=== PATIENT | male | born 1970 | race Caucasian/White ===

== ENCOUNTER → 2017-09-01 17:02 | Outpatient (CLI) | payer OTHER | END | disposition home or self-care (01) | LOC: D.LABREF 17:02 | DX: N39.0 Urinary tract infection, site not specified (principal) ==

== ENCOUNTER 2019-05-15 15:04 | Inpatient (IN) | payer MEDICAID ==
[~2019-05-15] VITALS: Ht 177.8 cm; Wt 72.6 kg
--- NOTE | ~2019-05-15 | HEMODYNAMI ---
PATIENT:NAYELI BLAS MEDICAL RECORD: [id number] : [birth year] LOCATION:D.MS [id number] ADMISSION DATE: 05/15/19 Generatedon:06/26/201916:16 Patient name: NAYELI BLAS Patient #: [id number] SS N: : 1970 Date of study: 06/26/2019 Page: Of Hemodynamic Procedure Report Patient Data Patient Demographics Procedure consent was obtained First Name: NAYELI Gender: Male Last Name: WAN : 1970 Patient #: [id number] Age: 49 year(s) Race: Unknown Additional ID: [id number] Contact details Address: [address] [place] [address] State: [place] City: [facility] Zip code: [address] Past Medical History Allergies Allergen Reaction Date Comments Reported Other allergy 06/26/2019 sulfa Admission Admission Data Admission Date: 05/15/2019 Admission Time: 17:32 Room #: D.2216 Procedure Procedure Types Cath Procedure Peripheral Cath Diagnostic Procedure PICC Procedure Description Procedure Date Procedure Date: 06/26/2019 Procedure Start Time: 16:03 Procedure End Time: 16:16 Procedure Staff Name Function Quincy Duff MD Performing Physician Briseida Landeros RT Monitor [place] RT Scrub Edelmira Awad RN Nurse Procedure Data Cath Procedure Fluoroscopy Diagnostic fluoroscopy Total fluoroscopy Time: 0.5 time: 0.5 min min Diagnostic fluoroscopy Total fluoroscopy dose: 9 dose: 9 mGy mGy Contrast Material Contrast Material Type Amount (ml) Isovue 300 0 Hemodynamics Rest Pre Cath Intra NCS Post Cath Procedure Log Time Note 15:27:00 Edelmira Awad RN sent for patient. Start room use. 15:27:05 Time tracking: Regular hours (M-F 7:00 - 5:00) 15:27:28 Plan of Care:Hemodynamics will remain stable., Cardiac rhythm will remain stable., Comfort level will be maintained., Respiratory function will remain adequate., Patient/ family verbilizes understanding of procedure., Procedure tolerated without complication., Recovers from procedure without complications.. 15:49:34 Patient received from Med/Surg to IR Alert and oriented. Tansferred to table in Supine position. 15:49:47 Signed procedure consent form obtained from patient. 15:49:52 Warm blankets applied for patient comfort. 15:50:23 Correct patient and procedure confirmed by team. 15:50:27 Full Disclosure recording started 15:52:53 - 15:52:56 Pre-procedure instructions explained to patient. 15:53:00 Pre-op teaching completed and patient verbalized understanding. 15:54:35 Family in patients room. 15:55:00 Patient allergic to Other allergysulfa 15:55:38 Right Arm was prepped with chlora-prep and draped in sterile fashion. 15:55:40 Alarms reviewed. 15:55:42 Sharps counted by scrub and verified. 15:56:40 Use device set IR Diagnostic 15:56:46 Bag Decanter (2002S) opened to sterile field. 15:56:48 Sterile Angiographic Pack opened to sterile field. 15:59:53 PowerPICC 5Fr double lumen catheter opened to sterile field. 16:00:03 Physician arrived 16:00:04 --------ALL STOP TIME OUT------ 16:00:06 Final Timeout: patient, procedure, and site verified with staff and physician. All members of the team are in agreement. 16:00:12 Right Arm site verified by team. 16:01:35 Sedation plan: None Medication:Lidocaine 16:01:48 Procedure started. 16:03:42 Local anesthetic to right arm/brachial vein / with Lidocaine 1% by Quincy Duff MD.INITIAL ACCESS ONLY 16:05:37 the wire from power picc line kit is inserted into the existing catheter, the old catheter removed. 16:08:10 PICC line was trimmed to 45cmcm and advanced to the superior vena cava.Position verified under fluoroscopy. 16:08:39 Procedure ended.(Physican Out) 16:09:57 Fluoroscopy time 00.50 minutes. 16:10:03 Flurop Dose total: 9 16:10:03 Fluoroscopy dose: 9 mGy 16:10:30 Dose Area Product 3406 mGy/cm. 16:10:41 Contrast amount:Isovue 300 0ml. 16:10:50 Sharps counted by scrub and verified by R.N. 16:11:43 Post-op/insertion site Right Brachial vein dressed using a SorbaView Sheild. 16:12:25 Post right arm:stable 16:12:56 Post procedure instruction explained to patient.Patient verbalizes understanding. 16:12:57 Patient needs reinforcement of post procedure teaching. 16:13:03 Procedure and supply charges have been captured, reviewed, submitted an d are correct. 16:15:50 See physician's report for complete and final results. 16:15:57 Report given to Med/Surg. 16:16:05 Patient transfered to Med/Surg with Bed. 16:16:13 Procedure ended. 16:16:13 Full Disclosure recording stopped Device Usage Item Name Manufacture Quantity Catalog Hospital Part Current Minimal Lot# / Number Charge Number Stock Stock Serial# Code Bag Decanter Microtek 1 [id number] () Medical Inc. Sterile Cardinal 1 [id number] 5 Angiographic Health Pack [facility] 1 [id number] 5 5Fr double lumen catheter Signature Audit Forest Stage Time Signature Unsigned Intra-Procedure 06/26/2019 Briseida 4:16:46 PM Leti BURROUGHS(Dm) (CV) Signatures Monitor : Briseida Signature : Leti BURROUGHS Date : Time : [facility] [address] [place] [id number]
[2019-05-15] MEDS ORDERED: IMODIUM2 MG PO (15:32)
[2019-05-15] MEDS ORDERED: KLONOPIN0.5 MG PO (15:33)
[2019-05-15] MEDS ORDERED: ATROVENT HFA12.9 GM INH (15:33)
[2019-05-15] MEDS ORDERED: MELATONIN 3 MG1 TAB PO (15:34)
[2019-05-15] MEDS ORDERED: LIPITOR20 MG PO (15:34)
[2019-05-15] MEDS ORDERED: LANTUS INSULIN10 ML SC (15:34)
[2019-05-15] MEDS ORDERED: NEXIUM40 MG PO (15:35)
[2019-05-15] MEDS ORDERED: NORVASC10 MG PO (15:35)
[2019-05-15] MEDS ORDERED: NEURONTIN 300300 MG PO (15:35)
[2019-05-15] MEDS ORDERED: HYDROCODON-ACE1 EA10 PO (15:35)
[2019-05-15] MEDS ORDERED: ZOFRAN4 MG PO (15:36)
[2019-05-15] MEDS ORDERED: ALBUTEROL SULF8.5 GM INH (15:37)
[2019-05-15] MEDS ORDERED: REMERON15 MG PO (15:37)
[2019-05-15] MEDS ORDERED: ULTRAM50 MG PO (15:38)
[2019-05-15] MEDS ORDERED: TRAZODONE HCL150 MG PO (15:38)
[2019-05-15] MEDS ORDERED: ZOVIRAX400 MG PO (15:38)
[2019-05-15 16:21] LABS: MCH 34.1 pg (26.0-34.0); MCV 94.8 fL (80.0-100.0); MEAN PLATELET VOLUME 11.4 fL (7.4-10.4); PLATELET COUNT 82 10x3/uL (130-400); RBC 2.11 10x6/uL (4.20-6.10); RDW 16.2 % (11.5-14.5); WBC 19.3 10x3/uL (4.8-10.8)
[2019-05-15 16:27] LABS: HEMOGLOBIN 7.2 g/dL (13.5-17.5)
[2019-05-15 16:45] LABS: ALBUMIN 3.6 g/dL (3.4-5.0); ALKALINE PHOSPHATASE 151 U/L (46-116); ALT (SGPT) 55 U/L (10-68); BILIRUBIN - TOTAL 0.23 mg/dL (0.2-1.3); CALC OSMOLALITY 279 mosm/kg (275-300); CARBON DIOXIDE 28.1 mmol/L (21.0-32.0); CHLORIDE - SERUM 99 mmol/L (98-107); CREATININE - SERUM 0.8 mg/dL (0.6-1.3); GLUCOSE 211 mg/dL (74-106); POTASSIUM - SERUM 4.1 mmol/L (3.5-5.1); PROTEIN - SERUM 7.2 g/dL (6.4-8.2); SODIUM 136 mmol/L (136-145); UREA NITROGEN 19 mg/dL (7-18); eGFR NON AFRICAN AMERICAN > 90 mL/min (90-120)
[2019-05-15 17:09] LABS: LYMPHOCYTES 79 % (15-50); MONOCYTES 13 % (2-11); NEUTROPHILS 4 % (40-80); PLATELET ESTIMATE DECREASED; ROULEAUX 4+
[2019-05-15 17:10] LABS: HYPOCHROMASIA 3+
--- NOTE | 2019-05-15 18:42 | NUR ---
RECEIVED PT FROM ER VIA STRETCHER ACCOMPANIED BY ER STAFF. PT ALERT AND ORIENTED. NO C/O PAIN. NO S/S OF ACUTE DISTRESS NOTED. WILL CONTINUE TO MONITOR.
--- NOTE | 2019-05-15 19:32 | MORECARE ---
CASE MANAGEMENT DISCHARGE SUMMARY PATIENT: NAYELI BLAS UNIT: [id number] ADM DATE: 05/15/19 AGE: 49 : [birth year] SEX: M ROOM/BED: D.2216 AUTHOR: SAVANAH LIVINGSTON PHYSICIAN: REFERRING PHYSICIAN: KALEIGH CARRANZA MD DATE OF SERVICE: 05/15/19 Discharge Plan Patient Name: NAYELI BLAS Facility: [facility]:[place] : 1970 Planned Disposition: Half-Way Facility Anticipated Discharge Date: 05/17/19 Discharge Date: Expected LOS: 2 Initial Reviewer: [email or web address] Initial Review Date: 05/15/2019 Generated: 05/15/19 8:32 pm DCPIA - Discharge Planning Initial Assessment Updated by [email or web address]: Mar Silva on 05/15/19 7:30 pm * Is the patient Alert and Oriented? Yes * How many steps to enter\exit or inside your home? * PCP Dr. Carranza * [facility] * Preadmission Environment Half-Way Facility * [facility] * ADLs Partial Dependent * Partial ADLs (Assistance needed) Ambulation Bathing Dressing Medication Management Transfers * Other Equipment No equipment at home. Uses from [facility]. * List name and contact numbers for known caregivers / representatives who currently or will assist patient after discharge: Anika Blas - - [phone] or [phone] * Verbal permission to speak to the caregivers and representatives has been obtained from the patient. Yes * Community resources currently utilized None * Additional services required to return to the preadmission environment? No * Can the patient safely return to the preadmission environment? Yes * Has this patient been hospitalized within the prior 30 days at any hospital? No Patient Name: NAYELI BLAS Page 11846 at 1932 All edits/amendments must be made on the electronic document DICTATION DATE: 05/15/191930 CERTIFIED OPHTHALMIC SURGICAL ASSISTANT: ARACELI 05/15/191930 RPT#: [id number] DC DATE: STATUS: ADM IN [facility] [address] [place] [address] END OF REPORT
--- NOTE | 2019-05-15 19:38 | MORECARE ---
CASE MANAGEMENT DISCHARGE SUMMARY PATIENT: NAYELI BLAS UNIT: [id number] ADM DATE: 05/15/19 AGE: 49 : 68 SEX: M ROOM/BED: D.2216 AUTHOR: SAVANAH LIVINGSTON PHYSICIAN: REFERRING PHYSICIAN: KALEIGH CARRANZA MD DATE OF SERVICE: 05/15/19 Discharge Plan Patient Name: NAYELI BLAS Facility: [facility]:[place] : 1970 Planned Disposition: Snf Facility Anticipated Discharge Date: 05/17/19 Discharge Date: Expected LOS: 2 Initial Reviewer: [email or web address] Initial Review Date: 05/15/2019 Generated: 05/15/19 8:38 pm DCP- Discharge Planning Updated by [email or web address]: aMr Silva on 05/15/19 6:[address] Patient Name: NAYELI BLAS Admission Status: ER Accout number: [id number] Admission Date: 05-15-2019 : 1970 Admission Diagnosis: Attending: AKLEIGH CARRANZA Current LOS: 1 Anticipated DC Date: 05-17-2019 Planned Disposition: Snf Facility Primary Insurance: MEDICAID [place] Discharge Planning Comments: CM met with patient's , Anika to complete initial dc planning assessment. CM educated Anika on the CM role and verbal consent given by Anika to complete assessment. Patient is currently in rehab @ [facility]. At discharge patient plans to return to [facility] and Anika feels this is a safe discharge. CIERRA form signed by Anika for the patine to return to [facility] at [place]. Signed form placed in chart and signed form given to Anika. She denied further known discharge needs at this time. CM will continue to follow and will assist as needed with dc plans/needs. Truck Driver Instructor: Mar Silva RN, [facility] DCPIA - Discharge Planning Initial Assessment Updated by [email or web address]: Mar Silva on 05/15/19 7:30 pm * Is the patient Alert and Oriented? Yes * How many steps to enter\exit or inside your home? * PCP Dr. Carranza * [facility] * Preadmission Environment Snf Facility * Facility Name [facility] * ADLs Partial Dependent * Partial ADLs (Assistance needed) Ambulation Bathing Dressing Medication Management Transfers * Other Equipment No equipment at home. Uses from [facility]. * List name and contact numbers for known caregivers / representatives who currently or will assist patient after discharge: Anika Blas - - [phone] or [phone] * Verbal permission to speak to the caregivers and representatives has been obtained from the patient. Yes * Community resources currently utilized None * Additional services required to return to the preadmission environment? No * Can the patient safely return to the preadmission environment? Yes * Has this patient been hospitalized within the prior 30 days at any hospital? No Last DP export: 05/15/19 6:32 p Patient Name: NAYELI BLAS Page 09617 at 1938 All edits/amendments must be made on the electronic document DICTATION DATE: 05/15/191937 WEB SITE ADMINISTRATOR: ARACELI 05/15/191937 RPT#: [id number] DC DATE: STATUS: ADM IN [facility] [address] [place] [address] END OF REPORT
--- NOTE | 2019-05-15 20:00 | NUR ---
ASSESSMENT PER ADMIT PACKET. IV PATENT LEFT UPPER ARM PICC LINE SALINE LOCKED. PT HAS RT BKA WITH BILATERAL WEAKNESS. G-TUBE IN PLACE AND CLAMPED. ALLERGY=SULFA.
[2019-05-15 20:50] VITALS: BP 108/67
--- NOTE | 2019-05-15 20:50 | NUR ---
FIRST UNIT OF PRBC'S HUNG PER HOSPITAL PROTOCAN PERMIT SIGNED AND ON THE CHART. WILL MONITOR VS DURING TRANSFUSION.
[2019-05-15 21:05] VITALS: BP 96/45
[2019-05-15 21:30] VITALS: BP 111/64
[2019-05-15 21:57] VITALS: BP 109/62
[2019-05-15 22:00] VITALS: BP 111/63
--- NOTE | 2019-05-15 23:00 | NUR ---
FIRST UNIT OF BLOOD COMPLETED WITHOUT REACTION. NS AT KVO GOING.
[2019-05-16] VITALS (14 sets, daily range): BP systolic 95–130; BP diastolic 51–76; BMI 23.0; BMI 22.9
--- NOTE | 2019-05-16 00:15 | NUR ---
SECOND UNIT BLOOD STARTED PER HOSPITAL PROTOCAL. WILL CONTINUE TO MONITOR VITAL SIGNS DURING BLOOD TRANSFUSION.
--- NOTE | 2019-05-16 01:15 | NUR ---
BLOOD CONTINUES TO INFUSE WITHOUT REACTION.
--- NOTE | 2019-05-16 02:45 | NUR ---
SECOND UNIT BLOOD COMPLETED WITH OUT REACTION. NS AT [facility] RUNNING
--- NOTE | 2019-05-16 05:03 | NUR ---
LAB DRAWN FROM PICC LINE.
--- NOTE | 2019-05-16 05:28 | NUR ---
CLIFF. URINE COMPLETE BED BATH WITH LINENS CHANGED LAB DRAWN FROM PICC LINE AND FLUSHED WITH NS. IV SALINE LOCKED.
[2019-05-16 06:20] LABS: MCH 31.5 pg (26.0-34.0); MCHC 35.8 g/dL (31.0-37.0); MEAN PLATELET VOLUME 11.7 fL (7.4-10.4); RDW 19.3 % (11.5-14.5); WBC 14.5 10x3/uL (4.8-10.8)
[2019-05-16 06:21] LABS: ALBUMIN 3.3 g/dL (3.4-5.0); ALKALINE PHOSPHATASE 127 U/L (46-116); ALT (SGPT) 46 U/L (10-68); BILIRUBIN - TOTAL 0.39 mg/dL (0.2-1.3); CARBON DIOXIDE 28.1 mmol/L (21.0-32.0); CHLORIDE - SERUM 102 mmol/L (98-107); CREATININE - SERUM 0.6 mg/dL (0.6-1.3); PROTEIN - SERUM 6.5 g/dL (6.4-8.2); SODIUM 139 mmol/L (136-145); UREA NITROGEN 15 mg/dL (7-18); eGFR NON AFRICAN AMERICAN > 90 mL/min (90-120)
[2019-05-16 06:24] LABS: CALC OSMOLALITY 280 mosm/kg (275-300); GLUCOSE 143 mg/dL (74-106); POTASSIUM - SERUM 3.4 mmol/L (3.5-5.1)
[2019-05-16 06:28] LABS: HEMATOCRIT 27.4 % (42.0-54.0); HEMOGLOBIN 9.8 g/dL (13.5-17.5); MCV 88.1 fL (80.0-100.0); RBC 3.11 10x6/uL (4.20-6.10)
[2019-05-16 06:29] LABS: PLATELET COUNT 46 10x3/uL (130-400)
[2019-05-16 10:22] LABS: EOSINOPHILS 1 % (0-7); LYMPHOCYTES 54 % (15-50); MONOCYTES 29 % (2-11); NEUTROPHILS 6 % (40-80)
[2019-05-16 10:23] LABS: ANISOCYTOSIS OCC; PLATELET ESTIMATE DECREASED; ROULEAUX OCC; SMUDGE CELLS 1+
[2019-05-16 10:37] LABS: PATH REVIEW PERIPHERAL SMEAR REVIEWED
--- NOTE | 2019-05-16 18:05 | NUR ---
I have reviewed this patient and I concur with the Shift Assessment completed by the Licensed Practical Nurse today this shift.
--- NOTE | 2019-05-16 20:00 | NUR ---
ASSESSMENT PER FLOWSHEET. NO IV AT THIS TIME PICC LINE HAS BEEN REMOVED. ASSISTED TO STANDING POSITION VOIDED IN URINAL. ASSISTED BACK TO BED. PT HAS A RT BKA. THEN PT DECIDED HE NEEDS TO HAVE A BM. ASSISTED TO BSC. LARGE MODERATE FORM BROWN STOOL NOTED. CLEANED AND LINENS CHANGED. TOTAL ASSIST BACK TO BED REPOSITIONED FOR COMFORT.
--- NOTE | 2019-05-16 21:15 | NUR ---
MEDS GIVEN PER MAR. SUJM=850. REGULAR INSULIN OF 2 UNITS GIVEN SUBC PER S/S TO LEFT UPPER ABD.
--- NOTE | 2019-05-17 | NUR ---
EYES CLOSED RESPIRATIONS WITH EASE AND UNLABORED.
[2019-05-17 01:32] VITALS: BP 124/60
--- NOTE | 2019-05-17 02:30 | NUR ---
EYES CLOSED RESPIRATIONS WITH EASE AND UNLABORED.
[2019-05-17 05:23] VITALS: BP 119/67
[2019-05-17 06:06] LABS: CALC OSMOLALITY 282 mosm/kg (275-300); CALCIUM 8.7 mg/dL (8.5-10.1); CARBON DIOXIDE 26.9 mmol/L (21.0-32.0); CHLORIDE - SERUM 104 mmol/L (98-107); CREATININE - SERUM 0.6 mg/dL (0.6-1.3); GLUCOSE 132 mg/dL (74-106); SODIUM 141 mmol/L (136-145); UREA NITROGEN 13 mg/dL (7-18); eGFR NON AFRICAN AMERICAN > 90 mL/min (90-120)
[2019-05-17 06:42] LABS: POTASSIUM - SERUM 2.8 mmol/L (3.5-5.1)
[2019-05-17 06:44] LABS: HEMATOCRIT 28.8 % (42.0-54.0); HEMOGLOBIN 10.3 g/dL (13.5-17.5); MCH 31.9 pg (26.0-34.0); MCHC 35.8 g/dL (31.0-37.0); MCV 89.2 fL (80.0-100.0); RBC 3.23 10x6/uL (4.20-6.10); WBC 21.3 10x3/uL (4.8-10.8)
[2019-05-17 06:45] LABS: MEAN PLATELET VOLUME 11.1 fL (7.4-10.4); PLATELET COUNT 40 10x3/uL (130-400)
--- NOTE | 2019-05-17 07:54 | NUR ---
PT RESTING IN BED. AROUSED BY VERBAL STIMULI. DENIES PAIN. NO S/S OF ACUTE DISTRESS. CL IN PLACE.
[2019-05-17 08:00] LABS: APPEARANCE CLEAR (CLEAR); BACTERIA FEW /hpf (NONE SEEN); BILIRUBIN NEGATIVE (NEGATIVE); COLOR YELLOW (YELLOW); EPITHELIAL CELLS OCC /hpf (0-5); GLUCOSE NEGATIVE (NEGATIVE); KETONE NEGATIVE (NEGATIVE); MUCUS <1+ /lpf (NONE SEEN); NITRITE NEGATIVE (NEGATIVE); PROTEIN NEGATIVE (NEGATIVE); SPECIFIC GRAVITY 1.005 (1.005-1.020); UROBILINOGEN NORMAL (NORMAL); WHITE CELLS - URINE OCC /hpf (0-5)
[2019-05-17 08:57] LABS: ANISOCYTOSIS OCC; LYMPHOCYTES 37 % (15-50); MONOCYTES 55 % (2-11); PLATELET ESTIMATE DECREASED; POLYCHROMASIA OCC; SMUDGE CELLS 1+
[2019-05-17 09:05] VITALS: BP 124/71
[2019-05-17 12:57] VITALS: BP 122/72
[2019-05-17 19:21] VITALS: BP 119/68
--- NOTE | 2019-05-17 19:39 | NUR ---
PT RESTING IN BED. IV SITED TO R FA 22 GAUGE AT 1200. NS 20MEQ K INFUSING. NO S/S OF ACUTE DISTRESS. CL IN PLACE. AT BEDSIDE.
--- NOTE | 2019-05-17 19:40 | NUR ---
ASSESSMENT PER FLOWSHEET. IV PATENT RT ARM OF NS W/20MEQ KCL INFUSING AT 75CC'S/HR SITE CLEAR. REQUESTING PAIN MED FOR PAIN IN HIS BACK. NORCO 10 TAB ONE PO GIVEN FOR PAIN CONTROL.
--- NOTE | 2019-05-17 21:00 | NUR ---
MEDS GIVEN PER DEC. ZQRD=461. REGULAR INSULIN 2 UNITS GIVEN SUBC PER S/S TO RT ARM. C/O BEING HOT PLACED A FAN IN HIS ROOM FOR CONFORT.
[2019-05-17 21:25] VITALS: BP 107/47
--- NOTE | 2019-05-18 | NUR ---
INC URINE COMPLETE LINENS CHANGED.
--- NOTE | 2019-05-18 01:51 | NUR ---
REQUESTING PAIN MED. FOR BACK PAIN. NORCO TAB ONE PO GIVEN FOR PAIN CONTROL.
[2019-05-18 02:22] VITALS: BP 150/67
--- NOTE | 2019-05-18 03:57 | NUR ---
RESTING QUIETLY AT THIS TIME.
[2019-05-18 05:55] VITALS: BP 132/68
[2019-05-18 06:36] LABS: HEMATOCRIT 29.4 % (42.0-54.0); HEMOGLOBIN 10.4 g/dL (13.5-17.5); MCH 31.7 pg (26.0-34.0); MCHC 35.4 g/dL (31.0-37.0); MCV 89.6 fL (80.0-100.0); RBC 3.28 10x6/uL (4.20-6.10); RDW 18.1 % (11.5-14.5); WBC 27.4 10x3/uL (4.8-10.8)
[2019-05-18 06:37] LABS: MEAN PLATELET VOLUME 10.2 fL (7.4-10.4); PLATELET COUNT 35 10x3/uL (130-400)
[2019-05-18 06:40] LABS: CALC OSMOLALITY 283 mosm/kg (275-300); CALCIUM 8.9 mg/dL (8.5-10.1); CARBON DIOXIDE 25.2 mmol/L (21.0-32.0); CHLORIDE - SERUM 107 mmol/L (98-107); CREATININE - SERUM 0.5 mg/dL (0.6-1.3); GLUCOSE 113 mg/dL (74-106); POTASSIUM - SERUM 3.5 mmol/L (3.5-5.1); SODIUM 143 mmol/L (136-145); UREA NITROGEN 7 mg/dL (7-18); eGFR NON AFRICAN AMERICAN > 90 mL/min (90-120)
--- NOTE | 2019-05-18 08:05 | NUR ---
PT RESTING IN BED WITH LIGHTS OFF. " I AM NOT HAPPY WITH THIS PLACE AND I WILL LEAVE IF I HAVE TO. THAT DUDE IS MAKING ME MAD." REDIRECTED PT WITH SUCCESS. MENTIONED TO JOSH LILLY ABOUT PT BEING WITHDRAWN AND FLAT. CELEXA 20 MG QD. NO S/S OF ACUTE DISTRESS. CL IN PLACE.
--- NOTE | 2019-05-18 08:10 | NUR ---
SPOKE WITH EDGAR MORENO WBOUT CL OF PLATELETS-35. "I WILL ADDRESS."
[2019-05-18 08:50] LABS: ANISOCYTOSIS OCC; LYMPHOCYTES 46 % (15-50); MONOCYTES 34 % (2-11); NEUTROPHILS 4 % (40-80); PLATELET ESTIMATE DECREASED
[2019-05-18 09:41] VITALS: BP 147/79
--- NOTE | 2019-05-18 10:38 | NUR ---
PT CO OF HAVING TO WAIT MORE THAN 4 HOURS TO GET PAIN MEDICATION. EXPLAINED IT WAS AN NEEDED AND HE WOULD NEED TO REQUEST. SPOKE WITH THEODORA MORENO WHO GAVE TO FOR NORCO TO BE SCHEDULED Q4. DC PREVIOUS NORCO ORDER. NO S/S OF ACUTE DISTRESS. CL IN PLACE.
[2019-05-18 13:51] VITALS: BP 130/70
--- NOTE | 2019-05-18 16:01 | NUR ---
Nutrition Follow Up: Chart reviewed Diet: ADA PO Intake: 100% meal avg BM: 05/17/19 Labs reviewed - Glucose elevated Meds noted Rec continue current diet. RD following.
[2019-05-18 17:46] VITALS: BP 141/63
--- NOTE | 2019-05-18 17:58 | NUR ---
EDGAR CALLED. TO FOR BONE BX IN AM. LAB NOTIFIED APOKE WITH KEN.
--- NOTE | 2019-05-18 18:44 | NUR ---
PT RESTING IN BED. MEPLILEX TO COCCYX. NO S/S OF ACUTE DISTRESS. CL IN PLACE.
[2019-05-18 21:13] VITALS: BP 138/71
[2019-05-19] VITALS (11 sets, daily range): BP systolic 101–142; BP diastolic 60–74
--- NOTE | 2019-05-19 05:24 | NUR ---
ASSESSED AT THE BEGINNING OF THE SHIFT. PT IS ALERT AND ORIENTED, ABLE TO VERBALIZE NEEDS. HE BEEN GIVEN PAIN MEDS NEEDED AND SLEPT MOST OF THE NIGHT WITH NO DISTRESS. HE CONTINUES TO HAVE WEAKNESS TO HIS LEFT ARM AND THERE HAVE BEEN NO PROBLEMS WITH HIS POST SURG. BKA SITE. WE HAVE NOT USED THE PEG TUBE AND HE WAS ABLE TO TAKE ALL HIS MEDS ORALLY. WHEN HIS BLOOD SUGAR WAS TAKEN AT IT WAS 173 AND WE COVERED IT WITH HIS SLIDING SCALE AND LANTUS. WE HAVE KEPT HIM NPO SINCE MIDNIGHT BECAUSE PRIOR NURSE STATED HE WAS TO HAVE SURGERY THIS MORNING BUT THERE HAVE BEEN NO ORDERS SO FAR. AT THIS TIME HE IS ASLEEP AND RESTING QUIET.
[2019-05-19 07:16] LABS: HEMATOCRIT 27.6 % (42.0-54.0); HEMOGLOBIN 9.6 g/dL (13.5-17.5); MCH 31.5 pg (26.0-34.0); MCHC 34.8 g/dL (31.0-37.0); MCV 90.5 fL (80.0-100.0); RBC 3.05 10x6/uL (4.20-6.10); RDW 17.9 % (11.5-14.5); WBC 36.6 10x3/uL (4.8-10.8)
[2019-05-19 07:17] LABS: MEAN PLATELET VOLUME 11.9 fL (7.4-10.4); PLATELET COUNT 35 10x3/uL (130-400)
--- NOTE | 2019-05-19 07:22 | NUR ---
RECEIVED CALL FROM LYLE IN LAB IN REGARDS TO PT PLATETLETS BEING 35. PHYSICIAN AWARE OF CRITICAL LAB WILL CONTINUE WITH PLAN OF CARE
[2019-05-19 07:30] LABS: CALC OSMOLALITY 281 mosm/kg (275-300); CALCIUM 8.5 mg/dL (8.5-10.1); CARBON DIOXIDE 25.2 mmol/L (21.0-32.0); CHLORIDE - SERUM 107 mmol/L (98-107); CREATININE - SERUM 0.6 mg/dL (0.6-1.3); GLUCOSE 122 mg/dL (74-106); POTASSIUM - SERUM 3.4 mmol/L (3.5-5.1); SODIUM 142 mmol/L (136-145); UREA NITROGEN 8 mg/dL (7-18); eGFR NON AFRICAN AMERICAN > 90 mL/min (90-120)
[2019-05-19 09:17] LABS: APTT 37.8 SECONDS (22.8-39.4); INR 1.36 (0.85-1.17); PROTIME 16.2 SECONDS (11.6-15.0)
[2019-05-19 09:45] LABS: EOSINOPHILS 1 % (0-7); LYMPHOCYTES 48 % (15-50); MONOCYTES 46 % (2-11); NEUTROPHILS 1 % (40-80); PLATELET ESTIMATE DECREASED
[2019-05-19 09:46] LABS: ANISOCYTOSIS OCC; SMUDGE CELLS 1+
--- NOTE | 2019-05-19 13:44 | NUR ---
I have reviewed this patient and I concur with the Shift Assessment completed by the Licensed Practical Nurse today this shift.
--- NOTE | 2019-05-19 15:24 | NUR ---
ASSISTED RACECAR DRIVER WITH PT CARE, PT STATED PAIN IS AT A 8 IN BACK, ADMINISTERED SCHEDULED PAIN MEDICATION FOR PT, NO OTHER NEEDS VOICED, CONTINUE WITH PLAN OF CARE
[2019-05-20 01:37] VITALS: BP 127/68
--- NOTE | 2019-05-20 02:02 | NUR ---
I have reviewed this patient and I concur with the Shift Assessment completed by the Licensed Practical Nurse today this shift.
--- NOTE | 2019-05-20 03:14 | NUR ---
PT HAD EPISODE OF INCONTINENCE OF BOWEL AND BLADDER. LINENS AND GOWN CHANGED, DIONNE CARE PROVIDED. MEPILEX TO COCCYX CHANGED. DRESSING TO LOWER BACK SATURATED, REMOVED. SITE IS NO LONGER BLEEDING. REDRESSED WITH GAUZE AND TEGADERM. TURNED PT TO LEFT SIDE. PT DENIES FURTHER NEEDS, WILL CONTINUE TO MONITOR.
[2019-05-20 06:25] LABS: CALC OSMOLALITY 278 mosm/kg (275-300); CALCIUM 8.6 mg/dL (8.5-10.1); CARBON DIOXIDE 27.5 mmol/L (21.0-32.0); CHLORIDE - SERUM 104 mmol/L (98-107); CREATININE - SERUM 0.7 mg/dL (0.6-1.3); GLUCOSE 104 mg/dL (74-106); POTASSIUM - SERUM 3.7 mmol/L (3.5-5.1); SODIUM 141 mmol/L (136-145); UREA NITROGEN 8 mg/dL (7-18); eGFR NON AFRICAN AMERICAN > 90 mL/min (90-120)
[2019-05-20 06:47] LABS: HEMATOCRIT 28.5 % (42.0-54.0); HEMOGLOBIN 9.9 g/dL (13.5-17.5); MCH 31.5 pg (26.0-34.0); MCHC 34.7 g/dL (31.0-37.0); MCV 90.8 fL (80.0-100.0); RBC 3.14 10x6/uL (4.20-6.10); RDW 17.8 % (11.5-14.5)
[2019-05-20 06:48] LABS: MEAN PLATELET VOLUME 12.1 fL (7.4-10.4); PLATELET COUNT 24 10x3/uL (130-400)
[2019-05-20 08:26] LABS: ANISOCYTOSIS 3+; BASOPHILS 1 % (0-2); LYMPHOCYTES 95 % (15-50); MONOCYTES 2 % (2-11); NEUTROPHILS 2 % (40-80); PLATELET ESTIMATE DECREASED; PLATELET MORPHOLOGY NORMAL PLT MORPH; ROULEAUX 1+; SMUDGE CELLS 4+
[2019-05-20 08:46] VITALS: BP 140/79
[2019-05-20 11:59] LABS: PATH REVIEW PERIPHERAL SMEAR REVIEWED
[2019-05-20 12:42] VITALS: BP 126/72
--- NOTE | 2019-05-20 14:07 | NUR ---
PT SPOUSE ASKED THAT I LOOK AT KNOT SHE FOUND ON PT NECK ON RT SIDE BELOW EAR, KNOT IS HARD AND MOVES WHEN PUSHED ON ABOUT NATASHA SIZE, CALLED JOSH LILLY AND ADVISED, HE STATED OK AND WILL ASSESS WHEN SEEN. NO OTHER NEEDS VOICED, CONTINUE WITH PLAN OF CARE. PT STATES IT DOES NOT HURT AND HE DID NOT REALIZE IT WAS THERE.
--- NOTE | 2019-05-20 14:18 | NUR ---
I have reviewed this patient and I concur with the Shift Assessment completed by the Licensed Practical Nurse today this shift.
[2019-05-20 18:26] VITALS: BP 133/68
[2019-05-20 20:00] VITALS: BP 114/67
[2019-05-21] VITALS: BP 133/61
--- NOTE | 2019-05-21 02:40 | NUR ---
C/O 05/10 PAIN. REPORTS SCHEDULED NORCO DECREASES PAIN SOME, BUT DOES NOT ADEQUATELY RELIEVE. DENIES NEEDS, WILL CONTINUE TO MONITOR.
--- NOTE | 2019-05-21 05:06 | NUR ---
I have reviewed this patient and I concur with the Shift Assessment completed by the Licensed Practical Nurse today this shift.
[2019-05-21 06:19] LABS: CALC OSMOLALITY 278 mosm/kg (275-300); CALCIUM 8.6 mg/dL (8.5-10.1); CARBON DIOXIDE 27.9 mmol/L (21.0-32.0); CHLORIDE - SERUM 106 mmol/L (98-107); CREATININE - SERUM 0.6 mg/dL (0.6-1.3); GLUCOSE 105 mg/dL (74-106); POTASSIUM - SERUM 3.2 mmol/L (3.5-5.1); SODIUM 141 mmol/L (136-145); UREA NITROGEN 8 mg/dL (7-18); eGFR NON AFRICAN AMERICAN > 90 mL/min (90-120)
[2019-05-21 06:43] LABS: HEMOGLOBIN 9.2 g/dL (13.5-17.5); MCH 30.9 pg (26.0-34.0); MCHC 34.1 g/dL (31.0-37.0); MCV 90.6 fL (80.0-100.0); PLATELET COUNT 19 10x3/uL (130-400); RBC 2.98 10x6/uL (4.20-6.10); RDW 17.9 % (11.5-14.5); WBC 42.7 10x3/uL (4.8-10.8)
--- NOTE | 2019-05-21 08:00 | NUR ---
ASSESSMENT PER FLOW SHEET. PT IS WITHOUT DISTRESS.CALL LIGHT IN REACH.
[2019-05-21 08:59] LABS: BASOPHILS 1 % (0-2); MONOCYTES 1 % (2-11); NEUTROPHILS 2 % (40-80); PLATELET ESTIMATE DECREASED
[2019-05-21 09:00] LABS: HYPOCHROMASIA 2+; SMUDGE CELLS 4+
[2019-05-21 09:50] VITALS: BP 105/55
--- NOTE | 2019-05-21 11:00 | NUR ---
PLATELETS ORDERED.PT IS WITHOUT REACTIONS.
[2019-05-21 12:59] VITALS: BP 113/58
--- NOTE | 2019-05-21 13:09 | NUR ---
NATHEN LYNCH APN BACK ON UNIT. NATHEN INFORMED OF PT AND FAMILY CONCERNS RE.. SMALL HARD AREA ON PT RIGHT NECK.
--- NOTE | 2019-05-21 18:10 | NUR ---
FAMILY TO VISIT.PT IS WITHOUT CHANGE FROM INITIAL SHIFT ASSESSMENT.CONT PLAN OF CARE
[2019-05-21 18:47] VITALS: BP 116/55
[2019-05-21 20:00] VITALS: BP 118/69
--- NOTE | 2019-05-21 20:21 | NUR ---
RCV`D PT. PT RESTING IN BED WITH EYES OPEN, AT THE BEDSIDE. EMPTIED 400 ML OF CLEAR YELLOW URINE OUT OF URINAL. VOICED CONCERNS ABOUT A KNOT ON THE RIGHT SIDE OF HIS NECK, STATED THEY MENTIONED IT TO THE BRICKLAYER HELPER TODAY BUT WERE STILL CONCERNED, IT IS NOT CAUSING PT ANY PAIN AT THIS TIME. PT DENIES ANY NEEDS AT THIS TIME. BED LOW, CALL LIGHT IN REACH, RAILS UP X 2. WILL CONTINUE TO MONITOR.
--- NOTE | 2019-05-21 21:00 | NUR ---
FSBS 191, TREATED WITH 2 UNITS REGULAR INSULIN, 10 UNITS LANTUS.
[2019-05-22] VITALS: BP 106/55
[2019-05-22 04:00] VITALS: BP 110/62
[2019-05-22 06:17] LABS: CALC OSMOLALITY 276 mosm/kg (275-300); CALCIUM 8.6 mg/dL (8.5-10.1); CARBON DIOXIDE 24.9 mmol/L (21.0-32.0); CHLORIDE - SERUM 105 mmol/L (98-107); CREATININE - SERUM 0.6 mg/dL (0.6-1.3); GLUCOSE 111 mg/dL (74-106); POTASSIUM - SERUM 3.6 mmol/L (3.5-5.1); SODIUM 139 mmol/L (136-145); UREA NITROGEN 8 mg/dL (7-18); eGFR NON AFRICAN AMERICAN > 90 mL/min (90-120)
[2019-05-22 06:40] LABS: HEMATOCRIT 24.5 % (42.0-54.0); HEMOGLOBIN 8.5 g/dL (13.5-17.5); MCH 31.3 pg (26.0-34.0); MCHC 34.7 g/dL (31.0-37.0); MCV 90.1 fL (80.0-100.0); MEAN PLATELET VOLUME 10.2 fL (7.4-10.4); RBC 2.72 10x6/uL (4.20-6.10); RDW 17.9 % (11.5-14.5)
[2019-05-22 06:41] LABS: PLATELET COUNT 42 10x3/uL (130-400)
--- NOTE | 2019-05-22 07:15 | NUR ---
REC'D IN BED WITH EYES CLOSED EASILY TO AROUSED WHEN NAME IS CALLED. RESP EVEN AND UNLABORED WITH ON DISTRESS NOTED. CAN EXPRESS NEEDS AND WANTS. NO C/O NOTED OR VOICED AT THIS TIME. C/L IN REACH AT BEDSIDE.
[2019-05-22 08:53] VITALS: BP 119/58
[2019-05-22 09:43] LABS: BASOPHILS 2 % (0-2); LYMPHOCYTES 26 % (15-50); MONOCYTES 38 % (2-11); NEUTROPHILS 4 % (40-80); PLATELET ESTIMATE DECREASED
[2019-05-22 09:44] LABS: ANISOCYTOSIS OCC; ROULEAUX OCC; SMUDGE CELLS OCC
--- NOTE | 2019-05-22 11:06 | NUR ---
WOUND CARE COCCYX PRESSURE ULCER UNSTAGEABLE 2 X 1 X 0.3 100% SLOUGH - - REMOVE AND DISCARD DRESSINGS. - CLEAN AREA WITH SOAP AND WATER AND PAT DRY. - APPLY SANTYL, NICKEL THICK, TO WOUND BASE. - COVER WITH MOISTENED 4X4. - COVER WITH DRY 4X4 AND SECURE WITH TAPE. WOUND CARE TO BE PROVIDED DAILY AND WHEN SOILED.
[2019-05-22 13:56] VITALS: BP 103/65
--- NOTE | 2019-05-22 15:24 | MORECARE ---
CASE MANAGEMENT DISCHARGE SUMMARY PATIENT: NAYELI BLAS UNIT: [id number] ADM DATE: 05/15/19 AGE: 49 : 68 SEX: M ROOM/BED: D.2216 AUTHOR: SAVANAH LIVINGSTON PHYSICIAN: REFERRING PHYSICIAN: KALEIGH CARRANZA MD DATE OF SERVICE: 05/22/19 Discharge Plan Patient Name: NAYELI BLAS Facility: [facility]:[place] : 1970 Planned Disposition: Shelter Facility Anticipated Discharge Date: 05/17/19 Discharge Date: Expected LOS: 2 Initial Reviewer: [email or web address] Initial Review Date: 05/15/2019 Generated: 05/22/19 4:24 pm Comments DCP- Discharge Planning Updated by [email or web address]: Krista Floydleonila on 05/22/19 2:[address] Received a call from Paulie Fraser that he would like the patient transferred to [facility] to his oncologist. I went to patient's room to inquire about his oncologists name and he asks why. I informed him that Paulie had called and would like to have him transferred to [facility] to his oncology team there. He states "the hell you are." His states that no one has talked to him about transfer and it is his decision if he wants to transfer or go home. I told him I agreed, that it is his choice to make and he would not be transferred without his consent. His states she is going home and will be back at 5PM tonight to speak with Paulie. I called Paulie and informed that I did not call transfer team and what the patient said. He will be here tonight at 5 to speak with the patient and . CM will continue to follow and assist with discharge planning/needs. DCP- Discharge Planning Updated by [email or web address]: Mar Silva on 05/15/19 6:[address] Patient Name: NAYELI BLAS Admission Status: ER Accout number: [id number] Admission Date: 05-15-2019 : 1970 Admission Diagnosis: Attending: KALEIGH CARRANZA Current LOS: 1 Anticipated DC Date: 05-17-2019 Planned Disposition: Shelter Facility Primary Insurance: MEDICAID [place] Discharge Planning Comments: CM met with patient's , Anika to complete initial dc planning assessment. CM educated Anika on the CM role and verbal consent given by Anika to complete assessment. Patient is currently in rehab @ [facility]. At discharge patient plans to return to [facility] and Anika feels this is a safe discharge. CIERRA form signed by Anika for the patine to return to [facility] at [place]. Signed form placed in chart and signed form given to Anika. She denied further known discharge needs at this time. CM will continue to follow and will assist as needed with dc plans/needs. Rigging Worker: Mar Silva RN, [facility] DCPIA - Discharge Planning Initial Assessment Updated by [email or web address]: Mar Silva on 05/15/19 7:30 pm * Is the patient Alert and Oriented? Yes * How many steps to enter\\exit or inside your home? * PCP Dr. Carranza * [facility] * Preadmission Environment Shelter Facility * [facility] * ADLs Partial Dependent * Partial ADLs (Assistance needed) Ambulation Bathing Dressing Medication Management Transfers * Other Equipment No equipment at home. Uses from [facility]. * List name and contact numbers for known caregivers / representatives who currently or will assist patient after discharge: Anika Blas - - ([phone] or ([phone] * Verbal permission to speak to the caregivers and representatives has been obtained from the patient. Yes * Community resources currently utilized None * Additional services required to return to the preadmission environment? No * Can the patient safely return to the preadmission environment? Yes * Has this patient been hospitalized within the prior 30 days at any hospital? No Last DP export: 05/15/19 6:38 p Patient Name: NAYELI BLAS Page 23644 at 1524 All edits/amendments must be made on the electronic document DICTATION DATE: 05/22/191523 GLYCERIN SUPERVISOR: ARACELI 05/22/191523 RPT#: [id number] DC DATE: STATUS: ADM IN [facility] [address] [place] [address] END OF REPORT
--- NOTE | 2019-05-22 19:40 | NUR ---
LYING IN BED WITH TELEVISION ON, FAMILY AT BEDSIDE. COMPLAINS OF PAIN, MEDICATION ADMINISTERED PER ORDERS, ABLE TO VOICE ALL NEEDS. WILL NOTE ANY CHANGE.
[2019-05-22 20:00] VITALS: BP 102/63
[2019-05-23] VITALS: BP 119/61
--- NOTE | 2019-05-23 00:30 | NUR ---
temperature of 100.3 reported, nurse encouraged deep breathing exercises and will recheck in one hour.
--- NOTE | 2019-05-23 03:05 | NUR ---
I have reviewed this patient and I concur with the Shift Assessment completed by the Licensed Practical Nurse today this shift.
[2019-05-23 04:00] VITALS: BP 107/656
--- NOTE | 2019-05-23 04:05 | NUR ---
RESTED WELL THIS SHIFT, AROUSED EASILY FOR SCHEDULED MEDICATIONS. ABLE TO VOICE ALL NEEDS, WILL CONTINUE TO OBSERVE.
[2019-05-23 05:04] LABS: HEMATOCRIT 24.7 % (42.0-54.0); HEMOGLOBIN 8.5 g/dL (13.5-17.5); MCH 31.1 pg (26.0-34.0); MCHC 34.4 g/dL (31.0-37.0); MCV 90.5 fL (80.0-100.0); MEAN PLATELET VOLUME 9.6 fL (7.4-10.4); RBC 2.73 10x6/uL (4.20-6.10); RDW 17.9 % (11.5-14.5)
[2019-05-23 05:07] LABS: PLATELET COUNT 34 10x3/uL (130-400); WBC 56.7 10x3/uL (4.8-10.8)
[2019-05-23 05:12] LABS: CALC OSMOLALITY 278 mosm/kg (275-300); CALCIUM 8.8 mg/dL (8.5-10.1); CARBON DIOXIDE 26.7 mmol/L (21.0-32.0); CHLORIDE - SERUM 104 mmol/L (98-107); CREATININE - SERUM 0.7 mg/dL (0.6-1.3); GLUCOSE 112 mg/dL (74-106); POTASSIUM - SERUM 3.6 mmol/L (3.5-5.1); SODIUM 140 mmol/L (136-145); UREA NITROGEN 9 mg/dL (7-18); eGFR NON AFRICAN AMERICAN > 90 mL/min (90-120)
--- NOTE | 2019-05-23 05:26 | NUR ---
LAB CALLED WITH CRITICAL RESULTS ON WBC'S AND PLATELETS, RESULTS ARE TRENDING COMPARABLY TO PAST RESULTS, WILL NOTIFY VIA TELEPHONE.
[2019-05-23 05:48] LABS: LYMPHOCYTES 14 % (15-50); MONOCYTES 2 % (2-11); NEUTROPHILS 3 % (40-80); PLATELET ESTIMATE DECREASED
[2019-05-23 05:49] LABS: ANISOCYTOSIS 1+; POIKILOCYTOSIS 2+; SMUDGE CELLS 3+
--- NOTE | 2019-05-23 06:49 | NUR ---
Ale LYNCH NOTIFIED OF CRITICAL LAB VALUES. NO NEW ORDERS AT THIS TIME.
[2019-05-23 08:46] VITALS: BP 114/58
--- NOTE | 2019-05-23 13:07 | NUR ---
NUTRITION F/U PT TOLERATING DIABETIC DIET WITH 100% INTAKE RECENT MEALS. WILL CONTINUE TO PROVIDE DIET, MONITOR PO INTAKE. RD FOLLOWING
[2019-05-23 13:23] VITALS: BP 118/66
[2019-05-23 16:55] VITALS: BP 112/58
--- NOTE | 2019-05-23 19:41 | NUR ---
LYING IN BED WITH FAMILY AT BEDSIDE, PAIN MEDICATION ADMINISTERED PER ORDERS, ABLE TO VOICE ALL NEEDS. WILL NOTE ANY CHANGE.
[2019-05-23 20:19] VITALS: BP 130/53
--- NOTE | 2019-05-24 00:49 | NUR ---
RESTING COMFORTABLY IN BED AT THIS TIME. RESPIRATIONS EVEN AND UNLABORED. WILL NOTE ANY CHANGE.
[2019-05-24 00:58] VITALS: BP 114/63
--- NOTE | 2019-05-24 04:45 | NUR ---
I have reviewed this patient and I concur with the Shift Assessment completed by the Licensed Practical Nurse today this shift.
[2019-05-24 04:54] VITALS: BP 117/55
[2019-05-24 05:38] LABS: CALC OSMOLALITY 277 mosm/kg (275-300); CALCIUM 8.5 mg/dL (8.5-10.1); CARBON DIOXIDE 26.5 mmol/L (21.0-32.0); CHLORIDE - SERUM 103 mmol/L (98-107); CREATININE - SERUM 0.6 mg/dL (0.6-1.3); GLUCOSE 119 mg/dL (74-106); POTASSIUM - SERUM 3.7 mmol/L (3.5-5.1); SODIUM 139 mmol/L (136-145); UREA NITROGEN 9 mg/dL (7-18); eGFR NON AFRICAN AMERICAN > 90 mL/min (90-120)
[2019-05-24 05:59] LABS: HEMATOCRIT 24.3 % (42.0-54.0); HEMOGLOBIN 8.4 g/dL (13.5-17.5); MCH 31.1 pg (26.0-34.0); MCHC 34.6 g/dL (31.0-37.0)
[2019-05-24 06:00] LABS: MEAN PLATELET VOLUME 9.8 fL (7.4-10.4); PLATELET COUNT 26 10x3/uL (130-400); WBC 64.3 10x3/uL (4.8-10.8)
--- NOTE | 2019-05-24 06:01 | NUR ---
NOTIFIED OF CRITICAL LABS THIS SHIFT, PHYSICIANS AWARE OF TRENDING UP, WILL CONTINUE TO OBSERVE.
[2019-05-24 06:25] LABS: LYMPHOCYTES 12 % (15-50); MONOCYTES 1 % (2-11); NEUTROPHILS 2 % (40-80); PLATELET ESTIMATE DECREASED
[2019-05-24 08:58] VITALS: BP 112/64
--- NOTE | 2019-05-24 11:10 | NUR ---
PEG TUBE DRESSING CHANGED AT THIS TIME. CLEANED WITH SALINE AND NEW DRESSING APPLIED. PATIENT COMPLAINS THAT SITE IS SORE AND HURTS WHEN TOUCHED. PATIENT RECIEVED SCHEDULED PAIN MEDS. IV INTACT. CALL LIGHT WITHIN REACH.
[2019-05-24 12:49] VITALS: BP 123/60
--- NOTE | 2019-05-24 15:30 | NUR ---
DRESSING TO COCCYX CHANGED AT THIS TIME. SANTYL APPLIED ORDERED. CALL LIGHT WITHIN REACH. FAMILY AT BEDSIDE.
[2019-05-24 15:58] VITALS: BP 125/67
--- NOTE | 2019-05-24 20:00 | NUR ---
RESTING QIITELY IN BED, RESP UNLABORED, AROUSED EASILY, STATES I HAVE CANCER ALWAYS HAVE SOMEKIND OF PAIN, PEG TUBE CLAMPED NOT IN USE AT THIS TIME, DENIES NEEDS AT THIS TIME, SEE SHIFT ASSESSMENT, CALL LIGHT IN REACH
[2019-05-24 20:49] VITALS: BP 110/54
[2019-05-25 00:39] VITALS: BP 119/54
[2019-05-25 04:54] VITALS: BP 143/70
[2019-05-25 05:44] LABS: HEMATOCRIT 21.7 % (42.0-54.0); HEMOGLOBIN 7.7 g/dL (13.5-17.5); MCH 31.7 pg (26.0-34.0); MCHC 35.5 g/dL (31.0-37.0); MCV 89.3 fL (80.0-100.0); MEAN PLATELET VOLUME 10.2 fL (7.4-10.4); RBC 2.43 10x6/uL (4.20-6.10)
[2019-05-25 05:45] LABS: PLATELET COUNT 22 10x3/uL (130-400); WBC 66.4 10x3/uL (4.8-10.8)
[2019-05-25 06:02] LABS: CALC OSMOLALITY 277 mosm/kg (275-300); CALCIUM 8.3 mg/dL (8.5-10.1); CARBON DIOXIDE 25.5 mmol/L (21.0-32.0); CHLORIDE - SERUM 104 mmol/L (98-107); CREATININE - SERUM 0.6 mg/dL (0.6-1.3); GLUCOSE 138 mg/dL (74-106); POTASSIUM - SERUM 3.5 mmol/L (3.5-5.1); SODIUM 139 mmol/L (136-145); UREA NITROGEN 8 mg/dL (7-18); eGFR NON AFRICAN AMERICAN > 90 mL/min (90-120)
[2019-05-25 08:22] VITALS: BP 119/64
[2019-05-25 08:26] LABS: ANISOCYTOSIS OCC; LYMPHOCYTES 13 % (15-50); MONOCYTES 35 % (2-11); NEUTROPHILS 2 % (40-80); PLATELET ESTIMATE DECREASED; SMUDGE CELLS 1+
[2019-05-25 13:15] VITALS: BP 137/62
--- NOTE | 2019-05-25 18:20 | NUR ---
PT RESTING IN BED. NO SIGNS OF DISTRESS. IV TO RIGHT FORARM PATENT NO REDNESS OR TENDERNESS. ON TELEMETRY 106 ST. HAS STAGE TWO TO COCCYX. DRESSING INTACT. COMPLAINS OF PAIN. MEDICATION GIVEN. DENIES ANY FUTHER NEED AT THIS TIME. CALL LIGHT IN REACH.
--- NOTE | 2019-05-25 19:30 | NUR ---
PT LYING IN BED RESTING, ALERT AND ORIENTED. STATES PAIN 05/10. GAVE SCHEDULED NORCO. IV RIGHT FA INFUSING NS W/ K+ @ 125. HR 93SR PER TELE. AT BEDSIDE. DENIES OTHER NEEDS AT THIS TIME. CL IN REACH, WILL CTM
[2019-05-25 21:44] VITALS: BP 113/54
[2019-05-26] VITALS: BP 117/58
[2019-05-26 06:15] LABS: HEMATOCRIT 27.5 % (42.0-54.0); HEMOGLOBIN 9.8 g/dL (13.5-17.5); MCH 31.3 pg (26.0-34.0); MCHC 35.6 g/dL (31.0-37.0); MCV 87.9 fL (80.0-100.0); MEAN PLATELET VOLUME 9.2 fL (7.4-10.4); PLATELET COUNT 16 10x3/uL (130-400); RBC 3.13 10x6/uL (4.20-6.10); RDW 17.2 % (11.5-14.5); WBC 87.8 10x3/uL (4.8-10.8)
[2019-05-26 06:23] LABS: CALC OSMOLALITY 279 mosm/kg (275-300); CALCIUM 8.4 mg/dL (8.5-10.1); CARBON DIOXIDE 23.5 mmol/L (21.0-32.0); CHLORIDE - SERUM 104 mmol/L (98-107); CREATININE - SERUM 0.6 mg/dL (0.6-1.3); GLUCOSE 131 mg/dL (74-106); POTASSIUM - SERUM 3.5 mmol/L (3.5-5.1); SODIUM 140 mmol/L (136-145); UREA NITROGEN 9 mg/dL (7-18); eGFR NON AFRICAN AMERICAN > 90 mL/min (90-120)
--- NOTE | 2019-05-26 06:32 | NUR ---
SPOKE WITH SYED MORENO ABOUT CRITICAL PLT AND WBC. ORDERS TO TRANSFUSE 2 UNITS PLATELET APHERESIS. CALLED LAB TO NOTIFY OF NEW ORDER
[2019-05-26 08:48] LABS: LYMPHOCYTES 24 % (15-50); MONOCYTES 34 % (2-11); NEUTROPHILS 1 % (40-80)
[2019-05-26 08:49] LABS: ANISOCYTOSIS OCC; PLATELET ESTIMATE DECREASED
[2019-05-26 11:59] VITALS: BP 131/63
--- NOTE | 2019-05-26 16:11 | NUR ---
PT RESTING IN BED. NO SIGNS OF DISTRESS. IV TO RIGHT FORARM PATENT NO REDNESS OR TENDERNESS. ON TELEMETRY 92 SR. COMPLAINS OF PAIN. MEDICATION GIVEN. NO SIGNS OF DISTRESS. DENIES ANY FUTHER NEED AT THIS TIME. CALL LIGHT IN REACH. BED LOW POSITION. FAMILY AT BEDSIDE.
[2019-05-26 16:32] VITALS: BP 115/55
--- NOTE | 2019-05-26 18:00 | NUR ---
I have reviewed this patient and I concur with the Shift Assessment completed by the Licensed Practical Nurse today this shift.
[2019-05-26 20:00] VITALS: BP 133/65
[2019-05-27] VITALS: BP 118/57
--- NOTE | 2019-05-27 03:29 | NUR ---
PT RESTING IN BED. ALERT AND ORIENTED. NO SIGNS OF DISTRESS. BREATHING EVEN AND UNLABORED. PT STATES NO PROBLEMS AT THIS TIME. IV SITE RT FA DRESSING CLEAN DRY AND INTACT. NO SIGNS OF INFECTION. BOWEL SOUNDS ACTIVE. TELE MONITOR ON 95 SINUS. WILL CONTINUE PLAN OF CARE. CALL LIGHT IN REACH. BED LOWERED AND LOCKED. BED RAILS UP X2. 1ST STEP OVERLAY MATTRESS.
[2019-05-27 04:00] VITALS: BP 122/65
--- NOTE | 2019-05-27 04:38 | NUR ---
I have reviewed this patient and I concur with the Shift Assessment completed by the Licensed Practical Nurse today this shift.
[2019-05-27 07:08] LABS: CALC OSMOLALITY 276 mosm/kg (275-300); CALCIUM 8.5 mg/dL (8.5-10.1); CARBON DIOXIDE 25.9 mmol/L (21.0-32.0); CHLORIDE - SERUM 102 mmol/L (98-107); CREATININE - SERUM 0.7 mg/dL (0.6-1.3); GLUCOSE 134 mg/dL (74-106); POTASSIUM - SERUM 3.1 mmol/L (3.5-5.1); SODIUM 138 mmol/L (136-145); UREA NITROGEN 9 mg/dL (7-18); eGFR NON AFRICAN AMERICAN > 90 mL/min (90-120)
[2019-05-27 07:25] LABS: HEMATOCRIT 27.3 % (42.0-54.0); HEMOGLOBIN 9.5 g/dL (13.5-17.5); MCH 30.8 pg (26.0-34.0); MCHC 34.8 g/dL (31.0-37.0); MCV 88.6 fL (80.0-100.0); MEAN PLATELET VOLUME 9.7 fL (7.4-10.4); RBC 3.08 10x6/uL (4.20-6.10); RDW 17.2 % (11.5-14.5)
[2019-05-27 07:31] LABS: PLATELET COUNT 49 10x3/uL (130-400); WBC 90.4 10x3/uL (4.8-10.8)
[2019-05-27 08:23] LABS: HYPOCHROMASIA 2+; LYMPHOCYTES 4 % (15-50); PLATELET ESTIMATE DECREASED; SMUDGE CELLS 4+
[2019-05-27 08:58] VITALS: BP 117/57
--- NOTE | 2019-05-27 11:00 | NUR ---
PT COMPLAINS OF PAIN, STATED 1 TIME DOSE OF MORPHINE ORDERED DID NOT HELP, TIMOTHY PLACED ORDER FOR VISITOR SERVICES REPRESENTATIVE, PLACED VISITOR SERVICES REPRESENTATIVE ND EDUCATED PT AND HOW TO USE, CAME BACK IN 30MINS LATER AND PT STATED VISITOR SERVICES REPRESENTATIVE IS NOT WORKING, ADVISED PT TO GIVE MEDICINE TIME TO WORK, ALSO GAVE PT SCHEDULED NORCO, CONTINUE WITH PLAN OF CARE
[2019-05-27 12:32] VITALS: BP 110/65
[2019-05-27 17:09] VITALS: BP 99/67
--- NOTE | 2019-05-27 18:45 | NUR ---
I have reviewed this patient and I concur with the Shift Assessment completed by the Licensed Practical Nurse today this shift.
--- NOTE | 2019-05-27 19:35 | NUR ---
PT SITTING UP IN BED RESTING WITH EYES CLOSED. ALERT AND ORIENTED. STATES PAIN 6/10 AND "MUCH BETTER" SINCE BEGINNING SORTER LAUNDRY ARTICLES. IV RIGHT FA INFUSING BICARB @ 100 WITH MORPHINE SORTER LAUNDRY ARTICLES. HR 97 SR PER TELE. REQUESTED AND GIVEN WATER. DENIES OTHER NEEDS. CL IN REACH, WILL CTM
[2019-05-27 20:00] VITALS: BP 128/63
[2019-05-28] VITALS: BP 112/60
[2019-05-28 04:00] VITALS: BP 128/66
[2019-05-28 07:09] LABS: CALC OSMOLALITY 280 mosm/kg (275-300); CALCIUM 8.1 mg/dL (8.5-10.1); CARBON DIOXIDE 23.5 mmol/L (21.0-32.0); CHLORIDE - SERUM 103 mmol/L (98-107); CREATININE - SERUM 0.8 mg/dL (0.6-1.3); GLUCOSE 154 mg/dL (74-106); POTASSIUM - SERUM 3.3 mmol/L (3.5-5.1); SODIUM 139 mmol/L (136-145); UREA NITROGEN 13 mg/dL (7-18); eGFR NON AFRICAN AMERICAN > 90 mL/min (90-120)
[2019-05-28 07:11] LABS: HEMATOCRIT 26.5 % (42.0-54.0); HEMOGLOBIN 9.2 g/dL (13.5-17.5); MCHC 34.7 g/dL (31.0-37.0); MCV 89.2 fL (80.0-100.0); MEAN PLATELET VOLUME 9.4 fL (7.4-10.4); RBC 2.97 10x6/uL (4.20-6.10); RDW 17.2 % (11.5-14.5)
[2019-05-28 07:12] LABS: PLATELET COUNT 33 10x3/uL (130-400); WBC 102.6 10x3/uL (4.8-10.8)
[2019-05-28 07:50] LABS: BASOPHILS 1 % (0-2); HYPOCHROMASIA 3+; MONOCYTES 1 % (2-11); PLATELET ESTIMATE DECREASED; SMUDGE CELLS 4+
[2019-05-28 09:15] VITALS: BP 128/59
--- NOTE | 2019-05-28 10:28 | NUR ---
PT LYING IN BED, CL I S IN REACH PT STATES THAT HIS PAIN IS MORE MANAGEABLE NOW WITH PONY RIDE OPERATOR, NO NEEDS VOICED, BED IN LOW POSITION, CL IN REACH CONTINUE WITH PLAN OF CARE
[2019-05-28 13:10] VITALS: BP 123/63
[2019-05-28 16:22] VITALS: BP 103/46
--- NOTE | 2019-05-28 16:23 | NUR ---
PT LYING IN BED STATES PAIN IS AT A 9 AND WOULD LIKE PAIN MEDICATION ADVISED PT HAS STATISTICS TEACHER AND HE STATED HE PUSHES IT ALL THE TIME AND IS STILL HURTING, PAGED MAXX WITH DR ELLER'S OFFICE
--- NOTE | 2019-05-28 16:55 | NUR ---
PT FREELANCE INTERPRETER/TRANSLATOR IS NOW AT 1MG CONTINUOUS, PT STATED STILL HURTING, CALLED PATTERN CHANGER AND WAS ADVISED TO GIVE BOLUS 5MG PRN CONTINUE WITH PLAN OF CARE
--- NOTE | 2019-05-28 18:00 | NUR ---
I have reviewed this patient and I concur with the Shift Assessment completed by the Licensed Practical Nurse today this shift.
--- NOTE | 2019-05-28 19:15 | NUR ---
PT ALERT AND ORIENTED. SIGNIFICANT OTHER AT BEDSIDE. PATIENT HAS GENERALIZED WEAKNESS AND ABDOMINAL BRUISES. PEG TUBE TO THE UPPER RIGHT QUADRANT THAT IS CLEAN AND DRY AROUND INSERTION SITE. PATIENT COMPLANIS OF CONSTANT PAIN. MORPHINE MIX HOUSE TENDER AT 1 MG. STATES THAT "MEDICINE HELPS BUT THE PAIN IS ALWAYS THERE". RIGHT BKA. AREA CLEAN. DENIES FURTHER ISSUES AT THIS TIME. CPOC.
[2019-05-28 20:00] VITALS: BP 134/62
[2019-05-29] VITALS: BP 127/61
--- NOTE | 2019-05-29 03:52 | NUR ---
I have reviewed this patient and I concur with the Shift Assessment completed by the Licensed Practical Nurse today this shift.
[2019-05-29 04:00] VITALS: BP 128/68
[2019-05-29 06:03] LABS: CALC OSMOLALITY 281 mosm/kg (275-300); CALCIUM 8.2 mg/dL (8.5-10.1); CARBON DIOXIDE 22.8 mmol/L (21.0-32.0); CHLORIDE - SERUM 102 mmol/L (98-107); CREATININE - SERUM 0.6 mg/dL (0.6-1.3); GLUCOSE 130 mg/dL (74-106); SODIUM 141 mmol/L (136-145); UREA NITROGEN 10 mg/dL (7-18); eGFR NON AFRICAN AMERICAN > 90 mL/min (90-120)
[2019-05-29 06:32] LABS: HEMATOCRIT 27.3 % (42.0-54.0); MCH 30.9 pg (26.0-34.0); MCV 93.8 fL (80.0-100.0); MEAN PLATELET VOLUME 8.8 fL (7.4-10.4); PLATELET COUNT 24 10x3/uL (130-400); RBC 2.91 10x6/uL (4.20-6.10); RDW 17.7 % (11.5-14.5); WBC 104.2 10x3/uL (4.8-10.8)
[2019-05-29 06:54] LABS: POTASSIUM - SERUM 2.9 mmol/L (3.5-5.1)
--- NOTE | 2019-05-29 07:25 | NUR ---
PATIENT RESTING IN BED WITH CONTINUED PAIN WITH CONTRACT ADMIN. WILL ADDRESS WITH DIRECTOR OF MUSIC THERAPY TO INCRESE.
[2019-05-29 08:20] LABS: ANISOCYTOSIS OCC; CRENATED CELLS OCC; LYMPHOCYTES 22 % (15-50); MONOCYTES 40 % (2-11); NEUTROPHILS 2 % (40-80); PLATELET ESTIMATE DECREASED; SMUDGE CELLS 1+
[2019-05-29 08:46] VITALS: BP 138/63
[2019-05-29 12:08] VITALS: BP 138/63
--- NOTE | 2019-05-29 15:25 | NUR ---
NUTRITION F/U PT TOLERATING DIABETIC DIET. GOOD INTAKE RECENT MEALS. WILL CONTINUE TO PROVIDE DIET, MONITOR PO INTAKE. RD FOLLOWING
[2019-05-29 16:41] VITALS: BP 135/63
[2019-05-29 20:00] VITALS: BP 129/60
--- NOTE | 2019-05-29 20:00 | NUR ---
ASSESSMENT PER FLOWSHEET. IV PATENT RT FOREARM OF NS W/40MEQ KCL/BICARB INFUSING AT 100CC'S/HR. TURN SUPERVISOR OF MORPHINE IN USE WITH SETTINGS AT 1MG Q15MIN W/NO L/O. RESERVING LEFT ARM. DVT. 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
--- NOTE | 2019-05-29 21:30 | NUR ---
MEDS GIVEN PER MAR. KASP=833.REGULAR INSULIN 6 UNITS GIVEN SUBC PER S/S.
--- NOTE | 2019-05-30 | NUR ---
RESTING QUIETLY VOIDED IN URINAL.
[2019-05-30 04:00] VITALS: BP 110/73
[2019-05-30 06:42] LABS: HEMATOCRIT 24.8 % (42.0-54.0); HEMOGLOBIN 8.5 g/dL (13.5-17.5); MCH 30.8 pg (26.0-34.0); MCHC 34.3 g/dL (31.0-37.0); MCV 89.9 fL (80.0-100.0); PLATELET COUNT 19 10x3/uL (130-400); RBC 2.76 10x6/uL (4.20-6.10); RDW 17.3 % (11.5-14.5); WBC 118.4 10x3/uL (4.8-10.8)
[2019-05-30 06:57] LABS: CALCIUM 8.1 mg/dL (8.5-10.1); CARBON DIOXIDE 26.1 mmol/L (21.0-32.0); CREATININE - SERUM 0.6 mg/dL (0.6-1.3); GLUCOSE 157 mg/dL (74-106); UREA NITROGEN 8 mg/dL (7-18); eGFR NON AFRICAN AMERICAN > 90 mL/min (90-120)
--- NOTE | 2019-05-30 07:10 | NUR ---
AWAKENS INT. PT IS WITHOUT DISTRESS AT PRESENT.CALL LIGHT IN REACH
[2019-05-30 08:06] LABS: CALC OSMOLALITY 281 mosm/kg (275-300); CHLORIDE - SERUM 103 mmol/L (98-107); SODIUM 141 mmol/L (136-145)
[2019-05-30 08:08] LABS: POTASSIUM - SERUM 2.9 mmol/L (3.5-5.1)
[2019-05-30 08:30] LABS: BASOPHILS 2 % (0-2); LYMPHOCYTES 11 % (15-50); MONOCYTES 44 % (2-11); NEUTROPHILS 4 % (40-80); PLATELET ESTIMATE DECREASED
[2019-05-30 08:31] LABS: ANISOCYTOSIS OCC; ROULEAUX OCC; SMUDGE CELLS 1+
[2019-05-30 08:36] VITALS: BP 127/61
--- NOTE | 2019-05-30 09:00 | NUR ---
ASSESSMENT PER FLOW SHEET. PT IS WITHOUT DISTRESS.CALL LIGHT IN REACH
--- NOTE | 2019-05-30 10:26 | NUR ---
INTENSIVE CARE NURSE SETTINGS CHANGED ORDERED.PT WANTS PAIN MEDS TO INFUSE BEFORE PLATELETS STARTED
--- NOTE | 2019-05-30 16:06 | NUR ---
DRESSING CHNAGE TO BUTTOCKS ORDERED PER MAR
--- NOTE | 2019-05-30 17:22 | NUR ---
PT REMAINS WITHOUT NEEDS. CALL LIGHT IN REACH
[2019-05-30 17:36] VITALS: BP 124/65
--- NOTE | 2019-05-30 20:00 | NUR ---
AQSSESSMENT PER FLOWSHEET. FAMILY IN ROOM. IV PATENT RT ARM OF NS 40MEQ KCL AND 50MEQ BICARB INFUSING AT 100CC'S/HR. SITE CLEAR. PT ON FIRST STEP AIR BED. SR UP X2 CALL LIGHT WITHIN REACH. URGENT CARE PHYSICIAN OF MORPHINE IN USE WITH SETTINGS AT 2MG /HR CONTINUOUS. RT SILVIA (OLD) GTUBE PATENT AND CLAMPED TO LEFT UPPER ABDOMEN.
--- NOTE | 2019-05-30 21:15 | NUR ---
MEDS GIVEN PER MAR. RJFV=[id number] REGULAR INSULIN 2 UNITS GIVEN SUBC PER S/S.
--- NOTE | 2019-05-31 | NUR ---
EYES CLOSED RESPIRATIONS WITH EASE AND UNLABORED.
[2019-05-31 04:00] VITALS: BP 125/62
--- NOTE | 2019-05-31 08:15 | NUR ---
PATIENT IN BED WITH IV INTACT. NO COMPLAINTS OR SIGNS OF DISTRESS. CALL LIGHT WITHIN REACH.
[2019-05-31 08:21] LABS: CALC OSMOLALITY 280 mosm/kg (275-300); CALCIUM 8.1 mg/dL (8.5-10.1); CARBON DIOXIDE 26.4 mmol/L (21.0-32.0); CHLORIDE - SERUM 103 mmol/L (98-107); CREATININE - SERUM 0.7 mg/dL (0.6-1.3); GLUCOSE 155 mg/dL (74-106); POTASSIUM - SERUM 3.9 mmol/L (3.5-5.1); SODIUM 140 mmol/L (136-145); UREA NITROGEN 9 mg/dL (7-18); eGFR NON AFRICAN AMERICAN > 90 mL/min (90-120)
[2019-05-31 08:28] LABS: HEMATOCRIT 24.4 % (42.0-54.0); HEMOGLOBIN 8.3 g/dL (13.5-17.5); MCH 30.6 pg (26.0-34.0); RBC 2.71 10x6/uL (4.20-6.10); RDW 17.3 % (11.5-14.5); WBC 141.2 10x3/uL (4.8-10.8)
[2019-05-31 08:29] LABS: MEAN PLATELET VOLUME 11.3 fL (7.4-10.4); PLATELET COUNT 47 10x3/uL (130-400)
--- NOTE | 2019-05-31 08:30 | NUR ---
PATIENT RECIEVED 5 MG OF MORPHINE IV THROUGH INTERVENTIONAL PAIN PHYSICIAN PER MAXX OPERATIONS INTELLIGENCE. NO COMPLAINTS OR SIGNS OF DISTRESS. CALL LIGHT WITHIN REACH.
[2019-05-31 08:55] VITALS: BP 137/64
[2019-05-31 11:12] LABS: BASOPHILS 1 % (0-2); LYMPHOCYTES 10 % (15-50); MONOCYTES 6 % (2-11); NEUTROPHILS 2 % (40-80); PLATELET ESTIMATE DECREASED
[2019-05-31 11:13] LABS: HYPOCHROMASIA OCC
[2019-05-31 13:57] VITALS: BP 126/62
[2019-05-31 16:24] VITALS: BP 106/55
--- NOTE | 2019-05-31 18:27 | NUR ---
PATIENT STATED STILL A LITTLE NAUSEATED. DOES NOT WANT TO EAT YET. IV INTACT. ENVIRONMENTAL SCIENCE PROGRAM DIRECTOR INTACT. FAMILY AT BEDSIDE. CALL LIGHT WITHIN REACH.
--- NOTE | 2019-05-31 20:00 | NUR ---
ASSESSMENT PER FLOWSHEET. IV PATENT RT FOREARM OF NS W/40MEQ KCL AND 50MEQ BICARB INFUSING AT 100CC'S/HR. SITE CLEAR. RESEARCH HYDROLOGIST OF MORPHINE IN USE WITH 2MG /HR CONTINUOUS.
[2019-05-31 21:15] VITALS: BP 133/61
--- NOTE | 2019-05-31 21:45 | NUR ---
MEDS GIVEN PER DEC YSUO=051 REGULAR INSULIN 2 UNITS GIVEN SUBC RT UPPER AQBDOMEN. CHEMO MED GIVEN SUBC TO LEFT UPPER ABDOMEN ORDERED.
--- NOTE | 2019-06-01 00:28 | NUR ---
EYES CLOSED RESPIRATIONS WITH EASE AND UNLABORED.
[2019-06-01 05:11] VITALS: BP 106/42
--- NOTE | 2019-06-01 08:00 | NUR ---
PATIENT IN BED WITH IV INTACT. NO COMPLAINTS AT THIS TIME. CALL LIGHT WITHIN REACH.
[2019-06-01 08:30] VITALS: BP 118/58
[2019-06-01 09:18] LABS: CALC OSMOLALITY 281 mosm/kg (275-300); CALCIUM 7.7 mg/dL (8.5-10.1); CARBON DIOXIDE 24.7 mmol/L (21.0-32.0); CHLORIDE - SERUM 103 mmol/L (98-107); CREATININE - SERUM 0.7 mg/dL (0.6-1.3); GLUCOSE 153 mg/dL (74-106); POTASSIUM - SERUM 3.5 mmol/L (3.5-5.1); SODIUM 140 mmol/L (136-145); eGFR NON AFRICAN AMERICAN > 90 mL/min (90-120)
[2019-06-01 09:19] LABS: UREA NITROGEN 13 mg/dL (7-18)
[2019-06-01 09:46] LABS: HEMATOCRIT 22.6 % (42.0-54.0); HEMOGLOBIN 7.7 g/dL (13.5-17.5); MCH 30.8 pg (26.0-34.0); MCHC 34.1 g/dL (31.0-37.0); MCV 90.4 fL (80.0-100.0); PLATELET COUNT 20 10x3/uL (130-400); RDW 17.4 % (11.5-14.5); WBC 115.5 10x3/uL (4.8-10.8)
[2019-06-01 11:02] LABS: ACANTHOCYTES OCC; ANISOCYTOSIS OCC; HYPOCHROMASIA OCC; LYMPHOCYTES 38 % (15-50); MONOCYTES 11 % (2-11); NEUTROPHILS 2 % (40-80); PLATELET ESTIMATE DECREASED; SMUDGE CELLS OCC
[2019-06-01 13:34] VITALS: BP 119/54
--- NOTE | 2019-06-01 15:50 | NUR ---
PATIENT 1ST UNIT OF PRBCS STARTED. IV INTACT. VS STABLE. RECIEVED TYLENOL BEFORE PLATELETS FOR 100.2 TEMP. NO COMPLAINTS OR SIGNS OF DISTRESS. CALL LIGHT WITHIN REACH.
--- NOTE | 2019-06-01 18:45 | NUR ---
PATIENT IN BED WITH IV INTACT. NO COMPLAINTS OR SIGNS OF DISTRESS. BLOOD INFUSING. VS STABLE. FAMILY AT BEDSIDE. CALL LIGHT WITHIN REACH.
--- NOTE | 2019-06-01 19:10 | NUR ---
SECOND UNIT OF BLOOD STARTED AT THS TIME. IV INTACT. VS STABLE. NO COMPLAINTS OR SIGNS OF DISTRESS. FAMILY AT BEDSIDE. CALL LIGHT WITHIN REACH.
[2019-06-01 20:25] VITALS: BP 108/47
--- NOTE | 2019-06-01 21:39 | NUR ---
LAST UNIT PRBC'S INFUSION COMPLETE. VITAL SIGNS STABLE. CYTARABINE GIVEN SC. CHEMO PRECAUTIONS OBSERVED. FSBS 203 - INSULIN GIVEN PER SS. NO OTHER NEEDS. WILL CONTINUE TO MONITOR.
[2019-06-01 21:50] VITALS: BP 106/50
[2019-06-02 06:35] VITALS: BP 135/56
[2019-06-02 06:51] LABS: CALC OSMOLALITY 288 mosm/kg (275-300); CALCIUM 7.5 mg/dL (8.5-10.1); CARBON DIOXIDE 25.1 mmol/L (21.0-32.0); CHLORIDE - SERUM 104 mmol/L (98-107); CREATININE - SERUM 0.7 mg/dL (0.6-1.3); GLUCOSE 187 mg/dL (74-106); POTASSIUM - SERUM 3.3 mmol/L (3.5-5.1); SODIUM 141 mmol/L (136-145); eGFR NON AFRICAN AMERICAN > 90 mL/min (90-120)
[2019-06-02 06:54] LABS: UREA NITROGEN 20 mg/dL (7-18)
--- NOTE | 2019-06-02 07:25 | NUR ---
PT AWKENS INT. HE DENIES NEEDS AT PRESENT. MONITOR FOR NEEDS.
[2019-06-02 07:48] LABS: HEMATOCRIT 27.3 % (42.0-54.0); HEMOGLOBIN 9.2 g/dL (13.5-17.5); MCH 29.5 pg (26.0-34.0); MCHC 33.7 g/dL (31.0-37.0); MCV 87.5 fL (80.0-100.0); PLATELET COUNT 27 10x3/uL (130-400); RBC 3.12 10x6/uL (4.20-6.10); RDW 19.4 % (11.5-14.5)
[2019-06-02 08:34] VITALS: BP 120/55
--- NOTE | 2019-06-02 09:00 | NUR ---
PT PLACED ON NEUTROPENIC ISOLATION ORDERED
--- NOTE | 2019-06-02 10:00 | NUR ---
ASSESSMENT PER FLOW SHEET. PT IS WITHOUT DISTRESS. MONITOR FOR NEEDS
[2019-06-02 11:05] LABS: ANISOCYTOSIS OCC; LYMPHOCYTES 3 % (15-50); MONOCYTES 40 % (2-11); PLATELET ESTIMATE DECREASED; SMUDGE CELLS 2+
--- NOTE | 2019-06-02 11:32 | NUR ---
WAITING ON INSULIN FROM PHARMACY,SPOKE WITH DALJIT.
[2019-06-02 12:54] VITALS: BP 124/51
--- NOTE | 2019-06-02 14:04 | NUR ---
AT BEDSIDE. PT IS WITHOUT NEEDS
--- NOTE | 2019-06-02 15:47 | NUR ---
REMAINS WITHOUT DISTRESS.CUP OF WATER SPILLED ON BED THIS EVENING. GOWN AND TOP SHEET CHANGED. PT REFUSED TO LET ME CHANGE PAD, SMALL WET AREA NOTED. ALSO REFUSES TO TURN FOR DRESSING CHANGE AT THIS TIME.
--- NOTE | 2019-06-02 18:26 | NUR ---
REMAINS WITHOUT CHANGE.CONT PLAN OF CARE
[2019-06-02 20:00] VITALS: BP 118/56
[2019-06-03] VITALS: BP 102/60
[2019-06-03 04:00] VITALS: BP 131/65
--- NOTE | 2019-06-03 05:45 | NUR ---
GAVE BOLUS 0.4 MG DILAUDID THROUGH CARDIOLOGY PHYSICIAN PRIOR TO DATA ADMINISTRATOR GIVING BED BATH AND LINEN CHANGE. APPLIED SANTYL TO WOUND BED ON COCCYX AND APPLIED NEW DRESSING. NO OTHER NEEDS. WILL REASSESS AND CONTINUE TO MONITOR.
[2019-06-03 08:35] LABS: HEMATOCRIT 24.6 % (42.0-54.0); HEMOGLOBIN 8.2 g/dL (13.5-17.5); MCH 29.6 pg (26.0-34.0); MCHC 33.3 g/dL (31.0-37.0); MCV 88.8 fL (80.0-100.0); RBC 2.77 10x6/uL (4.20-6.10); RDW 19.2 % (11.5-14.5); WBC 29.8 10x3/uL (4.8-10.8)
[2019-06-03 08:36] LABS: PLATELET COUNT 9 10x3/uL (130-400)
--- NOTE | 2019-06-03 08:38 | NUR ---
JUAN, WITH LAB, CALLED CRITICAL LABS. PLATELETS 9, WBC 29. RESULTS GIVEN TO HIS NURSE, ADAM.
[2019-06-03 08:39] LABS: CALC OSMOLALITY 285 mosm/kg (275-300); CALCIUM 7.7 mg/dL (8.5-10.1); CARBON DIOXIDE 25.2 mmol/L (21.0-32.0); CHLORIDE - SERUM 104 mmol/L (98-107); CREATININE - SERUM 0.6 mg/dL (0.6-1.3); GLUCOSE 180 mg/dL (74-106); POTASSIUM - SERUM 3.9 mmol/L (3.5-5.1); SODIUM 139 mmol/L (136-145); UREA NITROGEN 20 mg/dL (7-18); eGFR NON AFRICAN AMERICAN > 90 mL/min (90-120)
[2019-06-03 08:45] VITALS: BP 127/56
--- NOTE | 2019-06-03 08:58 | NUR ---
PGE TO NATHEN LYNCH APN RE.. CRITICAL LABS
[2019-06-03 09:11] LABS: LYMPHOCYTES 14 % (15-50); MONOCYTES 2 % (2-11); NEUTROPHILS 3 % (40-80); PLATELET ESTIMATE DECREASED
[2019-06-03 20:00] VITALS: BP 117/52
--- NOTE | 2019-06-03 21:14 | NUR ---
PT C/O PAIN 07/11. GAVE BOLUS DILAUDID 0.4 MG THROUGH STORE ADMINISTRATOR. FSBS 203 - GAVE INSULIN PER SS AND SCHEDULED MEDS. VITAS SIGNS STABLE. ADMINISTERED CYTARABINE SC TO LLQ. CHEMO HANDLING PRECAUTIONS AND NEUTRAPENIC PRECAUTIONS OBSERVED. ASSESSMENT COMPLETE PER FLOW-SHEET. NO OTHER NEEDS. WILL REASSESS AND CONTINUE TO MONITOR.
[2019-06-04] VITALS (8 sets, daily range): BP systolic 102–135; BP diastolic 41–63; Ht 177.8 cm; Wt 72.6 kg
[2019-06-04 05:46] LABS: HEMATOCRIT 22.6 % (42.0-54.0); HEMOGLOBIN 7.6 g/dL (13.5-17.5); MCH 29.7 pg (26.0-34.0); MCHC 33.6 g/dL (31.0-37.0); MCV 88.3 fL (80.0-100.0); MEAN PLATELET VOLUME 9.5 fL (7.4-10.4); RBC 2.56 10x6/uL (4.20-6.10); RDW 18.6 % (11.5-14.5); WBC 12.7 10x3/uL (4.8-10.8)
[2019-06-04 05:47] LABS: PLATELET COUNT 18 10x3/uL (130-400)
[2019-06-04 05:54] LABS: CALC OSMOLALITY 282 mosm/kg (275-300); CALCIUM 7.7 mg/dL (8.5-10.1); CHLORIDE - SERUM 103 mmol/L (98-107); CREATININE - SERUM 0.6 mg/dL (0.6-1.3); GLUCOSE 164 mg/dL (74-106); POTASSIUM - SERUM 3.8 mmol/L (3.5-5.1); SODIUM 138 mmol/L (136-145); UREA NITROGEN 21 mg/dL (7-18); eGFR NON AFRICAN AMERICAN > 90 mL/min (90-120)
--- NOTE | 2019-06-04 06:24 | NUR ---
PT RECEIVED COMPLETE BED BATH AND LINEN CHANGE. DRESSING TO COCCYX SOILED. CLEANED AREA, APPLIED SANTYL AND NEW DRESSING. GAVE PT DILAUDID 0.4 BOLUS THROUGH GED PREPARATION TEACHER FOR PAIN 8/10 BEFORE BATH STARTED.
[2019-06-04 08:50] LABS: LYMPHOCYTES 15 % (15-50); MONOCYTES 28 % (2-11); NEUTROPHILS 14 % (40-80)
[2019-06-04 08:51] LABS: ACANTHOCYTES OCC; ANISOCYTOSIS OCC; CRENATED CELLS 1+; PLATELET ESTIMATE DECREASED; POIKILOCYTOSIS OCC; SMUDGE CELLS 2+; SPHEROCYTES OCC; TOXIC GRANULATION OCC
--- NOTE | 2019-06-04 09:30 | NUR ---
IV PULLED OUT WITH CATH TIP INTACT
--- NOTE | 2019-06-04 11:16 | NUR ---
KORTNEY MEDS. IV ATTEMPTED WITHOUT OBTAINING ONE. CALL TO NATHEN LYNCH APN
--- NOTE | 2019-06-04 15:29 | NUR ---
DR BELLE AT BEDSIDE SET UP FOR CVL PLACEMENT. PATIENT DECLINED CVL PLACEMENT. SAYS DOES NOT WANT CVL.
--- NOTE | 2019-06-04 17:15 | NUR ---
WANTS ANOTHER ATTEMPT AT IV.
--- NOTE | 2019-06-04 20:38 | NUR ---
CHEST X-RAY RESULTS - OK TO USE RIGHT IJ CENTRAL LINE. RESUMED IV FLUIDS AND CORK INSULATION INSTALLER. GAVE BOLUS DILAUDID 0.4 MG THROUGH CORK INSULATION INSTALLER. ORAL TEMP 101.4 - REPORTED UPDATE TO NATHEN. WILL TREAT WITH TYLENOL AND WAIT FOR TEMP TO COME DOWN THEN INFUSE PLATELETS AND PRBC'S ORDERED.
--- NOTE | 2019-06-04 23:05 | NUR ---
TEMP DOWN TO 98.0 - INFUSED 2 UNITS PLATELETS. VITALS SIGNS REMAIN STABLE. RESUMED IV FLUIDS AND COLLEGE RECRUITER GIVING PT A BREAK BEFORE INFUSING BLOOD.
[2019-06-05] VITALS (12 sets, daily range): BP systolic 90–140; BP diastolic 44–67
--- NOTE | 2019-06-05 01:10 | NUR ---
VITALS SIGNS STABLE. 1ST UNIT PRBC'S INFUSING NOW. NEUTRAPENIC PRECAUTIONS OBSERVED. WILL CONTINUE TO MONITOR.
--- NOTE | 2019-06-05 03:10 | NUR ---
1ST UNIT PRBC'S INFUSION COMPLETE. PT CONFUSED TO TIME, PLACE AND SITUATION. REORIENTED. VITALS SIGNS STABLE. RESUMING IV FLUIDS AND DRILL SETUP OPERATOR UNTIL 2ND UNIT BEGINS.
--- NOTE | 2019-06-05 04:20 | NUR ---
TEMP 100.1 - GAVE TYLENOL AND STARTED 2ND UNIT PRBC'S INFUSING. WILL CONTINUE TO MONITOR CLOSELY.
[2019-06-05 06:57] LABS: CALC OSMOLALITY 281 mosm/kg (275-300); CALCIUM 7.8 mg/dL (8.5-10.1); CARBON DIOXIDE 26.7 mmol/L (21.0-32.0); CHLORIDE - SERUM 104 mmol/L (98-107); CREATININE - SERUM 0.6 mg/dL (0.6-1.3); GLUCOSE 176 mg/dL (74-106); SODIUM 138 mmol/L (136-145); UREA NITROGEN 17 mg/dL (7-18); eGFR NON AFRICAN AMERICAN > 90 mL/min (90-120)
[2019-06-05 06:59] LABS: POTASSIUM - SERUM 3.2 mmol/L (3.5-5.1)
[2019-06-05 07:05] LABS: HEMATOCRIT 25.9 % (42.0-54.0); HEMOGLOBIN 8.9 g/dL (13.5-17.5); MCH 29.8 pg (26.0-34.0); MCHC 34.4 g/dL (31.0-37.0); MCV 86.6 fL (80.0-100.0); MEAN PLATELET VOLUME 9.4 fL (7.4-10.4); RBC 2.99 10x6/uL (4.20-6.10); RDW 17.4 % (11.5-14.5)
[2019-06-05 07:17] LABS: WBC 5.2 10x3/uL (4.8-10.8)
[2019-06-05 07:20] LABS: PLATELET COUNT 27 10x3/uL (130-400)
[2019-06-05 12:39] LABS: BASOPHILS 1 % (0-2); LYMPHOCYTES 36 % (15-50); MONOCYTES 36 % (2-11); NEUTROPHILS 11 % (40-80); PLATELET ESTIMATE DECREASED; ROULEAUX OCC; SMUDGE CELLS 1+
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
--- NOTE | 2019-06-05 18:00 | NUR ---
PATIENT CHANGED AND DRESSING ON COCCYX REPLACED. CLEANED WOUND AND PLACED SANTYL ON IT ORDERED. IV INTACT. CALL LIGHT WITHIN REACH.
--- NOTE | 2019-06-05 20:00 | NUR ---
ASSESSSMENT SPER FLOWSHEET. IV PATENT RT IJ OF NS W/BICARB/40 MEQ KCL INFUSING AT 100CC'S/HR. SITE CLEAR. OUTPATIENT SERVICES DIRECTOR OF DILAUDID IN USE WITH SETTINGS AT 0.5 Q10MIN W/6MG Q4H L/O. RESERVING LEFT ARM. SIGN ON WALL. EDEMA TO PENIS. DRSG TO BUTTOCK C/D/I. G-TUBE IN PLACE LEFT UPPER ABDOMEN AND CLAMPED.
--- NOTE | 2019-06-05 22:16 | NUR ---
MEDS GIVEN PER DEC. CHEMO MED OF CYTARABINE 38 MG SUBC GIVEN TO LEFT LOWER ABDOMEN. UNCV=869 4 UNITS REGULAR INSULIN GIVEN SUBC PER S/S.
--- NOTE | 2019-06-06 00:20 | NUR ---
EYES CLOSED RESPIRATIONS WITH EASE AND UNLABORED.
--- NOTE | 2019-06-06 01:15 | NUR ---
MEDS GIVEN PER DEC. PT REFUSED UPDRAFT TX.
[2019-06-06 04:00] VITALS: BP 129/63
[2019-06-06 06:01] LABS: SODIUM 140 mmol/L (136-145)
[2019-06-06 06:02] LABS: CALC OSMOLALITY 284 mosm/kg (275-300); CALCIUM 7.4 mg/dL (8.5-10.1); CARBON DIOXIDE 24.1 mmol/L (21.0-32.0); CHLORIDE - SERUM 106 mmol/L (98-107); CREATININE - SERUM 0.6 mg/dL (0.6-1.3); GLUCOSE 145 mg/dL (74-106); UREA NITROGEN 20 mg/dL (7-18); eGFR NON AFRICAN AMERICAN > 90 mL/min (90-120)
[2019-06-06 06:05] LABS: POTASSIUM - SERUM 3.9 mmol/L (3.5-5.1)
[2019-06-06 07:11] LABS: HEMATOCRIT 26.3 % (42.0-54.0); HEMOGLOBIN 8.8 g/dL (13.5-17.5); MCH 29.1 pg (26.0-34.0); MCHC 33.5 g/dL (31.0-37.0); MCV 87.1 fL (80.0-100.0); MEAN PLATELET VOLUME 10.6 fL (7.4-10.4); RBC 3.02 10x6/uL (4.20-6.10); RDW 17.7 % (11.5-14.5)
[2019-06-06 07:15] LABS: PLATELET COUNT 17 10x3/uL (130-400); WBC 3.8 10x3/uL (4.8-10.8)
[2019-06-06 08:43] VITALS: BP 124/79
[2019-06-06 09:51] LABS: EOSINOPHILS 1 % (0-7); LYMPHOCYTES 43 % (15-50); MONOCYTES 36 % (2-11); NEUTROPHILS 6 % (40-80)
[2019-06-06 09:53] LABS: PLATELET ESTIMATE DECREASED
[2019-06-06 09:54] LABS: SMUDGE CELLS OCC
[2019-06-06 12:04] VITALS: BP 126/65
--- NOTE | 2019-06-06 18:44 | NUR ---
PATIENT IN BED WITH IV INTACT. NO COMPLAINTS OR SIGNS OF DISTRESS. PATIENT RECIEVED 2 UNITS OF PLATELETS ORDERED EARLIER WITH NO PROBLEMS. VS REMAINED STABLE WHILE INFUSING. ALSO DRESSING TO COCCYX CHANGED. PATIENT CLEANED UP AT THAT TIME BY RN AND BULK MAIL CLERK. POPULATION HEALTH MANAGER WORKING FOR PAIN. DOES NOT WANT TO EAT DINNER AT THIS TIME. STATED HE WOULD SAVE HIS TRAY. CALL LIGHT WITHIN REACH.
[2019-06-06 20:00] VITALS: BP 115/58
--- NOTE | 2019-06-06 20:00 | NUR ---
ASSESSSMENT PER FLOWSHEET. IV PATENT RT IJ OF NS W/BICARB/40 MEQ KCL INFUSING AT 100CC'S/HR BI REPORT DEVELOPER OF DILAUDID IN USE W/SETTINGS AT 0.5MG Q10MIN W/6MG Q4HR L/O. PT ON FIRST STEP AIR BED. PRESSURE SORE TO COCCYX NOTED WITH PRANEETH C/D/I.
--- NOTE | 2019-06-06 21:45 | NUR ---
MEDS GIVEN PER MAR. HKKD=983=5 UNITS REGULAR INSULIN GIVEN SUBC PER S/S CHEMO MEDS GIVEN SUBC TO LEFT UPPER ABD. DANA.WELL. VOIDS IN URINAL. PT IN REVERSE ISOLATION. TELM. SHOWS SR W/HR 76. RT BKA NOTED.
--- NOTE | 2019-06-07 | NUR ---
VOIDS IN URINAL MEDS PER DEC.
--- NOTE | 2019-06-07 03:00 | NUR ---
MEDS GIVEN PER MAR. VOIDS IN URINAL DENIES NEEDS.
[2019-06-07 04:00] VITALS: BP 125/59
--- NOTE | 2019-06-07 06:34 | NUR ---
MEDS GIVEN PER MAR. FSBS=95 NO COVERAGE.
[2019-06-07 06:57] LABS: CALC OSMOLALITY 274 mosm/kg (275-300); CALCIUM 7.9 mg/dL (8.5-10.1); CARBON DIOXIDE 26.2 mmol/L (21.0-32.0); CHLORIDE - SERUM 104 mmol/L (98-107); CREATININE - SERUM 0.5 mg/dL (0.6-1.3); POTASSIUM - SERUM 3.4 mmol/L (3.5-5.1); SODIUM 137 mmol/L (136-145); UREA NITROGEN 15 mg/dL (7-18); eGFR NON AFRICAN AMERICAN > 90 mL/min (90-120)
[2019-06-07 06:59] LABS: GLUCOSE 91 mg/dL (74-106)
[2019-06-07 07:41] LABS: HEMOGLOBIN 7.6 g/dL (13.5-17.5); MCH 28.8 pg (26.0-34.0); MCV 87.1 fL (80.0-100.0); MEAN PLATELET VOLUME 9.3 fL (7.4-10.4); RBC 2.64 10x6/uL (4.20-6.10); RDW 17.2 % (11.5-14.5); WBC 3.2 10x3/uL (4.8-10.8)
[2019-06-07 08:21] LABS: PLATELET COUNT 23 10x3/uL (130-400)
[2019-06-07 08:48] VITALS: BP 128/57
[2019-06-07 10:47] LABS: BASOPHILS 1 % (0-2); EOSINOPHILS 1 % (0-7); LYMPHOCYTES 27 % (15-50); MONOCYTES 22 % (2-11); NEUTROPHILS 19 % (40-80); PLATELET ESTIMATE DECREASED
[2019-06-07 10:48] LABS: ANISOCYTOSIS OCC; CRENATED CELLS OCC; ROULEAUX OCC; SMUDGE CELLS OCC; TOXIC GRANULATION OCC
--- NOTE | 2019-06-07 13:10 | NUR ---
NUTRITION F/U CHART REVIEWED, PT VISIT. FAMILY AT BEDSIDE. REMAINS IN NEUTROPENIC ISOLATION. TOLERATING DIABETIC DIET WITH 100% INTAKE LUNCH TODAY. NO NEEDS VOICED. RD FOLLOWING
[2019-06-07 18:46] VITALS: BP 100/48
[2019-06-07 22:41] VITALS: BP 110/76
[2019-06-08 05:04] VITALS: BP 110/80
[2019-06-08 06:58] LABS: HEMATOCRIT 25.4 % (42.0-54.0); HEMOGLOBIN 8.7 g/dL (13.5-17.5); MCH 29.4 pg (26.0-34.0); MCHC 34.3 g/dL (31.0-37.0); MCV 85.8 fL (80.0-100.0); RBC 2.96 10x6/uL (4.20-6.10); RDW 16.3 % (11.5-14.5)
[2019-06-08 07:10] LABS: PLATELET COUNT 13 10x3/uL (130-400)
[2019-06-08 07:14] LABS: CALC OSMOLALITY 279 mosm/kg (275-300); CALCIUM 7.7 mg/dL (8.5-10.1); CARBON DIOXIDE 27.2 mmol/L (21.0-32.0); CHLORIDE - SERUM 104 mmol/L (98-107); CREATININE - SERUM 0.6 mg/dL (0.6-1.3); GLUCOSE 91 mg/dL (74-106); POTASSIUM - SERUM 3.1 mmol/L (3.5-5.1); SODIUM 140 mmol/L (136-145); UREA NITROGEN 15 mg/dL (7-18); eGFR NON AFRICAN AMERICAN > 90 mL/min (90-120)
--- NOTE | 2019-06-08 08:00 | NUR ---
ASSESSMENT PER FLOW SHEET. PT IS WITHOUT DISTRESS.MONITOR FOR NEEDS.CALL LIGHT IN REACH
[2019-06-08 09:37] VITALS: BP 116/62
[2019-06-08 10:00] LABS: HYPOCHROMASIA OCC; LYMPHOCYTES 18 % (15-50); MONOCYTES 27 % (2-11); NEUTROPHILS 31 % (40-80); PLATELET ESTIMATE DECREASED
[2019-06-08 10:01] LABS: ANISOCYTOSIS OCC; SMUDGE CELLS OCC
[2019-06-08 13:07] VITALS: BP 133/76
[2019-06-08 18:14] VITALS: BP 123/62
--- NOTE | 2019-06-08 18:41 | NUR ---
REMAINS WITHOUT CHANGE. AT BEDSIDE.CONT PLAN OF CARE
[2019-06-08 21:09] VITALS: BP 127/62
[2019-06-09 01:30] VITALS: BP 131/67
[2019-06-09 05:19] LABS: HEMOGLOBIN 8.7 g/dL (13.5-17.5); MCH 28.9 pg (26.0-34.0); MCHC 33.5 g/dL (31.0-37.0); MCV 86.4 fL (80.0-100.0); MEAN PLATELET VOLUME 9.7 fL (7.4-10.4); RBC 3.01 10x6/uL (4.20-6.10); RDW 16.5 % (11.5-14.5); WBC 2.9 10x3/uL (4.8-10.8)
[2019-06-09 05:20] LABS: PLATELET COUNT 31 10x3/uL (130-400)
[2019-06-09 05:36] LABS: CALC OSMOLALITY 281 mosm/kg (275-300); CARBON DIOXIDE 27.7 mmol/L (21.0-32.0); CHLORIDE - SERUM 105 mmol/L (98-107); CREATININE - SERUM 0.5 mg/dL (0.6-1.3); GLUCOSE 108 mg/dL (74-106); POTASSIUM - SERUM 3.6 mmol/L (3.5-5.1); SODIUM 140 mmol/L (136-145); UREA NITROGEN 17 mg/dL (7-18); eGFR NON AFRICAN AMERICAN > 90 mL/min (90-120)
[2019-06-09 05:44] LABS: EOSINOPHILS 2 % (0-7); LYMPHOCYTES 42 % (15-50); MONOCYTES 32 % (2-11); NEUTROPHILS 6 % (40-80); PLATELET ESTIMATE DECREASED; SMUDGE CELLS OCC
[2019-06-09 06:00] VITALS: BP 143/68
--- NOTE | 2019-06-09 07:00 | NUR ---
PT RESTING IN BED. NO S/S OF ACUTE DISTRESS. CL IN PLACE
[2019-06-09 08:24] VITALS: BP 119/61
--- NOTE | 2019-06-09 13:37 | NUR ---
CHANGED IJ DRESSING PER MD ORDERS WITH STERILE TECHNIQUE.STUMP ELEVATED. NO S/S OF ACUTE DISTRESS. CL IN PLACE.
[2019-06-09 13:40] VITALS: BP 124/59
[2019-06-09 16:45] VITALS: BP 130/56
--- NOTE | 2019-06-09 17:22 | NUR ---
PT RESTING IN BED. NO S/S OF ACUTE DISTRESS. CL IN PLACE.
[2019-06-09 20:07] VITALS: BP 126/65
[2019-06-10 06:52] LABS: CALC OSMOLALITY 274 mosm/kg (275-300); CALCIUM 8.3 mg/dL (8.5-10.1); CARBON DIOXIDE 27.3 mmol/L (21.0-32.0); CHLORIDE - SERUM 102 mmol/L (98-107); CREATININE - SERUM 0.5 mg/dL (0.6-1.3); GLUCOSE 128 mg/dL (74-106); POTASSIUM - SERUM 3.9 mmol/L (3.5-5.1); SODIUM 137 mmol/L (136-145); eGFR NON AFRICAN AMERICAN > 90 mL/min (90-120)
[2019-06-10 06:53] LABS: UREA NITROGEN 11 mg/dL (7-18)
[2019-06-10 07:09] LABS: HEMATOCRIT 24.8 % (42.0-54.0); HEMOGLOBIN 8.4 g/dL (13.5-17.5); MCH 29.3 pg (26.0-34.0); MCHC 33.9 g/dL (31.0-37.0); MCV 86.4 fL (80.0-100.0); MEAN PLATELET VOLUME 10.1 fL (7.4-10.4); RBC 2.87 10x6/uL (4.20-6.10); WBC 2.7 10x3/uL (4.8-10.8)
[2019-06-10 07:11] LABS: PLATELET COUNT 21 10x3/uL (130-400)
[2019-06-10 09:15] LABS: ANISOCYTOSIS 1+; LYMPHOCYTES 19 % (15-50); MONOCYTES 8 % (2-11); NEUTROPHILS 72 % (40-80); PLATELET ESTIMATE DECREASED
[2019-06-10 10:25] VITALS: BP 116/60
[2019-06-10 13:14] VITALS: BP 114/55
[2019-06-10 17:32] VITALS: BP 121/57
--- NOTE | 2019-06-10 20:20 | NUR ---
LYING IN BED TALKING TO . ALERT AND ORIENTED X4. APPEARS ILL AND WEAK. SKIN IS PALE. RESP SHALLOW, NONLABORED. TELEMETRY SHOWS SR WITH RATE OF 78. RATES PAIN IN LEGS AND BACK 7. DILAUDID AIR EXPORT LOGISTICS MANAGER IN USE WITH NS WITH 40 KCL AND BICARB INFUSING @ 100 ML/HR TO RT IJ. SCD NOTED TO LLE. 1ST STEP OVERLAY MATTRESS IN USE. DRSG NOTED TO COCCYX. DRSG NOTED TO RT BKA. 2+ EDEMA NOTED TO LLE WITH MOTTLING BUT IS WARM TO TOUCH. LT HAND CONTRACTURED. AT BEDSIDE. SR ELEVATED X2. CL IN REACH. BLE ELEVATED ON PILLOWS.
[2019-06-10 20:55] VITALS: BP 119/56
--- NOTE | 2019-06-10 21:44 | NUR ---
ADMINISTERED CYTARABINE SC TO LLQ. CHEMO SAFETY PRECAUTIONS OBSERVED. SYRINGE DISPOSED OF IN YELLOW HAZMAT CONTAINER.
[2019-06-11] VITALS (10 sets, daily range): BP systolic 111–140; BP diastolic 58–86
--- NOTE | 2019-06-11 03:32 | NUR ---
LYING IN BED WITH EYES CLOSED. RESP SHALLOW, NONLABORED. NO DISTRESS. CL IN REACH. EASILY AWAKENS.
--- NOTE | 2019-06-11 05:29 | NUR ---
ADMINISTERED CYTARABINE SC TO RUQ. CHEMO SAFETY PRECAUTIONS. SYRINGE DISPOSED OF IN YELLOW HAZMAT CONTAINER.
[2019-06-11 07:27] LABS: CALCIUM 8.4 mg/dL (8.5-10.1); CARBON DIOXIDE 28.1 mmol/L (21.0-32.0); CHLORIDE - SERUM 101 mmol/L (98-107); GLUCOSE 128 mg/dL (74-106); POTASSIUM - SERUM 3.9 mmol/L (3.5-5.1); SODIUM 137 mmol/L (136-145)
[2019-06-11 07:29] LABS: CALC OSMOLALITY 277 mosm/kg (275-300); CREATININE - SERUM 0.7 mg/dL (0.6-1.3); UREA NITROGEN 19 mg/dL (7-18); eGFR NON AFRICAN AMERICAN > 90 mL/min (90-120)
[2019-06-11 07:33] LABS: BASOPHILS 0 % (0-2); EOSINOPHILS 0 % (0-7); HEMATOCRIT 25.2 % (42.0-54.0); HEMOGLOBIN 8.3 g/dL (13.5-17.5); LYMPHOCYTES 92.1 % (15-50); MCH 28.4 pg (26.0-34.0); MCHC 32.9 g/dL (31.0-37.0); MCV 86.3 fL (80.0-100.0); MEAN PLATELET VOLUME 9.1 fL (7.4-10.4); MONOCYTES 5.3 % (2-11); NEUTROPHILS 2.6 % (40-80); RBC 2.92 10x6/uL (4.20-6.10); RDW 15.7 % (11.5-14.5)
[2019-06-11 07:34] LABS: PLATELET COUNT 10 10x3/uL (130-400); WBC 1.9 10x3/uL (4.8-10.8)
--- NOTE | 2019-06-11 11:15 | NUR ---
KEN FROM LAB CALLED AND SAID THAT THERE WAS ANOTHER PATIENT IN ICU THAT HAD A CRITICAL OF 8 PLATELETS WELL. HAD TO RESERVE 1 BAG PLATELETS FOR EMERGENCY. THAT THERE WOULD BE MORE ON ROUTE AT 1500 THIS AFTERNOON.
--- NOTE | 2019-06-11 20:00 | NUR ---
LYING IN BED. HOB ELEVATED. DROWSY, BUT EASILY AWAKENS. GEN WEAKNESS NOTED. ORIENTED X4. SKIN IS PALE. DRSG NOTED TO COCCYX AND RT BKA. WHITE PATCHES NOTED IN MOUTH. REVERSE ISO IN USE. EDEMA NOTED TO LLE WITH MOTTLING BUT STILL WARM TO TOUCH. TELEMETRY SHOWS SR WITH RATE OF 70. NS WITH KCL AND BICARB INFUSING IN RT IJ @ 100 ML/HR WITH POT WASHER DILAUDID IN USE. RATES GEN PAIN 8. CONTRACTURES NOTED TO LT HAND. SR ELEVATED X2. CL IN REACH.
--- NOTE | 2019-06-11 21:54 | NUR ---
NEUTRAPENIC ISOLATION AND CHEMO PRECAUTIONS OBSERVED. ADMINISTERED CYTARABINE SC TO LLQ. DISPOSED OF SYRINGE IN YELLOW HAZMAT CONTAINER.
[2019-06-12] VITALS: BP 134/68
--- NOTE | 2019-06-12 02:49 | NUR ---
HAS RESTED WELL SO FAR THIS SHIFT. RESP SHALLOW NONLABORED. HOB ELEVATED. IV INFUSING WITHOUT DIFF. SR ELEVATED X2. CL IN REACH.
[2019-06-12 04:00] VITALS: BP 132/69
[2019-06-12 06:26] LABS: CALC OSMOLALITY 274 mosm/kg (275-300); CALCIUM 8.9 mg/dL (8.5-10.1); CARBON DIOXIDE 29.6 mmol/L (21.0-32.0); CHLORIDE - SERUM 99 mmol/L (98-107); CREATININE - SERUM 0.6 mg/dL (0.6-1.3); GLUCOSE 154 mg/dL (74-106); POTASSIUM - SERUM 3.7 mmol/L (3.5-5.1); SODIUM 135 mmol/L (136-145); UREA NITROGEN 18 mg/dL (7-18); eGFR NON AFRICAN AMERICAN > 90 mL/min (90-120)
[2019-06-12 06:35] LABS: HEMATOCRIT 25.6 % (42.0-54.0); HEMOGLOBIN 8.6 g/dL (13.5-17.5); MCH 28.9 pg (26.0-34.0); MCHC 33.6 g/dL (31.0-37.0); MCV 85.9 fL (80.0-100.0); MEAN PLATELET VOLUME 9.7 fL (7.4-10.4); RBC 2.98 10x6/uL (4.20-6.10); RDW 15.3 % (11.5-14.5)
[2019-06-12 06:37] LABS: PLATELET COUNT 37 10x3/uL (130-400); WBC 1.6 10x3/uL (4.8-10.8)
[2019-06-12 08:19] LABS: BASOPHILS 1 % (0-2); HYPOCHROMASIA 1+; LYMPHOCYTES 26 % (15-50); MONOCYTES 5 % (2-11); NEUTROPHILS 66 % (40-80); PLATELET ESTIMATE DECREASED
[2019-06-12 08:20] VITALS: BP 127/66
[2019-06-12 12:39] VITALS: BP 139/66
--- NOTE | 2019-06-12 14:16 | NUR ---
Coccyx wound continues to be unstageable as it is completely covered with slough. Measurements are 2cm x 2cm. Recommend continuing with Santyl. Right BKA : The distal area from healed suture line and around is discolored dark purple. It is very tender to the touch. Recommended keeping elevated and open to air at this time.
--- NOTE | 2019-06-12 15:18 | MORECARE ---
CASE MANAGEMENT DISCHARGE SUMMARY PATIENT: NAYELI BLAS UNIT: [id number] ADM DATE: 05/15/19 AGE: 49 : 68 SEX: M ROOM/BED: [id number] AUTHOR: SAVANAH LIVINGSTON PHYSICIAN: REFERRING PHYSICIAN: KALEIGH CARRANZA MD DATE OF SERVICE: 06/12/19 Discharge Plan Patient Name: NAYELI BLAS Facility: [facility]:[place] : 1970 Planned Disposition: [facility] Anticipated Discharge Date: 05/17/19 Discharge Date: Expected LOS: 2 Initial Reviewer: [email or web address] Initial Review Date: 05/15/2019 Generated: 06/12/19 4:17 pm Comments DCP- Discharge Planning Updated by [email or web address]: Adraina Hendricks on 06/12/19 2:[address] Spoke with patient to about his discharge plan, he was unsure if he would go back to [facility]. He stated that his home is not set up for a wheelchair and he is not ambulatory. He asked if I would come back to [place] and speak with him. CM to follow and assist with dc planning DCP- Discharge Planning Updated by [id number]: Krista Yordy on 05/22/19 2:[address] Received a call from Paulie Fraser that he would like the patient transferred to [facility] to his oncologist. I went to patient's room to inquire about his oncologists name and he asks why. I informed him that Paulie had called and would like to have him transferred to [facility] to his oncology team there. He states "the hell you are." His states that no one has talked to him about transfer and it is his decision if he wants to transfer or go home. I told him I agreed, that it is his choice to make and he would not be transferred without his consent. His states she is going home and will be back at 5PM tonight to speak with Paulie. I called Paulie and informed that I did not call transfer team and what the patient said. He will be here tonight at 5 to speak with the patient and . CM will continue to follow and assist with discharge planning/needs. DCP- Discharge Planning Updated by [id number]: Mar Silva on 05/15/19 6:[address] Patient Name: NAYELI BLAS Admission Status: ER Accout number: [id number] Admission Date: 05-15-2019 : 1970 Admission Diagnosis: Attending: KALEIGH CARRANZA Current LOS: 1 Anticipated DC Date: 05-17-2019 Planned Disposition: [facility] Facility Primary Insurance: MEDICAID [place] Discharge Planning Comments: CM met with patient's , Anika to complete initial dc planning assessment. CM educated Anika on the CM role and verbal consent given by Anika to complete assessment. Patient is currently in rehab @ [facility]. At discharge patient plans to return to [facility] and Anika feels this is a safe discharge. CIERRA form signed by Anika for the patine to return to [facility] at vt. Signed form placed in chart and signed form given to Anika. She denied further known discharge needs at this time. CM will continue to follow and will assist as needed with dc plans/needs. Taker Off: Mar Silva RN, [facility] DCPIA - Discharge Planning Initial Assessment Updated by [email or web address]: Mar Silva on 05/15/19 7:30 pm * Is the patient Alert and Oriented? Yes * How many steps to enter\\exit or inside your home? * PCP Dr. Carranza * [facility] * Preadmission Environment [facility] * [facility] * ADLs Partial Dependent * Partial ADLs (Assistance needed) Ambulation Bathing Dressing Medication Management Transfers * Other Equipment No equipment at home. Uses from [facility]. * List name and contact numbers for known caregivers / representatives who currently or will assist patient after discharge: Anika Blas - - [phone] or [phone] * Verbal permission to speak to the caregivers and representatives has been obtained from the patient. Yes * Community resources currently utilized None * Additional services required to return to the preadmission environment? No * Can the patient safely return to the preadmission environment? Yes * Has this patient been hospitalized within the prior 30 days at any hospital? No Last DP export: 05/22/19 2:24 p Patient Name: NAYELI BLAS Page [id number] at 1518 All edits/amendments must be made on the electronic document DICTATION DATE: 06/12/191516 GEOSPATIAL EXTRACTOR ANALYSIS: ARACELI 06/12/191516 RPT#: [id number] DC DATE: STATUS: ADM IN [facility] [address] [place] [address] END OF REPORT
[2019-06-12 17:15] VITALS: BP 111/48
--- NOTE | 2019-06-12 17:47 | NUR ---
OT NOTE: PT COMPLETED BED MOB WITH SBA FOR ROLLING. PT COMPLETED FACE WASH WITH SET UP. PT COMPLETED UE AROM. PT IS WEAK. THANK YOU, ARIS GARBER
[2019-06-12 20:00] VITALS: BP 128/71
--- NOTE | 2019-06-12 20:00 | NUR ---
ASSESSMENT PER FLOW SHEET. PT IS WITHOUT DISTRESS.ISOLATION MAINTAINED.MONITOR FOR NEEDS
[2019-06-13] VITALS: BP 129/68
--- NOTE | 2019-06-13 01:50 | NUR ---
RESTING,WITHOUT SIGNS OF DISTRESS DURING NIGHT. MONITOR FOR CHANGE.
[2019-06-13 04:00] VITALS: BP 143/66
--- NOTE | 2019-06-13 06:28 | NUR ---
REMAINS WITHOUT NEEDS.ISOLATION MAINTAINED.CONT PLAN OF CARE
[2019-06-13 07:54] LABS: CALC OSMOLALITY 284 mosm/kg (275-300); CALCIUM 9.2 mg/dL (8.5-10.1); CARBON DIOXIDE 28.3 mmol/L (21.0-32.0); CHLORIDE - SERUM 104 mmol/L (98-107); CREATININE - SERUM 0.6 mg/dL (0.6-1.3); GLUCOSE 121 mg/dL (74-106); POTASSIUM - SERUM 4.1 mmol/L (3.5-5.1); SODIUM 141 mmol/L (136-145); UREA NITROGEN 21 mg/dL (7-18); eGFR NON AFRICAN AMERICAN > 90 mL/min (90-120)
[2019-06-13 08:39] LABS: HEMATOCRIT 23.9 % (42.0-54.0); HEMOGLOBIN 7.9 g/dL (13.5-17.5); MCH 28.7 pg (26.0-34.0); MCHC 33.1 g/dL (31.0-37.0); MCV 86.9 fL (80.0-100.0); MEAN PLATELET VOLUME 9.4 fL (7.4-10.4); RBC 2.75 10x6/uL (4.20-6.10); RDW 15.3 % (11.5-14.5)
[2019-06-13 08:40] LABS: PLATELET COUNT 24 10x3/uL (130-400)
[2019-06-13 08:41] LABS: WBC 1.5 10x3/uL (4.8-10.8)
[2019-06-13 09:33] VITALS: BP 131/68
[2019-06-13 09:55] LABS: ANISOCYTOSIS OCC; LYMPHOCYTES 14 % (15-50); MONOCYTES 22 % (2-11); NEUTROPHILS 40 % (40-80); PLATELET ESTIMATE DECREASED; SMUDGE CELLS OCC; TOXIC GRANULATION OCC
[2019-06-13 11:29] VITALS: BP 123/56
--- NOTE | 2019-06-13 14:40 | NUR ---
FIELD EDUCATION DIRECTOR SETTINGS INCORRECT. CORRECT SETTING ENTERED.
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
--- NOTE | 2019-06-13 19:00 | NUR ---
ASSESSMENT PER FLOW SHEET. PT IS WITHOUT DISTRESS.BLOOD STILL IFUSING FROM DAY SHIFT. PT STATES WHEN COMPLETE HE WANTS BREAK FOR POUCH MAKER USE BEFORE SECOND UNIT IS STARTED. AT BEDSIDE.MONITOR
[2019-06-13 22:24] VITALS: BP 126/60
[2019-06-14 03:48] VITALS: BP 127/59
--- NOTE | 2019-06-14 06:06 | NUR ---
HAS BEEN WITHOUT NEEDS THROUGHOUT NIGHT. REMAINS WITHOUT CHANGE FROM INITIAL SHIFT ASSESSMENT.CONT PLAN OF CARE
[2019-06-14 06:49] VITALS: BP 117/59
--- NOTE | 2019-06-14 07:32 | NUR ---
PT RESTING IN BED. NEUTROPENIC ISOLATION. NO S/S OF ACUTE DISTRESS. CL IN PLACE.
[2019-06-14 07:41] LABS: BASOPHILS 0 % (0-2); EOSINOPHILS 0 % (0-7); IMMATURE GRANULOCYTES 2.7 % (0-5); LYMPHOCYTES 89.3 % (15-50); MCH 28.7 pg (26.0-34.0); MCHC 33.7 g/dL (31.0-37.0); MCV 85.3 fL (80.0-100.0); MEAN PLATELET VOLUME 10.6 fL (7.4-10.4); MONOCYTES 5.4 % (2-11); NEUTROPHILS 2.6 % (40-80); RDW 15.8 % (11.5-14.5)
[2019-06-14 07:51] LABS: HEMATOCRIT 29.1 % (42.0-54.0); HEMOGLOBIN 9.8 g/dL (13.5-17.5); PLATELET COUNT 15 10x3/uL (130-400); RBC 3.41 10x6/uL (4.20-6.10); WBC 1.1 10x3/uL (4.8-10.8)
[2019-06-14 08:21] LABS: CALC OSMOLALITY 287 mosm/kg (275-300); CARBON DIOXIDE 27.7 mmol/L (21.0-32.0); CHLORIDE - SERUM 103 mmol/L (98-107); CREATININE - SERUM 0.6 mg/dL (0.6-1.3); GLUCOSE 167 mg/dL (74-106); POTASSIUM - SERUM 4.2 mmol/L (3.5-5.1); SODIUM 141 mmol/L (136-145); UREA NITROGEN 21 mg/dL (7-18); eGFR NON AFRICAN AMERICAN > 90 mL/min (90-120)
[2019-06-14 10:17] VITALS: BP 125/67
[2019-06-14 13:11] VITALS: BP 124/68
--- NOTE | 2019-06-14 14:50 | NUR ---
OT NOTE: PT COMPLETED BED MOB WITH MIN A. PT COMPLETED EOB SITTING WITH SBA. PT COMPLETED HYGIENE TASKS WITH MOD A. PT WEAK. THANK YOU, ARIS GARBER
--- NOTE | 2019-06-14 15:05 | NUR ---
NUTRITION F/U CHART REVIEWED. PT REMAINS IN NEUTROPENIC ISOLATION. PER RECORDS PT WITH 75 TO 100% INTAKE RECENT MEALS. DIABETIC DIET. WILL CONTINUE TO MONITOR PO INTAKE, PT PROGRESS. RD FOLLOWING
[2019-06-14 16:24] VITALS: BP 121/61
--- NOTE | 2019-06-14 18:51 | NUR ---
PT RESTING IN BED. NO S/S OF ACUTE DISTRESS. AT BEDSIDE. CL IN PLACE.
--- NOTE | 2019-06-14 20:00 | NUR ---
ASSESSMENT PER FLOW SHEET. PT IS WITHOUT DISTRESS.ISOLATION MAINTAINED.CALL LIGHT IN REACH. PACKAGE WORKER USE INSTRUCTED
[2019-06-14 21:49] VITALS: BP 140/64
--- NOTE | 2019-06-15 00:53 | NUR ---
RESTING,WITHOUT DISTRESS.MONITOR FOR NEEDS
--- NOTE | 2019-06-15 02:47 | NUR ---
RESTING WITHOUT DISTRESS.AWAKENS INT.
[2019-06-15 02:49] VITALS: BP 131/67
[2019-06-15 06:29] VITALS: BP 119/53
--- NOTE | 2019-06-15 06:33 | NUR ---
REMAINS WITHOUT CHANGE FROM INITIAL SHIFT ASSESSMENT.CONT PLAN OF CARE
[2019-06-15 06:52] LABS: HEMATOCRIT 27.6 % (42.0-54.0); HEMOGLOBIN 9.3 g/dL (13.5-17.5); MCH 28.6 pg (26.0-34.0); MCHC 33.7 g/dL (31.0-37.0); MCV 84.9 fL (80.0-100.0); MEAN PLATELET VOLUME 9.6 fL (7.4-10.4); RBC 3.25 10x6/uL (4.20-6.10); RDW 15.3 % (11.5-14.5)
[2019-06-15 06:53] LABS: PLATELET COUNT 31 10x3/uL (130-400)
[2019-06-15 07:04] LABS: CALC OSMOLALITY 281 mosm/kg (275-300); CALCIUM 9.2 mg/dL (8.5-10.1); CHLORIDE - SERUM 101 mmol/L (98-107); CREATININE - SERUM 0.7 mg/dL (0.6-1.3); GLUCOSE 141 mg/dL (74-106); POTASSIUM - SERUM 4.2 mmol/L (3.5-5.1); SODIUM 138 mmol/L (136-145); UREA NITROGEN 23 mg/dL (7-18); eGFR NON AFRICAN AMERICAN > 90 mL/min (90-120)
--- NOTE | 2019-06-15 07:54 | NUR ---
PT RESTING IN BED. NO S/S OF ACUTE DISTRESS. CL IN PLACE.
[2019-06-15 08:13] LABS: INR 1.11 (0.85-1.17); PROTIME 13.8 SECONDS (11.6-15.0)
[2019-06-15 08:14] LABS: APTT 41.6 SECONDS (22.8-39.4)
[2019-06-15 10:26] VITALS: BP 117/77
[2019-06-15 11:28] LABS: ANISOCYTOSIS OCC; LYMPHOCYTES 66 % (15-50); MONOCYTES 6 % (2-11); NEUTROPHILS 26 % (40-80); PLATELET ESTIMATE DECREASED
--- NOTE | 2019-06-15 15:31 | NUR ---
SPOKE WITH Ale LYNCH ABOUT PT INSULIN DC. OK TO RESTART PER Ale LYCNH. CALLED PHARMACY, SPOKE WITH JUAN, WHO STATED "THEY WOULD FALL OFF AFTER 30 DAYS." REQUESTED TO RESTART ALL MEDICINES. JUAN "WILL DO SO". NO S/S OF ACUTE DISTRESS. CL IN PLACE.
--- NOTE | 2019-06-15 18:36 | NUR ---
PT RESTING IN BED. REFUSED INSULIN. FSBS-190.NO S/S OF ACUTE DISTRESS. AT BEDSIDE. CL IN PLACE.
--- NOTE | 2019-06-15 19:36 | NUR ---
PT RESTING IN BED. NO S/S OF ACUTE DISTRESS. CL IN PLACE. AT BEDSIDE.
[2019-06-15 20:39] VITALS: BP 125/70
--- NOTE | 2019-06-16 00:15 | NUR ---
ASSESSED AT THE BEGINNING OF THE SHIFT. PT IS ALERT AND ORIENTED, ABLE TO VERBLAIZE NEEDS. HIS WAS WITH HIM AT SHIFT CHANGE BUT LEFT JUST AFTER THAT. HE IS ON AN AIR MATTRESS AND IS ABLE TO MOVE WITH ASSIST. HE HAS LEFT SIDE WEAKNESS AND NEEDS ASSIST. HIS BLOOD SUGAR WAS 153 AND ALL INSULIN MEDS WERE GIVEN ORDERED.
[2019-06-16 00:45] VITALS: BP 123/65
[2019-06-16 04:40] VITALS: BP 125/66
[2019-06-16 07:13] LABS: CALC OSMOLALITY 285 mosm/kg (275-300); CALCIUM 9.2 mg/dL (8.5-10.1); CARBON DIOXIDE 31.3 mmol/L (21.0-32.0); CHLORIDE - SERUM 103 mmol/L (98-107); CREATININE - SERUM 0.6 mg/dL (0.6-1.3); GLUCOSE 132 mg/dL (74-106); POTASSIUM - SERUM 3.8 mmol/L (3.5-5.1); SODIUM 141 mmol/L (136-145); UREA NITROGEN 21 mg/dL (7-18); eGFR NON AFRICAN AMERICAN > 90 mL/min (90-120)
[2019-06-16 07:18] LABS: BASOPHILS 0 % (0-2); EOSINOPHILS 0 % (0-7); HEMATOCRIT 26.8 % (42.0-54.0); HEMOGLOBIN 8.9 g/dL (13.5-17.5); LYMPHOCYTES 88.6 % (15-50); MCH 28.4 pg (26.0-34.0); MCHC 33.2 g/dL (31.0-37.0); MCV 85.6 fL (80.0-100.0); MEAN PLATELET VOLUME 10.3 fL (7.4-10.4); MONOCYTES 8.6 % (2-11); NEUTROPHILS 2.8 % (40-80); RBC 3.13 10x6/uL (4.20-6.10); RDW 15.1 % (11.5-14.5)
[2019-06-16 07:39] LABS: PLATELET COUNT 21 10x3/uL (130-400); WBC 0.7 10x3/uL (4.8-10.8)
[2019-06-16 08:14] VITALS: BP 130/74
--- NOTE | 2019-06-16 12:59 | NUR ---
NUTRITION F/U CHART REVIEWED, PT VISIT. TOLERATING DIABETIC DIET GOOD INTAKE BREAKFAST AND LUNCH TODAY. REMAINS IN NEUTROPENIC ISOLATION. WILL CONTINUE TO MONITOR PT PROGRESS, PO INTAKE. RD FOLLOWING
[2019-06-16 13:37] VITALS: BP 115/63
--- NOTE | 2019-06-16 14:26 | NUR ---
OT NOTE: PT COMPLETED RUE AROM AXS WHILE SUPINE IN BED. PT STATED HE IS IN A LOT OF PAIN. HURST NOTIFIED NURSING. THANK YOU, ARIS GARBER
[2019-06-16 16:41] VITALS: BP 132/56
[2019-06-16 21:25] VITALS: BP 132/72
[2019-06-17 01:24] VITALS: BP 130/66
[2019-06-17 05:44] VITALS: BP 126/68
[2019-06-17 07:04] LABS: CALC OSMOLALITY 277 mosm/kg (275-300); CALCIUM 8.9 mg/dL (8.5-10.1); CARBON DIOXIDE 29.5 mmol/L (21.0-32.0); CHLORIDE - SERUM 100 mmol/L (98-107); CREATININE - SERUM 0.7 mg/dL (0.6-1.3); GLUCOSE 98 mg/dL (74-106); POTASSIUM - SERUM 3.9 mmol/L (3.5-5.1); SODIUM 138 mmol/L (136-145); UREA NITROGEN 19 mg/dL (7-18); eGFR NON AFRICAN AMERICAN > 90 mL/min (90-120)
[2019-06-17 07:09] LABS: HEMATOCRIT 25.4 % (42.0-54.0); HEMOGLOBIN 8.6 g/dL (13.5-17.5); MCH 29.1 pg (26.0-34.0); MCHC 33.9 g/dL (31.0-37.0); MCV 85.8 fL (80.0-100.0); MEAN PLATELET VOLUME 11.1 fL (7.4-10.4); RBC 2.96 10x6/uL (4.20-6.10); RDW 14.9 % (11.5-14.5)
[2019-06-17 07:16] LABS: PLATELET COUNT 19 10x3/uL (130-400); WBC 0.6 10x3/uL (4.8-10.8)
[2019-06-17 08:00] LABS: LYMPHOCYTES 64 % (15-50); NEUTROPHILS 34 % (40-80); PLATELET ESTIMATE DECREASED
[2019-06-17 09:04] VITALS: BP 114/61
[2019-06-17 16:22] VITALS: BP 120/64
--- NOTE | 2019-06-17 18:45 | NUR ---
PATIENT IN BED WITH EYES CLOSED RESTING QUIETLY. NO COMPLAINTS OR SIGNS OF DISTRESS. RECIEVED TWO UNITS OF PLATELETS EARLIER WITH NO PROBLEMS. VITAL SIGNS REMAINED STABLE DURING INFUSIONS. PATIENT DRESSINGS CHANGED AT 1630 ON STUMP AND ON COCCYX. PATIENT TOLERATED WITH SMALL AMOUNT OF PAIN. WOUND ON COCCYX SANTYL PLACED ON ORDERED. IV INTACT. CALL LIGHT WITHIN REACH.
[2019-06-17 19:26] VITALS: BP 110/60
[2019-06-18 00:18] VITALS: BP 112/55
[2019-06-18 05:01] VITALS: BP 125/68
[2019-06-18 06:46] LABS: BASOPHILS 0 % (0-2); EOSINOPHILS 0 % (0-7); HEMATOCRIT 23.9 % (42.0-54.0); HEMOGLOBIN 8.1 g/dL (13.5-17.5); IMMATURE GRANULOCYTES 2.6 % (0-5); LYMPHOCYTES 84.6 % (15-50); MCHC 33.9 g/dL (31.0-37.0); MCV 85.7 fL (80.0-100.0); MEAN PLATELET VOLUME 9.7 fL (7.4-10.4); MONOCYTES 2.6 % (2-11); NEUTROPHILS 10.2 % (40-80); RBC 2.79 10x6/uL (4.20-6.10); RDW 14.7 % (11.5-14.5)
[2019-06-18 06:51] LABS: CALC OSMOLALITY 278 mosm/kg (275-300); CARBON DIOXIDE 30.5 mmol/L (21.0-32.0); CHLORIDE - SERUM 98 mmol/L (98-107); CREATININE - SERUM 0.7 mg/dL (0.6-1.3); GLUCOSE 100 mg/dL (74-106); POTASSIUM - SERUM 3.8 mmol/L (3.5-5.1); SODIUM 138 mmol/L (136-145); UREA NITROGEN 20 mg/dL (7-18); eGFR NON AFRICAN AMERICAN > 90 mL/min (90-120)
[2019-06-18 06:55] LABS: PLATELET COUNT 51 10x3/uL (130-400)
[2019-06-18 06:57] LABS: WBC 0.4 10x3/uL (4.8-10.8)
[2019-06-18 08:20] VITALS: BP 110/65
[2019-06-18 13:25] VITALS: BP 115/61
[2019-06-18 20:00] VITALS: BP 113/58
[2019-06-19 04:00] VITALS: BP 122/64
[2019-06-19 06:40] LABS: HEMATOCRIT 24.1 % (42.0-54.0); HEMOGLOBIN 8.1 g/dL (13.5-17.5); MCH 28.8 pg (26.0-34.0); MCHC 33.6 g/dL (31.0-37.0); MCV 85.8 fL (80.0-100.0); MEAN PLATELET VOLUME 10.5 fL (7.4-10.4); RBC 2.81 10x6/uL (4.20-6.10); RDW 14.8 % (11.5-14.5)
[2019-06-19 06:42] LABS: PLATELET COUNT 35 10x3/uL (130-400); WBC 0.4 10x3/uL (4.8-10.8)
[2019-06-19 07:00] LABS: CALC OSMOLALITY 280 mosm/kg (275-300); CALCIUM 9.2 mg/dL (8.5-10.1); CARBON DIOXIDE 30.4 mmol/L (21.0-32.0); CHLORIDE - SERUM 100 mmol/L (98-107); CREATININE - SERUM 0.8 mg/dL (0.6-1.3); GLUCOSE 115 mg/dL (74-106); POTASSIUM - SERUM 3.5 mmol/L (3.5-5.1); SODIUM 139 mmol/L (136-145); UREA NITROGEN 19 mg/dL (7-18); eGFR NON AFRICAN AMERICAN > 90 mL/min (90-120)
[2019-06-19 08:49] VITALS: BP 118/63
[2019-06-19 10:18] LABS: LYMPHOCYTES 74 % (15-50); MONOCYTES 12 % (2-11); NEUTROPHILS 6 % (40-80); ROULEAUX OCC
[2019-06-19 10:19] LABS: ANISOCYTOSIS OCC; HYPOCHROMASIA OCC
[2019-06-19 10:39] LABS: PLATELET ESTIMATE DECREASED
[2019-06-19 12:44] VITALS: BP 115/61
[2019-06-19 17:55] VITALS: BP 131/68
[2019-06-19 20:00] VITALS: BP 172/64
--- NOTE | 2019-06-19 20:00 | NUR ---
ASSESSMENT PER FLOWSHEET. SLEEPING AROUSES TO VERBAL STIMULI. SR UP X2 CALL LIGHT WITHIN REACH SCD TO LEFT LEG. RT STUMP WITH DRSG C/D/I. COCCYX DRSG C/D/I. IV PATENT RT IJ OF NS/BICARB/KCL 40 MEQ INFUSING AT 100CC'S/HR. OIL DISTRIBUTOR OF DILAUDID IN USE WITH SETTINGS AT 0.5MG Q10MIN W/6MG Q4H L/O. TELM. SR WITH HR 83.
--- NOTE | 2019-06-19 22:00 | NUR ---
MEDS GIVEN PER MAR. [id number]. TX PER S/S SEE MAR.
--- NOTE | 2019-06-20 | NUR ---
VOIDS WELL IN URINAL
--- NOTE | 2019-06-20 02:00 | NUR ---
EYES CLOSED RESPIRATIONS WITH EASE AND UNLABORED.
[2019-06-20 04:00] VITALS: BP 108/67
--- NOTE | 2019-06-20 04:43 | NUR ---
RESTING QUIETLT DENIES NEEDS.
[2019-06-20 06:33] LABS: CALC OSMOLALITY 281 mosm/kg (275-300); CALCIUM 8.9 mg/dL (8.5-10.1); CARBON DIOXIDE 29.1 mmol/L (21.0-32.0); CHLORIDE - SERUM 101 mmol/L (98-107); CREATININE - SERUM 0.7 mg/dL (0.6-1.3); GLUCOSE 108 mg/dL (74-106); POTASSIUM - SERUM 3.9 mmol/L (3.5-5.1); SODIUM 140 mmol/L (136-145); UREA NITROGEN 18 mg/dL (7-18); eGFR NON AFRICAN AMERICAN > 90 mL/min (90-120)
[2019-06-20 07:22] LABS: BASOPHILS 0 % (0-2); EOSINOPHILS 0 % (0-7); HEMATOCRIT 24.3 % (42.0-54.0); LYMPHOCYTES 77.4 % (15-50); MCH 28.2 pg (26.0-34.0); MCHC 32.9 g/dL (31.0-37.0); MCV 85.6 fL (80.0-100.0); MEAN PLATELET VOLUME 11.7 fL (7.4-10.4); MONOCYTES 0 % (2-11); NEUTROPHILS 22.6 % (40-80); RBC 2.84 10x6/uL (4.20-6.10); RDW 14.6 % (11.5-14.5)
[2019-06-20 07:28] LABS: PLATELET COUNT 31 10x3/uL (130-400); WBC 0.3 10x3/uL (4.8-10.8)
--- NOTE | 2019-06-20 09:00 | NUR ---
PT IS ANGRY BECAUSE HE WILL BE GETTING BLOOD TODAY. HE SAYS HE WANTS TO USE HIS PAIN PUMP FOR AWHILE BEFOR BLOOD IS STARTED. AT BESIDE
[2019-06-20 09:38] VITALS: BP 110/67
--- NOTE | 2019-06-20 20:00 | NUR ---
ASSESSMENT PER FLOWSHEET. AT BEDSIDE. PT IN NEUTROPENIC ISOLATION.IV PATENT RT TLIJ WITH BLOOD TRANSFUSION INFUSING. MONITORING VS DURING TRANSFUSION. VOIDS IN URINAL.G-TUBE PATENT AND CLAMPED. DRSG TO R STUMP AND COCCYX IS C/D/I. PT ON FIRST STEP AIR BED. SR UP X2 CALL LIGHT WITHIN REACH MELANY MAT TO BED.
--- NOTE | 2019-06-20 22:00 | NUR ---
MEDS GIVEN PERMAR. BLOOD COMPLETED NO REACTION NOTED. RESUMED REGULAR IV FLUIDS AND DIRECTOR GIFT. MRZE=[id number] 4 UNITS REGULAR INSULIN GIVEN SUBC PER S/S. PT VOIDS IN URINAL. HAS GONE HOME FOR THE NIGHT.
[2019-06-21] VITALS: BP 138/64
--- NOTE | 2019-06-21 | NUR ---
EYES CLOSED RESPIRATIONS WITH EASE AND UNLABORED.
--- NOTE | 2019-06-21 02:03 | NUR ---
RESTING QUIETLY DENIES NEEDS.
[2019-06-21 04:00] VITALS: BP 142/75
[2019-06-21 07:11] LABS: MCHC 34.3 g/dL (31.0-37.0); MCV 84.4 fL (80.0-100.0); RDW 14.2 % (11.5-14.5)
[2019-06-21 07:20] LABS: CALC OSMOLALITY 277 mosm/kg (275-300); CARBON DIOXIDE 29.6 mmol/L (21.0-32.0); CHLORIDE - SERUM 100 mmol/L (98-107); CREATININE - SERUM 0.7 mg/dL (0.6-1.3); GLUCOSE 123 mg/dL (74-106); POTASSIUM - SERUM 3.9 mmol/L (3.5-5.1); SODIUM 138 mmol/L (136-145); UREA NITROGEN 16 mg/dL (7-18); eGFR NON AFRICAN AMERICAN > 90 mL/min (90-120)
[2019-06-21 07:48] LABS: HEMATOCRIT 29.7 % (42.0-54.0); HEMOGLOBIN 10.2 g/dL (13.5-17.5); RBC 3.52 10x6/uL (4.20-6.10); WBC 0.2 10x3/uL (4.8-10.8)
[2019-06-21 07:49] LABS: PLATELET COUNT 20 10x3/uL (130-400)
[2019-06-21 08:30] VITALS: BP 115/71
--- NOTE | 2019-06-21 09:19 | MORECARE ---
CASE MANAGEMENT DISCHARGE SUMMARY PATIENT: NAYELI BLAS UNIT: [id number] ADM DATE: 05/15/19 AGE: 49 : [birth year] SEX: M ROOM/BED: D.2216 AUTHOR: SAVANAH LIVINGSTON PHYSICIAN: REFERRING PHYSICIAN: KALEIGH CARRANZA MD DATE OF SERVICE: 06/21/19 Discharge Plan Patient Name: NAYELI BLAS Facility: [facility]:[place] : 1970 Planned Disposition: Senior Living Facility Anticipated Discharge Date: 05/17/19 Discharge Date: Expected LOS: 2 Initial Reviewer: [email or web address] Initial Review Date: 05/15/2019 Generated: 06/21/19 10:18 am Comments DCP- Discharge Planning Updated by [email or web address]: Adriana Hendricks on 06/21/19 8:[address] CALLED AND SPOKE WITH AND SHE IS UNSURE OF HIS PLAN, SHE STATED THAT HE DID NOT FINISH HIS REHAB OR HAS GOTTEN HIS PROSTHETIC. I AM UNSURE IN HIS CONDITION IF HE WILL NE ABLE TO PARTICIPATE IN REHAB AT THIS POINT. I WILL VISIT WITH HER WHEN SHE ARRIVES TO THE HOSPITAL DCP- Discharge Planning Updated by [email or web address]: Adriana Lopezken on 06/12/19 2:[address] Spoke with patient to about his discharge plan, he was unsure if he would go back to [facility]. He stated that his home is not set up for a wheelchair and he is not ambulatory. He asked if I would come back to [place] and speak with him. CM to follow and assist with dc planning DCP- Discharge Planning Updated by [email or web address]: Krista Scales on 05/22/19 2:[address] Received a call from Paulie Fraser that he would like the patient transferred to [facility] to his oncologist. I went to patient's room to inquire about his oncologists name and he asks why. I informed him that Paulie had called and would like to have him transferred to [facility] to his oncology team there. He states "the hell you are." His states that no one has talked to him about transfer and it is his decision if he wants to transfer or go home. I told him I agreed, that it is his choice to make and he would not be transferred without his consent. His states she is going home and will be back at 5PM tonight to speak with Paulie. I called Paulie and informed that I did not call transfer team and what the patient said. He will be here tonight at 5 to speak with the patient and . CM will continue to follow and assist with discharge planning/needs. DCP- Discharge Planning Updated by [id number]: Mar Silva on 05/15/19 6:[address] Patient Name: NAYELI BLAS Admission Status: ER Accout number: [id number] Admission Date: 05-15-2019 : 1970 Admission Diagnosis: Attending: KALEIGH CARRANZA Current LOS: 1 Anticipated DC Date: 05-17-2019 Planned Disposition: Senior Living Facility Primary Insurance: MEDICAID [place] Discharge Planning Comments: CM met with patient's , Anika to complete initial dc planning assessment. CM educated Anika on the CM role and verbal consent given by Anika to complete assessment. Patient is currently in rehab @ [facility]. At discharge patient plans to return to [facility] and Anika feels this is a safe discharge. CIERRA form signed by Anika for the patine to return to [facility] at wa. Signed form placed in chart and signed form given to Anika. She denied further known discharge needs at this time. CM will continue to follow and will assist as needed with dc plans/needs. Avionics System Engineer: Mar Silva RN, [facility] DCPIA - Discharge Planning Initial Assessment Updated by [id number]: Mar Silva on 05/15/19 7:30 pm * Is the patient Alert and Oriented? Yes * How many steps to enter\\exit or inside your home? * PCP Dr. Carranza * [facility] * Preadmission Environment Senior Living Facility * Facility Name [facility] * ADLs Partial Dependent * Partial ADLs (Assistance needed) Ambulation Bathing Dressing Medication Management Transfers * Other Equipment No equipment at home. Uses from [facility]. * List name and contact numbers for known caregivers / representatives who currently or will assist patient after discharge: Anika Blas - - [phone] or [phone] * Verbal permission to speak to the caregivers and representatives has been obtained from the patient. Yes * Community resources currently utilized None * Additional services required to return to the preadmission environment? No * Can the patient safely return to the preadmission environment? Yes * Has this patient been hospitalized within the prior 30 days at any hospital? No Last DP export: 06/12/19 2:18 p Patient Name: NAYELI BLAS Page [id number] at 0919 All edits/amendments must be made on the electronic document DICTATION DATE: 06/21/19917 SIGN PAINTER: ARACELI 06/21/19917 RPT#: [id number] DC DATE: STATUS: ADM IN [facility] [address] [place] [address] END OF REPORT
[2019-06-21 10:12] LABS: LYMPHOCYTES 76 % (15-50); MONOCYTES 8 % (2-11); NEUTROPHILS 12 % (40-80); PLATELET ESTIMATE DECREASED
[2019-06-21 10:18] LABS: HYPOCHROMASIA OCC; ROULEAUX OCC
[2019-06-21 12:45] VITALS: BP 134/54
--- NOTE | 2019-06-21 14:56 | NUR ---
NUTRITION F/U PT REMAINS IN NEUTROPENIC ISOLATION. DECREASED PO INTAKE TODAY. ~25% OF RECENT MEALS. WILL CONTINUE TO PROVIDE DIABETIC DIET, MONITOR PO INTAKE. RD FOLLOWING
[2019-06-21 16:00] VITALS: BP 128/50
--- NOTE | 2019-06-21 17:41 | NUR ---
PATIENT RECIEVED BOTH UNITS OF PLATELETS AND CVL DRESSING CHANGED AT THIS TIME PER PROTOCAL. NO COMPLAINTS OR DISTRESS. IV INTACT. CALL LIGHT WITHIN REACH.
[2019-06-21 20:00] VITALS: BP 127/69
--- NOTE | 2019-06-21 20:00 | NUR ---
ASSESSMENT PER FLOWSHEET. AWAKE ALERT AT BEDSIDE. IV PATENT RT TLIJ OF NS/BICARB/KCL 40MEQ AT 100CC'S/HR. SITE CLEAR. EAP CONSULTANT OF DILAUDID IN USE WITH SETTINGS AT 0.5MG Q10MIN W/6MG Q4H L/O. DRSG TO RT STUMP C/D/I. DRSG TO COCCYX C/D/I.SCAB TO PENIS. PT ON FIRST STEP BED IN USE.UNABLE TO PLACE MELANY MAT TO BED WILL NOT WORK ON AIR BED. BED ALARM BED NOT WORKING ASSISTANT MECHANIC AWARE. VOIDS IN URINAL PATIENT ON NEUTROPENIC ISOLATION. NO SCD'S ON PT HAS DVT IN LEFT LEG AND LEFT ARM IS RESERVED.
--- NOTE | 2019-06-21 22:14 | NUR ---
MEDS GIVEN PER DEC. FIZB=[id number]. REGULAR INSULIN 4 UNITS GIVEN SUBC LEFT ABDOMEN PER S/S.
--- NOTE | 2019-06-22 00:17 | NUR ---
EYES CLOSED RESPIRATIONS WITH EASE AND UNLABORED.
[2019-06-22 04:00] VITALS: BP 137/76
[2019-06-22 06:02] LABS: CALC OSMOLALITY 279 mosm/kg (275-300); CALCIUM 8.7 mg/dL (8.5-10.1); CARBON DIOXIDE 28.8 mmol/L (21.0-32.0); CHLORIDE - SERUM 101 mmol/L (98-107); CREATININE - SERUM 0.7 mg/dL (0.6-1.3); GLUCOSE 117 mg/dL (74-106); POTASSIUM - SERUM 3.4 mmol/L (3.5-5.1); SODIUM 139 mmol/L (136-145); UREA NITROGEN 14 mg/dL (7-18); eGFR NON AFRICAN AMERICAN > 90 mL/min (90-120)
[2019-06-22 06:35] LABS: HEMATOCRIT 28.7 % (42.0-54.0); HEMOGLOBIN 9.9 g/dL (13.5-17.5); MCH 28.8 pg (26.0-34.0); MCHC 34.5 g/dL (31.0-37.0); MCV 83.4 fL (80.0-100.0); MEAN PLATELET VOLUME 10.1 fL (7.4-10.4); RBC 3.44 10x6/uL (4.20-6.10); RDW 14.1 % (11.5-14.5)
[2019-06-22 07:11] LABS: PLATELET COUNT 39 10x3/uL (130-400); WBC 0.1 10x3/uL (4.8-10.8)
--- NOTE | 2019-06-22 07:30 | NUR ---
ALERT AND ORIENTED, RESTING IN BED. NO C/O PAIN, DILAUDID GAS METER INSTALLER MANAGING PAIN AT THIS TIME. NO S/S OF ACUTE DISTRESS NOTED. PT DENIES ANY NEEDS. CALL LIGHT IN REACH. WILL CONTINUE TO MONITOR.
[2019-06-22 08:38] VITALS: BP 126/65
[2019-06-22 08:52] LABS: LYMPHOCYTES 85 % (15-50); MONOCYTES 8 % (2-11); NEUTROPHILS 8 % (40-80); PLATELET ESTIMATE DECREASED
[2019-06-22 11:58] VITALS: BP 122/66
[2019-06-22 16:34] VITALS: BP 122/84
--- NOTE | 2019-06-22 18:30 | NUR ---
PT C/O SEVERE PAIN TO BACK OF LEFT SHOULDER. VITALS STABLE, EXCEPT HR 129. CALLED PHYSICIAN FOR ORDERS. GAVE IMG BOLUS OF DILAUDID. ORDERED CARDIAC ENZYMES AND EKG PER NATHEN CABRALES.
--- NOTE | 2019-06-22 19:00 | NUR ---
BEDSIDE REPORT RECEIVED AND CARE OF PT ASSUMED. PT LYING IN SUPINE POSITOIN ON 1ST STEP AIR MATTRESS OVERLAY. RIGHT TL CENTRAL LINE PATENT WITH SODIUM BICARB W/ 40 KCL INFUSING AT 100 ML/HR. TELEMETRY IN PLACE AND READING 97 SR AT THIS ASSESSMENT. WINDOW SASH INSTALLER W/ DILAUDID IN USE FOR PAIN CONTROL. WILL MONITOR FOR NEEDS.
[2019-06-22 19:12] LABS: CKMB 0.2 U/L (0.0-3.6); CREATINE KINASE 30 UL (21-232)
[2019-06-22 19:16] LABS: TROPONIN-I < 0.017 ng/mL (0.000-0.060)
[2019-06-22 20:00] VITALS: BP 106/53
--- NOTE | 2019-06-22 22:02 | NUR ---
HS MEDICATIONS GIVEN. FSBS 201 THIS CHECK REQUIRING COVERAGE WITH 4 UNITS OF REG INSULIN. WILL CONTINUE TO MONITOR FOR NEEDS.
--- NOTE | 2019-06-22 22:20 | NUR ---
CHANGED DRESSINGS ON DECUBITIS ULCER ON BUTTOCKS AND RIGHT STUMP.
[2019-06-23] VITALS: BP 102/47
--- NOTE | 2019-06-23 03:42 | NUR ---
NEW VIAL OF DILAUDID PLACED IN SUPERVISOR SAWING AND ASSEMBLY. ALL IV AND SUPERVISOR SAWING AND ASSEMBLY TUBING CHANGED PER CHANGE SCHEDULE.
[2019-06-23 04:00] VITALS: BP 113/59
--- NOTE | 2019-06-23 06:00 | NUR ---
PT BATHED AND ALL LINENS AND GOWN CHANGED. CHANGED DRESSING ON DECUBITIS ULCER ON BUTTOCK AFTER CLENSING WITH WOUND TANK SETTER. CHANGED DRESSING SURROUNDING PEG TUBE. ALL TELEMETRY CONTACTS CHANGED. POSITIONED FOR COMFORT.
[2019-06-23 06:52] LABS: CALC OSMOLALITY 280 mosm/kg (275-300); CALCIUM 8.8 mg/dL (8.5-10.1); CARBON DIOXIDE 29.2 mmol/L (21.0-32.0); CHLORIDE - SERUM 102 mmol/L (98-107); CREATININE - SERUM 0.8 mg/dL (0.6-1.3); GLUCOSE 103 mg/dL (74-106); POTASSIUM - SERUM 3.4 mmol/L (3.5-5.1); SODIUM 140 mmol/L (136-145); UREA NITROGEN 17 mg/dL (7-18); eGFR NON AFRICAN AMERICAN > 90 mL/min (90-120)
[2019-06-23 07:29] LABS: BASOPHILS 0 % (0-2); EOSINOPHILS 0 % (0-7); HEMATOCRIT 25.1 % (42.0-54.0); HEMOGLOBIN 8.4 g/dL (13.5-17.5); LYMPHOCYTES 81.8 % (15-50); MCH 28.7 pg (26.0-34.0); MCHC 33.5 g/dL (31.0-37.0); MEAN PLATELET VOLUME 10.1 fL (7.4-10.4); MONOCYTES 9.1 % (2-11); NEUTROPHILS 9.1 % (40-80); RBC 2.93 10x6/uL (4.20-6.10); RDW 14.3 % (11.5-14.5)
[2019-06-23 07:37] LABS: MCV 85.7 fL (80.0-100.0); PLATELET COUNT 17 10x3/uL (130-400); WBC 0.1 10x3/uL (4.8-10.8)
--- NOTE | 2019-06-23 08:29 | NUR ---
TEMP 101.8,SPOKE WITH NATHEN LYNCH APN. ORDERS RECIEVED AND INITIATED
[2019-06-23 08:44] VITALS: BP 124/69
--- NOTE | 2019-06-23 09:00 | NUR ---
ASSESSMENT PER FLOW SHEET. PT IS WITHOUT DISTRESS.COMPLAINS OF ALL OVER PAIN 7/10.CLOTH FEEDER USE INSTRUCTED.
[2019-06-23 13:32] VITALS: BP 118/67
--- NOTE | 2019-06-23 14:50 | NUR ---
FEVER DOWN TO 98.8 PLTS ORDERED.
--- NOTE | 2019-06-23 19:00 | NUR ---
BEDSIDE REPORT RECEIVED AND CARE OF PT ASSUMED. PT LYING IN SUPINE POSITION ON 1ST STEP AIR MATTRESS OVERLAY. RIGHT IJ PATENT WITH SOD BICARB W/ 40 K INFUSING AT 100 ML/HR. TELEMETRY IN PLACE. DRESSINGS ON BUTTOCKS AND RIGHT STUMP CLEAN AND DRY. WILL MONITOR FOR NEEDS. IS AT BEDSIDE.
--- NOTE | 2019-06-23 19:45 | NUR ---
PLACED NEW VIAL OF DILAUDID IN CHIEF ARSON DIVISION. WILL CONTINUE TO MONITOR FOR NEEDS.
[2019-06-23 20:00] VITALS: BP 129/66
--- NOTE | 2019-06-23 20:43 | NUR ---
HS MEDICATIONS GIVEN TO INCLUDE 40 MEQ K-DUR PER THE ELECTOLYTE PROTOCOL FOR AM LAB OF 3.4 . FSBS 223 THIS CHECK WHICH REQUIRED 4 UNITS OF REGULAR INSULIN PER SLIDING SCALE. WILL CONTINUE TO MONITOR FOR NEEDS.
[2019-06-24] VITALS: BP 104/59
[2019-06-24 04:29] LABS: HEMATOCRIT 23.2 % (42.0-54.0); HEMOGLOBIN 7.8 g/dL (13.5-17.5); MCH 28.8 pg (26.0-34.0); MCHC 33.6 g/dL (31.0-37.0); MCV 85.6 fL (80.0-100.0); MEAN PLATELET VOLUME 8.9 fL (7.4-10.4); RBC 2.71 10x6/uL (4.20-6.10); RDW 14.5 % (11.5-14.5)
[2019-06-24 04:30] LABS: PLATELET COUNT 36 10x3/uL (130-400); WBC 0.1 10x3/uL (4.8-10.8)
[2019-06-24 04:43] LABS: CALC OSMOLALITY 285 mosm/kg (275-300); CALCIUM 8.4 mg/dL (8.5-10.1); CARBON DIOXIDE 30.7 mmol/L (21.0-32.0); CHLORIDE - SERUM 103 mmol/L (98-107); CREATININE - SERUM 0.9 mg/dL (0.6-1.3); GLUCOSE 146 mg/dL (74-106); POTASSIUM - SERUM 3.6 mmol/L (3.5-5.1); SODIUM 141 mmol/L (136-145); UREA NITROGEN 19 mg/dL (7-18); eGFR NON AFRICAN AMERICAN > 90 mL/min (90-120)
[2019-06-24 04:50] VITALS: BP 118/72
[2019-06-24 04:55] LABS: LYMPHOCYTES 94 % (15-50); MONOCYTES 2 % (2-11); NEUTROPHILS 4 % (40-80); PLATELET ESTIMATE DECREASED
--- NOTE | 2019-06-24 06:37 | NUR ---
LINEN AND GOWN CHANGED DUE TO INCONTINENCE OF BOWEL AND BLADDER. CHANGED DRESSING ON DECUBITIS ON COCCYX. POSITIONED FOR COMFORT.
--- NOTE | 2019-06-24 08:00 | NUR ---
ASSESSMENT PER FLOW SHEET. PT IS WITHOUT DISTRESS.CALL LIGHT IN REACH.ISOLAION MAINTAINED.
--- NOTE | 2019-06-24 08:00 | NUR ---
ASSESSMENT PER FLOW SHEET. PT IS WITHOUT DISTRESS,BUT COMPLAINS OF PAIN THAT IS RARELY BELOW 7/10. HE STATES IT IS ALL OVER.MOITOR FOR NEEDS.MEDICAL LAB SCIENTIST USE INSTRUCTED.
[2019-06-24 08:59] VITALS: BP 137/46
--- NOTE | 2019-06-24 12:00 | NUR ---
SLEEPING ON AND OFF THROUGH DAY. HE YELLS IN PAIN WHEN ATTEMPTING TO MOVE.
[2019-06-24 14:37] VITALS: BP 134/78
--- NOTE | 2019-06-24 16:00 | NUR ---
INCREASED PAIN THROUGHOUT DAY. VERY LITTLE SLEEP THIS AFTERNOON. AT BEDSIDE TALKING TO PT.
--- NOTE | 2019-06-24 18:33 | NUR ---
CONFUSED THIS AFTERNOON. STILL YELLS OUT IN PAIN WHEN TOUCHED. PT NOT EATING TODAY.CONT PLAN OF CARE. REMAINS AT BEDSIDE
--- NOTE | 2019-06-24 19:00 | NUR ---
REPORT RECEIVED AND CARE OF PT ASSUMED. PT LYING IN SUPINE POSITION ON 1ST STEP AIR MATTRESS OVERLAY. RIGHT TL/IJ CENTRAL LINE PATENT WITH NS W/ 40 KCL INFUSING AT 100 ML/HR. LEGAL SUPPORT SPECIALIST W/ DILAUDID IN USE FOR PAIN CONTROL. WILL MONITOR FOR NEEDS.
[2019-06-24 19:50] VITALS: BP 120/70
--- NOTE | 2019-06-24 20:20 | NUR ---
HS MEDICATIONS GIVEN. FSBS 224 THIS CHECK. GAVE SCHEDULED LANTUS BUT HELD SLIDING SCALE REGULAR INSULIN PT WITH DECREASED ORAL INTAKE. WILL MONITOR FOR NEEDS.
[2019-06-25] VITALS (10 sets, daily range): BP systolic 106–150; BP diastolic 50–83
--- NOTE | 2019-06-25 05:13 | NUR ---
PT HAVING HALLUCINATIONS THIS SHIFT...SEEING ANIMALS AND ASKING FOR GUNS.
[2019-06-25 05:52] LABS: CALC OSMOLALITY 291 mosm/kg (275-300); CALCIUM 8.5 mg/dL (8.5-10.1); CARBON DIOXIDE 31.2 mmol/L (21.0-32.0); CHLORIDE - SERUM 107 mmol/L (98-107); GLUCOSE 110 mg/dL (74-106); SODIUM 145 mmol/L (136-145); UREA NITROGEN 18 mg/dL (7-18); eGFR NON AFRICAN AMERICAN 84 mL/min (90-120)
[2019-06-25 05:55] LABS: BASOPHILS 0 % (0-2); EOSINOPHILS 0 % (0-7); HEMATOCRIT 23.7 % (42.0-54.0); HEMOGLOBIN 7.8 g/dL (13.5-17.5); LYMPHOCYTES 56.3 % (15-50); MCH 28.3 pg (26.0-34.0); MCHC 32.9 g/dL (31.0-37.0); MCV 85.9 fL (80.0-100.0); MEAN PLATELET VOLUME 10.4 fL (7.4-10.4); MONOCYTES 6.3 % (2-11); NEUTROPHILS 37.4 % (40-80); RBC 2.76 10x6/uL (4.20-6.10); RDW 14.3 % (11.5-14.5)
[2019-06-25 06:02] LABS: WBC 0.2 10x3/uL (4.8-10.8)
[2019-06-25 06:03] LABS: PLATELET COUNT 24 10x3/uL (130-400)
[2019-06-25 06:28] LABS: POTASSIUM - SERUM 2.6 mmol/L (3.5-5.1)
--- NOTE | 2019-06-25 06:41 | NUR ---
POTASSIUM LEVEL 2.6 WITH AM LABS. STARTED 1 OF 2 20 MEQ RIDERS PER THE ELECTROLYTE PROTOCOL. WILL RE-CHECK 4 HOURS AFTER INFUSION.
--- NOTE | 2019-06-25 08:00 | NUR ---
ASSESSMENT PER FLOW SHEET. PT IS WITHOUT DISTRESS.CONFUSED THIA AM. MONITOR FOR NEEDS
--- NOTE | 2019-06-25 12:36 | NUR ---
AWAKENS EASILY. PT IS CONFUSED MORE THIS AFTERNOON. FAMILY AT BEDSIDE.
--- NOTE | 2019-06-25 19:00 | NUR ---
BEDSIDE REPORT RECEIVED AND CARE OF PT ASSUMED. PT CORNELIO IN SUPINE POSITION ON 1ST STEP AIR MATTRESS OVERLAY. RIGH IJ CENTRAL LINE PATENT WITH PRBC'S INFUSING AT THIS TIME. TELEMETRY IN PLACE AND READIGN ST AT THIS ASSESSMENT. REVERSE ISOLATION IN PLACE. WILL MONITOR FOR NEEDS.
--- NOTE | 2019-06-25 20:00 | NUR ---
HS MEDICATIONS GIVEN. STARTED AN ADDITIONAL LINE WITH NS AT O TO RUN ABX FROM SO THAT PT WILL GET MAINTENANCE FLUIDS CONTINUOUSLY. FSBS 230 THIS CHECK...HELD SLIDING SCALE PT WITH LIMITED ORAL INTAKE AT THIS TIME. WILL MONITOR CLOSELY FOR NEEDS.
--- NOTE | 2019-06-25 20:40 | NUR ---
PRBC'S COMPLETE. RE-STARTED IV FLUIDS AND STARTED ABX.
[2019-06-26] VITALS: BP 130/74
--- NOTE | 2019-06-26 02:08 | NUR ---
DRESSING CAME OF OF RIGHT STUMP. REPLACED WITH ADAPTIC, COVERED WITH 4X4'S, WRAPPED WITH KERLEX, AND WRAPPED WITH RIC WRAP.
[2019-06-26 04:00] VITALS: BP 124/66
[2019-06-26 05:54] LABS: CALC OSMOLALITY 294 mosm/kg (275-300); CALCIUM 8.4 mg/dL (8.5-10.1); CARBON DIOXIDE 33.1 mmol/L (21.0-32.0); CHLORIDE - SERUM 108 mmol/L (98-107); CREATININE - SERUM 0.9 mg/dL (0.6-1.3); GLUCOSE 108 mg/dL (74-106); HEMATOCRIT 24.2 % (42.0-54.0); HEMOGLOBIN 8.2 g/dL (13.5-17.5); MCH 28.5 pg (26.0-34.0); MCHC 33.9 g/dL (31.0-37.0); MEAN PLATELET VOLUME 9.2 fL (7.4-10.4); RBC 2.88 10x6/uL (4.20-6.10); RDW 14.5 % (11.5-14.5); SODIUM 147 mmol/L (136-145); UREA NITROGEN 19 mg/dL (7-18); eGFR NON AFRICAN AMERICAN > 90 mL/min (90-120)
[2019-06-26 05:55] LABS: POTASSIUM - SERUM 2.2 mmol/L (3.5-5.1)
[2019-06-26 05:58] LABS: PLATELET COUNT 11 10x3/uL (130-400); WBC 0.3 10x3/uL (4.8-10.8)
[2019-06-26 08:46] VITALS: BP 129/73
[2019-06-26 08:55] LABS: LYMPHOCYTES 59 % (15-50); MONOCYTES 3 % (2-11); NEUTROPHILS 38 % (40-80); PLATELET ESTIMATE DECREASED
--- NOTE | 2019-06-26 10:25 | NUR ---
SPOKE WITH TIMOTHY MORENO ABOUT PATIENT HAVING VRE IN BLOOD. STATED TO SPEAK TO BREVING ABOUT REMOVING CVL AND STARTING A NEW LINE. VERBALIZED UNDERSTANDING.
--- NOTE | 2019-06-26 10:30 | NUR ---
SPOKE WITH DR. BELLE ABOUT PATIENTS CVL. STATED TO GET VASCULAR ACCESS NURSE TO PLACE A PICC. ORDER RECIEVED AND CARRIED OUT. PATIENT IN BED WITH NO PROBLEMS AT THIS TIME. CALL LIGHT WITHIN REACH.
--- NOTE | 2019-06-26 11:40 | NUR ---
SPOKE WITH PATIENTS ABOUT PICC LINE AND CVL. PATIENT NOT COMPLETELY UNDERSTANDING AT THIS TIME. STATED SHE WOULD SPEAK WITH ANABELLE ABOUT LINE.
--- NOTE | 2019-06-26 12:30 | NUR ---
PICC LINE PLACED PER ANABELLE.
--- NOTE | 2019-06-26 13:43 | NUR ---
Nutrition follow-up: Chart reviewed Pt currently in isolation for neutapenic precautions due to low WBC Diet: ADA consistent CHO PO intake 25-50% of meals Nursing reports pt with confusion and hallucinations New PICC line placed today Labs reviewed No new wt since May Pt is now assessed with severe malnutrition of chronic illness R/T AML AEB: 1. < 75% intake of estimated energy needs for > 1 month 2. Noted loss sof subcutaneous fat, muscle loss to extremeties (pt with BKA) 3. noted measurably reduced patient access registrar hand strength Pt also with weight loss; however, pt has no new wt to assess since May. Please get current weight RDN following.
--- NOTE | 2019-06-26 14:25 | NUR ---
Coccyx wound is still unstageable, but it is noted that the necrotic slough is beginning to loosen from the wound bed. Wound measures 2cm x 2cm. Santyl ointment continues to be in use. There is no odor or purulent drainage noted. Right bka site continues to be tender. He is keeping it elevated on pillows and wrapped for protection. Wound care continues to monitor.
--- NOTE | 2019-06-26 15:30 | NUR ---
PATIENT TO RADIOLOGY TO GET PICC LINE UNKINKED.
--- NOTE | 2019-06-26 16:00 | NUR ---
PATIENT BACK TO ROOM AT THIS TIME. PICC LINE ABLE TO USE. PATIENT STILL ON ANTIBIOTC AND NEEDING PLATLETS. CALL LIGHT WITHIN REACH.
--- NOTE | 2019-06-26 17:05 | NUR ---
FIRST UNIT OF PLATELETS STARTED. PATIENT VS STABLE. NO COMPLAINTS OR PROBLEMS.
--- NOTE | 2019-06-26 17:25 | NUR ---
PATIENT SECOND UNIT OF PLATELETS INFUSING. PATIENT HAS NO PROBLEMS. VS STABLE. CALL LIGHT WITHIN REACH.
--- NOTE | 2019-06-26 17:40 | NUR ---
PATIENT PLATLETS COMPLETE. VS STABLE. CVL REMOVED WITH CATH TIP INTACT. CATH TIP SENT TO LAB FOR CULTURE. PRESSURE HELD TO PATIENT RIGHT JUGLAR FOR 8 MINUTES. PRESSURE DRESSING APPLIED. PATIENT HAS NO COMPLAINTS AT THIS TIME. CALL LIGHT WITHN REACH.
[2019-06-26 17:41] VITALS: BP 143/69
--- NOTE | 2019-06-26 18:15 | NUR ---
PATIENT IN BED WITH NO COMPLAINTS. PICC INTACT. FAMILY AT BEDSIDE. CALL LIGHT WITHIN REACH.
[2019-06-26 21:17] VITALS: BP 154/74
[2019-06-27 00:17] VITALS: BP 149/67
--- NOTE | 2019-06-27 02:00 | NUR ---
PT RESTING IN BED. EYES CLOSED. NO SIGNS OF DISTRESS. BREATHING EVEN AND UNLABORED. IV SITE RT UPPER ARM PICC. DRESSING CLEAN DRY AND INTACT. NO SIGNS OF INFECTION. DRESSING RT NECK CLEAN DRY AND INTACT. LT ARM WEAKNESS. TELE MONITOR ON 94 SINUS. BOWEL SOUNDS ACTIVE. RT LEG BKA DRESSING CLEAN DRY AND INTACT. LT LEG SWELLIING PRESENT. 1ST STEP OVERLAY MATTRESS. FAMILY AT BEDSIDE. WILL CONTINUE PLAN OF CARE. CALL LIGHT IN REACH. BED LOWERED AND LOCKED.
--- NOTE | 2019-06-27 02:50 | NUR ---
I have reviewed this patient and I concur with the Shift Assessment completed by the Licensed Practical Nurse today this shift.
[2019-06-27 04:42] VITALS: BP 121/52
[2019-06-27 05:40] LABS: BASOPHILS 0 % (0-2); EOSINOPHILS 0 % (0-7); HEMATOCRIT 23.8 % (42.0-54.0); LYMPHOCYTES 44.7 % (15-50); MCH 28.5 pg (26.0-34.0); MCHC 33.6 g/dL (31.0-37.0); MCV 84.7 fL (80.0-100.0); MEAN PLATELET VOLUME 9.7 fL (7.4-10.4); MONOCYTES 18.4 % (2-11); NEUTROPHILS 36.9 % (40-80); RBC 2.81 10x6/uL (4.20-6.10); RDW 14.4 % (11.5-14.5)
[2019-06-27 05:57] LABS: CALC OSMOLALITY 292 mosm/kg (275-300); CALCIUM 8.5 mg/dL (8.5-10.1); CHLORIDE - SERUM 107 mmol/L (98-107); CREATININE - SERUM 0.9 mg/dL (0.6-1.3); GLUCOSE 87 mg/dL (74-106); SODIUM 147 mmol/L (136-145); UREA NITROGEN 19 mg/dL (7-18); eGFR NON AFRICAN AMERICAN > 90 mL/min (90-120)
[2019-06-27 06:14] LABS: POTASSIUM - SERUM 2.2 mmol/L (3.5-5.1)
[2019-06-27 06:28] LABS: PLATELET COUNT 33 10x3/uL (130-400); WBC 0.4 10x3/uL (4.8-10.8)
[2019-06-27 08:06] VITALS: BP 143/75
--- NOTE | 2019-06-27 08:15 | NUR ---
PATIENT IN BED WITH NO COMPLAINTS OR SIGNS OF DISTRESS. PICC INTACT. CALL LIGHT WITHIN REACH.
--- NOTE | 2019-06-27 14:03 | NUR ---
OT NOTE: PT ALERT SITTING UP IN BED. ATTEMPTED TO RANGE L HAND BUT PT REPORTED INCREASED PAIN WITH FINGER EXT. APPLIED ROLLED WASH CLOTH TO HAND AND PT REPORTED THAT HE COULD TOLERATED THAT. ATTEMPTED TO PLACE THUMB IN FLEXION AROUND WASH CLOTH BUT PT REPORTED TOO MUCH PAIN WITH THIS. WILL CONT TO ATTEMPT ROM AND INCREASE SIZE OF HAND ROLL TOLERATED. JAROD SMITH, OTR/L
[2019-06-27 14:15] VITALS: BP 150/76
[2019-06-27 15:47] VITALS: BP 176/84
--- NOTE | 2019-06-27 16:07 | NUR ---
PATIENT IN BED WITH EYES CLOSED RESTING AT THIS TIME. PICC LINE INTACT. FAMILY AT BEDSIDE. CALL IGHT WITHIN REACH.
[2019-06-27 21:37] VITALS: BP 147/79
[2019-06-28 00:49] VITALS: BP 135/72
--- NOTE | 2019-06-28 02:03 | NUR ---
PT RESTING IN BED. EYES CLOSED. NO SIGNS OF DISTRESS. BREATHING EVEN AND UNLABORED. IV SITE RT UPPER ARM PICC DRESSING CLEAN DRY AND INTACT. NO SIGNS OF INFECTION. TELE MONITOR ON 96 SINUS. OLD RT BKA. LT LEG SWELLING. 1ST STEP OVERLAY MATTRESS ON. WILL CONTINUE PLAN OF CARE. CALL LIGHT IN REACH. BED LOWERED AND LOCKED. BED RAILS UP X2.
[2019-06-28 05:16] VITALS: BP 139/66
[2019-06-28 06:44] LABS: HEMATOCRIT 21.3 % (42.0-54.0); MCH 28.7 pg (26.0-34.0); MCHC 33.8 g/dL (31.0-37.0); MCV 84.9 fL (80.0-100.0); MEAN PLATELET VOLUME 10.9 fL (7.4-10.4); RBC 2.51 10x6/uL (4.20-6.10); RDW 14.5 % (11.5-14.5)
[2019-06-28 07:19] LABS: HEMOGLOBIN 7.2 g/dL (13.5-17.5); PLATELET COUNT 17 10x3/uL (130-400); WBC 0.4 10x3/uL (4.8-10.8)
[2019-06-28 07:53] LABS: CALCIUM 7.9 mg/dL (8.5-10.1); CARBON DIOXIDE 33.4 mmol/L (21.0-32.0); CHLORIDE - SERUM 103 mmol/L (98-107); CREATININE - SERUM 1.1 mg/dL (0.6-1.3); SODIUM 144 mmol/L (136-145); UREA NITROGEN 20 mg/dL (7-18); eGFR NON AFRICAN AMERICAN 75 mL/min (90-120)
[2019-06-28 07:59] LABS: CALC OSMOLALITY 291 mosm/kg (275-300); GLUCOSE 135 mg/dL (74-106)
[2019-06-28 08:00] LABS: POTASSIUM - SERUM 2.4 mmol/L (3.5-5.1)
[2019-06-28 08:28] VITALS: BP 135/67
--- NOTE | 2019-06-28 10:00 | NUR ---
ASSESSMENT PER FLOW SHEET. PT IS WITHOUT DISTRESS.AWAKENS INT,HE IS VERY DROWSY.MONITOR FOR NEEDS
[2019-06-28 10:08] LABS: LYMPHOCYTES 44 % (15-50); MONOCYTES 8 % (2-11); NEUTROPHILS 40 % (40-80); PLATELET ESTIMATE DECREASED; SMUDGE CELLS OCC
[2019-06-28 12:02] VITALS: BP 143/70
[2019-06-28 16:24] VITALS: BP 146/71
--- NOTE | 2019-06-28 18:59 | NUR ---
2 UNITS OF PLATELETS AND 1 UNIT OF BLOOD COMPLETE. PT IS WITHOUT RECTIONS.1 UNIT OF PRBC'S TO FINISH ORDER.PT IS WITHOUT CHANGE.CONT PLAN OF CARE
--- NOTE | 2019-06-28 19:45 | NUR ---
2ND UNIT PRBC STARTED TO CIELO PICC LINE WITH NO S/S REACTIONS NOTED. PATTERN DEVELOPER DILAUDID IN USE FOR PAIN CONTROL. CL IN REACH. AT BEDSIDE.
[2019-06-28 22:07] VITALS: BP 163/68
[2019-06-29 01:27] VITALS: BP 181/65
[2019-06-29 05:45] VITALS: BP 180/67
[2019-06-29 06:34] LABS: BASOPHILS 0 % (0-2); EOSINOPHILS 0 % (0-7); LYMPHOCYTES 39.4 % (15-50); MCH 28.8 pg (26.0-34.0); MCHC 34.2 g/dL (31.0-37.0); MCV 84.1 fL (80.0-100.0); MEAN PLATELET VOLUME 10.3 fL (7.4-10.4); MONOCYTES 1.5 % (2-11); NEUTROPHILS 56.1 % (40-80)
[2019-06-29 06:35] LABS: HEMATOCRIT 30.1 % (42.0-54.0); HEMOGLOBIN 10.3 g/dL (13.5-17.5); PLATELET COUNT 36 10x3/uL (130-400); RBC 3.58 10x6/uL (4.20-6.10); WBC 0.7 10x3/uL (4.8-10.8)
[2019-06-29 06:53] LABS: CALC OSMOLALITY 293 mosm/kg (275-300); CALCIUM 8.7 mg/dL (8.5-10.1); CARBON DIOXIDE 32.1 mmol/L (21.0-32.0); CHLORIDE - SERUM 106 mmol/L (98-107); GLUCOSE 103 mg/dL (74-106); SODIUM 146 mmol/L (136-145); UREA NITROGEN 21 mg/dL (7-18); eGFR NON AFRICAN AMERICAN 84 mL/min (90-120)
[2019-06-29 07:16] LABS: POTASSIUM - SERUM 2.4 mmol/L (3.5-5.1)
[2019-06-29 09:39] VITALS: BP 163/97
[2019-06-29 12:56] VITALS: BP 178/86
--- NOTE | 2019-06-29 13:52 | NUR ---
Nutrition follow-up: Diet: Consistent CHO PO intake continues to be ~50% of meals Labs reviewed No new wt to assess +BM Receiving blood at this time. RDN following.
--- NOTE | 2019-06-29 16:53 | NUR ---
ASSESSMENT PER FLOW SHEET. PT IS WITHOUT DISTRESS.VERY SLEEPY TODAY. HE IS WITHOUT SIGNS OF PAIN,BUT WHEN WOKE UP HE STATES HIS PAIN IS 7/10 ALL OVER.
[2019-06-29 17:23] VITALS: BP 169/81
--- NOTE | 2019-06-29 18:52 | NUR ---
ATE VERY LITTLE TODAY. HAS SLEPT ALOT. REMAINS WITHOUT DISTRESS.CONT PLAN OF CARE
--- NOTE | 2019-06-29 20:30 | NUR ---
LYING QUIELTY WITH NO COMPLAITNS. RESP EVEN AND UNALBORED.NO DISTRESS NOTED. PICC LINE INTACT TO CIELO WITH NO REDNESS OR EDEMA NOTED. RBKA WITH DRESSING C/D/I. POSITIONED FOR COMFORT. CL IN REACH
[2019-06-29 21:10] VITALS: BP 163/69
[2019-06-30 01:14] VITALS: BP 174/84
--- NOTE | 2019-06-30 05:00 | NUR ---
I have reviewed this patient and I concur with the Shift Assessment completed by the Licensed Practical Nurse today this shift.
[2019-06-30 05:38] VITALS: BP 187/61
[2019-06-30 07:11] LABS: CALCIUM 8.7 mg/dL (8.5-10.1); CARBON DIOXIDE 33.5 mmol/L (21.0-32.0); CHLORIDE - SERUM 105 mmol/L (98-107); SODIUM 147 mmol/L (136-145); UREA NITROGEN 23 mg/dL (7-18); eGFR NON AFRICAN AMERICAN 84 mL/min (90-120)
[2019-06-30 07:12] LABS: CALC OSMOLALITY 298 mosm/kg (275-300); GLUCOSE 152 mg/dL (74-106); HEMATOCRIT 29.5 % (42.0-54.0); MCH 28.7 pg (26.0-34.0); MCHC 33.9 g/dL (31.0-37.0); MCV 84.5 fL (80.0-100.0); MEAN PLATELET VOLUME 10.4 fL (7.4-10.4); POTASSIUM - SERUM 3.3 mmol/L (3.5-5.1); RBC 3.49 10x6/uL (4.20-6.10)
[2019-06-30 07:25] LABS: PLATELET COUNT 23 10x3/uL (130-400); WBC 0.7 10x3/uL (4.8-10.8)
[2019-06-30 09:40] VITALS: BP 169/84
[2019-06-30 10:56] LABS: CRENATED CELLS OCC; EOSINOPHILS 4 % (0-7); LYMPHOCYTES 20 % (15-50); MONOCYTES 4 % (2-11); NEUTROPHILS 56 % (40-80); PLATELET ESTIMATE DECREASED; ROULEAUX OCC
--- NOTE | 2019-06-30 12:31 | MORECARE ---
CASE MANAGEMENT DISCHARGE SUMMARY PATIENT: NAYELI BLAS UNIT: [id number] ADM DATE: 05/15/19 AGE: 49 : [birth year] SEX: M ROOM/BED: D.2216 AUTHOR: SAVANAH LIVINGSTON PHYSICIAN: REFERRING PHYSICIAN: KALEIGH CARRANZA MD DATE OF SERVICE: 06/30/19 Discharge Plan Patient Name: NAYELI BLAS Facility: [facility]:[place] : 1970 Planned Disposition: Correction Facility Anticipated Discharge Date: 05/17/19 Discharge Date: Expected LOS: 2 Initial Reviewer: [email or web address] Initial Review Date: 05/15/2019 Generated: 06/30/19 1:31 pm Comments DCP- Discharge Planning Updated by [email or web address]: Adriana Hendricks on 06/30/19 11:[address] Carranza today about dc plan and to let him know that the patient does not have Ltach benefits. He stated that his WBC needs to be 1.5 to 2 before he would dc him. CM will continue to follow DCP- Discharge Planning Updated by [email or web address]: Adriana Hendricks on 06/21/19 8:[address] CALLED AND SPOKE WITH AND SHE IS UNSURE OF HIS PLAN, SHE STATED THAT HE DID NOT FINISH HIS REHAB OR HAS GOTTEN HIS PROSTHETIC. I AM UNSURE IN HIS CONDITION IF HE WILL NE ABLE TO PARTICIPATE IN REHAB AT THIS POINT. I WILL VISIT WITH HER WHEN SHE ARRIVES TO THE HOSPITAL DCP- Discharge Planning Updated by [id number]: Adriana Hendricks on 06/12/19 2:[address] Spoke with patient to about his discharge plan, he was unsure if he would go back to [facility]. He stated that his home is not set up for a wheelchair and he is not ambulatory. He asked if I would come back to [place] and speak with him. CM to follow and assist with dc planning DCP- Discharge Planning Updated by [email or web address]: Krista Scales on 05/22/19 2:[address] Received a call from Paulie Fraser that he would like the patient transferred to [facility] to his oncologist. I went to patient's room to inquire about his oncologists name and he asks why. I informed him that Paulie had called and would like to have him transferred to [facility] to his oncology team there. He states "the hell you are." His states that no one has talked to him about transfer and it is his decision if he wants to transfer or go home. I told him I agreed, that it is his choice to make and he would not be transferred without his consent. His states she is going home and will be back at 5PM tonight to speak with Paulie. I called Paulie and informed that I did not call transfer team and what the patient said. He will be here tonight at 5 to speak with the patient and . CM will continue to follow and assist with discharge planning/needs. DCP- Discharge Planning Updated by [email or web address]: Mar Silva on 05/15/19 6:[address] Patient Name: NAYELI BLAS Admission Status: ER Accout number: [id number] Admission Date: 05-15-2019 : 1970 Admission Diagnosis: Attending: KALEIGH CARRANZA Current LOS: 1 Anticipated DC Date: 05-17-2019 Planned Disposition: Correction Facility Primary Insurance: MEDICAID [place] Discharge Planning Comments: CM met with patient's , Anika to complete initial dc planning assessment. CM educated Anika on the CM role and verbal consent given by Anika to complete assessment. Patient is currently in rehab @ [facility]. At discharge patient plans to return to [facility] and Anika feels this is a safe discharge. CIERRA form signed by Anika for the patine to return to [facility] [place]. Signed form placed in chart and signed form given to Anika. She denied further known discharge needs at this time. CM will continue to follow and will assist as needed with dc plans/needs. Drive Man: Mar Silva RN, [facility] DCPIA - Discharge Planning Initial Assessment Updated by [id number]: Mar Silva on 05/15/19 7:30 pm * Is the patient Alert and Oriented? Yes * How many steps to enter\\exit or inside your home? * PCP Dr. Carranza * [facility] * Preadmission Environment Correction Facility * Facility Name [facility] * ADLs Partial Dependent * Partial ADLs (Assistance needed) Ambulation Bathing Dressing Medication Management Transfers * Other Equipment No equipment at home. Uses WC from [facility]. * List name and contact numbers for known caregivers / representatives who currently or will assist patient after discharge: Anika Blas - - [phone] or (H)[phone] * Verbal permission to speak to the caregivers and representatives has been obtained from the patient. Yes * Community resources currently utilized None * Additional services required to return to the preadmission environment? No * Can the patient safely return to the preadmission environment? Yes * Has this patient been hospitalized within the prior 30 days at any hospital? No Last DP export: 06/21/19 8:19 a Patient Name: NAYELI BLAS Page [id number] at 1231 All edits/amendments must be made on the electronic document DICTATION DATE: 06/30/19 1231 IS CONSULTANT: ARACELI 06/30/19 1231 RPT#: [id number] DC DATE: STATUS: ADM IN [facility] [address] [place] [address] END OF REPORT
[2019-06-30 13:03] VITALS: BP 167/78
--- NOTE | 2019-06-30 13:20 | NUR ---
PATIENT DRESSING ON COCCYX CHANGED AT THIS TIME. SANTYL PLACED ON WOUND AND NEW DRESSING APPLIED. DRESSING TO STUMP CLEAN AND DRY AT THIS TIME. FAMILY AT BEDSIDE. CALL LIGHT WITHIN REACH.
[2019-06-30 16:26] VITALS: BP 163/81
[2019-06-30 17:08] LABS: AEROBE ID Final report (())
[2019-06-30 20:26] VITALS: BP 164/80
[2019-07-01 00:48] VITALS: BP 173/85
[2019-07-01 05:17] VITALS: BP 156/88
[2019-07-01 06:54] LABS: BASOPHILS 0 % (0-2); EOSINOPHILS 0 % (0-7); HEMATOCRIT 30.5 % (42.0-54.0); HEMOGLOBIN 10.3 g/dL (13.5-17.5); LYMPHOCYTES 37.8 % (15-50); MCH 28.7 pg (26.0-34.0); MCHC 33.8 g/dL (31.0-37.0); MEAN PLATELET VOLUME 11.1 fL (7.4-10.4); MONOCYTES 2.4 % (2-11); NEUTROPHILS 59.8 % (40-80); RBC 3.59 10x6/uL (4.20-6.10); RDW 13.8 % (11.5-14.5)
[2019-07-01 07:10] LABS: CALC OSMOLALITY 291 mosm/kg (275-300); CALCIUM 8.7 mg/dL (8.5-10.1); CARBON DIOXIDE 33.4 mmol/L (21.0-32.0); CHLORIDE - SERUM 104 mmol/L (98-107); CREATININE - SERUM 0.9 mg/dL (0.6-1.3); GLUCOSE 111 mg/dL (74-106); SODIUM 144 mmol/L (136-145); UREA NITROGEN 25 mg/dL (7-18); eGFR NON AFRICAN AMERICAN > 90 mL/min (90-120)
[2019-07-01 07:12] LABS: POTASSIUM - SERUM 2.9 mmol/L (3.5-5.1)
[2019-07-01 08:01] LABS: WBC 0.8 10x3/uL (4.8-10.8)
[2019-07-01 08:02] LABS: PLATELET COUNT 18 10x3/uL (130-400)
[2019-07-01 08:08] VITALS: BP 131/72
--- NOTE | 2019-07-01 11:26 | NUR ---
PT ALERT X 4. BREATH SOUNDS CLEAR BILAT. TELEMETRY IN PLACE. PICC LINE TO RIGHT UPPER ARM, PATENT, DRESSING CDI. PT REPORTING PAIN OF 8/10, DAIRY FARMWORKER REFILLED, BOLUS GIVEN PER ORDERS, WILL MONITOR. DRESSING TO RIGHT STUMP CDI. STAGE 2 ON COCCYX, DRESSING CDI. FAMILY AT BEDSIDE. BED LOW, CALL LIGHT IN REACH. NO OTHER NEEDS AT THIS TIME.
[2019-07-01 12:24] VITALS: BP 155/84
[2019-07-01 17:24] VITALS: BP 159/89
[2019-07-01 20:58] VITALS: BP 161/76
[2019-07-02 00:48] VITALS: BP 126/80; BP 159/61
--- NOTE | 2019-07-02 01:51 | NUR ---
PT THRASHING AND YELLING OUT IN PAIN. RATES PAIN 10/10. GAVE DILAUDID 0.6 MG BOLUS THROUGH SIGHTSEEING GUIDE. REPOSITIONED AND PULLED PT UP IN BED. PT STARTING TO CALM DOWN. NO OTHER NEEDS. WILL CONTINUE TO MONITOR.
--- NOTE | 2019-07-02 04:00 | NUR ---
PT INCONTINENT OF URINE. BED BATH AND LINEN CHANGE BY NOREEN CHRISTIE. PT TURNED. SECTIONAL BELT MOLD ASSEMBLER SYRINGE REFILLED. BLOOD DRAWN FROM PICC LINE FOR LABS. NO OTHER NEEDS. WILL CONTINUE TO MONITOR.
[2019-07-02 04:45] LABS: HEMATOCRIT 28.3 % (42.0-54.0); HEMOGLOBIN 9.6 g/dL (13.5-17.5); MCH 28.8 pg (26.0-34.0); MCHC 33.9 g/dL (31.0-37.0); MEAN PLATELET VOLUME 9.1 fL (7.4-10.4); RBC 3.33 10x6/uL (4.20-6.10); RDW 13.8 % (11.5-14.5)
[2019-07-02 04:49] LABS: PLATELET COUNT 47 10x3/uL (130-400); WBC 0.8 10x3/uL (4.8-10.8)
[2019-07-02 04:53] LABS: CALC OSMOLALITY 293 mosm/kg (275-300); CARBON DIOXIDE 29.7 mmol/L (21.0-32.0); CHLORIDE - SERUM 104 mmol/L (98-107); CREATININE - SERUM 0.9 mg/dL (0.6-1.3); GLUCOSE 133 mg/dL (74-106); SODIUM 144 mmol/L (136-145); UREA NITROGEN 26 mg/dL (7-18); eGFR NON AFRICAN AMERICAN > 90 mL/min (90-120)
[2019-07-02 05:01] LABS: POTASSIUM - SERUM 3.6 mmol/L (3.5-5.1)
[2019-07-02 05:04] LABS: LYMPHOCYTES 21 % (15-50); MONOCYTES 5 % (2-11); NEUTROPHILS 74 % (40-80); PLATELET ESTIMATE DECREASED
[2019-07-02 05:24] VITALS: BP 162/68
--- NOTE | 2019-07-02 05:30 | NUR ---
PT WOKE UP CRYING OUT. C/O RIGHT HIP PAIN 08/10. GAVE 0.6 MG DILAUDID BOLUS THROUGH DIRECTOR OF DATABASE MARKETING. WILL REASSESS AND CONTINUE TO MONITOR.
[2019-07-02 08:34] VITALS: BP 180/62
--- NOTE | 2019-07-02 09:34 | NUR ---
PT ALERT X 4. BREATH SOUNDS CLEAR BILAT. PICC LINE TO RIGHT UPPER ARM, PATENT, DRESSING CDI. TELEMETRY IN PLACE. PEG TUBE IN PLACE, CLAMPED. PT INCONTINENT, LINENS CHANGED. RIGHT BKA, DRESSING CDI. +4 EDEMA TO LEFT LOWER LEG, SKIN WARM TO TOUCH. PT REPORTING PAIN IS "BAD" THIS MORNING, MICROFILMER SETTINGS INCREASED PER ORDERS, WILL MONITOR. FENTANYL PATCH IN PLACE ON RIGHT SHOULDER. 1ST STEP OVERLAY IN USE. BED LOW, CALL LIGHT IN REACH. NO OTHER NEEDS AT THIS TIME.
[2019-07-02 12:14] VITALS: BP 178/79
[2019-07-02 17:04] VITALS: BP 166/70
[2019-07-02 20:00] VITALS: BP 159/78
--- NOTE | 2019-07-02 20:00 | NUR ---
A/O WITH NO SIGNS OF ACTUE DISTRESS NOTED. PICC LINE TO THE RT UPPER EXT, CDI. CLAMPPED PEG TUBE NOTED TO THE LUQ. RT BKA AND SWOLLEN LT FOOT. DRESSING TO THE COCCYX, CDI. LT ARM RESERVED WITH LIMITED ROM. DENIES NEEDS AT THIS TIME. WILL CONTIUE TO MONITOR.
[2019-07-03] VITALS: BP 116/57
--- NOTE | 2019-07-03 03:23 | NUR ---
RECIEVED CALL FROM TELEMETRY THAT PT WAS RUNNING V-TACH. WENT INTO ROOM AND PT WAS RESTING COMFORTABLY. VS- TEMP-97.7, O2 VIA ROOM AIR-97%, HR-76, BP-167/43. NO OTHER SYMPOTMS NOTED. WILL MONITOR CLOSELY.
[2019-07-03 04:00] VITALS: BP 134/74
[2019-07-03 06:16] LABS: BASOPHILS 0 % (0-2); EOSINOPHILS 0 % (0-7); HEMATOCRIT 26.8 % (42.0-54.0); HEMOGLOBIN 8.9 g/dL (13.5-17.5); LYMPHOCYTES 38.3 % (15-50); MCH 28.4 pg (26.0-34.0); MCHC 33.2 g/dL (31.0-37.0); MCV 85.6 fL (80.0-100.0); MEAN PLATELET VOLUME 9.6 fL (7.4-10.4); MONOCYTES 2.1 % (2-11); NEUTROPHILS 59.6 % (40-80); RBC 3.13 10x6/uL (4.20-6.10); RDW 13.9 % (11.5-14.5)
[2019-07-03 06:27] LABS: CALC OSMOLALITY 286 mosm/kg (275-300); CALCIUM 8.7 mg/dL (8.5-10.1); CARBON DIOXIDE 30.3 mmol/L (21.0-32.0); CHLORIDE - SERUM 103 mmol/L (98-107); GLUCOSE 102 mg/dL (74-106); POTASSIUM - SERUM 3.6 mmol/L (3.5-5.1); SODIUM 141 mmol/L (136-145); UREA NITROGEN 29 mg/dL (7-18); eGFR NON AFRICAN AMERICAN 84 mL/min (90-120)
[2019-07-03 06:40] LABS: PLATELET COUNT 36 10x3/uL (130-400); WBC 0.9 10x3/uL (4.8-10.8)
--- NOTE | 2019-07-03 07:31 | NUR ---
RECEIVED CRITICAL LAB CALL ABOUT WBC AND PLT. WILL PASS ON IN REPORT ABOUT VALUES. CONTINUE PLAN OF CARE.
[2019-07-03 08:55] VITALS: BP 179/54
--- NOTE | 2019-07-03 09:32 | NUR ---
Nutrition follow-up: Pt with increased pain, increased pain medication PO intake of consistent CHO diet very poor at this time labs reviewed Wt: 160# Due to pt with malnutrition 2/2 poor po intake, may consider starting nutrition support. PEG tube placement vs NGT placement and TF started to supplement po intake. RDN following.
--- NOTE | 2019-07-03 12:15 | NUR ---
Nutrition consult: Talked with nurse, Gena BAILEY re: nutrition consult. Pt with PEG tube and family requests TF start. RDN will order osmolite 1.0 tobias to start @ 25 ml/hr x 24 hours to make sure pt will tolerate. Will increase after 24 hours 10 ml Q 6 hours to goal rate of 75 ml/hr. Thank you for the consult. RDN following.
[2019-07-03 12:27] VITALS: BP 169/49
--- NOTE | 2019-07-03 14:56 | NUR ---
OT NOTE: HURST APPLIED HAND ROLL TO LUE TO DECREASE SKIN BREAKDOWN. FAMILY AT PT BEDSIDE. THANK YOU, ARIS GARBER
[2019-07-03 16:25] VITALS: BP 157/66
[2019-07-03 20:00] VITALS: BP 182/77
[2019-07-04 00:59] VITALS: BP 149/90
--- NOTE | 2019-07-04 02:08 | NUR ---
PT RESTING IN BED. EYES CLOSED. NO SIGNS OF DISTRESS. BREATHING EVEN AND UNLABORED. IVS ITE RT UPPER ARM PICC. DRESSING CLEAN DRY AND INTACT. NO SIGNS OF INFECTION. TELE MONITOR ON 107 NORMAL SINUS. FEDDING TUBE LT LOWER ABD OSMOLITE 1.[address] IN PL[address]. RT BKA PRESENT DRESSING CLEAN DRY AND INTACT. LT LEG SWELLING PRESENT. 1ST STEP OVERLAY MATTRESS. WILL CONTINUE PLAN OF CARE. CALL LIGHT IN REACH. BED LOWERED AND LOCKED. BED RAILS UPX2.
--- NOTE | 2019-07-04 04:24 | NUR ---
I have reviewed this patient and I concur with the Shift Assessment completed by the Licensed Practical Nurse today this shift.
[2019-07-04 05:08] VITALS: BP 165/82
[2019-07-04 06:03] LABS: HEMATOCRIT 26.6 % (42.0-54.0); MCH 28.8 pg (26.0-34.0); MCHC 33.8 g/dL (31.0-37.0); MEAN PLATELET VOLUME 9.5 fL (7.4-10.4); RBC 3.13 10x6/uL (4.20-6.10); RDW 13.9 % (11.5-14.5)
[2019-07-04 06:21] LABS: CALC OSMOLALITY 294 mosm/kg (275-300); CALCIUM 8.8 mg/dL (8.5-10.1); CARBON DIOXIDE 31.5 mmol/L (21.0-32.0); CHLORIDE - SERUM 105 mmol/L (98-107); GLUCOSE 125 mg/dL (74-106); POTASSIUM - SERUM 3.4 mmol/L (3.5-5.1); SODIUM 144 mmol/L (136-145); UREA NITROGEN 32 mg/dL (7-18); eGFR NON AFRICAN AMERICAN 84 mL/min (90-120)
[2019-07-04 07:07] LABS: WBC 1.2 10x3/uL (4.8-10.8)
[2019-07-04 07:08] LABS: PLATELET COUNT 30 10x3/uL (130-400)
--- NOTE | 2019-07-04 07:39 | NUR ---
ALERT AND ORIENTED. LUNGS CLEAR BILATERALLY IN ALL ROBBINS. HEART SOUNDS S1 AND S2 HEARD IN ALL ROBBINS. BOWEL SOUNDS SLUGGISH X 4. DRSG IN PLACE TO COCCYX TO BE CHANGED TODAY. DRSG IN PLACE TO RIGHT STUMP. CIELO PICC PATENT WITHOUT REDNESS. DENIES NEEDS. BED LOW. CALL BECKWITH AND PERSONAL ITEMS IN REACH. WILL CONTINUE TO MONITOR.
--- NOTE | 2019-07-04 08:40 | NUR ---
DRSG CHANGED TO COCCYX PER ORDER. PROCAL DISCONTINUED PER ORDER.
[2019-07-04 08:56] VITALS: BP 189/82
[2019-07-04 08:56] LABS: LYMPHOCYTES 10 % (15-50); MONOCYTES 12 % (2-11); NEUTROPHILS 78 % (40-80)
[2019-07-04 08:57] LABS: PLATELET ESTIMATE DECREASED
--- NOTE | 2019-07-04 09:48 | NUR ---
Nutrition follow-up: Tube feeding infusing via PEG tube @ 25 ml/hr; pt is currently tolerating per ESME Crabtree. Labs reviewed Will slowly increase TF to goal rate of 75 ml/hr ProcalAmine PPN discontinued today. RDN following.
--- NOTE | 2019-07-04 10:27 | NUR ---
RESIDUAL CHECKED. 10 ML NOTED. FEED INCREASED TO 35ML/HR.
--- NOTE | 2019-07-04 11:01 | NUR ---
SPOKE WITH JOSH SENA ABOUT POTASSIUM 3.3 AFTER BEING TREATED THIS AM. STATES TO DRAW MAGNESIUM. WILL PLACE ORDER.
[2019-07-04 12:55] VITALS: BP 163/57
--- NOTE | 2019-07-04 12:55 | NUR ---
RESTING IN BED. AT BEDSIDE. DENIES NEEDS. WILL CONTINUE TO MONITOR.
--- NOTE | 2019-07-04 13:08 | MORECARE ---
CASE MANAGEMENT DISCHARGE SUMMARY PATIENT: NAYELI BLAS UNIT: [id number] ADM DATE: 05/15/19 AGE: 49 : [birth year] SEX: M ROOM/BED: D.2216 AUTHOR: YARADOC PHYSICIAN: REFERRING PHYSICIAN: KALEIGH CARRANZA MD DATE OF SERVICE: 07/04/19 Discharge Plan Patient Name: NAYELI BLAS Facility: [facility]:[place] : 1970 Planned Disposition: Long-Term Facility Anticipated Discharge Date: 05/17/19 Discharge Date: Expected LOS: 2 Initial Reviewer: [email or web address] Initial Review Date: 05/15/2019 Generated: 07/04/19 2:08 pm Comments DCP- Discharge Planning Updated by [email or web address]: Adriana Hendricks on 07/04/19 12:[address] called spoke with Baron at [facility] to let her know that patient may be discharged back to her tomorrow. Updated clinical sent DCP- Discharge Planning Updated by [email or web address]: Adriana Hendricks on 06/30/19 11:[address] Carranza today about dc plan and to let him know that the patient does not have Ltach benefits. He stated that his WBC needs to be 1.5 to 2 before he would dc him. CM will continue to follow DCP- Discharge Planning Updated by [id number]: Adriana Hendricks on 06/21/19 8:[address] CALLED AND SPOKE WITH AND SHE IS UNSURE OF HIS PLAN, SHE STATED THAT HE DID NOT FINISH HIS REHAB OR HAS GOTTEN HIS PROSTHETIC. I AM UNSURE IN HIS CONDITION IF HE WILL NE ABLE TO PARTICIPATE IN REHAB AT THIS POINT. I WILL VISIT WITH HER WHEN SHE ARRIVES TO THE HOSPITAL DCP- Discharge Planning Updated by [id number]: Adriana Hendricks on 06/12/19 2:[address] Spoke with patient to about his discharge plan, he was unsure if he would go back to [facility]. He stated that his home is not set up for a wheelchair and he is not ambulatory. He asked if I would come back to [place] and speak with him. CM to follow and assist with dc planning DCP- Discharge Planning Updated by [email or web address]: Krista Scales on 05/22/19 2:[address] Received a call from Paulie Fraser that he would like the patient transferred to [facility] to his oncologist. I went to patient's room to inquire about his oncologists name and he asks why. I informed him that Paulie had called and would like to have him transferred to [facility] to his oncology team there. He states "the hell you are." His states that no one has talked to him about transfer and it is his decision if he wants to transfer or go home. I told him I agreed, that it is his choice to make and he would not be transferred without his consent. His states she is going home and will be back at 5PM tonight to speak with Paulie. I called Paulie and informed that I did not call transfer team and what the patient said. He will be here tonight at 5 to speak with the patient and . CM will continue to follow and assist with discharge planning/needs. DCP- Discharge Planning Updated by [email or web address]: Mar Silva on 05/15/19 6:[address] Patient Name: NAYELI BLAS Admission Status: ER Accout number: [id number] Admission Date: 05-15-2019 : 1970 Admission Diagnosis: Attending: KALEIGH CARRANZA Current LOS: 1 Anticipated DC Date: 05-17-2019 Planned Disposition: Long-Term Facility Primary Insurance: MEDICAID [place] Discharge Planning Comments: CM met with patient's , Anika to complete initial dc planning assessment. CM educated Anika on the CM role and verbal consent given by Anika to complete assessment. Patient is currently in rehab @ [facility]. At discharge patient plans to return to [facility] and Anika feels this is a safe discharge. CIERRA form signed by Anika for the patine to return to [facility] at [place]. Signed form placed in chart and signed form given to Anika. She denied further known discharge needs at this time. CM will continue to follow and will assist as needed with dc plans/needs. End Finder Twisting Department: Mar Silva RN, [facility] DCPIA - Discharge Planning Initial Assessment Updated by [email or web address]: Mar Silva on 05/15/19 7:30 pm * Is the patient Alert and Oriented? Yes * How many steps to enter\\exit or inside your home? * PCP Dr. Carranza * [facility] [address] * Preadmission Environment Long-Term Facility * [facility] * ADLs Partial Dependent * Partial ADLs (Assistance needed) Ambulation Bathing Dressing Medication Management Transfers * Other Equipment No equipment at home. Uses WC from [facility]. * List name and contact numbers for known caregivers / representatives who currently or will assist patient after discharge: Anika Blas - - (C)[phone] or (H)[phone] * Verbal permission to speak to the caregivers and representatives has been obtained from the patient. Yes * Community resources currently utilized None * Additional services required to return to the preadmission environment? No * Can the patient safely return to the preadmission environment? Yes * Has this patient been hospitalized within the prior 30 days at any hospital? No Last DP export: 06/30/19 11:31 a Patient Name: NAYELI BLAS Page 11531 at 1308 All edits/amendments must be made on the electronic document DICTATION DATE: 07/04/19 1308 BUS MATRON: ARACELI 07/04/19 1308 RPT#: [id number] DC DATE: STATUS: ADM IN [facility] [address] [place] [address] END OF REPORT
--- NOTE | 2019-07-04 13:18 | MORECARE ---
CASE MANAGEMENT DISCHARGE SUMMARY PATIENT: NAYELI BLAS UNIT: [id number] ADM DATE: 05/15/19 AGE: 49 : 68 SEX: M ROOM/BED: D.2216 AUTHOR: YARADOC PHYSICIAN: REFERRING PHYSICIAN: KALEIGH CARRANZA MD DATE OF SERVICE: 07/04/19 Discharge Plan Patient Name: NAYELI BLAS Facility: [facility]:[place] : 1970 Planned Disposition: Intermediate Facility Anticipated Discharge Date: 05/17/19 Discharge Date: Expected LOS: 2 Initial Reviewer: [email or web address] Initial Review Date: 05/15/2019 Generated: 07/04/19 2:17 pm Comments DCP- Discharge Planning Updated by [id number]: Adriana Hendricks on 07/04/19 12:[address] called spoke with Baron at [facility] to let her know that patient may be discharged back to her tomorrow. Updated clinical sent DCP- Discharge Planning Updated by [email or web address]: Adriana Hendricks on 06/30/19 11:[address] Carranza today about dc plan and to let him know that the patient does not have Ltach benefits. He stated that his WBC needs to be 1.5 to 2 before he would dc him. CM will continue to follow DCP- Discharge Planning Updated by [id number]: Adriana Hendricks on 06/21/19 8:[address] CALLED AND SPOKE WITH AND SHE IS UNSURE OF HIS PLAN, SHE STATED THAT HE DID NOT FINISH HIS REHAB OR HAS GOTTEN HIS PROSTHETIC. I AM UNSURE IN HIS CONDITION IF HE WILL NE ABLE TO PARTICIPATE IN REHAB AT THIS POINT. I WILL VISIT WITH HER WHEN SHE ARRIVES TO THE HOSPITAL DCP- Discharge Planning Updated by [email or web address]: Adriana Hendricks on 06/12/19 2:[address] Spoke with patient to about his discharge plan, he was unsure if he would go back to [facility]. He stated that his home is not set up for a wheelchair and he is not ambulatory. He asked if I would come back to [place] and speak with him. CM to follow and assist with dc planning DCP- Discharge Planning Updated by [email or web address]: Krista Scales on 05/22/19 2:[address] Received a call from Paulie Fraser that he would like the patient transferred to [facility] to his oncologist. I went to patient's room to inquire about his oncologists name and he asks why. I informed him that Paulie had called and would like to have him transferred to [facility] to his oncology team there. He states "the hell you are." His states that no one has talked to him about transfer and it is his decision if he wants to transfer or go home. I told him I agreed, that it is his choice to make and he would not be transferred without his consent. His states she is going home and will be back at 5PM tonight to speak with Paulie. I called Paulie and informed that I did not call transfer team and what the patient said. He will be here tonight at 5 to speak with the patient and . CM will continue to follow and assist with discharge planning/needs. DCP- Discharge Planning Updated by [email or web address]: Mar Silva on 05/15/19 6:[address] Patient Name: NAYELI BLAS Admission Status: ER Accout number: [id number] Admission Date: 05-15-2019 : 1970 Admission Diagnosis: Attending: KALEIGH CARRANZA Current LOS: 1 Anticipated DC Date: 05-17-2019 Planned Disposition: Intermediate Facility Primary Insurance: MEDICAID [place] Discharge Planning Comments: CM met with patient's , Anika to complete initial dc planning assessment. CM educated Anika on the CM role and verbal consent given by Anika to complete assessment. Patient is currently in rehab @ [facility]. At discharge patient plans to return to [facility] and Anika feels this is a safe discharge. CIERRA form signed by Anika for the patine to return to [facility] [place]. Signed form placed in chart and signed form given to Anika. She denied further known discharge needs at this time. CM will continue to follow and will assist as needed with dc plans/needs. Coating And Baking Operator: Mar Silva RN, [facility] DCPIA - Discharge Planning Initial Assessment Updated by [email or web address]: Mar Silva on 05/15/19 7:30 pm * Is the patient Alert and Oriented? Yes * How many steps to enter\\exit or inside your home? * PCP Dr. Carranza * [facility] [address] * Preadmission Environment Intermediate Facility * [facility] * ADLs Partial Dependent * Partial ADLs (Assistance needed) Ambulation Bathing Dressing Medication Management Transfers * Other Equipment No equipment at home. Uses from [facility]. * List name and contact numbers for known caregivers / representatives who currently or will assist patient after discharge: Anika Blas - - [phone] or (H)[phone] * Verbal permission to speak to the caregivers and representatives has been obtained from the patient. Yes * Community resources currently utilized None * Additional services required to return to the preadmission environment? No * Can the patient safely return to the preadmission environment? Yes * Has this patient been hospitalized within the prior 30 days at any hospital? No External Providers External Provider: [facility] Next Contact Date: Service Request Date: Service Type: Resolution: Reviewer: Comments: Last DP export: 07/04/19 12:08 pm Patient Name: NAYELI BLAS Page [id number] at 1318 All edits/amendments must be made on the electronic document DICTATION DATE: 07/04/197 FIRMWARE TEST ENGINEER: ARACELI 07/04/191316 RPT#: [id number] DC DATE: STATUS: ADM IN [facility] [address] [place] [address] END OF REPORT
--- NOTE | 2019-07-04 14:04 | NUR ---
BOLUS DOSE GIVEN FROM NIGHT SHIFT MANAGER PER REQUEST.
--- NOTE | 2019-07-04 15:46 | NUR ---
PATIENT SLEEPING. WILL CONTINUE TO MONITOR.
--- NOTE | 2019-07-04 16:03 | NUR ---
CHECKED RESIDUAL. 10ML NOTED. TUBE FEED RATE INCREASED TO 45/HR.
[2019-07-04 17:11] VITALS: BP 170/80
[2019-07-04 20:00] VITALS: BP 171/78
--- NOTE | 2019-07-04 23:30 | NUR ---
CHECKED RESIDUAL 5ML. WENT UP TO 55ML/HR. WILL FALLOW UP.
[2019-07-05] VITALS (7 sets, daily range): BP systolic 139–179; BP diastolic 70–89
--- NOTE | 2019-07-05 04:04 | NUR ---
PT RESTING IN BED. EYES CLOSED. NO SIGNS OF DISTRESS. BREATHING EVEN AND UNLABORED. IV SITE RT UPPER ARM PICC. DRESSING CLEAN DRY AND INTACT. NO SIGNS OF INFECTION. BOWEL SOUNDS ACTIVE. TELE MONITOR ON 91 SINUS. FEEDING TUBE IN PLACE CLEAN DRY AND INTACT. NO SIGNS OF INFECTION. RT BKA DRESSING CLEAN DRY AND INTACT. LT LEG SWELLING PRESENT. WILL CONTINUE PLAN OF CARE. CALL LIGHT IN REACH. BED LOWERED AND LOCKED. BED RAILS UP X2.
--- NOTE | 2019-07-05 04:34 | NUR ---
I have reviewed this patient and I concur with the Shift Assessment completed by the Licensed Practical Nurse today this shift.
[2019-07-05 06:36] LABS: BASOPHILS 0 % (0-2); EOSINOPHILS 0 % (0-7); HEMATOCRIT 24.3 % (42.0-54.0); HEMOGLOBIN 8.2 g/dL (13.5-17.5); LYMPHOCYTES 28.7 % (15-50); MCH 28.5 pg (26.0-34.0); MCHC 33.7 g/dL (31.0-37.0); MCV 84.4 fL (80.0-100.0); MEAN PLATELET VOLUME 10.1 fL (7.4-10.4); MONOCYTES 2.1 % (2-11); NEUTROPHILS 69.2 % (40-80); RBC 2.88 10x6/uL (4.20-6.10); RDW 13.9 % (11.5-14.5)
[2019-07-05 06:40] LABS: PLATELET COUNT 21 10x3/uL (130-400); WBC 0.9 10x3/uL (4.8-10.8)
--- NOTE | 2019-07-05 06:42 | NUR ---
RECEIVED CALL FROM LAB WITH CRITICAL PLT 21 AND WBC 0.9. REPORTED TO PRIMARY NURSE Fransico RAMIREZ LPN.
[2019-07-05 07:14] LABS: ANION GAP 11.6 mmol/L (8-16); CREATININE - SERUM 1.2 mg/dL (0.6-1.3); POTASSIUM - SERUM 4.6 mmol/L (3.5-5.1)
--- NOTE | 2019-07-05 11:41 | NUR ---
PT RESTING IN BED NO SIGNS OF DISTRESS. IV TO RIGHT UPPER ARM PATENT NO REDNESS OR TENDERNESS. ON FIRST STEP OVERLAY. ON TELEMETRY 96 SR. HAS RT BKA. HAS SORE TO COCCYX DRESSING INTACT. HAS FEEDING TUBE PATENT. DENIES ANY FURTHER NEED AT THIS TIME. CALL LIGHT IN REACH. BED LOW POSITION. NO FAMILY AT BEDSIDE AT THIS TIME. IN REVERSE ISO.
--- NOTE | 2019-07-05 14:02 | MORECARE ---
CASE MANAGEMENT DISCHARGE SUMMARY PATIENT: NAYELI BLAS UNIT: [id number] ADM DATE: 05/15/19 AGE: 49 : 68 SEX: M ROOM/BED: D.2216 AUTHOR: YARADOC PHYSICIAN: REFERRING PHYSICIAN: KALEIGH CARRANZA MD DATE OF SERVICE: 07/05/19 Discharge Plan Patient Name: NAYELI BLAS Facility: [facility]:[place] : 1970 Planned Disposition: Alf Facility Anticipated Discharge Date: 05/17/19 Discharge Date: Expected LOS: 2 Initial Reviewer: [email or web address] Initial Review Date: 05/15/2019 Generated: 07/05/19 3:01 pm Comments DCP- Discharge Planning Updated by [email or web address]: Adriana Hendricks on 07/04/19 12:[address] called spoke with Baron at [facility] to let her know that patient may be discharged back to her tomorrow. Updated clinical sent DCP- Discharge Planning Updated by [email or web address]: Adriana Hendricks on 06/30/19 11:[address] Carranza today about dc plan and to let him know that the patient does not have Ltach benefits. He stated that his WBC needs to be 1.5 to 2 before he would dc him. CM will continue to follow DCP- Discharge Planning Updated by [id number]: Adriana Hendricks on 06/21/19 8:[address] CALLED AND SPOKE WITH AND SHE IS UNSURE OF HIS PLAN, SHE STATED THAT HE DID NOT FINISH HIS REHAB OR HAS GOTTEN HIS PROSTHETIC. I AM UNSURE IN HIS CONDITION IF HE WILL NE ABLE TO PARTICIPATE IN REHAB AT THIS POINT. I WILL VISIT WITH HER WHEN SHE ARRIVES TO THE HOSPITAL DCP- Discharge Planning Updated by [email or web address]: Ardiana Hendricks on 06/12/19 2:[address] Spoke with patient to about his discharge plan, he was unsure if he would go back to [facility]. He stated that his home is not set up for a wheelchair and he is not ambulatory. He asked if I would come back to [place] and speak with him. CM to follow and assist with dc planning DCP- Discharge Planning Updated by [id number]: Krista Scales on 05/22/19 2:[address] Received a call from Paulie Fraser that he would like the patient transferred to [facility] to his oncologist. I went to patient's room to inquire about his oncologists name and he asks why. I informed him that Paulie had called and would like to have him transferred to [facility] to his oncology team there. He states "the hell you are." His states that no one has talked to him about transfer and it is his decision if he wants to transfer or go home. I told him I agreed, that it is his choice to make and he would not be transferred without his consent. His states she is going home and will be back at 5PM tonight to speak with Paulie. I called Paulie and informed that I did not call transfer team and what the patient said. He will be here tonight at 5 to speak with the patient and . CM will continue to follow and assist with discharge planning/needs. DCP- Discharge Planning Updated by [email or web address]: Mar Silva on 05/15/19 6:[address] Patient Name: NAYELI BLAS Admission Status: ER Accout number: [id number] Admission Date: 05-15-2019 : 1970 Admission Diagnosis: Attending: KALEIGH CARRANZA Current LOS: 1 Anticipated DC Date: 05-17-2019 Planned Disposition: Alf Facility Primary Insurance: MEDICAID [place] Discharge Planning Comments: CM met with patient's , Anika to complete initial dc planning assessment. CM educated Anika on the CM role and verbal consent given by Anika to complete assessment. Patient is currently in rehab @ [facility]. At discharge patient plans to return to [facility] and Anika feels this is a safe discharge. CIERRA form signed by Anika for the patine to return [place] [facility] [place]. Signed form placed in chart and signed form given to Anika. She denied further known discharge needs at this time. CM will continue to follow and will assist as needed with dc plans/needs. Cardiology Nurse Practitioner: Mar Silva RN, [facility] DCPIA - Discharge Planning Initial Assessment Updated by [id number]: Mar Silva on 05/15/19 7:30 pm * Is the patient Alert and Oriented? Yes * How many steps to enter\\exit or inside your home? * PCP Dr. Carranza * [facility] [address] * Preadmission Environment Alf Facility * [facility] * ADLs Partial Dependent * Partial ADLs (Assistance needed) Ambulation Bathing Dressing Medication Management Transfers * Other Equipment No equipment at home. Uses WC from [facility]. * List name and contact numbers for known caregivers / representatives who currently or will assist patient after discharge: Anika Blas - - [phone] or [phone] * Verbal permission to speak to the caregivers and representatives has been obtained from the patient. Yes * Community resources currently utilized None * Additional services required to return to the preadmission environment? No * Can the patient safely return to the preadmission environment? Yes * Has this patient been hospitalized within the prior 30 days at any hospital? No Last DP export: 07/04/19 12:18 pm Patient Name: NAYELI BLAS Page [phone] at 1402 All edits/amendments must be made on the electronic document DICTATION DATE: 07/05/191400 TABLET MACHINE OPERATOR: ARACELI 07/05/191400 RPT#: [id number] DC DATE: STATUS: ADM IN [facility] [address] [place] [address] END OF REPORT
--- NOTE | 2019-07-05 14:09 | MORECARE ---
CASE MANAGEMENT DISCHARGE SUMMARY PATIENT: NAYELI BLAS UNIT: [id number] ADM DATE: 05/15/19 AGE: 49 : 68 SEX: M ROOM/BED: D.2216 AUTHOR: SAVANAH LIVINGSTON PHYSICIAN: REFERRING PHYSICIAN: KALEIGH CARRANZA MD DATE OF SERVICE: 07/05/19 Discharge Plan Patient Name: NAYELI BLAS Facility: [facility]:[place] : 1970 Planned Disposition: Detention Facility Anticipated Discharge Date: 05/17/19 Discharge Date: Expected LOS: 2 Initial Reviewer: [email or web address] Initial Review Date: 05/15/2019 Generated: 07/05/19 3:09 pm Comments DCP- Discharge Planning Updated by [id number]: Adriana Hendricks on 07/05/19 1:[address] Spoke with at length today about dc planning. I explained to her that his insurance with skilled benefits is not longer active and that with [facility]IS he does not have skilled benefits. She stated she was unsure if he would go back there when discharged. She stated that they live by the [facility] and she was not as happy with his care there. He is not strong enough to go home. I told her that I would ask if there is a restorative program that a facility closer would be able to offer. She also stated that her cousin applied for a isamar for help, I encouraged her to look into it and possibly apply if she could. The patient was in ALOT of pain lying there and did not want to discuss ANYTHING at this time. She asked to give her some time to talk to him and she would get back with me. CM will continue to follow and assist with DC planning. I did reach out [facility] to see if therapy would be an option and she stated to send referral and they would take a look at it. DCP- Discharge Planning Updated by [id number]: Adriana Hendricks on 07/04/19 12:[address] called spoke with Baron at [facility] to let her know that patient may be discharged back to her tomorrow. Updated clinical sent DCP- Discharge Planning Updated by [email or web address]: Adriana Hendricks on 06/30/19 11:[address] Carranza today about dc plan and to let him know that the patient does not have Ltach benefits. He stated that his WBC needs to be 1.5 to 2 before he would dc him. CM will continue to follow DCP- Discharge Planning Updated by [id number]: Adriana Hendricks on 06/21/19 8:[address] CALLED AND SPOKE WITH AND SHE IS UNSURE OF HIS PLAN, SHE STATED THAT HE DID NOT FINISH HIS REHAB OR HAS GOTTEN HIS PROSTHETIC. I AM UNSURE IN HIS CONDITION IF HE WILL NE ABLE TO PARTICIPATE IN REHAB AT THIS POINT. I WILL VISIT WITH HER WHEN SHE ARRIVES TO THE HOSPITAL DCP- Discharge Planning Updated by [id number]: Adriana Hendricks on 06/12/19 2:[address] Spoke with patient to about his discharge plan, he was unsure if he would go back to [facility]. He stated that his home is not set up for a wheelchair and he is not ambulatory. He asked if I would come back to [place] and speak with him. CM to follow and assist with dc planning DCP- Discharge Planning Updated by [email or web address]: Krista Scales on 05/22/19 2:[address] Received a call from Paulie Fraser that he would like the patient transferred to [facility] to his oncologist. I went to patient's room to inquire about his oncologists name and he asks why. I informed him that Paulie had called and would like to have him transferred to [facility] to his oncology team there. He states "the hell you are." His states that no one has talked to him about transfer and it is his decision if he wants to transfer or go home. I told him I agreed, that it is his choice to make and he would not be transferred without his consent. His states she is going home and will be back at 5PM tonight to speak with Paulie. I called Paulie and informed that I did not call transfer team and what the patient said. He will be here tonight at 5 to speak with the patient and . CM will continue to follow and assist with discharge planning/needs. DCP- Discharge Planning Updated by [id number]: Mar Silva on 05/15/19 6:[address] Patient Name: NAYELI BLAS Admission Status: ER Accout number: [id number] Admission Date: 05-15-2019 : 1970 Admission Diagnosis: Attending: KALEIGH CARRANZA Current LOS: 1 Anticipated DC Date: 05-17-2019 Planned Disposition: Detention Facility Primary Insurance: MEDICAID [place] Discharge Planning Comments: CM met with patient's , Anika to complete initial dc planning assessment. CM educated Anika on the CM role and verbal consent given by Anika to complete assessment. Patient is currently in rehab @ [facility]. At discharge patient plans to return to [facility] and Anika feels this is a safe discharge. CIERRA form signed by Anika for the patine to return to [facility] [place]. Signed form placed in chart and signed form given to Anika. She denied further known discharge needs at this time. CM will continue to follow and will assist as needed with dc plans/needs. Flight Engineer Instructor: Mar Silva RN, [facility] DCPIA - Discharge Planning Initial Assessment Updated by [id number]: Mar Silva on 05/15/19 7:30 pm * Is the patient Alert and Oriented? Yes * How many steps to enter\\exit or inside your home? * PCP Dr. Carranza * [facility] * Preadmission Environment Detention Facility * [facility] * ADLs Partial Dependent * Partial ADLs (Assistance needed) Ambulation Bathing Dressing Medication Management Transfers * Other Equipment No equipment at home. Uses from [facility]. * List name and contact numbers for known caregivers / representatives who currently or will assist patient after discharge: Anika Blas - - [phone] or [phone] * Verbal permission to speak to the caregivers and representatives has been obtained from the patient. Yes * Community resources currently utilized None * Additional services required to return to the preadmission environment? No * Can the patient safely return to the preadmission environment? Yes * Has this patient been hospitalized within the prior 30 days at any hospital? No External Providers External Provider: [facility] Next Contact Date: Service Request Date: Service Type: Resolution: Reviewer: Comments: Last DP export: 07/05/19 1:02 pm Patient Name: NAYELI BLAS Page [phone] at 1409 All edits/amendments must be made on the electronic document DICTATION DATE: 07/05/191408 CDL INSTRUCTOR: ARACELI 07/05/191408 RPT#: [id number] DC DATE: STATUS: ADM IN [facility] [address] [place] [address] END OF REPORT
--- NOTE | 2019-07-05 19:00 | NUR ---
PT HAS ORDER FOR BLOOD. PUT IN ORDER AT 0830 TODAY. PT BLOOD STILL NOT GIVEN. WAS TOLD [facility] THAT LAB HAS NOT CALLED TO LET HER KNOW IT IS READY. LOOKED IN [facility] IT SAYS ONE UNIT IS READY. WILL TRANSFUSE 1UNIT OF PRBC ISAAC.
--- NOTE | 2019-07-05 19:05 | NUR ---
I have reviewed this patient and I concur with the Shift Assessment completed by the Licensed Practical Nurse today this shift.
--- NOTE | 2019-07-05 20:37 | NUR ---
BLOOD STARTED. PT ALERT AND ORIENTED. NO SIGNS OF DISTRESS. BREATHING EVEN AND UNALBORED. VITAL SIGNS STABLE. WILL FALLOW UP.
[2019-07-06] VITALS (8 sets, daily range): BP systolic 133–180; BP diastolic 64–83
--- NOTE | 2019-07-06 04:12 | NUR ---
I have reviewed this patient and I concur with the Shift Assessment completed by the Licensed Practical Nurse today this shift.
--- NOTE | 2019-07-06 04:49 | NUR ---
PT RESTING IN BED. EYES CLOSED. NO SIGNS OF DISTRESS. BREATHING EVEN AND UNLABORED. IV SITE RT UPPER ARM PICC DRESSING CLEAN DRY AND INTACT NO SIGNS OF INFECTION. TELE MONITOR ON 117 SINUS. BOWEL SOUNDS ACTIVE. PEG TUBE LT LOWER ABD. FEED RUNNING AT 75ML/HR. CONDOM CATH IN PLACE. RT BKA DRESSING CLEAN DRY AND INTACT. LT LOWER LEG SWELLING PRESENT. WILL CONTINUE PLAN OF CARE. CALL LIGHT IN REACH. BED LOWERED AND LOCKED. BED RAILS UPX2.
[2019-07-06 05:32] LABS: HEMATOCRIT 25.8 % (42.0-54.0); HEMOGLOBIN 8.9 g/dL (13.5-17.5); MCH 28.9 pg (26.0-34.0); MCHC 34.5 g/dL (31.0-37.0); MCV 83.8 fL (80.0-100.0); MEAN PLATELET VOLUME 10.5 fL (7.4-10.4); RBC 3.08 10x6/uL (4.20-6.10); RDW 13.7 % (11.5-14.5)
[2019-07-06 05:46] LABS: PLATELET COUNT 17 10x3/uL (130-400); WBC 0.4 10x3/uL (4.8-10.8)
[2019-07-06 06:02] LABS: ANION GAP 13.8 mmol/L (8-16); CALCIUM 7.7 mg/dL (8.5-10.1); CARBON DIOXIDE 25.3 mmol/L (21.0-32.0); CREATININE - SERUM 1.4 mg/dL (0.6-1.3); POTASSIUM - SERUM 5.1 mmol/L (3.5-5.1)
--- NOTE | 2019-07-06 07:56 | NUR ---
FAMILY IN ROOM. CL IN REACH. CO PAIN IN THE GROIN. 7 OUT OF 10 ON PAIN SCALE. NO FURTHER NEEDS AT THIS TIME.
[2019-07-06 09:08] LABS: CRENATED CELLS OCC; LYMPHOCYTES 8 % (15-50); MONOCYTES 4 % (2-11); NEUTROPHILS 76 % (40-80); PLATELET ESTIMATE DECREASED
--- NOTE | 2019-07-06 11:22 | NUR ---
IN ROOM. CL IN REACH. NO FURTHER NEEDS AT THIS TIME. WCTM
--- NOTE | 2019-07-06 14:17 | MORECARE ---
CASE MANAGEMENT DISCHARGE SUMMARY PATIENT: NAYELI BLAS UNIT: [id number] ADM DATE: 05/15/19 AGE: 49 : 68 SEX: M ROOM/BED: D.2216 AUTHOR: SAVANAH LIVINGSTON PHYSICIAN: REFERRING PHYSICIAN: KALEIGH CARRANZA MD DATE OF SERVICE: 07/06/19 Discharge Plan Patient Name: NAYELI BLAS Facility: [facility]:[place] : 1970 Planned Disposition: Long-Term Facility Anticipated Discharge Date: 05/17/19 Discharge Date: Expected LOS: 2 Initial Reviewer: [email or web address] Initial Review Date: 05/15/2019 Generated: 07/06/19 3:17 pm DCP- Discharge Planning Updated by [email or web address]: Adriana Hendricks on 07/06/19 1:[address] [facility] have declined the patient. DCP- Discharge Planning Updated by [email or web address]: Adriana Hendricks on 07/05/19 1:[address] Spoke with at length today about dc planning. I explained to her that his insurance with skilled benefits is not longer active and that with [facility] he does not have skilled benefits. She stated she was unsure if he would go back there when discharged. She stated that they live by the [facility] and she was not as happy with his care there. He is not strong enough to go home. I told her that I would ask if there is a restorative program that a facility closer would be able to offer. She also stated that her cousin applied for a isamar for help, I encouraged her to look into it and possibly apply if she could. The patient was in ALOT of pain lying there and did not want to discuss ANYTHING at this time. She asked to give her some time to talk to him and she would get back with me. CM will continue to follow and assist with DC planning. I did reach out [facility] to see if therapy would be an option and she stated to send referral and they would take a look at it. DCP- Discharge Planning Updated by [id number]: Adriana Hendricks on 07/04/19 12:[address] called spoke with Baron at [facility] to let her know that patient may be discharged back to her tomorrow. Updated clinical sent DCP- Discharge Planning Updated by [id number]: Adriana Hendricks on 06/30/19 11:[address] Carranza today about dc plan and to let him know that the patient does not have Ltach benefits. He stated that his WBC needs to be 1.5 to 2 before he would dc him. CM will continue to follow DCP- Discharge Planning Updated by [id number]: Adriana Hendricks on 06/21/19 8:[address] CALLED AND SPOKE WITH AND SHE IS UNSURE OF HIS PLAN, SHE STATED THAT HE DID NOT FINISH HIS REHAB OR HAS GOTTEN HIS PROSTHETIC. I AM UNSURE IN HIS CONDITION IF HE WILL NE ABLE TO PARTICIPATE IN REHAB AT THIS POINT. I WILL VISIT WITH HER WHEN SHE ARRIVES TO THE HOSPITAL DCP- Discharge Planning Updated by [id number]: Adriana Hendricks on 06/12/19 2:[address] Spoke with patient to about his discharge plan, he was unsure if he would go back to [facility]. He stated that his home is not set up for a wheelchair and he is not ambulatory. He asked if I would come back to [place] and speak with him. CM to follow and assist with dc planning DCP- Discharge Planning Updated by [email or web address]: Krista Scales on 05/22/19 2:[address] Received a call from Paulie Fraser that he would like the patient transferred to [facility] to his oncologist. I went to patient's room to inquire about his oncologists name and he asks why. I informed him that Paulie had called and would like to have him transferred to [facility] to his oncology team there. He states "the hell you are." His states that no one has talked to him about transfer and it is his decision if he wants to transfer or go home. I told him I agreed, that it is his choice to make and he would not be transferred without his consent. His states she is going home and will be back at 5PM tonight to speak with Paulie. I called Paulie and informed that I did not call transfer team and what the patient said. He will be here tonight at 5 to speak with the patient and . CM will continue to follow and assist with discharge planning/needs. DCP- Discharge Planning Updated by [id number]: Mar Silva on 05/15/19 6:[address] Patient Name: NAYELI BLAS Admission Status: ER Accout number: [id number] Admission Date: 05-15-2019 : 1970 Admission Diagnosis: Attending: KALEIGH CARRANZA Current LOS: 1 Anticipated DC Date: 05-17-2019 Planned Disposition: Long-Term Facility Primary Insurance: MEDICAID [place] Discharge Planning Comments: CM met with patient's , Anika to complete initial dc planning assessment. CM educated Anika on the CM role and verbal consent given by Anika to complete assessment. Patient is currently in rehab @ [facility]. At discharge patient plans to return to [facility] and Anika feels this is a safe discharge. CIERRA form signed by Anika for the patine to return to [facility] [place]. Signed form placed in chart and signed form given to Anika. She denied further known discharge needs at this time. CM will continue to follow and will assist as needed with dc plans/needs. Recycling Crew Supervisor: Mar Silva RN, [facility] DCPIA - Discharge Planning Initial Assessment Updated by [id number]: Mar Silva on 05/15/19 7:30 pm * Is the patient Alert and Oriented? Yes * How many steps to enter\\exit or inside your home? * PCP Dr. Carranza * [facility] * Preadmission Environment Long-Term Facility * [facility] * ADLs Partial Dependent * Partial ADLs (Assistance needed) Ambulation Bathing Dressing Medication Management Transfers * Other Equipment No equipment at home. Uses from [facility]. * List name and contact numbers for known caregivers / representatives who currently or will assist patient after discharge: Anika Blas - - [phone] or [phone] * Verbal permission to speak to the caregivers and representatives has been obtained from the patient. Yes * Community resources currently utilized None * Additional services required to return to the preadmission environment? No * Can the patient safely return to the preadmission environment? Yes * Has this patient been hospitalized within the prior 30 days at any hospital? No Last DP export: 07/05/19 1:09 pm Patient Name: NAYELI BLAS Page [phone] at 1417 All edits/amendments must be made on the electronic document DICTATION DATE: 07/06/191416 HAT BLOCKING OPERATOR: ARACELI 07/06/191416 RPT#: [id number] DC DATE: STATUS: ADM IN [facility] [address] [place] [address] END OF REPORT
--- NOTE | 2019-07-06 16:43 | NUR ---
PATIENT REQUESTED AND RECEIVED A GRAPE POPSICLE. FEEDING PUMP REFILLED TO STOP THE BEEPING AND REPRIMED THE PUMP. CL IN REACH WCTM
--- NOTE | 2019-07-06 19:35 | NUR ---
PT SITTING UP IN BED RESTING WITH EYES CLOSED. AT BEDSIDE. STATES PAIN 6/1O GENERALIZED AFTER RECIEVING AIRPLANE COVERER BOLUS. PICC RIGHT UPPER ARM INFUSING NS W/ 40K @ 100 WITH DILAUDID AIRPLANE COVERER. RESERVE LEFT ARM. RIGHT BKA DRESSING CDI. COCCYX DRESSING CDI. DENIES NEEDS AT THIS TIME. CL IN REACH, WILL CTM
[2019-07-07 00:36] VITALS: BP 158/76
[2019-07-07 04:55] VITALS: BP 178/77
[2019-07-07 06:51] LABS: ANION GAP 14.3 mmol/L (8-16); CARBON DIOXIDE 25.5 mmol/L (21.0-32.0); CREATININE - SERUM 1.5 mg/dL (0.6-1.3); POTASSIUM - SERUM 3.8 mmol/L (3.5-5.1)
[2019-07-07 07:31] LABS: MCH 28.7 pg (26.0-34.0); MCHC 34.8 g/dL (31.0-37.0); MCV 82.4 fL (80.0-100.0); MEAN PLATELET VOLUME 9.8 fL (7.4-10.4); RBC 2.79 10x6/uL (4.20-6.10); RDW 13.9 % (11.5-14.5)
[2019-07-07 07:33] LABS: PLATELET COUNT 45 10x3/uL (130-400); WBC 1.5 10x3/uL (4.8-10.8)
--- NOTE | 2019-07-07 07:39 | NUR ---
PT RESTING IN BED. "I NEED SOME ICE WATER." ICE WATER GIVEN. NO S/S OF ACUTE DISTRESS. CL IN PLACE.
--- NOTE | 2019-07-07 07:44 | NUR ---
PER Ale LYNCH VO TO INCREASE FLUIDS TO 125ML/HR.
[2019-07-07 08:04] VITALS: BP 108/56
[2019-07-07 08:25] LABS: LYMPHOCYTES 6 % (15-50); MONOCYTES 5 % (2-11); NEUTROPHILS 80 % (40-80); PLATELET ESTIMATE DECREASED
--- NOTE | 2019-07-07 11:00 | NUR ---
NUTRITION F/U PT REMAINS IN NEUTROPENIC ISOLATION. TOLERATING OSMOLITE 1.0 CASPER TUBE FEEDS AT GOAL RATE 75 CC/HR. RD FOLLOWING
[2019-07-07 12:50] VITALS: BP 129/79
--- NOTE | 2019-07-07 16:24 | NUR ---
OT NOTE: PT COMPLETED SIDE ROLLING WITH GUY HURST PLACE HAND ROLL IN UE. PT EXHIBITED DECREASED ACTIVITY TOLERANCE. PT WAS CONCERNED ABOUT DISCHARGE PLACEMENT. NOTIFIED NURSING. THANK YOU, ARIS GARBER
[2019-07-07 16:42] VITALS: BP 144/89
--- NOTE | 2019-07-07 18:42 | NUR ---
PT RESTING IN BED. BOLUS GIVEN FOR PAIN-08/10. NO S/S OF ACUTE DISTRESS. AT BEDSIDE. CL IN PLACE.
--- NOTE | 2019-07-07 19:15 | NUR ---
RECEIVED CARE FROM DAY NURSE. LYING IN BED WATCHING TV. NO NEEDS VOICED AT THIS TIME. CALL LIGHT AT SIDE. IV INFUSING PER ORDER TO PATENT RIGHT PICC. RIGHT STUMP ELEVATED ON PILLOW. CONDOM CATH IN PLACE. TUBE FEEDINS PER ODER VIA G-TUBE.
[2019-07-07 20:00] VITALS: BP 138/68
[2019-07-08] VITALS: BP 137/77
--- NOTE | 2019-07-08 00:31 | NUR ---
I have reviewed this patient and I concur with the Shift Assessment completed by the Licensed Practical Nurse today this shift.
[2019-07-08 04:00] VITALS: BP 109/79
[2019-07-08 05:29] LABS: BASOPHILS 0 % (0-2); EOSINOPHILS 0.5 % (0-7); HEMATOCRIT 25.4 % (42.0-54.0); HEMOGLOBIN 8.7 g/dL (13.5-17.5); IMMATURE GRANULOCYTES 1.1 % (0-5); MCH 28.6 pg (26.0-34.0); MCHC 34.3 g/dL (31.0-37.0); MCV 83.6 fL (80.0-100.0); MONOCYTES 3.2 % (2-11); NEUTROPHILS 85.2 % (40-80); RBC 3.04 10x6/uL (4.20-6.10); RDW 14.2 % (11.5-14.5)
[2019-07-08 05:34] LABS: PLATELET COUNT 39 10x3/uL (130-400); WBC 1.9 10x3/uL (4.8-10.8)
[2019-07-08 05:45] LABS: ANION GAP 13.1 mmol/L (8-16); CREATININE - SERUM 1.6 mg/dL (0.6-1.3); POTASSIUM - SERUM 4.1 mmol/L (3.5-5.1)
--- NOTE | 2019-07-08 07:30 | NUR ---
PT RESTING IN BED. CHANGED CONDOM CATH. CO OF PAIN. ADMINISTERED 0.4MG BOLUS PER MD ORDER. CHANGED SYRINGE. ICE WATER BROUGHT TO PT. NO S/S OF ACUTE DISTRESS. CL IN PLACE.
[2019-07-08 08:13] VITALS: BP 175/64
[2019-07-08 13:21] VITALS: BP 152/71
[2019-07-08 16:11] VITALS: BP 159/70
--- NOTE | 2019-07-08 17:00 | NUR ---
1330XRAY SHOWS BLADDER DISTENTION. BLADDER SCAN DONE-999 MAX ML SHOWN. CALLED Ahsan LYNCH. TO FOR FC TO BE PLACED. FC PLACED BY STERILE TECHINIQUE. IN 5 MINUTED 1900 OF CLEAR YELLOW URINE NOTED TO BAG BY GRAVITY. CLAMPED TUBE AND LET SLOW DRAIN. 1500 TOTAL OF 4000 ML OF CLEAR YELLOW URINE NOTED. CALLED Ahsan LYNCH. TO STAT BMP. DC PREVIOUS FLUID ORDERS. NS 40K @50ML/HR CONT. NO S/S OF ACUTE DISTRESS. CL IN PLACE.
[2019-07-08 17:01] LABS: ANION GAP 12.9 mmol/L (8-16); CALCIUM 8.1 mg/dL (8.5-10.1); CARBON DIOXIDE 26.2 mmol/L (21.0-32.0); CREATININE - SERUM 1.8 mg/dL (0.6-1.3); POTASSIUM - SERUM 4.1 mmol/L (3.5-5.1)
--- NOTE | 2019-07-08 18:42 | NUR ---
PT RESTING IN BED. ASSITED MINCING MACHINE OPERATOR IN TURNING PT. CHANGED MEPLILEX DRESSING. NO S/S OF ACUTE DISTRESS. AT BEDSIDE. CL IN PLACE.
--- NOTE | 2019-07-08 19:15 | NUR ---
RECEIVED CARE FROM DAY NURSE. LYING IN BED WITH EYES CLOSED. RESP EVEN AND UNLABORED. CALL LIGHT AT SIDE. IV INFUSING PER ORDER TO PATENT RIGHT PICC. MARIN TO GRAVITY. RIGHT LEG STUMP ELEVATED ON PILLOW.
[2019-07-08 19:55] VITALS: BP 121/73
[2019-07-09 00:15] VITALS: BP 108/66
--- NOTE | 2019-07-09 00:19 | NUR ---
I have reviewed this patient and I concur with the Shift Assessment completed by the Licensed Practical Nurse today this shift.
[2019-07-09 04:27] VITALS: BP 103/49; BP 93/70
[2019-07-09 05:10] LABS: BASOPHILS 0 % (0-2); EOSINOPHILS 0.4 % (0-7); HEMATOCRIT 24.7 % (42.0-54.0); HEMOGLOBIN 8.5 g/dL (13.5-17.5); IMMATURE GRANULOCYTES 2.5 % (0-5); LYMPHOCYTES 13.9 % (15-50); MCH 29.1 pg (26.0-34.0); MCHC 34.4 g/dL (31.0-37.0); MCV 84.6 fL (80.0-100.0); MEAN PLATELET VOLUME 9.8 fL (7.4-10.4); MONOCYTES 5.5 % (2-11); NEUTROPHILS 77.7 % (40-80); RBC 2.92 10x6/uL (4.20-6.10); RDW 14.5 % (11.5-14.5)
[2019-07-09 05:13] LABS: WBC 2.4 10x3/uL (4.8-10.8)
[2019-07-09 05:14] LABS: PLATELET COUNT 37 10x3/uL (130-400)
[2019-07-09 05:21] LABS: ANION GAP 13.2 mmol/L (8-16); CALCIUM 7.9 mg/dL (8.5-10.1); CARBON DIOXIDE 27.4 mmol/L (21.0-32.0); CREATININE - SERUM 1.5 mg/dL (0.6-1.3); POTASSIUM - SERUM 3.6 mmol/L (3.5-5.1)
[2019-07-09 05:29] LABS: PLATELET ESTIMATE DECREASED
--- NOTE | 2019-07-09 07:20 | NUR ---
RESTING IN BED, EYES CLOSED. AROUSES TO VOICE. DENIES ANY NEEDS AT THIS TIME. CALL LIGHT IN REACH. WILL CONTINUE TO MONITOR.
[2019-07-09 08:03] VITALS: BP 128/64
[2019-07-09 11:48] VITALS: BP 122/64
--- NOTE | 2019-07-09 18:27 | NUR ---
ALERT AND ORIENTED, RESTING IN BED. DENIES ANY NEEDS AT THIS TIME. CALL LIGHT IN REACH. WILL CONTINUE TO MONITOR.
--- NOTE | 2019-07-09 18:45 | NUR ---
I have reviewed this patient and I concur with the Shift Assessment completed by the Licensed Practical Nurse today this shift.
--- NOTE | 2019-07-09 19:15 | NUR ---
PT ALERT AND SLIGHTLY DROWSY WHEN ENTERING THE ROOM. SIGNIFICANT OTHER AT BEDSIDE. PATIENT STATES PAIN IS 7/10. RECEIVING DILAUDID CONVERTER SKIMMER. PATIENT HAS IGHT LEG AMPUTATION. DRESSING TO THE STUMP IS CLEAN DRY AND INTACT. HAS PEG TUBE THAT IS DRESSED. CLEAN AROUND AREA AT THIS TIME. PATIENT HAS MARIN CATHETER. DRAINING YELLOW URINE AT THIS TIME. RIGHT UPPER ARM PICC LINE IS INFUSIN NS WITH 40 K. DENIES FURTHER NEEDS AT THIS TIME. CALL LIGHT IN REACH. CPOC.
[2019-07-09 20:00] VITALS: BP 123/98
[2019-07-09 23:18] VITALS: BP 89/58
[2019-07-10 04:00] VITALS: BP 93/49
[2019-07-10 04:41] LABS: HEMATOCRIT 24.2 % (42.0-54.0); HEMOGLOBIN 8.3 g/dL (13.5-17.5); MCH 29.2 pg (26.0-34.0); MCHC 34.3 g/dL (31.0-37.0); MCV 85.2 fL (80.0-100.0); MEAN PLATELET VOLUME 11.2 fL (7.4-10.4); RBC 2.84 10x6/uL (4.20-6.10); RDW 14.7 % (11.5-14.5); WBC 2.7 10x3/uL (4.8-10.8)
[2019-07-10 05:04] LABS: PLATELET COUNT 39 10x3/uL (130-400)
[2019-07-10 05:10] LABS: ANION GAP 9.1 mmol/L (8-16); CARBON DIOXIDE 30.5 mmol/L (21.0-32.0); CREATININE - SERUM 1.3 mg/dL (0.6-1.3); POTASSIUM - SERUM 3.6 mmol/L (3.5-5.1)
[2019-07-10 05:38] LABS: ANISOCYTOSIS 1+; LYMPHOCYTES 28 % (15-50); NEUTROPHILS 51 % (40-80); POIKILOCYTOSIS 1+
[2019-07-10 05:45] LABS: PLATELET ESTIMATE DECREASED
[2019-07-10 08:00] VITALS: BP 126/70
--- NOTE | 2019-07-10 09:55 | NUR ---
DURAGESIC PATCH PLACED ON LEFT UPPER ARM. MEDS GIVEN PER EMAR. ASSESSMENT COMPLETED. CL, PAIN CONTROLL BUTTON, AND WATER WITHIN REACH. NO FURTHER NEEDS AT THIS TIME.
[2019-07-10 12:32] VITALS: BP 118/58
--- NOTE | 2019-07-10 16:30 | NUR ---
PATIENT DRESSING CHANGED. SKIN PINK. LIGHT EXUDATE. CL IN REACH. AT BEDSIDE.
[2019-07-10 17:17] VITALS: BP 113/59
--- NOTE | 2019-07-10 19:45 | NUR ---
PT SITTING UP IN BED WITHOUT DISTRESS, AOX4. AT BEDSIDE. IV RIGHT UPPER ARM INFUSING NS W/ 40K @ 50 WITH DILAUDID WELDING MACHINE OPERATOR THERMIT FOR PAIN CONTROL. PT STATES INCREASED FENTANYL PATCH WITH WELDING MACHINE OPERATOR THERMIT IS PROVIDED BETTER PAIN MANAGEMENT. MARIN IN PLACE DRAINING CLEAR YELLOW URINE. LLE EDEMA. HR 92 SR PER TELE. PROVIDED PT WITH ICE WATER. DENIES OTHER NEEDS. DR CARRANZA CAME TO BEDSIDE TO SPEAK WITH PT AND . CL IN REACH, WILL CTM
[2019-07-10 20:28] VITALS: BP 111/53
[2019-07-11 01:17] VITALS: BP 105/55
[2019-07-11 04:59] VITALS: BP 106/58
[2019-07-11 06:42] LABS: BASOPHILS 0.2 % (0-2); CALC OSMOLALITY 289 mosm/kg (275-300); CALCIUM 8.4 mg/dL (8.5-10.1); CARBON DIOXIDE 30.5 mmol/L (21.0-32.0); CHLORIDE - SERUM 104 mmol/L (98-107); CREATININE - SERUM 1.1 mg/dL (0.6-1.3); EOSINOPHILS 0.2 % (0-7); GLUCOSE 148 mg/dL (74-106); HEMATOCRIT 23.5 % (42.0-54.0); HEMOGLOBIN 7.9 g/dL (13.5-17.5); IMMATURE GRANULOCYTES 1.3 % (0-5); LYMPHOCYTES 14.1 % (15-50); MCH 28.8 pg (26.0-34.0); MCHC 33.6 g/dL (31.0-37.0); MCV 85.8 fL (80.0-100.0); MEAN PLATELET VOLUME 10.2 fL (7.4-10.4); MONOCYTES 8.7 % (2-11); NEUTROPHILS 75.5 % (40-80); POTASSIUM - SERUM 3.6 mmol/L (3.5-5.1); RBC 2.74 10x6/uL (4.20-6.10); RDW 14.9 % (11.5-14.5); SODIUM 141 mmol/L (136-145); UREA NITROGEN 30 mg/dL (7-18); eGFR NON AFRICAN AMERICAN 75 mL/min (90-120)
[2019-07-11 06:45] LABS: WBC 4.5 10x3/uL (4.8-10.8)
[2019-07-11 06:46] LABS: PLATELET COUNT 37 10x3/uL (130-400)
[2019-07-11 07:07] LABS: PLATELET ESTIMATE DECREASED
--- NOTE | 2019-07-11 07:28 | NUR ---
ALERT AND ORIENTED. LUNGS CLEAR BILATERALLY IN ALL ROBBINS. HEART SOUNDS S1 AND S2 HEARD IN ALL ROBBINS. BOWEL SOUNDS ACTIVE X 4. STAGE 2 ON COCCYX COVERED WITH MEPILEX. SORE TO END OF RIGHT BKA STUMP OPEN TO AIR. EDEMA TO LLE. DENIES NEEDS AT THIS TIME. BED LOW. CALL BECKWITH AND PERSONAL ITEMS IN REACH. WILL CONTINUE TO MONITOR.
[2019-07-11 08:07] VITALS: BP 100/61
--- NOTE | 2019-07-11 09:05 | NUR ---
GOT IN REPORT THAT CHEMICAL PATHOLOGIST SHOULD BE 0.2-10-6. CHEMICAL PATHOLOGIST ORDER STATES 0.4-10-6. CHEMICAL PATHOLOGIST SET UP PER ORDER AT 0.4-10-6. CO SIGNED WITH NAYAN VICTORIA.
--- NOTE | 2019-07-11 11:53 | NUR ---
ATTEMPTED TO CHANGE DRSG TO COCCYX. PATIENT REFUSED. WILL ATTEMPT LATER TODAY.
[2019-07-11 13:27] VITALS: BP 114/59
--- NOTE | 2019-07-11 14:36 | NUR ---
RESTING IN BED. DENIES NEEDS. WILL CONTINUE TO MONITOR.
--- NOTE | 2019-07-11 15:30 | NUR ---
VITALS STABLE. BLOOD TRANSFUSION UNIT 1 INITIATED. WILL CONTINUE TO MONITOR.
--- NOTE | 2019-07-11 15:45 | NUR ---
BLOOD CONTINUES INFUSING. VITALS REMAIN STABLE.
--- NOTE | 2019-07-11 17:27 | NUR ---
RESTING IN BED. DENIES NEEDS. WILL CONTINUE TO MONITOR.
--- NOTE | 2019-07-11 18:05 | NUR ---
BLOOD TRANSFUSION UNIT 2 INITIATED. VITALS STABLE.
--- NOTE | 2019-07-11 18:20 | NUR ---
BLOOD CONTINUES INFUSING. VITALS REMAIN STABLE.
--- NOTE | 2019-07-11 20:00 | NUR ---
ORDERS FROM SYED MORENO TO FOR CT GUIDED BM BIOPSY UNDER CONSCIOUS SEDATION ON 07/12/19. ORDERS PLACED FOR PROCEDURE AND CONSENTS. CALLED AND SPOKE WITH DALJIT IN IR. CONSENTS TAKEN TO PT ROOM, PT SITTING UP IN BED WITHOUT DISTRESS. AOX4. AT BEDSIDE. PICC RIGHT UPPER ARM INFUSING NS 40K @ 50. FEEDING INFUSING OSMOLITE 1CAL 75ML/HR WITH 150ML FLUSH Q4. PT SIGNED CONSENTS. REMINDED HE WILL BE NPO AFTER MN, VERBALIZED UNDERSTANDING. 2U PRBC COMPLETED. VSS. MARIN IN PLACE DRAINING CLEAR YELLOW URINE. HR 103 PER TELE. DENIES NEEDS AT THIS TIME. CL IN REACH, WILL CTM
[2019-07-11 21:44] VITALS: BP 137/70
[2019-07-12] VITALS (12 sets, daily range): BP systolic 113–154; BP diastolic 57–80
--- NOTE | 2019-07-12 | NUR ---
TUBE FEEDING STOPPED AT THIS TIME. GTUBE FLUSHED WITH 30ML
[2019-07-12 07:08] LABS: BASOPHILS 0.2 % (0-2); EOSINOPHILS 0.5 % (0-7); IMMATURE GRANULOCYTES 1.4 % (0-5); LYMPHOCYTES 9.5 % (15-50); MCH 29.3 pg (26.0-34.0); MCHC 34.2 g/dL (31.0-37.0); MCV 85.8 fL (80.0-100.0); MEAN PLATELET VOLUME 10.1 fL (7.4-10.4); MONOCYTES 5.8 % (2-11); NEUTROPHILS 82.6 % (40-80); RDW 14.8 % (11.5-14.5)
[2019-07-12 07:10] LABS: HEMATOCRIT 31.3 % (42.0-54.0); HEMOGLOBIN 10.7 g/dL (13.5-17.5); RBC 3.65 10x6/uL (4.20-6.10); WBC 6.5 10x3/uL (4.8-10.8)
[2019-07-12 07:11] LABS: PLATELET COUNT 37 10x3/uL (130-400)
[2019-07-12 07:26] LABS: CALC OSMOLALITY 285 mosm/kg (275-300); CALCIUM 8.8 mg/dL (8.5-10.1); CHLORIDE - SERUM 103 mmol/L (98-107); POTASSIUM - SERUM 3.9 mmol/L (3.5-5.1); SODIUM 141 mmol/L (136-145); UREA NITROGEN 26 mg/dL (7-18); eGFR NON AFRICAN AMERICAN 84 mL/min (90-120)
[2019-07-12 07:33] LABS: GLUCOSE 97 mg/dL (74-106)
[2019-07-12 07:47] LABS: APTT 37.1 SECONDS (22.8-39.4); INR 1.02 (0.85-1.17); PROTIME 12.9 SECONDS (11.6-15.0)
--- NOTE | 2019-07-12 07:49 | NUR ---
SPOKE WITH IR ABOUT PT LOVENOX. STATED HOLD LOVENOX TODAY FOR PROCEDURE.
--- NOTE | 2019-07-12 08:06 | NUR ---
ALERT AND ORIENTED. LUNGS CLEAR BILATERALLY IN ALL ROBBINS. HEART SOUNDS S1 AND S2 HEARD IN ALL ROBBINS. BOWEL SOUNDS ACTIVE X 4. MEPILEX IN PLACE TO COCCYX. WILL CHANGE TODAY. 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 CIELO PICC PATENT WITHOUT REDNESS. DENIES NEEDS. BED LOW. CALL BECKWITH AND PERSONAL ITEMS IN REACH. WILL CONTINUE TO MONITOR.
--- NOTE | 2019-07-12 09:20 | NUR ---
PATIENT RETURNED FROM PROCEDURE. VITALS STABLE. TUBE FEED RE INITIATED. WILL CONTINUE TO MONITOR.
--- NOTE | 2019-07-12 13:39 | NUR ---
RESTING IN BED. AT BEDSIDE. VITALS REMAIN STABLE. WILL CONTINUE TO MONITOR.
[2019-07-13 00:25] VITALS: BP 154/80
[2019-07-13 05:16] VITALS: BP 132/70
[2019-07-13 06:54] LABS: CALC OSMOLALITY 281 mosm/kg (275-300); CALCIUM 8.5 mg/dL (8.5-10.1); CARBON DIOXIDE 29.4 mmol/L (21.0-32.0); CHLORIDE - SERUM 99 mmol/L (98-107); CREATININE - SERUM 0.9 mg/dL (0.6-1.3); GLUCOSE 206 mg/dL (74-106); SODIUM 136 mmol/L (136-145); UREA NITROGEN 24 mg/dL (7-18); eGFR NON AFRICAN AMERICAN > 90 mL/min (90-120)
[2019-07-13 06:55] LABS: BASOPHILS 0 % (0-2); EOSINOPHILS 0.9 % (0-7); HEMATOCRIT 36.2 % (42.0-54.0); HEMOGLOBIN 12.7 g/dL (13.5-17.5); IMMATURE GRANULOCYTES 1.9 % (0-5); LYMPHOCYTES 12.5 % (15-50); MCH 29.9 pg (26.0-34.0); MCHC 35.1 g/dL (31.0-37.0); MCV 85.2 fL (80.0-100.0); MEAN PLATELET VOLUME 10.9 fL (7.4-10.4); MONOCYTES 7.2 % (2-11); NEUTROPHILS 77.5 % (40-80); RBC 4.25 10x6/uL (4.20-6.10)
[2019-07-13 07:05] LABS: WBC 3.2 10x3/uL (4.8-10.8)
[2019-07-13 07:07] LABS: PLATELET COUNT 32 10x3/uL (130-400)
[2019-07-13 07:53] VITALS: BP 127/58
--- NOTE | 2019-07-13 08:03 | NUR ---
PT RESTING IN BED WITH EYES CLOSED, EASILY AROUSED TO SPEECH. PICC LINE LOCATED TO RIGHT ARM RUNNING NS WITH 40MEQ AND ALSO DIAUDID BOBBIN COIL WINDER PUMP. PEG TUBE PRESENT RUNNING AT 75ML. DENIES NEEDS AT THIS TIME OTHER THAN A GLASS OF WATER. WILL CONT TO MONITOR.
[2019-07-13 08:45] LABS: PLATELET ESTIMATE DECREASED; PLATELET MORPHOLOGY NORMAL PLT MORPH
[2019-07-13 12:30] VITALS: BP 113/61
--- NOTE | 2019-07-13 12:43 | NUR ---
FSBS 177, TREATED WITH 2 UNITS OF INSULIN.
--- NOTE | 2019-07-13 13:58 | NUR ---
Nutrition follow-up: Pt s/p bone marrow biopsy Osmolite 1.0 tobias restarted @ 75 ml/hr Labs reviewed Wt: 160# Pt tolerating TF at this time RDN following.
--- NOTE | 2019-07-13 15:56 | NUR ---
FSBS 117, NO TREATMENT NEEDED AT THIS TIME.
[2019-07-13 17:49] VITALS: BP 128/90
--- NOTE | 2019-07-13 19:00 | NUR ---
BEDSIDE REPORT RECEIVED AND CARE OF PT ASSUMED. PT LYING IN SUPINE POSITION ON 1ST STEP AIR MATTRESS OVERLAY. RIGHT PICC LINE PATENT WITH NS W/ 30 K INFUSING AT 50 ML/HR. SENIOR GOVERNMENT PROGRAM ANALYST W/ DILAUDID IN USE FOR PAIN CONTROL. WILL MONITOR FOR NEEDS.
--- NOTE | 2019-07-13 20:36 | NUR ---
HS MEDICATIONS GIVEN. FSBS 155 THIS CHECK REQUIRING COVERAGE WITH 2 UNITS OF REGULAR INSULIN PER SLIDING SCALE.
--- NOTE | 2019-07-13 20:45 | NUR ---
GAVE CHOCOLATE PUDDING FOR HS SNACK. IS AT BEDSIDE.
[2019-07-13 21:26] VITALS: BP 122/63
[2019-07-14 00:35] VITALS: BP 120/64
[2019-07-14 05:07] VITALS: BP 124/60
[2019-07-14 07:23] LABS: BASOPHILS 0 % (0-2); EOSINOPHILS 1.1 % (0-7); HEMATOCRIT 32.2 % (42.0-54.0); IMMATURE GRANULOCYTES 3.2 % (0-5); LYMPHOCYTES 14.7 % (15-50); MCH 29.6 pg (26.0-34.0); MCHC 34.2 g/dL (31.0-37.0); MCV 86.8 fL (80.0-100.0); MEAN PLATELET VOLUME 10.7 fL (7.4-10.4); MONOCYTES 6.7 % (2-11); NEUTROPHILS 74.3 % (40-80); RBC 3.71 10x6/uL (4.20-6.10); WBC 3.7 10x3/uL (4.8-10.8)
--- NOTE | 2019-07-14 07:23 | NUR ---
PT RESTING IN BED WITH EYES CLOSED, EASILY AROUSED TO SPEECH. PICC LOCATED TO UPPER RIGHT ARM RUNNING NS W/40MEQ OF K AND A DILAUDID OUTSIDE PLANT ENGINEER PUMP. PEG TUBE PRESENT BUT CURRENTLY NOT RCVING TUBE FEEDS. MARIN PRESENT PUTTING OUT CLEAR YELLOW URINE. DENIES NEEDS AT THIS TIME, BUT WILL CONTINUE TO MONITOR.
[2019-07-14 07:43] LABS: CALC OSMOLALITY 282 mosm/kg (275-300); CALCIUM 9.2 mg/dL (8.5-10.1); CARBON DIOXIDE 30.3 mmol/L (21.0-32.0); CHLORIDE - SERUM 102 mmol/L (98-107); CREATININE - SERUM 0.9 mg/dL (0.6-1.3); POTASSIUM - SERUM 3.8 mmol/L (3.5-5.1); SODIUM 139 mmol/L (136-145); UREA NITROGEN 24 mg/dL (7-18); eGFR NON AFRICAN AMERICAN > 90 mL/min (90-120)
[2019-07-14 07:44] LABS: PLATELET COUNT 47 10x3/uL (130-400)
[2019-07-14 07:47] LABS: GLUCOSE 108 mg/dL (74-106)
--- NOTE | 2019-07-14 07:53 | NUR ---
LAB CALLED WITH A CRITICAL PLATELET COUNT OF 47, NOTIFIED JOSH LILLY.
[2019-07-14 08:09] VITALS: BP 117/81
--- NOTE | 2019-07-14 09:50 | NUR ---
REMOVED OLD FENTANYL PATCH AND REPLACED WITH NEW 75MCG PER DUMPER OPERATOR JAREDS ORDERS.
--- NOTE | 2019-07-14 10:52 | NUR ---
PT HAD LARGE BM, BATHED, AND DRESSING CHANGED TO WOUND ON BOTTOM.
--- NOTE | 2019-07-14 12:22 | NUR ---
NUTRITION F/U CHART REVIEWED. PT TOLERATING DIABETIC DIET. INTAKE VARIES FROM MEAL TO MEAL. REORDERED TUBE FEEDS THEY WERE NOT RESUMED AFTER NPO STATUS. SPOKE WITH PT, FAMILY, NURSING. RD FOLLOWING
--- NOTE | 2019-07-14 12:33 | NUR ---
RESUMED TUBE FEEDS PER BATCH ANALYST VICKI'S ORDER, OSMOLITE 1.0 STARTED AT 40ML/HR TO BE INCREASED THIS EVENING TO 75ML. FLUSH SET TO 150 PER 4HRS.
--- NOTE | 2019-07-14 19:00 | NUR ---
BEDSIDE REPORT RECEVED AND CARE OF PT ASSUMED. PT LYING IN LOW MONROY'S POSITION ON 1ST STEP AIR MATTRESS OVERLAY. RIGHT PICC LINE PATENT WITH NS W/ 40 KCL INFUSING AT 50 ML/HR. MARIN CATHETER DRAINING TO GRAVITY WITH YELLOW URINE IN COLLECTION BAG. WILL MONITOR FOR NEEDS.
[2019-07-14 20:00] VITALS: BP 103/73
--- NOTE | 2019-07-14 20:33 | NUR ---
HS MEDICATIONS GIVEN TO INCLUDE PRN TRAZADONE FOR SLEEP. FSBS 155 THIS CHECK REQUIRING COVERAGE WITH 2 UNITS OF INSULIN PER SLIDING SCALE. WILL CONTINUE TO MONITOR FOR NEEDS.
[2019-07-15] VITALS: BP 119/72
[2019-07-15 04:00] VITALS: BP 104/68
--- NOTE | 2019-07-15 05:58 | NUR ---
PT BATHED AND ALL LINENS AND GOWN CHANGED.
--- NOTE | 2019-07-15 05:58 | NUR ---
CHANGED ALL FEEDING TUBING AND BAGS.
[2019-07-15 06:37] LABS: BASOPHILS 0 % (0-2); EOSINOPHILS 1.1 % (0-7); HEMATOCRIT 29.9 % (42.0-54.0); HEMOGLOBIN 10.4 g/dL (13.5-17.5); IMMATURE GRANULOCYTES 2.4 % (0-5); LYMPHOCYTES 14.1 % (15-50); MCH 30.4 pg (26.0-34.0); MCHC 34.8 g/dL (31.0-37.0); MCV 87.4 fL (80.0-100.0); MEAN PLATELET VOLUME 10.5 fL (7.4-10.4); MONOCYTES 6.7 % (2-11); NEUTROPHILS 75.7 % (40-80); PLATELET COUNT 51 10x3/uL (130-400); RBC 3.42 10x6/uL (4.20-6.10); RDW 15.3 % (11.5-14.5); WBC 3.8 10x3/uL (4.8-10.8)
[2019-07-15 06:47] LABS: CALC OSMOLALITY 277 mosm/kg (275-300); CALCIUM 8.4 mg/dL (8.5-10.1); CARBON DIOXIDE 29.1 mmol/L (21.0-32.0); CHLORIDE - SERUM 102 mmol/L (98-107); CREATININE - SERUM 0.8 mg/dL (0.6-1.3); GLUCOSE 128 mg/dL (74-106); POTASSIUM - SERUM 3.9 mmol/L (3.5-5.1); SODIUM 136 mmol/L (136-145); UREA NITROGEN 23 mg/dL (7-18); eGFR NON AFRICAN AMERICAN > 90 mL/min (90-120)
[2019-07-15 07:32] LABS: PLATELET ESTIMATE DECREASED
[2019-07-15 08:47] VITALS: BP 107/65
--- NOTE | 2019-07-15 11:00 | NUR ---
PT RESTING IN BED. NO SIGNS OF DISTRESS. IV TO RIGHT UPPER ARM PATENT NO REDNESS OR TENDERNESS. WOUND TO COCCYX DRESSING INTACT. HAS PEG TUBE PATENT. ON TELEMETRY 97 SR. WOUND TO RIGHT BKA. OPEN TO AIR. COMPLAINS OF PAIN. MEDICATIONS GIVEN. DENIES ANY FURTHER NEED AT THIS TIME. CALL LIGHT IN REACH. BED LOW POSITION. FAMILY AT BEDSIDE. HAS MARIN PATENT NO KINKS
[2019-07-15 12:45] VITALS: BP 105/68
[2019-07-15 16:38] VITALS: BP 109/62; BP 131/50
--- NOTE | 2019-07-15 19:00 | NUR ---
BEDSIDE REPORT RECEIVED AND CARE OF PT ASSUMED. PT LYING IN LOW MONROY'S POSITION VISITING WITH SPOUSE. RIGHT PICC INE PATENT WITH NS W/ 40 KCL INFUSING AT 50 ML/HR. MARIN CATHETER DRAINING TO GRAVITY WITH YELLOW URINE IN COLLECTION BAG. PEG TUBE PATENT WITH OSMOLITE 1.0 INFUSING VIA FEEDING PUMP AT 75 ML/HR. 1ST STEP AIR MATTRESS OVERLAY IN USE. WILL MONITOR FOR NEEDS.
[2019-07-15 19:39] VITALS: BP 92/66
--- NOTE | 2019-07-15 19:43 | NUR ---
GAVE DILAUDID 2 MG PO PER REQUEST FOR PAIN, PER PRN ORDER.
--- NOTE | 2019-07-15 20:57 | NUR ---
HS MEDICATIONS GIVEN. FSBS 239 THIS CHECK REQUIRING COVERAGE WITH 4 UNITS OF INSULIN PER SLIDING SCALE.
--- NOTE | 2019-07-15 22:11 | NUR ---
GAVE DILAUDID 2 MG PO AND TRAZADONE PO PER REQUEST FOR PAIN AND SLEEP, PER PRN ORDER. WILL CONTINUE TO MONITOR FOR NEEDS.
[2019-07-16] VITALS: BP 112/67
[2019-07-16 04:00] VITALS: BP 116/63
--- NOTE | 2019-07-16 04:15 | NUR ---
CHANGED ALL IV TUBING PER CHANGE SCHEDULE. CHANGED ALL FEEDING TUBING AND BAGS.
[2019-07-16 04:36] LABS: BASOPHILS 0 % (0-2); EOSINOPHILS 1.4 % (0-7); HEMATOCRIT 29.1 % (42.0-54.0); HEMOGLOBIN 9.9 g/dL (13.5-17.5); IMMATURE GRANULOCYTES 1.2 % (0-5); LYMPHOCYTES 14.3 % (15-50); MCH 29.7 pg (26.0-34.0); MCV 87.4 fL (80.0-100.0); MEAN PLATELET VOLUME 10.7 fL (7.4-10.4); MONOCYTES 5.5 % (2-11); NEUTROPHILS 77.6 % (40-80); PLATELET COUNT 56 10x3/uL (130-400); RBC 3.33 10x6/uL (4.20-6.10); RDW 15.1 % (11.5-14.5); WBC 4.2 10x3/uL (4.8-10.8)
[2019-07-16 04:51] LABS: CALC OSMOLALITY 277 mosm/kg (275-300); CALCIUM 8.3 mg/dL (8.5-10.1); CARBON DIOXIDE 29.1 mmol/L (21.0-32.0); CHLORIDE - SERUM 101 mmol/L (98-107); CREATININE - SERUM 0.8 mg/dL (0.6-1.3); POTASSIUM - SERUM 3.9 mmol/L (3.5-5.1); SODIUM 135 mmol/L (136-145); UREA NITROGEN 21 mg/dL (7-18); eGFR NON AFRICAN AMERICAN > 90 mL/min (90-120)
[2019-07-16 05:00] LABS: GLUCOSE 192 mg/dL (74-106)
--- NOTE | 2019-07-16 06:29 | NUR ---
PT RESTED WELL OVERNIGHT, REQUIRING X3 PRN DOSES OF 2 MG DILAUDID PO IN ADDITION TO THE SCHEDULED DOSES.
[2019-07-16 08:15] VITALS: BP 110/60
--- NOTE | 2019-07-16 10:36 | NUR ---
PT RESTING IN BED. NO SIGNS OF DISTRESS. IV TO RIGHT UPPER ARM PATENT NO REDNESS OR TENDERNESS. ON TELEMETRY 91 SR. HAS MARIN NO KINKS PATENT. PEG TUBE PATENT. ON A SPECAILITY BED. COMPLAINS OF PAIN. MEDICATION GIVEN. DENIES ANY FURTHER NEED AT THIS TIME. CALL LIGHT IN REACH. BED LOW POSITION. FAMILY AT BEDSIDE. FALL PRECATIONS IN PLACE. FAMILY AT BEDSIDE.
[2019-07-16 12:18] VITALS: BP 130/68
[2019-07-16 17:05] VITALS: BP 104/59
--- NOTE | 2019-07-16 17:45 | NUR ---
REPORT RECEIVED AND CARE OF PT ASSUMED. PT LYING IN MID MONROY'S POSITION ON 1ST STEP AIR MATTRESS OVERLAY. MARIN CATHETER DRAINING TO GRAVITY WITH YELLOW URINE IN COLLECTION BAG. RIGHT PICC LINE PATENT WITH NS W/ 40 KCL INFUSING AT 50 ML/HR. TELEMETRY IN PLACE PER ORDER. WILL MONITOR FOR NEEDS.
--- NOTE | 2019-07-16 18:36 | NUR ---
I have reviewed this patient and I concur with the Shift Assessment completed by the Licensed Practical Nurse today this shift.
[2019-07-16 20:00] VITALS: BP 112/74
--- NOTE | 2019-07-16 20:14 | NUR ---
HS MEDICATIONS GIVEN TO INCLUDE 2 MG DILAUDID PO PER REQUEST FOR PAIN. FSBS 205 THIS CHECK...PT DECLINED SLIDING SCALE. WILL CONTINUE TO MONITOR FOR NEEDS.
[2019-07-17] VITALS: BP 109/68
[2019-07-17 04:00] VITALS: BP 97/64
--- NOTE | 2019-07-17 04:12 | NUR ---
CHANGED ALL FEEDING TUBING AND BAGS.
--- NOTE | 2019-07-17 05:14 | NUR ---
PT BATHED AND ALL LINENS AND GOWN CHANGED. CLEANSED AROUND PEG TUBE WITH HIBACLENS FOAM AND PLACED NEW SPLIT DRESSING. 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 PT HAD INCONTINENT BM, CAUSING REDNESS AROUND ANUS. APPLIED ISAIAH PASTE TO AREA. APPLIED NYSTATIN POWDER TO DIONNE AND INGUINAL REDNESS. POSITIONED FOR COMFORT.
--- NOTE | 2019-07-17 07:15 | NUR ---
PT RESTING IN BED WITH HOB ELEVATED. OPENS EYES WITH NAME CALLED. PT REPORTS PAIN 6/10 AT THIS TIME. DISCUSSED WITH PT NEXT TIME PAIN MEDS DUE. PICC LINE INTACT TO RIGHT UPPER ARM WITH NS W/ 40KCL @ 50ML/HR INFUSING VIA PUMP. SITE WITHOUT REDNESS OR EDEMA. PEG TUBE INTACT WITH OSMOLITE 1.0 @ 75ML/HR INFUSING VIA PUMP, PT DANA WELL. RIGHT BKA ELEVATED ON PILLOW WITH SCANT AMOUNT OF BLOODY DRAINAGE NOTED. DENIES FUTHER NEEDS AT THIS TIME. CL WITHIN REACH. ENCOURAGED TO CALL WITH NEEDS. CONTINUE POC
[2019-07-17 07:59] VITALS: BP 108/78
[2019-07-17 08:47] LABS: BASOPHILS 0.3 % (0-2); HEMATOCRIT 29.1 % (42.0-54.0); HEMOGLOBIN 9.9 g/dL (13.5-17.5); IMMATURE GRANULOCYTES 0.8 % (0-5); LYMPHOCYTES 13.2 % (15-50); MCH 29.6 pg (26.0-34.0); MCV 87.1 fL (80.0-100.0); MEAN PLATELET VOLUME 9.8 fL (7.4-10.4); MONOCYTES 4.1 % (2-11); NEUTROPHILS 80.6 % (40-80); PLATELET COUNT 56 10x3/uL (130-400); RBC 3.34 10x6/uL (4.20-6.10); RDW 15.3 % (11.5-14.5); WBC 3.9 10x3/uL (4.8-10.8)
[2019-07-17 09:03] LABS: CALC OSMOLALITY 283 mosm/kg (275-300); CALCIUM 8.7 mg/dL (8.5-10.1); CARBON DIOXIDE 29.5 mmol/L (21.0-32.0); CHLORIDE - SERUM 102 mmol/L (98-107); CREATININE - SERUM 0.7 mg/dL (0.6-1.3); GLUCOSE 167 mg/dL (74-106); POTASSIUM - SERUM 3.8 mmol/L (3.5-5.1); SODIUM 139 mmol/L (136-145); UREA NITROGEN 19 mg/dL (7-18); eGFR NON AFRICAN AMERICAN > 90 mL/min (90-120)
[2019-07-17 12:19] LABS: ANISOCYTOSIS OCC; PLATELET ESTIMATE DECREASED; ROULEAUX OCC
[2019-07-17 12:45] VITALS: BP 119/80
[2019-07-17 15:37] VITALS: BP 116/82
--- NOTE | 2019-07-17 15:43 | NUR ---
RIGHT AKA WITH DRY ESCAR 7CM X 7CM ON END. NO ODOR IS NOTED. SMALL AMOUNT OF BLOODY DRAINAGE IS SEEN. AREA IS TENDER TO THE TOUCH. DR. JACKSON HAS BEEN CONSULTED.
[2019-07-17 19:54] VITALS: BP 131/71
--- NOTE | 2019-07-18 00:20 | NUR ---
PT RESTING IN BED. EYES CLOSED. NO SIGNS OF DISTRESS. BREATHING EVEN AND UNLABORED. IV SITE RT UPPER ARM DRESSING CLEAN DRY AND INTACT. NO SINGS OF INFECTION. BOWEL SOUNDS ACTIVE. TELE MONITOR ON [address] CLEAN DRY AND INTACT. RT BKA OPEN TO AIR. BLACK ESCHAR END OF STUMP. LT LEG SWELLING PRESENT. 1ST STEP OVERLAY MATTRESS ON. WILL CONTINUE PLAN OF CARE. CALL LIGHT IN REACH. BED LOWERED AND LOCKED. BED RAILS UP X2.
[2019-07-18 01:12] VITALS: BP 119/69
--- NOTE | 2019-07-18 04:00 | NUR ---
I have reviewed this patient and I concur with the Shift Assessment completed by the Licensed Practical Nurse today this shift.
[2019-07-18 05:01] VITALS: BP 117/78
[2019-07-18 06:38] LABS: HEMATOCRIT 28.4 % (42.0-54.0); HEMOGLOBIN 9.6 g/dL (13.5-17.5); MCH 29.5 pg (26.0-34.0); MCHC 33.8 g/dL (31.0-37.0); MCV 87.4 fL (80.0-100.0); MEAN PLATELET VOLUME 10.5 fL (7.4-10.4); RBC 3.25 10x6/uL (4.20-6.10); RDW 15.5 % (11.5-14.5)
[2019-07-18 06:42] LABS: PLATELET COUNT 70 10x3/uL (130-400); WBC 2.9 10x3/uL (4.8-10.8)
[2019-07-18 06:46] LABS: CALC OSMOLALITY 285 mosm/kg (275-300); CALCIUM 8.5 mg/dL (8.5-10.1); CHLORIDE - SERUM 102 mmol/L (98-107); CREATININE - SERUM 0.7 mg/dL (0.6-1.3); GLUCOSE 190 mg/dL (74-106); SODIUM 139 mmol/L (136-145); UREA NITROGEN 20 mg/dL (7-18); eGFR NON AFRICAN AMERICAN > 90 mL/min (90-120)
--- NOTE | 2019-07-18 08:14 | NUR ---
PT RESTING IN BED WITH EYES CLOSED. OPENS EYES UPON NAME BEING CALLED. RESP EVEN AND UNLABORED. HOB ELEVATED. PICC LINE TO RIGHT UPPER ARM WITH NS W/ 40KCL @ 50 ML/HR INFUSING VIA PUMP. SITE WITHOUT REDNESS OR EDEMA. PEG TUBE INTACT WITH OSMOLITE 1.0 @ 75ML/HR INFUSING VIA PUMP. PT DANA WELL <10ML RESIDUAL. REPORTS PAIN 5/10 AT THIS TIME. PT DENIES FURTHER NEEDS AT THIS TIME. CL WITHIN REACH. ENCOURAGED TO CALL WITH NEEDS. CONTINUE POC
[2019-07-18 08:38] VITALS: BP 115/59
[2019-07-18 09:05] LABS: ANISOCYTOSIS OCC; EOSINOPHILS 1 % (0-7); LYMPHOCYTES 22 % (15-50); MONOCYTES 6 % (2-11); NEUTROPHILS 66 % (40-80); PLATELET ESTIMATE DECREASED
[2019-07-18 12:46] VITALS: BP 116/69
--- NOTE | 2019-07-18 16:07 | MORECARE ---
CASE MANAGEMENT DISCHARGE SUMMARY PATIENT: NAYELI BLAS UNIT: [id number] ADM DATE: 05/15/19 AGE: 49 : [birth year] SEX: M ROOM/BED: D.2216 AUTHOR: SAVANAH LIVINGSTON PHYSICIAN: REFERRING PHYSICIAN: KALEIGH CARRANZA MD DATE OF SERVICE: 07/18/19 Discharge Plan Patient Name: NAYELI BLAS Facility: [facility]:[place] : 1970 Planned Disposition: Long Term Facility Anticipated Discharge Date: 05/17/19 Discharge Date: Expected LOS: 2 Initial Reviewer: [email or web address] Initial Review Date: 05/15/2019 Generated: 07/18/19 5:06 pm Comments DCP- Discharge Planning Updated by [id number]: Adriana Hendricks on 07/18/19 3:[address] Spoke with and patient about what the plan of care that was discussed with me this AM by JOSH Apodaca. The stated that it is not safe for him to go to their current home & they were going to get a trailer from their parents to fix up, but that has not been started. I explained to them in the mean time that he is stable for discharge and both patient and got irate with me. I explained to him that he would need 24/7 care and if her home is unsafe, that he would be discharged back to [facility]. They then started to tell me about his leg and the ortho wanted to do an AKA, but they did not want that to be done. They want to talk to Jae. I spoke with Paulie and he stated that he will have Dr Carranza to make rounds with him in the morning. The patient cussed me and yelled at me. I explained to him that Dr Carranza would be here in the morning as Paulie said. CM will continue to follow and assist with dc planning. DCP- Discharge Planning Updated by [id number]: Adriana Hendricks on 07/06/19 1:[address] [facility] have declined the patient. DCP- Discharge Planning Updated by [email or web address]: Adriana Hendricks on 07/05/19 1:[address] Spoke with at length today about dc planning. I explained to her that his insurance with skilled benefits is not longer active and that with [facility] he does not have skilled benefits. She stated she was unsure if he would go back there when discharged. She stated that they live [facility] and she was not as happy with his care there. He is not strong enough to go home. I told her that I would ask if there is a restorative program that a facility closer would be able to offer. She also stated that her cousin applied for a isamar for help, I encouraged her to look into it and possibly apply if she could. The patient was in ALOT of pain lying there and did not want to discuss ANYTHING at this time. She asked to give her some time to talk to him and she would get back with me. CM will continue to follow and assist with DC planning. I did reach out [facility] to see if therapy would be an option and she stated to send referral and they would take a look at it. DCP- Discharge Planning Updated by [id number]: Adriana Hendricks on 07/04/19 12:[address] called spoke with Baron at [facility] to let her know that patient may be discharged back to her tomorrow. Updated clinical sent DCP- Discharge Planning Updated by [id number]: Adriana Hendricks on 06/30/19 11:[address] Carranza today about dc plan and to let him know that the patient does not have [place] benefits. He stated that his WBC needs to be 1.5 to 2 before he would dc him. CM will continue to follow DCP- Discharge Planning Updated by [id number]: Adriana Hendricks on 06/21/19 8:[address] CALLED AND SPOKE WITH AND SHE IS UNSURE OF HIS PLAN, SHE STATED THAT HE DID NOT FINISH HIS REHAB OR HAS GOTTEN HIS PROSTHETIC. I AM UNSURE IN HIS CONDITION IF HE WILL NE ABLE TO PARTICIPATE IN REHAB AT THIS POINT. I WILL VISIT WITH HER WHEN SHE ARRIVES TO THE HOSPITAL DCP- Discharge Planning Updated by [id number]: Adriana Hendricks on 06/12/19 2:[address] Spoke with patient to about his discharge plan, he was unsure if he would go back to [facility]. He stated that his home is not set up for a wheelchair and he is not ambulatory. He asked if I would come back to [place] and speak with him. CM to follow and assist with dc planning DCP- Discharge Planning Updated by [id number]: Krista Scales on 05/22/19 2:[address] Received a call from Paulie Fraser that he would like the patient transferred to [facility] to his oncologist. I went to patient's room to inquire about his oncologists name and he asks why. I informed him that Paulie had called and would like to have him transferred to [facility] to his oncology team there. He states "the hell you are." His states that no one has talked to him about transfer and it is his decision if he wants to transfer or go home. I told him I agreed, that it is his choice to make and he would not be transferred without his consent. His states she is going home and will be back at 5PM tonight to speak with Paulie. I called Paulie and informed that I did not call transfer team and what the patient said. He will be here tonight at 5 to speak with the patient and . CM will continue to follow and assist with discharge planning/needs. DCP- Discharge Planning Updated by [id number]: Mar Silva on 05/15/19 6:[address] Patient Name: NAYELI BLAS Admission Status: ER Accout number: [id number] Admission Date: 05-15-2019 : 1970 Admission Diagnosis: Attending: KALEIGH CARRANZA Current LOS: 1 Anticipated DC Date: 05-17-2019 Planned Disposition: Long Term Facility Primary Insurance: MEDICAID [place] Discharge Planning Comments: CM met with patient's , Anika to complete initial dc planning assessment. CM educated Anika on the CM role and verbal consent given by Anika to complete assessment. Patient is currently in rehab @ [facility]. At discharge patient plans to return to [facility] and Anika feels this is a safe discharge. CIERRA form signed by Anika for the patine to return to [facility] at ri. Signed form placed in chart and signed form given to Anika. She denied further known discharge needs at this time. CM will continue to follow and will assist as needed with dc plans/needs. Newspaper Deliverer: Mar Silva RN, [facility] DCPIA - Discharge Planning Initial Assessment Updated by [id number]: Mar Silva on 05/15/19 7:30 pm * Is the patient Alert and Oriented? Yes * How many steps to enter\\exit or inside your home? * PCP Dr. Carranza * [facility] * Preadmission Environment Long Term Facility * Facility Name [facility] * ADLs Partial Dependent * Partial ADLs (Assistance needed) Ambulation Bathing Dressing Medication Management Transfers * Other Equipment No equipment at home. Uses WC from [facility]. * List name and contact numbers for known caregivers / representatives who currently or will assist patient after discharge: Anika Blas - - [phone] or [phone] * Verbal permission to speak to the caregivers and representatives has been obtained from the patient. Yes * Community resources currently utilized None * Additional services required to return to the preadmission environment? No * Can the patient safely return to the preadmission environment? Yes * Has this patient been hospitalized within the prior 30 days at any hospital? No Last DP export: 07/06/19 1:17 pm Patient Name: NAYELI BLAS Page [id number] at 1607 All edits/amendments must be made on the electronic document DICTATION DATE: 07/18/191605 ASSOCIATE PROFESSOR OF MUSICOLOGY: ARACELI 07/18/191605 RPT#: [id number] DC DATE: STATUS: ADM IN [facility] [address] [place] [address] END OF REPORT
[2019-07-18 16:12] VITALS: BP 104/56
[2019-07-18 20:00] VITALS: BP 139/78
--- NOTE | 2019-07-18 23:18 | NUR ---
PT RESTING IN BED. EYES CLOSED. NO SIGNS OF DISTRESS. BREATHING EVEN AND UNLABORED. IV SITE RT UPPER ARM PICC. DRESSING CLEAN DRY AND INTACT. NO SIGNS OF INFECTION. LUNG SOUNDS CLEAR. TELE MONITOR ON 102 SINUS. BOWEL SOUNDS ACTIVE. LT ABD PEG TUBE PRESENT. CLEAN DRY AND INTACT. TUBE FEEDING GOING AT 75. MARIN IN PLACE CLEAN DRY AND INTACT. NO SIGNS OF INFECTION. RT BKA ESCHAR END OF STUMP. OPEN TO AIR. WILL CONTINUE PLAN OF CARE. CALL LIGHT IN REACH BED LOWERED AND LOCKED. BED RAILS UPX2. 1ST STEP OVERLAY MATTRESS ON.
--- NOTE | 2019-07-18 23:45 | NUR ---
I have reviewed this patient and I concur with the Shift Assessment completed by the Licensed Practical Nurse today this shift.
[2019-07-19 05:18] LABS: CALC OSMOLALITY 276 mosm/kg (275-300); CALCIUM 8.8 mg/dL (8.5-10.1); CARBON DIOXIDE 29.9 mmol/L (21.0-32.0); CHLORIDE - SERUM 99 mmol/L (98-107); CREATININE - SERUM 0.7 mg/dL (0.6-1.3); GLUCOSE 164 mg/dL (74-106); POTASSIUM - SERUM 3.8 mmol/L (3.5-5.1); SODIUM 135 mmol/L (136-145); UREA NITROGEN 22 mg/dL (7-18); eGFR NON AFRICAN AMERICAN > 90 mL/min (90-120)
[2019-07-19 06:29] LABS: BASOPHILS 0 % (0-2); EOSINOPHILS 2.4 % (0-7); HEMOGLOBIN 9.2 g/dL (13.5-17.5); IMMATURE GRANULOCYTES 0.3 % (0-5); LYMPHOCYTES 16.4 % (15-50); MCH 29.8 pg (26.0-34.0); MCHC 34.1 g/dL (31.0-37.0); MCV 87.4 fL (80.0-100.0); MEAN PLATELET VOLUME 9.9 fL (7.4-10.4); MONOCYTES 4.9 % (2-11); PLATELET COUNT 73 10x3/uL (130-400); RBC 3.09 10x6/uL (4.20-6.10); RDW 15.8 % (11.5-14.5); WBC 2.9 10x3/uL (4.8-10.8)
--- NOTE | 2019-07-19 08:01 | NUR ---
PT RESTING IN BED. AT BEDSIDE. NO S/S OF ACUTE DISTRESS. CL IN PLACE.
[2019-07-19 08:19] VITALS: BP 134/63
--- NOTE | 2019-07-19 09:20 | MORECARE ---
CASE MANAGEMENT DISCHARGE SUMMARY PATIENT: NAYELI BLAS UNIT: [id number] ADM DATE: 05/15/19 AGE: 49 : [birth year] SEX: M ROOM/BED: D.2216 AUTHOR: SAVANAH LIVINGSTON PHYSICIAN: REFERRING PHYSICIAN: KALEIGH CARRANZA MD DATE OF SERVICE: 07/19/19 Discharge Plan Patient Name: NAYELI BLAS Facility: [facility]:[place] : 1970 Planned Disposition: Penitentiary Facility Anticipated Discharge Date: 05/17/19 Discharge Date: Expected LOS: 2 Initial Reviewer: [email or web address] Initial Review Date: 05/15/2019 Generated: 07/19/19 10:20 am Comments DCP- Discharge Planning Updated by [id number]: Adriana Eladio on 07/19/19 8:[address] Angelique Apodaca APN community relations advisor and I were in the patient this AM to speak with them about discharge plans and care. now states that her home is safe for him, but she will have to wait till this weekend for help to come to move stuff around to get the DME in the home. I will start on trying to get the DME. CM will continue to follow and assist with dc planning DCP- Discharge Planning Updated by [id number]: Adriana Hendricks on 07/18/19 3:[address] Spoke with and patient about what the plan of care that was discussed with me this AM by JOSH Apodaca. The stated that it is not safe for him to go to their current home & they were going to get a trailer from their parents to fix up, but that has not been started. I explained to them in the mean time that he is stable for discharge and both patient and got irate with me. I explained to him that he would need 24/7 care and if her home is unsafe, that he would be discharged back to [facility]. They then started to tell me about his leg and the ortho wanted to do an AKA, but they did not want that to be done. They want to talk to Jae. I spoke with Paulie and he stated that he will have Dr Carranza to make rounds with him in the morning. The patient cussed me and yelled at me. I explained to him that Dr Carranza would be here in the morning as Paulie said. CM will continue to follow and assist with dc planning. DCP- Discharge Planning Updated by [id number]: Adriana Hendricks on 07/06/19 1:[address] [facility] have declined the patient. DCP- Discharge Planning Updated by [id number]: Adriana Hendricks on 07/05/19 1:[address] Spoke with at length today about dc planning. I explained to her that his insurance with skilled benefits is not longer active and that with [facility] he does not have skilled benefits. She stated she was unsure if he would go back there when discharged. She stated that they live by the [facility] and she was not as happy with his care there. He is not strong enough to go home. I told her that I would ask if there is a restorative program that a facility closer would be able to offer. She also stated that her cousin applied for a isamar for help, I encouraged her to look into it and possibly apply if she could. The patient was in ALOT of pain lying there and did not want to discuss ANYTHING at this time. She asked to give her some time to talk to him and she would get back with me. CM will continue to follow and assist with DC planning. I did reach out [facility] to see if therapy would be an option and she stated to send referral and they would take a look at it. DCP- Discharge Planning Updated by [id number]: Adriana Hendricks on 07/04/19 12:[address] called spoke with Baron at [facility] to let her know that patient may be discharged back to her tomorrow. Updated clinical sent DCP- Discharge Planning Updated by [id number]: Adriana Hendricks on 06/30/19 11:[address] Carranza today about dc plan and to let him know that the patient does not have Ltach benefits. He stated that his WBC needs to be 1.5 to 2 before he would dc him. CM will continue to follow DCP- Discharge Planning Updated by [id number]: Adriana Hendricks on 06/21/19 8:[address] CALLED AND SPOKE WITH AND SHE IS UNSURE OF HIS PLAN, SHE STATED THAT HE DID NOT FINISH HIS REHAB OR HAS GOTTEN HIS PROSTHETIC. I AM UNSURE IN HIS CONDITION IF HE WILL NE ABLE TO PARTICIPATE IN REHAB AT THIS POINT. I WILL VISIT WITH HER WHEN SHE ARRIVES TO THE HOSPITAL DCP- Discharge Planning Updated by [id number]: Adriana Hendricks on 06/12/19 2:[address] Spoke with patient to about his discharge plan, he was unsure if he would go back to [facility]. He stated that his home is not set up for a wheelchair and he is not ambulatory. He asked if I would come back to [place] and speak with him. CM to follow and assist with dc planning DCP- Discharge Planning Updated by [email or web address]: Krista Scales on 05/22/19 2:[address] Received a call from Paulie Fraser that he would like the patient transferred to [facility] to his oncologist. I went to patient's room to inquire about his oncologists name and he asks why. I informed him that Paulie had called and would like to have him transferred to [facility] to his oncology team there. He states "the hell you are." His states that no one has talked to him about transfer and it is his decision if he wants to transfer or go home. I told him I agreed, that it is his choice to make and he would not be transferred without his consent. His states she is going home and will be back at 5PM tonight to speak with Paulie. I called Paulie and informed that I did not call transfer team and what the patient said. He will be here tonight at 5 to speak with the patient and . CM will continue to follow and assist with discharge planning/needs. DCP- Discharge Planning Updated by [id number]: Mar Silva on 05/15/19 6:[address] Patient Name: NAYELI BLAS Admission Status: ER Accout number: [id number] Admission Date: 05-15-2019 : 1970 Admission Diagnosis: Attending: KALEIGH CARRANZA Current LOS: 1 Anticipated DC Date: 05-17-2019 Planned Disposition: Penitentiary Facility Primary Insurance: MED[place]ID [place] Discharge Planning Comments: CM met with patient's , Anika to complete initial dc planning assessment. CM educated Anika on the CM role and verbal consent given by Anika to complete assessment. Patient is currently in rehab @ [facility]. At discharge patient plans to return to [facility] and Anika feels this is a safe discharge. CIERAR form signed by Anika for the patine to return to [facility] [place]. Signed form placed in chart and signed form given to Anika. She denied further known discharge needs at this time. CM will continue to follow and will assist as needed with dc plans/needs. Engineer Remote Control Diesel: Mar Silva RN, [facility] DCPIA - Discharge Planning Initial Assessment Updated by [email or web address]: Mar Silva on 05/15/19 7:30 pm * Is the patient Alert and Oriented? Yes * How many steps to enter\\exit or inside your home? * PCP Dr. Carranza * [facility] * Preadmission Environment Penitentiary Facility * Facility Name [facility] * ADLs Partial Dependent * Partial ADLs (Assistance needed) Ambulation Bathing Dressing Medication Management Transfers * Other Equipment No equipment at home. Uses WC from [facility]. * List name and contact numbers for known caregivers / representatives who currently or will assist patient after discharge: Anika Blas - - [phone] or [phone] * Verbal permission to speak to the caregivers and representatives has been obtained from the patient. Yes * Community resources currently utilized None * Additional services required to return to the preadmission environment? No * Can the patient safely return to the preadmission environment? Yes * Has this patient been hospitalized within the prior 30 days at any hospital? No Last DP export: 07/18/19 3:07 p Patient Name: NAYELI BLAS Page [id number] at 0920 All edits/amendments must be made on the electronic document DICTATION DATE: 07/19/19919 ACOUSTICAL TILE PATTERNMAKER: ARACELI 07/19/19919 RPT#: [id number] DC DATE: STATUS: ADM IN [facility] [address] [place] [address] END OF REPORT
--- NOTE | 2019-07-19 09:44 | MORECARE ---
CASE MANAGEMENT DISCHARGE SUMMARY PATIENT: NAYELI BLAS UNIT: [id number] ADM DATE: 05/15/19 AGE: 49 : [birth year] SEX: M ROOM/BED: D.2216 AUTHOR: SAVANAH LIVINGSTON PHYSICIAN: REFERRING PHYSICIAN: KALEIGH CARRANZA MD DATE OF SERVICE: 07/19/19 Discharge Plan Patient Name: NAYELI BLAS Facility: [facility]:[place] : 1970 Planned Disposition: [facility] Facility Anticipated Discharge Date: 05/17/19 Discharge Date: Expected LOS: 2 Initial Reviewer: [email or web address] Initial Review Date: 05/15/2019 Generated: 07/19/19 10:44 am Comments DCP- Discharge Planning Updated by [id number]: Adriana Eladio on 07/19/19 8:[address] Angelique Apodaca APN varnishing unit tool setter and I were in the patient this AM to speak with them about discharge plans and care. now states that her home is safe for him, but she will have to wait till this weekend for help to come to move stuff around to get the DME in the home. I will start on trying to get the DME. CM will continue to follow and assist with dc planning DCP- Discharge Planning Updated by [id number]: Adriana Hendricks on 07/18/19 3:[address] Spoke with and patient about what the plan of care that was discussed with me this AM by JOSH Apodaca. The stated that it is not safe for him to go to their current home & they were going to get a trailer from their parents to fix up, but that has not been started. I explained to them in the mean time that he is stable for discharge and both patient and got irate with me. I explained to him that he would need 24/7 care and if her home is unsafe, that he would be discharged back to [facility]. They then started to tell me about his leg and the ortho wanted to do an AKA, but they did not want that to be done. They want to talk to Jae. I spoke with Paulie and he stated that he will have Dr Carranza to make rounds with him in the morning. The patient cussed me and yelled at me. I explained to him that Dr Carranza would be here in the morning as Paulie said. CM will continue to follow and assist with dc planning. DCP- Discharge Planning Updated by [id number]: Adriana Hendricks on 07/06/19 1:[address] [facility]. DCP- Discharge Planning Updated by [id number]: Adriana Hendricks on 07/05/19 1:[address] Spoke with at length today about dc planning. I explained to her that his insurance with skilled benefits is not longer active and that with [facility] he does not have skilled benefits. She stated she was unsure if he would go back there when discharged. She stated that they live by the [facility] and she was not as happy with his care there. He is not strong enough to go home. I told her that I would ask if there is a restorative program that a facility closer would be able to offer. She also stated that her cousin applied for a isamar for help, I encouraged her to look into it and possibly apply if she could. The patient was in ALOT of pain lying there and did not want to discuss ANYTHING at this time. She asked to give her some time to talk to him and she would get back with me. CM will continue to follow and assist with DC planning. I did reach out [facility] to see if therapy would be an option and she stated to send referral and they would take a look at it. DCP- Discharge Planning Updated by [id number]: Adriana Hendricks on 07/04/19 12:[address] called spoke with Baron at [facility] to let her know that patient may be discharged back to her tomorrow. Updated clinical sent DCP- Discharge Planning Updated by [id number]: Adriana Hendricks on 06/30/19 11:[address] Carranza today about dc plan and to let him know that the patient does not have Ltach benefits. He stated that his WBC needs to be 1.5 to 2 before he would dc him. CM will continue to follow DCP- Discharge Planning Updated by [email or web address]: Adriana Hendricks on 06/21/19 8:[address] CALLED AND SPOKE WITH AND SHE IS UNSURE OF HIS PLAN, SHE STATED THAT HE DID NOT FINISH HIS REHAB OR HAS GOTTEN HIS PROSTHETIC. I AM UNSURE IN HIS CONDITION IF HE WILL NE ABLE TO PARTICIPATE IN REHAB AT THIS POINT. I WILL VISIT WITH HER WHEN SHE ARRIVES TO THE HOSPITAL DCP- Discharge Planning Updated by [email or web address]: Adriana Hendricks on 06/12/19 2:[address] Spoke with patient to about his discharge plan, he was unsure if he would go back to [facility]. He stated that his home is not set up for a wheelchair and he is not ambulatory. He asked if I would come back to [place] and speak with him. CM to follow and assist with dc planning DCP- Discharge Planning Updated by [id number]: Krista Scales on 05/22/19 2:[address] Received a call from Paulie Fraser that he would like the patient transferred to [facility] to his oncologist. I went to patient's room to inquire about his oncologists name and he asks why. I informed him that Paulie had called and would like to have him transferred to [facility] to his oncology team there. He states "the hell you are." His states that no one has talked to him about transfer and it is his decision if he wants to transfer or go home. I told him I agreed, that it is his choice to make and he would not be transferred without his consent. His states she is going home and will be back at 5PM tonight to speak with Paulie. I called Paulie and informed that I did not call transfer team and what the patient said. He will be here tonight at 5 to speak with the patient and . CM will continue to follow and assist with discharge planning/needs. DCP- Discharge Planning Updated by [id number]: Mar Silva on 05/15/19 6:[address] Patient Name: NAYELI BLAS Admission Status: ER Accout number: [id number] Admission Date: 05-15-2019 : 1970 Admission Diagnosis: Attending: KALEIGH CARRANZA Current LOS: 1 Anticipated DC Date: 05-17-2019 Planned Disposition: [facility] Facility Primary Insurance: MEDICAID [place] Discharge Planning Comments: CM met with patient's , Anika to complete initial dc planning assessment. CM educated Anika on the CM role and verbal consent given by Anika to complete assessment. Patient is currently in rehab @ [facility]. At discharge patient plans to return to [facility] and Anika feels this is a safe discharge. CIERRA form signed by Anika for the patine to return to [facility] [place]. Signed form placed in chart and signed form given to Anika. She denied further known discharge needs at this time. CM will continue to follow and will assist as needed with dc plans/needs. Nurse Emergency: Mar Silva RN, [facility] DCPIA - Discharge Planning Initial Assessment Updated by [email or web address]: Mar Silva on 05/15/19 7:30 pm * Is the patient Alert and Oriented? Yes * How many steps to enter\\exit or inside your home? * PCP Dr. Carranza * [facility] * Preadmission Environment [facility] Facility * [facility] * ADLs Partial Dependent * Partial ADLs (Assistance needed) Ambulation Bathing Dressing Medication Management Transfers * Other Equipment No equipment at home. Uses from [facility]. * List name and contact numbers for known caregivers / representatives who currently or will assist patient after discharge: Anika Blas - - [phone] or H)[phone] * Verbal permission to speak to the caregivers and representatives has been obtained from the patient. Yes * Community resources currently utilized None * Additional services required to return to the preadmission environment? No * Can the patient safely return to the preadmission environment? Yes * Has this patient been hospitalized within the prior 30 days at any hospital? No Last DP export: 07/19/19 8:20 a Patient Name: NAYELI BLAS Page [id number] at 0944 All edits/amendments must be made on the electronic document DICTATION DATE: 07/19/19942 COMMERCIAL APPRAISER: ARACELI 07/19/19942 RPT#: [id number] DC DATE: STATUS: ADM IN [facility] [address] [place] [address] END OF REPORT
--- NOTE | 2019-07-19 11:08 | MORECARE ---
CASE MANAGEMENT DISCHARGE SUMMARY PATIENT: NAYELI BLAS UNIT: [id number] ADM DATE: 05/15/19 AGE: 49 : 68 SEX: M ROOM/BED: D.2216 AUTHOR: YARADOC PHYSICIAN: REFERRING PHYSICIAN: KALEIGH CARRANZA MD DATE OF SERVICE: 07/19/19 Discharge Plan Patient Name: NAYELI BLAS Facility: [facility]:[place] : 1970 Planned Disposition: Retirement Facility Anticipated Discharge Date: 05/17/19 Discharge Date: Expected LOS: 2 Initial Reviewer: [email or web address] Initial Review Date: 05/15/2019 Generated: 07/19/19 12:07 pm Comments DCP- Discharge Planning Updated by [email or web address]: Adriana Hendricks on 07/19/19 10:[address] AND PATIENT DO NOT CARE WHAT HOME HEALTH OR DME IS USED. REFERRAL SENT TO [facility] TO SEE IF THEY CAN ACCEPT. DCP- Discharge Planning Updated by [id number]: Adriana Hendricks on 07/19/19 8:[address] Angelique Apodaca APN equal employment opportunity officer and I were in the patient this AM to speak with them about discharge plans and care. now states that her home is safe for him, but she will have to wait till this weekend for help to come to move stuff around to get the DME in the home. I will start on trying to get the DME. CM will continue to follow and assist with dc planning DCP- Discharge Planning Updated by [id number]: Adriana Hendricks on 07/18/19 3:[address] Spoke with and patient about what the plan of care that was discussed with me this AM by JOSH Apodaca. The stated that it is not safe for him to go to their current home & they were going to get a trailer from their parents to fix up, but that has not been started. I explained to them in the mean time that he is stable for discharge and both patient and got irate with me. I explained to him that he would need 24/7 care and if her home is unsafe, that he would be discharged back to [facility]. They then started to tell me about his leg and the ortho wanted to do an AKA, but they did not want that to be done. They want to talk to Jae. I spoke with Paulie and he stated that he will have Dr Carranza to make rounds with him in the morning. The patient cussed me and yelled at me. I explained to him that Dr Carranza would be here in the morning as Paulie said. CM will continue to follow and assist with dc planning. DCP- Discharge Planning Updated by [id number]: Adriana Hendricks on 07/06/19 1:[address] [facility] have declined the patient. DCP- Discharge Planning Updated by [id number]: Adriana Hendricks on 07/05/19 1:[address] Spoke with at length today about dc planning. I explained to her that his insurance with skilled benefits is not longer active and that with [facility] he does not have skilled benefits. She stated she was unsure if he would go back there when discharged. She stated that they live by the [facility] and she was not as happy with his care there. He is not strong enough to go home. I told her that I would ask if there is a restorative program that a facility closer would be able to offer. She also stated that her cousin applied for a isamar for help, I encouraged her to look into it and possibly apply if she could. The patient was in ALOT of pain lying there and did not want to discuss ANYTHING at this time. She asked to give her some time to talk to him and she would get back with me. CM will continue to follow and assist with DC planning. I did reach out [facility] to see if therapy would be an option and she stated to send referral and they would take a look at it. DCP- Discharge Planning Updated by [id number]: Adriana Hendricks on 07/04/19 12:[address] called spoke with Baron at [facility] to let her know that patient may be discharged back to her tomorrow. Updated clinical sent DCP- Discharge Planning Updated by [id number]: Adriana Hendricks on 06/30/19 11:[address] Carranza today about dc plan and to let him know that the patient does not have Ltach benefits. He stated that his WBC needs to be 1.5 to 2 before he would dc him. CM will continue to follow DCP- Discharge Planning Updated by [email or web address]: Adriana Hendricks on 06/21/19 8:[address] CALLED AND SPOKE WITH AND SHE IS UNSURE OF HIS PLAN, SHE STATED THAT HE DID NOT FINISH HIS REHAB OR HAS GOTTEN HIS PROSTHETIC. I AM UNSURE IN HIS CONDITION IF HE WILL NE ABLE TO PARTICIPATE IN REHAB AT THIS POINT. I WILL VISIT WITH HER WHEN SHE ARRIVES TO THE HOSPITAL DCP- Discharge Planning Updated by [id number]: Adriana Hendricks on 06/12/19 2:[address] Spoke with patient to about his discharge plan, he was unsure if he would go back to [facility]. He stated that his home is not set up for a wheelchair and he is not ambulatory. He asked if I would come back to [place] and speak with him. CM to follow and assist with dc planning DCP- Discharge Planning Updated by [id number]: Krista Scales on 05/22/19 2:[address] Received a call from Paulie Fraser that he would like the patient transferred to [facility] to his oncologist. I went to patient's room to inquire about his oncologists name and he asks why. I informed him that Paulie had called and would like to have him transferred to [facility] to his oncology team there. He states "the hell you are." His states that no one has talked to him about transfer and it is his decision if he wants to transfer or go home. I told him I agreed, that it is his choice to make and he would not be transferred without his consent. His states she is going home and will be back at 5PM tonight to speak with Paulie. I called Paulie and informed that I did not call transfer team and what the patient said. He will be here tonight at 5 to speak with the patient and . CM will continue to follow and assist with discharge planning/needs. DCP- Discharge Planning Updated by [id number]: Mar Silva on 05/15/19 6:[address] Patient Name: NAYELI BLAS Admission Status: ER Accout number: [id number] Admission Date: 05-15-2019 : 1970 Admission Diagnosis: Attending: KALEIGH CARRANZA Current LOS: 1 Anticipated DC Date: 05-17-2019 Planned Disposition: Retirement Facility Primary Insurance: MEDICAID [place] Discharge Planning Comments: CM met with patient's , Anika to complete initial dc planning assessment. CM educated Anika on the CM role and verbal consent given by Anika to complete assessment. Patient is currently in rehab @ [facility]. At discharge patient plans to return to [facility] and Anika feels this is a safe discharge. [facility] form signed by Anika for the patine to return to [facility] [place]. Signed form placed in chart and signed form given to Anika. She denied further known discharge needs at this time. CM will continue to follow and will assist as needed with dc plans/needs. Lactation Coordinator: Mar Silva RN, [facility] DCPIA - Discharge Planning Initial Assessment Updated by [id number]: Mar Silva on 05/15/19 7:30 pm * Is the patient Alert and Oriented? Yes * How many steps to enter\\exit or inside your home? * PCP Dr. Carranza * [facility] * Preadmission Environment Retirement Facility * [facility] * ADLs Partial Dependent * Partial ADLs (Assistance needed) Ambulation Bathing Dressing Medication Management Transfers * Other Equipment No equipment at home. Uses from [facility]. * List name and contact numbers for known caregivers / representatives who currently or will assist patient after discharge: Anika Blas - - [phone] or [phone] * Verbal permission to speak to the caregivers and representatives has been obtained from the patient. Yes * Community resources currently utilized None * Additional services required to return to the preadmission environment? No * Can the patient safely return to the preadmission environment? Yes * Has this patient been hospitalized within the prior 30 days at any hospital? No External Providers External Provider: [facility] Next Contact Date: Service Request Date: Service Type: Resolution: Reviewer: Comments: Last DP export: 07/19/19 8:44 a Patient Name: NAYELI BLAS Page [phone] at 1108 All edits/amendments must be made on the electronic document DICTATION DATE: 07/19/191106 ANTHROPOLOGY AND ARCHEOLOGY INSTRUCTOR: ARACELI 07/19/191106 RPT#: [id number] DC DATE: STATUS: ADM IN [facility] [address] [place] [address] END OF REPORT
--- NOTE | 2019-07-19 11:16 | MORECARE ---
CASE MANAGEMENT DISCHARGE SUMMARY PATIENT: NAYELI BLAS UNIT: [id number] ADM DATE: 05/15/19 AGE: 49 : 68 SEX: M ROOM/BED: D.2216 AUTHOR: YARADOC PHYSICIAN: REFERRING PHYSICIAN: KALEIGH CARRANZA MD DATE OF SERVICE: 07/19/19 Discharge Plan Patient Name: NAYELI BLAS Facility: [facility]:[place] : 1970 Planned Disposition: Fpc Facility Anticipated Discharge Date: 05/17/19 Discharge Date: Expected LOS: 2 Initial Reviewer: [email or web address] Initial Review Date: 05/15/2019 Generated: 07/19/19 12:16 pm Comments DCP- Discharge Planning Updated by [id number]: Adriana Hendricks on 07/19/19 10:[address] I HAVE SENT THE HOSPITAL BED ORDER TO [facility], I SPOKE WITH CARL AND SHE WILL START THE PRE AUTH FOR THE DME DCP- Discharge Planning Updated by [id number]: Adriana Hendricks on 07/19/19 10:[address] AND PATIENT DO NOT CARE WHAT HOME HEALTH OR DME IS USED. REFERRAL SENT TO [facility] IF [facility] CAN ACCEPT. DCP- Discharge Planning Updated by [id number]: Adriana Hendricks on 07/19/19 8:[address] Angelique Apodaca APN executive community planning and I were in the patient this AM to speak with them about discharge plans and care. now states that her home is safe for him, but she will have to wait till this weekend for help to come to move stuff around to get the DME in the home. I will start on trying to get the DME. CM will continue to follow and assist with dc planning DCP- Discharge Planning Updated by [id number]: Adriana Hendricks on 07/18/19 3:[address] Spoke with and patient about what the plan of care that was discussed with me this AM by JOSH Apodaca. The stated that it is not safe for him to go to their current home & they were going to get a trailer from their parents to fix up, but that has not been started. I explained to them in the mean time that he is stable for discharge and both patient and got irate with me. I explained to him that he would need 24/7 care and if her home is unsafe, that he would be discharged back to [facility]. They then started to tell me about his leg and the ortho wanted to do an AKA, but they did not want that to be done. They want to talk to Jae. I spoke with Paulie and he stated that he will have Dr Carranza to make rounds with him in the morning. The patient cussed me and yelled at me. I explained to him that Dr Carranza would be here in the morning as Paulie said. CM will continue to follow and assist with dc planning. DCP- Discharge Planning Updated by [id number]: Adriana Hendricks on 07/06/19 1:[address] [facility] have declined the patient. DCP- Discharge Planning Updated by [id number]: Adriana Hendricks on 07/05/19 1:[address] Spoke with at length today about dc planning. I explained to her that his insurance with skilled benefits is not longer active and that with [facility] he does not have skilled benefits. She stated she was unsure if he would go back there when discharged. She stated that they live by the [facility] and she was not as happy with his care there. He is not strong enough to go home. I told her that I would ask if there is a restorative program that a facility closer would be able to offer. She also stated that her cousin applied for a isamar for help, I encouraged her to look into it and possibly apply if she could. The patient was in ALOT of pain lying there and did not want to discuss ANYTHING at this time. She asked to give her some time to talk to him and she would get back with me. CM will continue to follow and assist with DC planning. I did reach out [facility] to see if therapy would be an option and she stated to send referral and they would take a look at it. DCP- Discharge Planning Updated by [id number]: Adriana Hendricks on 07/04/19 12:[address] called spoke with Baron at [facility] to let her know that patient may be discharged back to her tomorrow. Updated clinical sent DCP- Discharge Planning Updated by [id number]: Adriana Hendricks on 06/30/19 11:[address] Carranza today about dc plan and to let him know that the patient does not have Ltach benefits. He stated that his WBC needs to be 1.5 to 2 before he would dc him. CM will continue to follow DCP- Discharge Planning Updated by [id number]: Adriana Hendricks on 06/21/19 8:[address] CALLED AND SPOKE WITH AND SHE IS UNSURE OF HIS PLAN, SHE STATED THAT HE DID NOT FINISH HIS REHAB OR HAS GOTTEN HIS PROSTHETIC. I AM UNSURE IN HIS CONDITION IF HE WILL NE ABLE TO PARTICIPATE IN REHAB AT THIS POINT. I WILL VISIT WITH HER WHEN SHE ARRIVES TO THE HOSPITAL DCP- Discharge Planning Updated by [email or web address]: Adriana Hendricks on 06/12/19 2:[address] Spoke with patient to about his discharge plan, he was unsure if he would go back to [facility]. He stated that his home is not set up for a wheelchair and he is not ambulatory. He asked if I would come back to [place] and speak with him. CM to follow and assist with dc planning DCP- Discharge Planning Updated by [email or web address]: Krista Scales on 05/22/19 2:[address] Received a call from Paulie Fraser that he would like the patient transferred to [facility] to his oncologist. I went to patient's room to inquire about his oncologists name and he asks why. I informed him that Paulie had called and would like to have him transferred to [facility] to his oncology team there. He states "the hell you are." His states that no one has talked to him about transfer and it is his decision if he wants to transfer or go home. I told him I agreed, that it is his choice to make and he would not be transferred without his consent. His states she is going home and will be back at 5PM tonight to speak with Paulie. I called Paulie and informed that I did not call transfer team and what the patient said. He will be here tonight at 5 to speak with the patient and . CM will continue to follow and assist with discharge planning/needs. DCP- Discharge Planning Updated by [id number]: Mar Silva on 05/15/19 6:[address] Patient Name: NAYELI BLAS Admission Status: ER Accout number: [id number] Admission Date: 05-15-2019 : 1970 Admission Diagnosis: Attending: KALEIGH CARRANZA Current LOS: 1 Anticipated DC Date: 05-17-2019 Planned Disposition: Fpc Facility Primary Insurance: MEDICAID [place] Discharge Planning Comments: CM met with patient's , Mikey to complete initial dc planning assessment. CM educated Mikey on the CM role and verbal consent given by Mikey to complete assessment. Patient is currently in rehab @ [facility]. At discharge patient plans to return to [facility] and Mikey feels this is a safe discharge. [facility]ER[facility] form signed by Mikey for the patine to return [place] [facility] [place]. Signed form placed in chart and signed form given to Mikey. She denied further known discharge needs at this time. CM will continue to follow and will assist as needed with dc plans/needs. Carton Repairer: Mar Silva RN, [facility] DCPIA - Discharge Planning Initial Assessment Updated by [id number]: Mar Silva on 05/15/19 7:30 pm * Is the patient Alert and Oriented? Yes * How many steps to enter\\exit or inside your home? * PCP Dr. Carranza * Pharmacy [facility] * Preadmission Environment [facility]pc Facility * [facility] * ADLs Partial Dependent * Partial ADLs (Assistance needed) Ambulation Bathing Dressing Medication Management Transfers * Other Equipment No equipment at home. Uses from [facility]. * List name and contact numbers for known caregivers / representatives who currently or will assist patient after discharge: Mikey Blas - - [phone] or H)[phone] * Verbal permission to speak to the caregivers and representatives has been obtained from the patient. Yes * Community resources currently utilized None * Additional services required to return to the preadmission environment? No * Can the patient safely return to the preadmission environment? Yes * Has this patient been hospitalized within the prior 30 days at any hospital? No External Providers External Provider: [facility] Next Contact Date: Service Request Date: Service Type: Resolution: Reviewer: Comments: Coverage Notice Reviewer: [id number] - Adriana Hendricks Notice Issued Date-Time: 07/19/2019 9:40 Notice Type: Patient Choice Letter Notice Delivered To: Family Member Relationship to Patient: Spouse Drop Forge Operator Name: MIKEY Delivery Method: HAND - Hand Delivered Cordelia Days: Prior Verbal Notification: Recipient Understood Notice: Yes Recipient Signature: Yes Med Rec Note Co-signed by Attending: Coverage Notice Comment: [facility] FOR HOME HEALTH AND DME DO NOT HAVE A PREFERENCE Last DP export: 07/19/19 10:08 a Patient Name: NAYELI BLAS Page 70552 at 1116 All edits/amendments must be made on the electronic document DICTATION DATE: 07/19/19 1116 PRACTICE PERFORMANCE MANAGER: ARACELI 07/19/19 1116 RPT#: [id number] DC DATE: STATUS: ADM IN [facility] [address] [place] [address] END OF REPORT
[2019-07-19 12:45] VITALS: BP 125/68
[2019-07-19 16:05] VITALS: BP 120/69
--- NOTE | 2019-07-19 18:44 | NUR ---
PT RESTING IN BED. NO S/S OF ACUTE DISTRESS. CL IN PLACE.
--- NOTE | 2019-07-19 19:30 | NUR ---
PT LYING IN BED RESTING WITHOUT DISTRESS, AOX4. RIGHT UPPER ARM PICC INFUSING NS40K @ 50. 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 MARIN BLADDER TRAINING IN PROGRESS. PEG TUBE INFUSING FEEDING @ 75ML/HR. DENIES NEEDS AT THIS TIME. CL IN REACH, WILL CTM
[2019-07-20] VITALS: BP 110/63
[2019-07-20 04:00] VITALS: BP 150/72
[2019-07-20 06:39] LABS: BASOPHILS 0 % (0-2); HEMATOCRIT 26.7 % (42.0-54.0); HEMOGLOBIN 9.1 g/dL (13.5-17.5); IMMATURE GRANULOCYTES 0.3 % (0-5); LYMPHOCYTES 16.4 % (15-50); MCH 29.7 pg (26.0-34.0); MCHC 34.1 g/dL (31.0-37.0); MCV 87.3 fL (80.0-100.0); MEAN PLATELET VOLUME 10.2 fL (7.4-10.4); MONOCYTES 5.2 % (2-11); NEUTROPHILS 76.1 % (40-80); PLATELET COUNT 77 10x3/uL (130-400); RBC 3.06 10x6/uL (4.20-6.10); RDW 15.8 % (11.5-14.5); WBC 3.1 10x3/uL (4.8-10.8)
[2019-07-20 06:55] LABS: CALC OSMOLALITY 277 mosm/kg (275-300); CARBON DIOXIDE 29.7 mmol/L (21.0-32.0); CHLORIDE - SERUM 101 mmol/L (98-107); CREATININE - SERUM 0.7 mg/dL (0.6-1.3); GLUCOSE 174 mg/dL (74-106); SODIUM 136 mmol/L (136-145); UREA NITROGEN 19 mg/dL (7-18); eGFR NON AFRICAN AMERICAN > 90 mL/min (90-120)
[2019-07-20 07:32] LABS: PLATELET ESTIMATE DECREASED
[2019-07-20 08:57] VITALS: BP 118/69
--- NOTE | 2019-07-20 11:00 | NUR ---
EDGER TAILER HERE ON TODAY REC'D ORDERS OR HOLD TUBE FEEDING SO THAT PT CAN EAT MEALS.
[2019-07-20 12:50] VITALS: BP 118/65
--- NOTE | 2019-07-20 16:17 | NUR ---
MEDICATED WITH PRN PAIN MEDS. C/L IN REACH AT BEDSIDE.
[2019-07-20 16:45] VITALS: BP 133/77
--- NOTE | 2019-07-20 18:43 | NUR ---
I have reviewed this patient and I concur with the Shift Assessment completed by the Licensed Practical Nurse today this shift.
[2019-07-20 20:00] VITALS: BP 97/63
--- NOTE | 2019-07-20 20:00 | NUR ---
PT SITTING UP IN BED WITHOUT DISTRESS, AOX4. RIGHT UPPER ARM PICC INFUSING NS40K @ 50. FOELY IN PLACE. BLADDER TRAINING IN PROGRESS, PT STILL WITHOUT URGE TO VOID. RIGHT BKA PROPPED ON PILLOW, ESCHAR WOUND OPEN TO AIR. MEPILEX DRESSING TO COCCYX. TUBE FEEDING HELD. STATES PAIN 06/10. GAVE PRN DILAUDID ORDERED. DENIES FURTHER NEEDS. CL IN REACH, WILL CTM
[2019-07-21] VITALS: BP 127/75
[2019-07-21 04:00] VITALS: BP 118/70
[2019-07-21 06:45] LABS: BASOPHILS 0 % (0-2); EOSINOPHILS 2.3 % (0-7); HEMATOCRIT 28.5 % (42.0-54.0); HEMOGLOBIN 9.7 g/dL (13.5-17.5); IMMATURE GRANULOCYTES 0.6 % (0-5); LYMPHOCYTES 14.9 % (15-50); MCH 29.9 pg (26.0-34.0); MEAN PLATELET VOLUME 10.5 fL (7.4-10.4); MONOCYTES 6.3 % (2-11); NEUTROPHILS 75.9 % (40-80); RBC 3.24 10x6/uL (4.20-6.10); RDW 16.1 % (11.5-14.5); WBC 3.5 10x3/uL (4.8-10.8)
[2019-07-21 07:03] LABS: PLATELET COUNT 101 10x3/uL (130-400)
[2019-07-21 07:10] LABS: CALCIUM 9.2 mg/dL (8.5-10.1); CARBON DIOXIDE 28.4 mmol/L (21.0-32.0); CHLORIDE - SERUM 101 mmol/L (98-107); POTASSIUM - SERUM 3.9 mmol/L (3.5-5.1); SODIUM 138 mmol/L (136-145); UREA NITROGEN 21 mg/dL (7-18)
[2019-07-21 07:11] LABS: CALC OSMOLALITY 278 mosm/kg (275-300); CREATININE - SERUM 0.5 mg/dL (0.6-1.3); GLUCOSE 95 mg/dL (74-106); eGFR NON AFRICAN AMERICAN > 90 mL/min (90-120)
[2019-07-21 08:47] VITALS: BP 115/70
--- NOTE | 2019-07-21 08:51 | NUR ---
MEDICATED WITH PRN DILAUDID D/T C/O PAIN RATING 9/10 ON PAIN SCALE. C/L IN REACH AT BEDSIDE.
--- NOTE | 2019-07-21 10:57 | MORECARE ---
CASE MANAGEMENT DISCHARGE SUMMARY PATIENT: NAYELI BLAS UNIT: [id number] ADM DATE: 05/15/19 AGE: 49 : 68 SEX: M ROOM/BED: D.2216 AUTHOR: YARADOC PHYSICIAN: REFERRING PHYSICIAN: KALEIGH CARRANZA MD DATE OF SERVICE: 07/21/19 Discharge Plan Patient Name: NAYELI BLAS Facility: [facility]:[place] : 1970 Planned Disposition: Half-Way Facility Anticipated Discharge Date: 05/17/19 Discharge Date: Expected LOS: 2 Initial Reviewer: [email or web address] Initial Review Date: 05/15/2019 Generated: 07/21/19 11:57 am Comments DCP- Discharge Planning Updated by [id number]: Adriana Hendricks on 07/21/19 9:[address] Called Niki at [facility] to check status of bed, she stated that the order must be signed by the PCP on file, Which is Zeus Escobedo. I called Dr Duncan office and the person I spoke with stated she would tell the nurse. CM will continue to follow DCP- Discharge Planning Updated by [id number]: Adriana Hendricks on 07/19/19 10:[address] I HAVE SENT THE HOSPITAL BED ORDER TO [facility], I SPOKE WITH NIKI AND SHE WILL START THE PRE AUTH FOR THE DME DCP- Discharge Planning Updated by [email or web address]: Adriana Hendricks on 07/19/19 10:[address] AND PATIENT DO NOT CARE WHAT HOME HEALTH OR DME IS USED. REFERRAL SENT TO [facility] TO SEE IF THEY CAN ACCEPT. DCP- Discharge Planning Updated by [id number]: Adriana Hendricks on 07/19/19 8:[address] Angelique Apodaca APN refrigeration unit repairer and I were in the patient this AM to speak with them about discharge plans and care. now states that her home is safe for him, but she will have to wait till this weekend for help to come to move stuff around to get the DME in the home. I will start on trying to get the DME. CM will continue to follow and assist with dc planning DCP- Discharge Planning Updated by [id number]: Adriana Hendricks on 07/18/19 3:[address] Spoke with and patient about what the plan of care that was discussed with me this AM by JOSH Apodaca. The stated that it is not safe for him to go to their current home & they were going to get a trailer from their parents to fix up, but that has not been started. I explained to them in the mean time that he is stable for discharge and both patient and got irate with me. I explained to him that he would need 24/7 care and if her home is unsafe, that he would be discharged back to [facility]. They then started to tell me about his leg and the ortho wanted to do an AKA, but they did not want that to be done. They want to talk to Jae. I spoke with Paulie and he stated that he will have Dr Carranza to make rounds with him in the morning. The patient cussed me and yelled at me. I explained to him that Dr Carranza would be here in the morning as Paulie said. CM will continue to follow and assist with dc planning. DCP- Discharge Planning Updated by [id number]: Adriana Hendricsk on 07/06/19 1:[address] [facility] have declined the patient. DCP- Discharge Planning Updated by [id number]: Adriana Hendricks on 07/05/19 1:[address] Spoke with at length today about dc planning. I explained to her that his insurance with skilled benefits is not longer active and that with [facility] he does not have skilled benefits. She stated she was unsure if he would go back there when discharged. She stated that they live by the [facility] and she was not as happy with his care there. He is not strong enough to go home. I told her that I would ask if there is a restorative program that a facility closer would be able to offer. She also stated that her cousin applied for a isamar for help, I encouraged her to look into it and possibly apply if she could. The patient was in ALOT of pain lying there and did not want to discuss ANYTHING at this time. She asked to give her some time to talk to him and she would get back with me. CM will continue to follow and assist with DC planning. I did reach out [facility] to see if therapy would be an option and she stated to send referral and they would take a look at it. DCP- Discharge Planning Updated by [id number]: Adriana Hendricks on 07/04/19 12:[address] called spoke with Baron at [facility] to let her know that patient may be discharged back to her tomorrow. Updated clinical sent DCP- Discharge Planning Updated by [id number]: Adriana Hendricks on 06/30/19 11:[address] Carranza today about dc plan and to let him know that the patient does not have Ltach benefits. He stated that his WBC needs to be 1.5 to 2 before he would dc him. CM will continue to follow DCP- Discharge Planning Updated by [id number]: Adriana Hendricks on 06/21/19 8:[address] CALLED AND SPOKE WITH AND SHE IS UNSURE OF HIS PLAN, SHE STATED THAT HE DID NOT FINISH HIS REHAB OR HAS GOTTEN HIS PROSTHETIC. I AM UNSURE IN HIS CONDITION IF HE WILL NE ABLE TO PARTICIPATE IN REHAB AT THIS POINT. I WILL VISIT WITH HER WHEN SHE ARRIVES TO THE HOSPITAL DCP- Discharge Planning Updated by [id number]: Adriana Hendricks on 06/12/19 2:[address] Spoke with patient to about his discharge plan, he was unsure if he would go back to [facility]. He stated that his home is not set up for a wheelchair and he is not ambulatory. He asked if I would come back to [place] and speak with him. CM to follow and assist with dc planning DCP- Discharge Planning Updated by [id number]: Krista Scales on 05/22/19 2:[address] Received a call from Paulie Fraser that he would like the patient transferred to [facility] to his oncologist. I went to patient's room to inquire about his oncologists name and he asks why. I informed him that Paulie had called and would like to have him transferred to [facility] to his oncology team there. He states "the hell you are." His states that no one has talked to him about transfer and it is his decision if he wants to transfer or go home. I told him I agreed, that it is his choice to make and he would not be transferred without his consent. His states she is going home and will be back at 5PM tonight to speak with Paulie. I called Paulie and informed that I did not call transfer team and what the patient said. He will be here tonight at 5 to speak with the patient and . CM will continue to follow and assist with discharge planning/needs. DCP- Discharge Planning Updated by [id number]: Mar Silva on 05/15/19 6:[address] Patient Name: NAYELI BLAS Admission Status: ER Accout number: [id number] Admission Date: 05-15-2019 : 1970 Admission Diagnosis: Attending: KALEIGH CARRANZA Current LOS: 1 Anticipated DC Date: 05-17-2019 Planned Disposition: Half-Way Facility Primary Insurance: MEDICAID [place] Discharge Planning Comments: CM met with patient's , Mikey to complete initial dc planning assessment. CM educated Mikey on the CM role and verbal consent given by Mikey to complete assessment. Patient is currently in rehab @ [facility]. At discharge patient plans to return to [facility] and Mikey feels this is a safe discharge. [facility] form signed by Mikey for the patine to return to [facility] [place]. Signed form placed in chart and signed form given to Mikey. She denied further known discharge needs at this time. CM will continue to follow and will assist as needed with dc plans/needs. Wireworker Supervisor: Mar Silva RN, [facility] DCPIA - Discharge Planning Initial Assessment Updated by [id number]: Mar iSlva on 05/15/19 7:30 pm * Is the patient Alert and Oriented? Yes * How many steps to enter\\exit or inside your home? * PCP Dr. Carranza * [facility] * Preadmission Environment Half-Way Facility * Facility Name [facility] * ADLs Partial Dependent * Partial ADLs (Assistance needed) Ambulation Bathing Dressing Medication Management Transfers * Other Equipment No equipment at home. Uses from [facility]. * List name and contact numbers for known caregivers / representatives who currently or will assist patient after discharge: Mikey Blas - - [phone] or H)[phone] * Verbal permission to speak to the caregivers and representatives has been obtained from the patient. Yes * Community resources currently utilized None * Additional services required to return to the preadmission environment? No * Can the patient safely return to the preadmission environment? Yes * Has this patient been hospitalized within the prior 30 days at any hospital? No Coverage Notice Reviewer: [id number] Tahir Hendricks Notice Issued Date-Time: 07/19/2019 9:40 Notice Type: Patient Choice Letter Notice Delivered To: Family Member Relationship to Patient: Spouse Mammography Tech Name: MIKEY Delivery Method: HAND - Hand Delivered Cordelia Days: Prior Verbal Notification: Recipient Understood Notice: Yes Recipient Signature: Yes Med Rec Note Co-signed by Attending: Coverage Notice Comment: [facility] FOR HOME HEALTH AND DME DO NOT HAVE A PREFERENCE Last DP export: 07/19/19 10:16 a Patient Name: NAYELI BLAS Page [id number] at 1057 All edits/amendments must be made on the electronic document DICTATION DATE: 07/21/19 1056 MACHINE ROOM ENGINEER: ARACELI 07/21/19 1056 RPT#: [id number] DC DATE: STATUS: ADM IN [facility] [address] [place] [address] END OF REPORT
[2019-07-21 13:20] VITALS: BP 116/63
--- NOTE | 2019-07-21 13:31 | NUR ---
Nutrition follow-up: Pts TF off in preperation for discharge. PO intake at lunch 100% of meal Provided pt and handout on high calorie, high protein foods and sample menus. Answered questions. Following.
[2019-07-21 16:07] VITALS: BP 107/66
--- NOTE | 2019-07-21 18:43 | NUR ---
I have reviewed this patient and I concur with the Shift Assessment completed by the Licensed Practical Nurse today this shift.
--- NOTE | 2019-07-21 19:15 | NUR ---
RECEIVED CARE FROM DAY NURSE. LYING IN BED WITH EYES CLOSED. RESP EVEN AND UNLABORED. CALL LIGHT AT SIDE. IV INFUSING PER ORDER TO PATENT RIGHT PICC. MARIN TO GRAVITY.
[2019-07-21 20:00] VITALS: BP 113/72
[2019-07-22] VITALS: BP 109/69
[2019-07-22 04:00] VITALS: BP 99/69
[2019-07-22 05:23] LABS: BASOPHILS 0 % (0-2); HEMATOCRIT 26.6 % (42.0-54.0); IMMATURE GRANULOCYTES 0.3 % (0-5); LYMPHOCYTES 17.6 % (15-50); MCH 29.8 pg (26.0-34.0); MCHC 33.8 g/dL (31.0-37.0); MCV 88.1 fL (80.0-100.0); MEAN PLATELET VOLUME 10.1 fL (7.4-10.4); MONOCYTES 5.8 % (2-11); NEUTROPHILS 74.3 % (40-80); PLATELET COUNT 92 10x3/uL (130-400); RBC 3.02 10x6/uL (4.20-6.10); RDW 16.3 % (11.5-14.5)
[2019-07-22 05:38] LABS: CALC OSMOLALITY 281 mosm/kg (275-300); CALCIUM 8.4 mg/dL (8.5-10.1); CARBON DIOXIDE 29.6 mmol/L (21.0-32.0); CHLORIDE - SERUM 104 mmol/L (98-107); CREATININE - SERUM 0.6 mg/dL (0.6-1.3); GLUCOSE 89 mg/dL (74-106); POTASSIUM - SERUM 3.9 mmol/L (3.5-5.1); SODIUM 141 mmol/L (136-145); UREA NITROGEN 18 mg/dL (7-18); eGFR NON AFRICAN AMERICAN > 90 mL/min (90-120)
[2019-07-22 13:25] VITALS: BP 104/55
--- NOTE | 2019-07-22 16:21 | NUR ---
I have reviewed this patient and I concur with the Shift Assessment completed by the Licensed Practical Nurse today this shift.
[2019-07-22 17:19] VITALS: BP 116/62
--- NOTE | 2019-07-22 19:15 | NUR ---
RECEIVED CARE FROM DAY NURSE. LYING IN BED WITH EYES CLOSED. RESP EVEN AND UNLABORED. CALL LIGHT AT SIDE. IV INFUSING PER ORDER TO PATENT RIGHT PICC. FOLYE TO GRAVITY. RIGHT STUMP ELEVATED ON PILLOW.
[2019-07-22 20:00] VITALS: BP 109/69
[2019-07-23] VITALS: BP 112/71
[2019-07-23 04:00] VITALS: BP 118/71
[2019-07-23 06:11] LABS: BASOPHILS 0 % (0-2); EOSINOPHILS 2.3 % (0-7); HEMATOCRIT 25.9 % (42.0-54.0); HEMOGLOBIN 8.9 g/dL (13.5-17.5); IMMATURE GRANULOCYTES 0.3 % (0-5); LYMPHOCYTES 19.1 % (15-50); MCH 30.3 pg (26.0-34.0); MCHC 34.4 g/dL (31.0-37.0); MCV 88.1 fL (80.0-100.0); MEAN PLATELET VOLUME 10.1 fL (7.4-10.4); MONOCYTES 8.9 % (2-11); NEUTROPHILS 69.4 % (40-80); PLATELET COUNT 98 10x3/uL (130-400); RBC 2.94 10x6/uL (4.20-6.10); RDW 16.2 % (11.5-14.5)
[2019-07-23 08:10] LABS: CALC OSMOLALITY 278 mosm/kg (275-300); CALCIUM 8.4 mg/dL (8.5-10.1); CARBON DIOXIDE 29.2 mmol/L (21.0-32.0); CHLORIDE - SERUM 105 mmol/L (98-107); CREATININE - SERUM 0.6 mg/dL (0.6-1.3); SODIUM 140 mmol/L (136-145); UREA NITROGEN 18 mg/dL (7-18); eGFR NON AFRICAN AMERICAN > 90 mL/min (90-120)
[2019-07-23 08:12] LABS: GLUCOSE 68 mg/dL (74-106)
[2019-07-23 08:21] VITALS: BP 115/73
[2019-07-23 08:42] LABS: PLATELET ESTIMATE DECREASED
--- NOTE | 2019-07-23 10:40 | MORECARE ---
CASE MANAGEMENT DISCHARGE SUMMARY PATIENT: NAYELI BLAS UNIT: [id number] ADM DATE: 05/15/19 AGE: 49 : 68 SEX: M ROOM/BED: D.2216 AUTHOR: YARADOC PHYSICIAN: REFERRING PHYSICIAN: KALEIGH CARRANZA MD DATE OF SERVICE: 07/23/19 Discharge Plan Patient Name: NAYELI BLAS Facility: [facility]:[place] : 1970 Planned Disposition: Fdc Facility Anticipated Discharge Date: 05/17/19 Discharge Date: Expected LOS: 2 Initial Reviewer: [email or web address] Initial Review Date: 05/15/2019 Generated: 07/23/19 11:39 am Comments DCP- Discharge Planning Updated by [id number]: Rae Singh on 07/23/19 9:[address] NATHEN ASK ABOUT THE STATUS OF THE PATIENT'S BED. NO ADDITIONAL INFOMATION RECIEVED FROM DR DUNCAN OFFICE OR [facility]. CM WILL FOLLOW UP ON WEDNESDAY. DCP- Discharge Planning Updated by [email or web address]: Adriana Hendricks on 07/21/19 9:[address] Called Niki at [facility] to check status of bed, she stated that the order must be signed by the PCP on file, Which is Zeus Escobedo. I called Dr Duncan office and the person I spoke with stated she would tell the nurse. CM will continue to follow DCP- Discharge Planning Updated by [id number]: Adriana Hendricks on 07/19/19 10:[address] I HAVE SENT THE HOSPITAL BED ORDER TO [facility], I SPOKE WITH NIKI AND SHE WILL START THE PRE AUTH FOR THE DME DCP- Discharge Planning Updated by [id number]: Adriana Hendricks on 07/19/19 10:[address] AND PATIENT DO NOT CARE WHAT HOME HEALTH OR DME IS USED. REFERRAL SENT TO [facility] TO SEE IF THEY CAN ACCEPT. DCP- Discharge Planning Updated by [id number]: Adriana eHndricks on 07/19/19 8:[address] Angelique Apodaca APN community health coordinator and I were in the patient this AM to speak with them about discharge plans and care. now states that her home is safe for him, but she will have to wait till this weekend for help to come to move stuff around to get the DME in the home. I will start on trying to get the DME. CM will continue to follow and assist with dc planning DCP- Discharge Planning Updated by [id number]: Adriana Eladio on 07/18/19 3:[address] Spoke with and patient about what the plan of care that was discussed with me this AM by JOSH Apodaca. The stated that it is not safe for him to go to their current home & they were going to get a trailer from their parents to fix up, but that has not been started. I explained to them in the mean time that he is stable for discharge and both patient and got irate with me. I explained to him that he would need 24/7 care and if her home is unsafe, that he would be discharged back to [facility]. They then started to tell me about his leg and the ortho wanted to do an AKA, but they did not want that to be done. They want to talk to Jae. I spoke with Nathen and he stated that he will have Dr Carranza to make rounds with him in the morning. The patient cussed me and yelled at me. I explained to him that Dr Carranza would be here in the morning as Nathen said. CM will continue to follow and assist with dc planning. DCP- Discharge Planning Updated by [id number]: Adriana Hendricks on 07/06/19 1:[address] [facility] have declined the patient. DCP- Discharge Planning Updated by [id number]: Adriana Hendricks on 07/05/19 1:[address] Spoke with at length today about dc planning. I explained to her that his insurance with skilled benefits is not longer active and that with [facility] he does not have skilled benefits. She stated she was unsure if he would go back there when discharged. She stated that they live by the [facility] and she was not as happy with his care there. He is not strong enough to go home. I told her that I would ask if there is a restorative program that a facility closer would be able to offer. She also stated that her cousin applied for a isamar for help, I encouraged her to look into it and possibly apply if she could. The patient was in ALOT of pain lying there and did not want to discuss ANYTHING at this time. She asked to give her some time to talk to him and she would get back with me. CM will continue to follow and assist with DC planning. I did reach out [facility] to see if therapy would be an option and she stated to send referral and they would take a look at it. DCP- Discharge Planning Updated by [id number]: Adriana Hendricks on 07/04/19 12:[address] called spoke with Baron at [facility] to let her know that patient may be discharged back to her tomorrow. Updated clinical sent DCP- Discharge Planning Updated by [id number]: Adriana Hendricks on 06/30/19 11:[address] Carranza today about dc plan and to let him know that the patient does not have Ltach benefits. He stated that his WBC needs to be 1.5 to 2 before he would dc him. CM will continue to follow DCP- Discharge Planning Updated by [email or web address]: Adriana Hendricks on 06/21/19 8:[address] CALLED AND SPOKE WITH AND SHE IS UNSURE OF HIS PLAN, SHE STATED THAT HE DID NOT FINISH HIS REHAB OR HAS GOTTEN HIS PROSTHETIC. I AM UNSURE IN HIS CONDITION IF HE WILL NE ABLE TO PARTICIPATE IN REHAB AT THIS POINT. I WILL VISIT WITH HER WHEN SHE ARRIVES TO THE HOSPITAL DCP- Discharge Planning Updated by [id number]: Adriana Hendricks on 06/12/19 2:[address] Spoke with patient to about his discharge plan, he was unsure if he would go back to [facility]. He stated that his home is not set up for a wheelchair and he is not ambulatory. He asked if I would come [place] and speak with him. CM to follow and assist with dc planning DCP- Discharge Planning Updated by [id number]: Krista Scales on 05/22/19 2:[address] Received a call from Nathen Fraser that he would like the patient transferred to [facility] to his oncologist. I went to patient's room to inquire about his oncologists name and he asks why. I informed him that Nathen had called and would like to have him transferred to [facility] to his oncology team there. He states "the hell you are." His states that no one has talked to him about transfer and it is his decision if he wants to transfer or go home. I told him I agreed, that it is his choice to make and he would not be transferred without his consent. His states she is going home and will be back at 5PM tonight to speak with Nathen. I called Nathen and informed that I did not call transfer team and what the patient said. He will be here tonight at 5 to speak with the patient and . CM will continue to follow and assist with discharge planning/needs. DCP- Discharge Planning Updated by [id number]: Mar Silva on 05/15/19 6:[address] Patient Name: NAYELI BLAS Admission Status: ER Accout number: [id number] Admission Date: 05-15-2019 : 1970 Admission Diagnosis: Attending: KALEIGH CARRANZA Current LOS: 1 Anticipated DC Date: 05-17-2019 Planned Disposition: Fdc Facility Primary Insurance: MEDICAID [place] Discharge Planning Comments: CM met with patient's , Mikey to complete initial dc planning assessment. CM educated Mikey on the CM role and verbal consent given by Mikey to complete assessment. Patient is currently in rehab @ [facility]. At discharge patient plans to return to [facility] and Mikey feels this is a safe discharge. [facility]ER[facility] form signed by Mikey for the patine to return to [facility] [place]. Signed form placed in chart and signed form given to Mikey. She denied further known discharge needs at this time. CM will continue to follow and will assist as needed with dc plans/needs. Showplace Manager: Mar Silva RN, [facility] DCPIA - Discharge Planning Initial Assessment Updated by [id number]: Mar Silva on 05/15/19 7:30 pm * Is the patient Alert and Oriented? Yes * How many steps to enter\\exit or inside your home? * PCP Dr. Carranza * Pharm[facility] [address] * Preadmission Environment Fdc Facility * Facility Name [facility] * ADLs Partial Dependent * Partial ADLs (Assistance needed) Ambulation Bathing Dressing Medication Management Transfers * Other Equipment No equipment at home. Uses WC from [facility]. * List name and contact numbers for known caregivers / representatives who currently or will assist patient after discharge: Mikey Blas - - (C)[phone] or (H)[phone] * Verbal permission to speak to the caregivers and representatives has been obtained from the patient. Yes * Community resources currently utilized None * Additional services required to return to the preadmission environment? No * Can the patient safely return to the preadmission environment? Yes * Has this patient been hospitalized within the prior 30 days at any hospital? No Coverage Notice Reviewer: [id number] Tahir Hendricks Notice Issued Date-Time: 07/19/2019 9:40 Notice Type: Patient Choice Letter Notice Delivered To: Family Member Relationship to Patient: Spouse Living Skills Advisor Name: MIKEY Delivery Method: HAND - Hand Delivered Cordelia Days: Prior Verbal Notification: Recipient Understood Notice: Yes Recipient Signature: Yes Med Rec Note Co-signed by Attending: Coverage Notice Comment: [facility] HOME HE[facility] AND D[facility] DO NOT HAVE A PREFERENCE Last DP export: 07/21/19 9:57 a Patient Name: NAYELI BLAS Page [id number] at 1040 All edits/amendments must be made on the electronic document DICTATION DATE: 07/23/19 1039 TURBOGENERATOR OPERATOR: ARACELI 07/23/19 1039 RPT#: [id number] DC DATE: STATUS: ADM IN [facility] [address] [place] [address] END OF REPORT
[2019-07-23 11:57] VITALS: BP 117/64
[2019-07-23 16:48] VITALS: BP 118/73
--- NOTE | 2019-07-23 18:18 | NUR ---
I have reviewed this patient and I concur with the Shift Assessment completed by the Licensed Practical Nurse today this shift.
--- NOTE | 2019-07-23 19:54 | NUR ---
PT C/O PAIN 07/11. GAVE DILAUDID 2 MG PO AND OTHER SCHEDULED MEDS. ASSESSMENT COMPLETE PER FLOW-SHEET. NO OTHER NEEDS. AT BEDSIDE BUT GOING HOME FOR NIGHT. WILL CONTINUE TO MONITOR.
[2019-07-23 21:00] VITALS: BP 106/70
[2019-07-24 01:33] VITALS: BP 110/70
[2019-07-24 04:00] VITALS: BP 110/64
[2019-07-24 06:28] LABS: HEMATOCRIT 26.2 % (42.0-54.0); HEMOGLOBIN 8.8 g/dL (13.5-17.5); MCH 29.8 pg (26.0-34.0); MCHC 33.6 g/dL (31.0-37.0); MCV 88.8 fL (80.0-100.0); MEAN PLATELET VOLUME 9.8 fL (7.4-10.4); PLATELET COUNT 89 10x3/uL (130-400); RBC 2.95 10x6/uL (4.20-6.10); RDW 16.6 % (11.5-14.5); WBC 2.7 10x3/uL (4.8-10.8)
--- NOTE | 2019-07-24 07:05 | NUR ---
ALERT AND ORIENTED, RESTING IN BED. NO C/O PAIN. NO S/S OF ACUTE DISTRESS NOTED. PT BEDBOUND. RIGHT BKA, DRESSING C/D/I. DRESSING TO COCCYX. ON 1ST STEP OVERLAY MATTRESS. MARIN CATHETER PRESENT. PICC TO RIGHT UPPER ARM, NS WITH 40K+ INFUSING @ 50ML/HR. ON TELEMETRY, 98 SR. PT DENIES ANY NEEDS AT THIS TIME. CALL LIGHT IN REACH. WILL CONTINUE TO MONITOR.
[2019-07-24 07:13] LABS: CALC OSMOLALITY 277 mosm/kg (275-300); CALCIUM 9.2 mg/dL (8.5-10.1); CARBON DIOXIDE 27.8 mmol/L (21.0-32.0); CHLORIDE - SERUM 102 mmol/L (98-107); CREATININE - SERUM 0.6 mg/dL (0.6-1.3); GLUCOSE 118 mg/dL (74-106); POTASSIUM - SERUM 3.8 mmol/L (3.5-5.1); SODIUM 138 mmol/L (136-145); UREA NITROGEN 15 mg/dL (7-18); eGFR NON AFRICAN AMERICAN > 90 mL/min (90-120)
[2019-07-24 08:15] VITALS: BP 116/55
[2019-07-24 09:57] LABS: EOSINOPHILS 4 % (0-7); LYMPHOCYTES 19 % (15-50); MONOCYTES 11 % (2-11); NEUTROPHILS 65 % (40-80); PLATELET ESTIMATE DECREASED
--- NOTE | 2019-07-24 10:47 | NUR ---
I have reviewed this patient and I concur with the Shift Assessment completed by the Licensed Practical Nurse today this shift.
[2019-07-24 12:15] VITALS: BP 119/67
--- NOTE | 2019-07-24 15:37 | MORECARE ---
CASE MANAGEMENT DISCHARGE SUMMARY PATIENT: NAYELI BLAS UNIT: [id number] ADM DATE: 05/15/19 AGE: 49 : 68 SEX: M ROOM/BED: D.2216 AUTHOR: YARADOC PHYSICIAN: REFERRING PHYSICIAN: KALEIGH CARRANZA MD DATE OF SERVICE: 07/24/19 Discharge Plan Patient Name: NAYELI BLAS Facility: [facility]:[place] : 1970 Planned Disposition: Longterm Facility Anticipated Discharge Date: 05/17/19 Discharge Date: Expected LOS: 2 Initial Reviewer: [email or web address] Initial Review Date: 05/15/2019 Generated: 07/24/19 4:37 pm Comments DCP- Discharge Planning Updated by [email or web address]: Adriana Hendricks on 07/24/19 2:[address] NIKI WITH [facility] CALLED AND STATED THAT DR ANDERSON HAD NOT SIGNED THE ORDER YET, BENJAMÍN WITH CARE IV WENT TO HIS OFFICE FOR HIM TO SIGN AND HE WOULD NOT SIGN IT BECAUSE HE DOES NOT TAKE LUIS AND HE HAS NOT SEEN THE PATIENT IN OVER 6 MONTHS. CALLED NATHEN WITH THE ABOVE. DR ELLER WILL TAKE PATIENT ON, CALLED THE LUIS LINE TO CHANGE MD IN SYSTEM, PERMISSION WAS GIVEN TO ME TO TALK TO THEM VIA SPEAKER PHONE. CALL DR ELLER OFFICE AND THE PERSON WHO CAN OPEN UP LUIS SLOTS IS NOT THERE TODAY. CALLED NATHEN AND LET HIM KNOW THAT, HE STATED THAT SOMEONE FROM HIS OFFICE WILL TAKE CARE OF IT. I CALLED NIKI WITH DME TO LET HER KNOW AND SHE STATED THAT SHE WILL RE RUN IT IN 30 MINUTES/ CM WILL CONTINUE TO FOLLOW AND ASSIST DCP- Discharge Planning Updated by [email or web address]: Rae Singh on 07/23/19 9:[address] NATHEN ASK ABOUT THE STATUS OF THE PATIENT'S BED. NO ADDITIONAL INFOMATION RECIEVED FROM DR DUNCAN OFFICE OR [facility]. CM WILL FOLLOW UP ON WEDNESDAY. DCP- Discharge Planning Updated by [id number]: Adriana Hendricks on 07/21/19 9:[address] Called Niki at [facility] to check status of bed, she stated that the order must be signed by the PCP on file, Which is Zeus Anderson. I called Dr Duncan office and the person I spoke with stated she would tell the nurse. CM will continue to follow DCP- Discharge Planning Updated by [email or web address]: Adriana Eladio on 07/19/19 10:[address] I HAVE SENT THE HOSPITAL BED ORDER TO [facility], I SPOKE WITH NKII AND SHE WILL START THE PRE AUTH FOR THE DME DCP- Discharge Planning Updated by [email or web address]: Adriana Eladio on 07/19/19 10:[address] AND PATIENT DO NOT CARE WHAT HOME HEALTH OR DME IS USED. REFERRAL SENT TO [facility] TO SEE IF THEY CAN ACCEPT. DCP- Discharge Planning Updated by [id number]: Adriana Hendricks on 07/19/19 8:[address] Nathen MORENO, Angelique community coordinator for high school and I were in the patient this AM to speak with them about discharge plans and care. now states that her home is safe for him, but she will have to wait till this weekend for help to come to move stuff around to get the DME in the home. I will start on trying to get the DME. CM will continue to follow and assist with dc planning DCP- Discharge Planning Updated by [id number]: Adriana Hendricks on 07/18/19 3:[address] Spoke with and patient about what the plan of care that was discussed with me this AM by JOSH Apodaca. The stated that it is not safe for him to go to their current home & they were going to get a trailer from their parents to fix up, but that has not been started. I explained to them in the mean time that he is stable for discharge and both patient and got irate with me. I explained to him that he would need 24/7 care and if her home is unsafe, that he would be discharged back to [facility]. They then started to tell me about his leg and the ortho wanted to do an AKA, but they did not want that to be done. They want to talk to Jae. I spoke with Nathen and he stated that he will have Dr Carranza to make rounds with him in the morning. The patient cussed me and yelled at me. I explained to him that Dr Carranza would be here in the morning as Nathen said. CM will continue to follow and assist with dc planning. DCP- Discharge Planning Updated by [id number]: Adriana Hendricks on 07/06/19 1:[address] [facility] have declined the patient. DCP- Discharge Planning Updated by [email or web address]: Adriana Hendricks on 07/05/19 1:[address] Spoke with at length today about dc planning. I explained to her that his insurance with skilled benefits is not longer active and that with LUIS he does not have skilled benefits. She stated she was unsure if he would go back there when discharged. She stated that they live by the [facility] and she was not as happy with his care there. He is not strong enough to go home. I told her that I would ask if there is a restorative program that a facility closer would be able to offer. She also stated that her cousin applied for a isamar for help, I encouraged her to look into it and possibly apply if she could. The patient was in ALOT of pain lying there and did not want to discuss ANYTHING at this time. She asked to give her some time to talk to him and she would get back with me. CM will continue to follow and assist with DC planning. I did reach out [facility] to see if therapy would be an option and she stated to send referral and they would take a look at it. DCP- Discharge Planning Updated by [id number]: Adriana Hendricks on 07/04/19 12:[address] called spoke with Baron at [facility] to let her know that patient may be discharged back to her tomorrow. Updated clinical sent DCP- Discharge Planning Updated by [id number]: Adriana Hendricks on 06/30/19 11:[address] Carranza today about dc plan and to let him know that the patient does not have Ltach benefits. He stated that his WBC needs to be 1.5 to 2 before he would dc him. CM will continue to follow DCP- Discharge Planning Updated by [id number]: Adriana Hendricks on 06/21/19 8:[address] CALLED AND SPOKE WITH AND SHE IS UNSURE OF HIS PLAN, SHE STATED THAT HE DID NOT FINISH HIS REHAB OR HAS GOTTEN HIS PROSTHETIC. I AM UNSURE IN HIS CONDITION IF HE WILL NE ABLE TO PARTICIPATE IN REHAB AT THIS POINT. I WILL VISIT WITH HER WHEN SHE ARRIVES TO THE HOSPITAL DCP- Discharge Planning Updated by [id number]: Adriana Hendricks on 06/12/19 2:[address] Spoke with patient to about his discharge plan, he was unsure if he would go back to [facility]. He stated that his home is not set up for a wheelchair and he is not ambulatory. He asked if I would come back to [place] and speak with him. CM to follow and assist with dc planning DCP- Discharge Planning Updated by [id number]: Krista Scales on 05/22/19 2:[address] Received a call from Nathen Fraser that he would like the patient transferred to [facility] to his oncologist. I went to patient's room to inquire about his oncologists name and he asks why. I informed him that Nathen had called and would like to have him transferred to [facility] to his oncology team there. He states "the hell you are." His states that no one has talked to him about transfer and it is his decision if he wants to transfer or go home. I told him I agreed, that it is his choice to make and he would not be transferred without his consent. His states she is going home and will be back at 5PM tonight to speak with Nathen. I called Nathen and informed that I did not call transfer team and what the patient said. He will be here tonight at 5 to speak with the patient and . CM will continue to follow and assist with discharge planning/needs. DCP- Discharge Planning Updated by [id number]: Mar Silva on 05/15/19 6:[address] Patient Name: NAYELI BLAS Admission Status: ER Accout number: [id number] Admission Date: 05-15-2019 : 1970 Admission Diagnosis: Attending: KALEIGH CARRANZA Current LOS: 1 Anticipated DC Date: 05-17-2019 Planned Disposition: Longterm Facility Primary Insurance: MEDICAID [place] Discharge Planning Comments: CM met with patient's , Mikey to complete initial dc planning assessment. CM educated Mikey on the CM role and verbal consent given by Mikey to complete assessment. Patient is currently in rehab @ [facility]. At discharge patient plans to return to [facility] and Mikey feels this is a safe discharge. CIERRA form signed by Mikey for the patine to return to [facility] at [place]. Signed form placed in chart and signed form given to Mikey. She denied further known discharge needs at this time. CM will continue to follow and will assist as needed with dc plans/needs. Byproducts Supervisor: Mar Silva RN, [facility] DCPIA - Discharge Planning Initial Assessment Updated by [id number]: Mar Silva on 05/15/19 7:30 pm * Is the patient Alert and Oriented? Yes * How many steps to enter\\exit or inside your home? * PCP Dr. Carranza * [facility] * Preadmission Environment Longterm Facility * Facility Name [facility] * ADLs Partial Dependent * Partial ADLs (Assistance needed) Ambulation Bathing Dressing Medication Management Transfers * Other Equipment No equipment at home. Uses WC from [facility]. * List name and contact numbers for known caregivers / representatives who currently or will assist patient after discharge: Mikey Blas - - [phone] or ([phone] * Verbal permission to speak to the caregivers and representatives has been obtained from the patient. Yes * Community resources currently utilized None * Additional services required to return to the preadmission environment? No * Can the patient safely return to the preadmission environment? Yes * Has this patient been hospitalized within the prior 30 days at any hospital? No Coverage Notice Reviewer: [id number] Tahir Hendricks Notice Issued Date-Time: 07/19/2019 9:40 Notice Type: Patient Choice Letter Notice Delivered To: Family Member Relationship to Patient: Spouse Supervisor Type Disk Quality Control Name: MIKEY Delivery Method: HAND - Hand Delivered Cordelia Days: Prior Verbal Notification: Recipient Understood Notice: Yes Recipient Signature: Yes Med Rec Note Co-signed by Attending: Coverage Notice Comment: [facility] HOME HEALTH AND DME DO NOT HAVE A PREFERENCE Last DP export: 07/23/19 9:40 a Patient Name: NAYELI BLAS Page [id number] at 1537 All edits/amendments must be made on the electronic document DICTATION DATE: 07/24/19 1537 MINE ADMINISTRATOR SUPERVISOR: DM 07/24/19 1537 RPT#: [id number] DC DATE: STATUS: ADM IN [facility] [address] [place] [address] END OF REPORT
--- NOTE | 2019-07-24 20:00 | NUR ---
PT A/O WITH NO SIGNS OF ACUTE DISTRESS. PICC TO THE UPPER ARM WITH NO REDNESS OR SWELLING. RT BKA WITH ESCHAR NOTED. PRESSURE SORE TO THE COCCYX WITH DRESSING IN PLACE. MARIN IN PLACE. COMPLAINS OF 06/10. DENIES FURTHER NEEDS. CONTINUE WITH PLAN OF CARE.
[2019-07-24 20:34] VITALS: BP 137/74
[2019-07-25 00:42] VITALS: BP 128/70
[2019-07-25 04:52] VITALS: BP 136/78
--- NOTE | 2019-07-25 07:15 | NUR ---
ALERT AND ORIENTED, RESTING IN BED. PT BEDFAST. RIGHT BKA, OPEN TO AIR. DRESSING TO COCCYX, C/D/I. RIGHT UPPER ARM PICC, SL. SITE PATENT WITHOUT REDNESS OR SWELLING. NO C/O PAIN. NO S/S OF ACUTE DISTRESS NOTED. ON TELEMETRY, 85 SR. PT DENIES ANY NEEDS AT THIS TIME. CALL LIGHT IN REACH. WILL CONTINUE TO MONITOR.
[2019-07-25 07:55] VITALS: BP 120/83
--- NOTE | 2019-07-25 12:14 | MORECARE ---
CASE MANAGEMENT DISCHARGE SUMMARY PATIENT: NAYELI BLAS UNIT: [id number] ADM DATE: 05/15/19 AGE: 49 : 68 SEX: M ROOM/BED: D.2216 AUTHOR: YARADOC PHYSICIAN: REFERRING PHYSICIAN: KALEIGH CARRANZA MD DATE OF SERVICE: 07/25/19 Discharge Plan Patient Name: NAYELI BLAS Facility: [facility]:[place] : 1970 Planned Disposition: Mcfp Facility Anticipated Discharge Date: 05/17/19 Discharge Date: Expected LOS: 2 Initial Reviewer: [email or web address] Initial Review Date: 05/15/2019 Generated: 07/25/19 1:14 pm Comments DCP- Discharge Planning Updated by [id number]: Adriana Hendricks on 07/25/19 11:[address]POKE WITH DR ELLER OFFICE, THEY HAVE THE FAX. WAITING FOR A SIGNATURE AND THEN THEY WILL FAX BACK TO ME. CM TO FOLLOW AND ASSIST DCP- Discharge Planning Updated by [id number]: Adriana Hendricks on 07/24/19 2:[address] NIKI WITH [facility] CALLED AND STATED THAT DR ANDERSON HAD NOT SIGNED THE ORDER YET, BENJAMÍN WITH CARE IV WENT TO HIS OFFICE FOR HIM TO SIGN AND HE WOULD NOT SIGN IT BECAUSE HE DOES NOT TAKE LUIS AND HE HAS NOT SEEN THE PATIENT IN OVER 6 MONTHS. CALLED NATHEN WITH THE ABOVE. DR ELLER WILL TAKE PATIENT ON, CALLED THE LUIS LINE TO CHANGE MD IN SYSTEM, PERMISSION WAS GIVEN TO ME TO TALK TO THEM VIA SPEAKER PHONE. CALL DR ELLER OFFICE AND THE PERSON WHO CAN OPEN UP LUIS SLOTS IS NOT THERE TODAY. CALLED NATHEN AND LET HIM KNOW THAT, HE STATED THAT SOMEONE FROM HIS OFFICE WILL TAKE CARE OF IT. I CALLED NIKI WITH DME TO LET HER KNOW AND SHE STATED THAT SHE WILL RE RUN IT IN 30 MINUTES/ CM WILL CONTINUE TO FOLLOW AND ASSIST DCP- Discharge Planning Updated by [id number]: Rae Singh on 07/23/19 9:[address] NATHEN ASK ABOUT THE STATUS OF THE PATIENT'S BED. NO ADDITIONAL INFOMATION RECIEVED FROM DR DUNCAN OFFICE OR [facility]. CM WILL FOLLOW UP ON WEDNESDAY. DCP- Discharge Planning Updated by [id number]: Adriana Hendricks on 07/21/19 9:[address] Called Niki at [facility] to check status of bed, she stated that the order must be signed by the PCP on file, Which is Zeus Anderson. I called Dr Duncan office and the person I spoke with stated she would tell the nurse. CM will continue to follow DCP- Discharge Planning Updated by [email or web address]: Adriana Lopezken on 07/19/19 10:[address] I HAVE SENT THE HOSPITAL BED ORDER TO [facility], I SPOKE WITH NIKI AND SHE WILL START THE PRE AUTH FOR THE DME DCP- Discharge Planning Updated by [id number]: Adriana Lopezken on 07/19/19 10:[address] AND PATIENT DO NOT CARE WHAT HOME HEALTH OR DME IS USED. REFERRAL SENT TO [facility] TO SEE IF THEY CAN ACCEPT. DCP- Discharge Planning Updated by [id number]: Adriana Eladio on 07/19/19 8:[address] Angelique Apodaca APN community relations police lieutenant and I were in the patient this AM to speak with them about discharge plans and care. now states that her home is safe for him, but she will have to wait till this weekend for help to come to move stuff around to get the DME in the home. I will start on trying to get the DME. CM will continue to follow and assist with dc planning DCP- Discharge Planning Updated by [id number]: Adriana Eladio on 07/18/19 3:[address] Spoke with and patient about what the plan of care that was discussed with me this AM by JOSH Apodaca. The stated that it is not safe for him to go to their current home & they were going to get a trailer from their parents to fix up, but that has not been started. I explained to them in the mean time that he is stable for discharge and both patient and got irate with me. I explained to him that he would need 24/7 care and if her home is unsafe, that he would be discharged back to [facility]. They then started to tell me about his leg and the ortho wanted to do an AKA, but they did not want that to be done. They want to talk to Jae. I spoke with Nathen and he stated that he will have Dr Carranza to make rounds with him in the morning. The patient cussed me and yelled at me. I explained to him that Dr Carranza would be here in the morning as Nathen said. CM will continue to follow and assist with dc planning. DCP- Discharge Planning Updated by [email or web address]: Adriana Hendricks on 07/06/19 1:[address] [facility] have declined the patient. DCP- Discharge Planning Updated by [id number]: Adriana Hendricks on 07/05/19 1:[address] Spoke with at length today about dc planning. I explained to her that his insurance with skilled benefits is not longer active and that with LUIS he does not have skilled benefits. She stated she was unsure if he would go back there when discharged. She stated that they live [place] [facility] [place] and she was not as happy with his care there. He is not strong enough to go home. I told her that I would ask if there is a restorative program that a facility closer would be able to offer. She also stated that her cousin applied for a isamar for help, I encouraged her to look into it and possibly apply if she could. The patient was in ALOT of pain lying there and did not want to discuss ANYTHING at this time. She asked to give her some time to talk to him and she would get back with me. CM will continue to follow and assist with DC planning. I did reach out [facility] to see if therapy would be an option and she stated to send referral and they would take a look at it. DCP- Discharge Planning Updated by [id number]: Adriana Hendricks on 07/04/19 12:[address] called spoke with Baron at [facility] to let her know that patient may be discharged back to her tomorrow. Updated clinical sent DCP- Discharge Planning Updated by [id number]: Adriana Hendricks on 06/30/19 11:[address] Carranza today about dc plan and to let him know that the patient does not have Ltach benefits. He stated that his WBC needs to be 1.5 to 2 before he would dc him. CM will continue to follow DCP- Discharge Planning Updated by [id number]: Adriana Hendricks on 06/21/19 8:[address] CALLED AND SPOKE WITH AND SHE IS UNSURE OF HIS PLAN, SHE STATED THAT HE DID NOT FINISH HIS REHAB OR HAS GOTTEN HIS PROSTHETIC. I AM UNSURE IN HIS CONDITION IF HE WILL NE ABLE TO PARTICIPATE IN REHAB AT THIS POINT. I WILL VISIT WITH HER WHEN SHE ARRIVES TO THE HOSPITAL DCP- Discharge Planning Updated by [id number]: Adriana Hendricks on 06/12/19 2:[address] Spoke with patient to about his discharge plan, he was unsure if he would go back to [facility]. He stated that his home is not set up for a wheelchair and he is not ambulatory. He asked if I would come back to [place] and speak with him. CM to follow and assist with dc planning DCP- Discharge Planning Updated by [id number]: Krista Scales on 05/22/19 2:[address] Received a call from Nathen Fraser that he would like the patient transferred to [facility] to his oncologist. I went to patient's room to inquire about his oncologists name and he asks why. I informed him that Nathen had called and would like to have him transferred to [facility] to his oncology team there. He states "the hell you are." His states that no one has talked to him about transfer and it is his decision if he wants to transfer or go home. I told him I agreed, that it is his choice to make and he would not be transferred without his consent. His states she is going home and will be back at 5PM tonight to speak with Nathen. I called Nathen and informed that I did not call transfer team and what the patient said. He will be here tonight at 5 to speak with the patient and . CM will continue to follow and assist with discharge planning/needs. DCP- Discharge Planning Updated by [id number]: Mar Ricardo on 05/15/19 6:[address] Patient Name: NAEYLI BLAS Admission Status: ER Accout number: [id number] Admission Date: 05-15-2019 : 1970 Admission Diagnosis: Attending: KALEIGH CARRANZA Current LOS: 1 Anticipated DC Date: 05-17-2019 Planned Disposition: Mcfp Facility Primary Insurance: MEDICAID [place] Discharge Planning Comments: CM met with patient's , Mikey to complete initial dc planning assessment. CM educated Mikey on the CM role and verbal consent given by Mikey to complete assessment. Patient is currently in rehab @ [facility]. At discharge patient plans to return to [facility] and Mikey feels this is a safe discharge. CIERRA form signed by Mikey for the patine to return to [facility] at [place]. Signed form placed in chart and signed form given to Mikey. She denied further known discharge needs at this time. CM will continue to follow and will assist as needed with dc plans/needs. Marketing Analytics Specialist: Mar Silva RN, [facility] DCPIA - Discharge Planning Initial Assessment Updated by [email or web address]: Mar Silva on 05/15/19 7:30 pm * Is the patient Alert and Oriented? Yes * How many steps to enter\\exit or inside your home? * PCP Dr. Carranza * [facility] * Preadmission Environment Mcfp Facility * Facility Name [facility] * ADLs Partial Dependent * Partial ADLs (Assistance needed) Ambulation Bathing Dressing Medication Management Transfers * Other Equipment No equipment at home. Uses WC from [facility]. * List name and contact numbers for known caregivers / representatives who currently or will assist patient after discharge: Mikey Blas - - [phone] or [phone] * Verbal permission to speak to the caregivers and representatives has been obtained from the patient. Yes * Community resources currently utilized None * Additional services required to return to the preadmission environment? No * Can the patient safely return to the preadmission environment? Yes * Has this patient been hospitalized within the prior 30 days at any hospital? No Coverage Notice Reviewer: [id number] Tahir Hendricks Notice Issued Date-Time: 07/19/2019 9:40 Notice Type: Patient Choice Letter Notice Delivered To: Family Member Relationship to Patient: Spouse Medical Biller/Coder Name: MIKEY Delivery Method: HAND - Hand Delivered Cordelia Days: Prior Verbal Notification: Recipient Understood Notice: Yes Recipient Signature: Yes Med Rec Note Co-signed by Attending: Coverage Notice Comment: [facility] AND [facility] DO NOT HAVE A PREFERENCE Last DP export: 07/24/19 2:37 p Patient Name: NAYELI BLAS Page [id number] at 1214 All edits/amendments must be made on the electronic document DICTATION DATE: 07/25/191213 SCREEN REPAIRER CRUSHER: ARACELI 07/25/191213 RPT#: [id number] DC DATE: STATUS: ADM IN [facility] [address] [place] [address] END OF REPORT
--- NOTE | 2019-07-25 13:14 | MORECARE ---
CASE MANAGEMENT DISCHARGE SUMMARY PATIENT: NAYELI BLAS UNIT: [id number] ADM DATE: 05/15/19 AGE: 49 : [birth year] SEX: M ROOM/BED: D.2216 AUTHOR: YARADOC PHYSICIAN: REFERRING PHYSICIAN: KALEIGH CARRANZA MD DATE OF SERVICE: 07/25/19 Discharge Plan Patient Name: NAYELI BLAS Facility: [facility]:[place] : 1970 Planned Disposition: Longterm Facility Anticipated Discharge Date: 05/17/19 Discharge Date: Expected LOS: 2 Initial Reviewer: [id number] Initial Review Date: 05/15/2019 Generated: 07/25/19 2:14 pm Comments DCP- Discharge Planning Updated by [id number]: Adriana Hendricks on 07/25/19 12:[address] NIKI FROM [facility] WILL CALL ME WHEN THE SOCIAL WORK SUPERVISOR IS ON HIS WAY TO DELIVER BED DCP- Discharge Planning Updated by [email or web address]: Adriana Hendricks on 07/25/19 11:[address] SPOKE WITH DR ELLER OFFICE, THEY HAVE THE FAX. WAITING FOR A SIGNATURE AND THEN THEY WILL FAX BACK TO ME. CM TO FOLLOW AND ASSIST DCP- Discharge Planning Updated by [email or web address]: Adriana Hendricks on 07/24/19 2:36 pm SONYA HENRY WITH [facility] CALLED AND STATED THAT DR ANDERSON HAD NOT SIGNED THE ORDER YET, BENJAMÍN WITH [facility] WENT TO HIS OFFICE FOR HIM TO SIGN AND HE WOULD NOT SIGN IT BECAUSE HE DOES NOT TAKE LUIS AND HE HAS NOT SEEN THE PATIENT IN OVER 6 MONTHS. CALLED NATHEN WITH THE ABOVE. DR ELLER WILL TAKE PATIENT ON, CALLED THE LUIS LINE TO CHANGE MD IN SYSTEM, PERMISSION WAS GIVEN TO ME TO TALK TO THEM VIA SPEAKER PHONE. CALL DR ELLER OFFICE AND THE PERSON WHO CAN OPEN UP LUIS SLOTS IS NOT THERE TODAY. CALLED NATHEN AND LET HIM KNOW THAT, HE STATED THAT SOMEONE FROM HIS OFFICE WILL TAKE CARE OF IT. I CALLED NIKI WITH DME TO LET HER KNOW AND SHE STATED THAT SHE WILL RE RUN IT IN 30 MINUTES/ CM WILL CONTINUE TO FOLLOW AND ASSIST DCP- Discharge Planning Updated by [email or web address]: Rae Singh on 07/23/19 9:[address] NATHEN ASK ABOUT THE STATUS OF THE PATIENT'S BED. NO ADDITIONAL INFOMATION RECIEVED FROM DR DUNCAN OFFICE OR [facility]. CM WILL FOLLOW UP ON WEDNESDAY. DCP- Discharge Planning Updated by [id number]: Adriana Hendricks on 07/21/19 9:[address] Called Niki at [facility] to check status of bed, she stated that the order must be signed by the PCP on file, Which is Zeus Anderson. I called Dr Duncan office and the person I spoke with stated she would tell the nurse. CM will continue to follow DCP- Discharge Planning Updated by [email or web address]: Adriana Hendricks on 07/19/19 10:[address] I HAVE SENT THE HOSPITAL BED ORDER TO [facility], I SPOKE WITH NIKI AND SHE WILL START THE PRE AUTH FOR THE DME DCP- Discharge Planning Updated by [id number]: Adriana Hendricks on 07/19/19 10:[address] AND PATIENT DO NOT CARE WHAT HOME HEALTH OR DME IS USED. REFERRAL SENT TO [facility] TO SEE IF THEY CAN ACCEPT. DCP- Discharge Planning Updated by [email or web address]: Adriana Hendricks on 07/19/19 8:[address] Angelique Apodaca APN loading unit tool setter and I were in the patient this AM to speak with them about discharge plans and care. now states that her home is safe for him, but she will have to wait till this weekend for help to come to move stuff around to get the DME in the home. I will start on trying to get the DME. CM will continue to follow and assist with dc planning DCP- Discharge Planning Updated by [id number]: Adriana Hendricks on 07/18/19 3:[address] Spoke with and patient about what the plan of care that was discussed with me this AM by JOSH Apodaca. The stated that it is not safe for him to go to their current home & they were going to get a trailer from their parents to fix up, but that has not been started. I explained to them in the mean time that he is stable for discharge and both patient and got irate with me. I explained to him that he would need 24/7 care and if her home is unsafe, that he would be discharged back to [facility]. They then started to tell me about his leg and the ortho wanted to do an AKA, but they did not want that to be done. They want to talk to Jae. I spoke with Nathen and he stated that he will have Dr Carranza to make rounds with him in the morning. The patient cussed me and yelled at me. I explained to him that Dr Carranza would be here in the morning as Nathen said. CM will continue to follow and assist with dc planning. DCP- Discharge Planning Updated by [id number]: Adriana Hendricks on 07/06/19 1:[address] [facility] have declined the patient. DCP- Discharge Planning Updated by [id number]: Adriana Hendricks on 07/05/19 1:[address] Spoke with at length today about dc planning. I explained to her that his insurance with skilled benefits is not longer active and that with LUIS he does not have skilled benefits. She stated she was unsure if he would go back there when discharged. She stated that they live by the [facility] and she was not as happy with his care there. He is not strong enough to go home. I told her that I would ask if there is a restorative program that a facility closer would be able to offer. She also stated that her cousin applied for a isamar for help, I encouraged her to look into it and possibly apply if she could. The patient was in ALOT of pain lying there and did not want to discuss ANYTHING at this time. She asked to give her some time to talk to him and she would get back with me. CM will continue to follow and assist with DC planning. I did reach out [facility] to see if therapy would be an option and she stated to send referral and they would take a look at it. DCP- Discharge Planning Updated by [id number]: Adriana Hendricks on 07/04/19 12:[address] called spoke with Baron at [facility] to let her know that patient may be discharged back to her tomorrow. Updated clinical sent DCP- Discharge Planning Updated by [id number]: Adriana Hendricks on 06/30/19 11:[address] Carranza today about dc plan and to let him know that the patient does not have Ltach benefits. He stated that his WBC needs to be 1.5 to 2 before he would dc him. CM will continue to follow DCP- Discharge Planning Updated by [id number]: Adriana Hendricks on 06/21/19 8:[address] CALLED AND SPOKE WITH AND SHE IS UNSURE OF HIS PLAN, SHE STATED THAT HE DID NOT FINISH HIS REHAB OR HAS GOTTEN HIS PROSTHETIC. I AM UNSURE IN HIS CONDITION IF HE WILL NE ABLE TO PARTICIPATE IN REHAB AT THIS POINT. I WILL VISIT WITH HER WHEN SHE ARRIVES TO THE HOSPITAL DCP- Discharge Planning Updated by [id number]: Adriana Hendricks on 06/12/19 2:[address] Spoke with patient to about his discharge plan, he was unsure if he would go back to [facility]. He stated that his home is not set up for a wheelchair and he is not ambulatory. He asked if I would come back to [place] and speak with him. CM to follow and assist with dc planning DCP- Discharge Planning Updated by [id number]: Krista Scales on 05/22/19 2:[address] Received a call from Nathen Fraser that he would like the patient transferred to [facility] to his oncologist. I went to patient's room to inquire about his oncologists name and he asks why. I informed him that Nathen had called and would like to have him transferred to [facility] to his oncology team there. He states "the hell you are." His states that no one has talked to him about transfer and it is his decision if he wants to transfer or go home. I told him I agreed, that it is his choice to make and he would not be transferred without his consent. His states she is going home and will be back at 5PM tonight to speak with Nathen. I called Nathen and informed that I did not call transfer team and what the patient said. He will be here tonight at 5 to speak with the patient and . CM will continue to follow and assist with discharge planning/needs. DCP- Discharge Planning Updated by [email or web address]: Mar Silva on 05/15/19 6:[address] Patient Name: NAYELI BLAS Admission Status: ER Accout number: [id number] Admission Date: 05-15-2019 : 1970 Admission Diagnosis: Attending: KALEIGH CARRANZA Current LOS: 1 Anticipated DC Date: 05-17-2019 Planned Disposition: Longterm Facility Primary Insurance: MEDICAID [place] Discharge Planning Comments: CM met with patient's , Mikey to complete initial dc planning assessment. CM educated Mikey on the CM role and verbal consent given by Mikey to complete assessment. Patient is currently in rehab @ [facility]. At discharge patient plans to return to [facility] and Mikey feels this is a safe discharge. [facility] form signed by Mikey for the patine to return to [facility] at [place]. Signed form placed in chart and signed form given to Mikey. She denied further known discharge needs at this time. CM will continue to follow and will assist as needed with dc plans/needs. Caterer Helper: Mar Silva RN, [facility] DCPIA - Discharge Planning Initial Assessment Updated by [email or web address]: Mar Silva on 05/15/19 7:30 pm * Is the patient Alert and Oriented? Yes * How many steps to enter\\exit or inside your home? * PCP Dr. Carranza * [facility] * Preadmission Environment Longterm Facility * Facility Name [facility] * ADLs Partial Dependent * Partial ADLs (Assistance needed) Ambulation Bathing Dressing Medication Management Transfers * Other Equipment No equipment at home. Uses from [facility]. * List name and contact numbers for known caregivers / representatives who currently or will assist patient after discharge: Mikey Blas - - C)[phone] or ([phone] * Verbal permission to speak to the caregivers and representatives has been obtained from the patient. Yes * Community resources currently utilized None * Additional services required to return to the preadmission environment? No * Can the patient safely return to the preadmission environment? Yes * Has this patient been hospitalized within the prior 30 days at any hospital? No Coverage Notice Reviewer: [id number] Tahir Hendricks Notice Issued Date-Time: 07/19/2019 9:40 Notice Type: Patient Choice Letter Notice Delivered To: Family Member Relationship to Patient: Spouse In School Suspension Aide Name: MIKEY Delivery Method: HAND - Hand Delivered Cordelia Days: Prior Verbal Notification: Recipient Understood Notice: Yes Recipient Signature: Yes Med Rec Note Co-signed by Attending: Coverage Notice Comment: [facility] DO NOT HAVE A PREFERENCE Last DP export: 07/25/19 11:14 a Patient Name: NAYELI BLAS Page [id number] at 1314 All edits/amendments must be made on the electronic document DICTATION DATE: 07/25/191312 FURNACE UNLOADER: ARACELI 07/25/19 1313 RPT#: [id number] DC DATE: STATUS: ADM IN [facility] [address] [place] [address] END OF REPORT
[2019-07-25 13:30] VITALS: BP 121/73
--- NOTE | 2019-07-25 15:34 | MORECARE ---
CASE MANAGEMENT DISCHARGE SUMMARY PATIENT: NAYELI BLAS UNIT: [id number] ADM DATE: 05/15/19 AGE: 49 : 68 SEX: M ROOM/BED: D.2216 AUTHOR: YARADOC PHYSICIAN: REFERRING PHYSICIAN: KALEIGH CARRANZA MD DATE OF SERVICE: 07/25/19 Discharge Plan Patient Name: NAYELI BLAS Facility: [facility]:[place] : 1970 Planned Disposition: Senior Care Facility Anticipated Discharge Date: 05/17/19 Discharge Date: Expected LOS: 2 Initial Reviewer: [id number] Initial Review Date: 05/15/2019 Generated: 07/25/19 4:33 pm Comments DCP- Discharge Planning Updated by [id number]: Adriana Hendricks on 07/25/19 12:10 pm SONYA HENRY FROM [facility] WILL CALL ME WHEN THE PAPER PRODUCTS INSPECTOR IS ON HIS WAY TO DELIVER BED DCP- Discharge Planning Updated by [id number]: Adriana Hendricks on 07/25/19 11:[address]PO[address] ELLER OFFICE, THEY HAVE THE FAX. WAITING FOR A SIGNATURE AND THEN THEY WILL FAX BACK TO ME. CM TO FOLLOW AND ASSIST DCP- Discharge Planning Updated by [id number]: Adriana Hendricks on 07/24/19 2:36 pm SONYA HENRY WITH [facility] CALLED AND STATED THAT DR ANDERSON HAD NOT SIGNED THE ORDER YET, BENJAMÍN WITH [facility] WENT TO HIS OFFICE FOR HIM TO SIGN AND HE WOULD NOT SIGN IT BECAUSE HE DOES NOT TAKE LUIS AND HE HAS NOT SEEN THE PATIENT IN OVER 6 MONTHS. CALLED NATHEN WITH THE ABOVE. DR ELLER WILL TAKE PATIENT ON, CALLED THE LUIS LINE TO CHANGE MD IN SYSTEM, PERMISSION WAS GIVEN TO ME TO TALK TO THEM VIA SPEAKER PHONE. CALL DR ELLER OFFICE AND THE PERSON WHO CAN OPEN UP LUIS SLOTS IS NOT THERE TODAY. CALLED NATHEN AND LET HIM KNOW THAT, HE STATED THAT SOMEONE FROM HIS OFFICE WILL TAKE CARE OF IT. I CALLED NIKI WITH DME TO LET HER KNOW AND SHE STATED THAT SHE WILL RE RUN IT IN 30 MINUTES/ CM WILL CONTINUE TO FOLLOW AND ASSIST DCP- Discharge Planning Updated by [id number]: Rae Singh on 07/23/19 9:[address] NATHEN ASK ABOUT THE STATUS OF THE PATIENT'S BED. NO ADDITIONAL INFOMATION RECIEVED FROM DR DUNCAN OFFICE OR [facility]. CM WILL FOLLOW UP ON WEDNESDAY. DCP- Discharge Planning Updated by [id number]: Adriana Hendricks on 07/21/19 9:[address] Called Niki at [facility] to check status of bed, she stated that the order must be signed by the PCP on file, Which is Zeus Anderson. I called Dr Duncan office and the person I spoke with stated she would tell the nurse. CM will continue to follow DCP- Discharge Planning Updated by [id number]: Adriana Hendricks on 07/19/19 10:[address] I HAVE SENT THE HOSPITAL BED ORDER TO [facility], I SPOKE WITH NIKI AND SHE WILL START THE PRE AUTH FOR THE DME DCP- Discharge Planning Updated by [id number]: Adriana Hendricks on 07/19/19 10:[address] AND PATIENT DO NOT CARE WHAT HOME HEALTH OR DME IS USED. REFERRAL SENT TO [facility] TO SEE IF THEY CAN ACCEPT. DCP- Discharge Planning Updated by [id number]: Adriana Hendricks on 07/19/19 8:[address] Angelique Apodaca APN community midwife and I were in the patient this AM to speak with them about discharge plans and care. now states that her home is safe for him, but she will have to wait till this weekend for help to come to move stuff around to get the DME in the home. I will start on trying to get the DME. CM will continue to follow and assist with dc planning DCP- Discharge Planning Updated by [id number]: Adriana Hendricks on 07/18/19 3:[address] Spoke with and patient about what the plan of care that was discussed with me this AM by JOSH Apodaca. The stated that it is not safe for him to go to their current home & they were going to get a trailer from their parents to fix up, but that has not been started. I explained to them in the mean time that he is stable for discharge and both patient and got irate with me. I explained to him that he would need 24/7 care and if her home is unsafe, that he would be discharged back to [facility]. They then started to tell me about his leg and the ortho wanted to do an AKA, but they did not want that to be done. They want to talk to Jae. I spoke with Nathen and he stated that he will have Dr Carranza to make rounds with him in the morning. The patient cussed me and yelled at me. I explained to him that Dr Carranza would be here in the morning as Nathen said. CM will continue to follow and assist with dc planning. DCP- Discharge Planning Updated by [id number]: Adriana Hendricks on 07/06/19 1:[address] [facility] have declined the patient. DCP- Discharge Planning Updated by [id number]: Adriana Hendricks on 07/05/19 1:[address] Spoke with at length today about dc planning. I explained to her that his insurance with skilled benefits is not longer active and that with LUIS he does not have skilled benefits. She stated she was unsure if he would go back there when discharged. She stated that they live by the [facility] and she was not as happy with his care there. He is not strong enough to go home. I told her that I would ask if there is a restorative program that a facility closer would be able to offer. She also stated that her cousin applied for a isamar for help, I encouraged her to look into it and possibly apply if she could. The patient was in ALOT of pain lying there and did not want to discuss ANYTHING at this time. She asked to give her some time to talk to him and she would get back with me. CM will continue to follow and assist with DC planning. I did reach out [facility] to see if therapy would be an option and she stated to send referral and they would take a look at it. DCP- Discharge Planning Updated by [email or web address]: Adriana Hendricks on 07/04/19 12:[address] called spoke with Baron at [facility] to let her know that patient may be discharged back to her tomorrow. Updated clinical sent DCP- Discharge Planning Updated by [id number]: Adriana Hendricks on 06/30/19 11:[address] Carranza today about dc plan and to let him know that the patient does not have Ltach benefits. He stated that his WBC needs to be 1.5 to 2 before he would dc him. CM will continue to follow DCP- Discharge Planning Updated by [id number]: Adriana Hendricks on 06/21/19 8:[address] CALLED AND SPOKE WITH AND SHE IS UNSURE OF HIS PLAN, SHE STATED THAT HE DID NOT FINISH HIS REHAB OR HAS GOTTEN HIS PROSTHETIC. I AM UNSURE IN HIS CONDITION IF HE WILL NE ABLE TO PARTICIPATE IN REHAB AT THIS POINT. I WILL VISIT WITH HER WHEN SHE ARRIVES TO THE HOSPITAL DCP- Discharge Planning Updated by [id number]: Adriana Hendricks on 06/12/19 2:[address] Spoke with patient to about his discharge plan, he was unsure if he would go back to [facility]. He stated that his home is not set up for a wheelchair and he is not ambulatory. He asked if I would come back to [place] and speak with him. CM to follow and assist with dc planning DCP- Discharge Planning Updated by [id number]: Krista Scales on 05/22/19 2:[address] Received a call from Nathen Fraser that he would like the patient transferred to [facility] to his oncologist. I went to patient's room to inquire about his oncologists name and he asks why. I informed him that Nathen had called and would like to have him transferred to [facility] to his oncology team there. He states "the hell you are." His states that no one has talked to him about transfer and it is his decision if he wants to transfer or go home. I told him I agreed, that it is his choice to make and he would not be transferred without his consent. His states she is going home and will be back at 5PM tonight to speak with Nathen. I called Nathen and informed that I did not call transfer team and what the patient said. He will be here tonight at 5 to speak with the patient and . CM will continue to follow and assist with discharge planning/needs. DCP- Discharge Planning Updated by [email or web address]: Mar Silva on 05/15/19 6:[address] Patient Name: NAYELI BLAS Admission Status: ER Accout number: [id number] Admission Date: 05-15-2019 : 1970 Admission Diagnosis: Attending: KALEIGH CARRANZA Current LOS: 1 Anticipated DC Date: 05-17-2019 Planned Disposition: Senior Care Facility Primary Insurance: MEDICAID [place] Discharge Planning Comments: CM met with patient's , Mikey to complete initial dc planning assessment. CM educated Mikey on the CM role and verbal consent given by Mikey to complete assessment. Patient is currently in rehab @ [facility]. At discharge patient plans to return to [facility] and Mikey feels this is a safe discharge. [facility]ER[facility] form signed by Mikey for the patine to return to [facility] at [place]. Signed form placed in chart and signed form given to Mikey. She denied further known discharge needs at this time. CM will continue to follow and will assist as needed with dc plans/needs. Public Relations Senior Associate: Mar Silva RN, [facility] DCPIA - Discharge Planning Initial Assessment Updated by [email or web address]: Mar Silva on 05/15/19 7:30 pm * Is the patient Alert and Oriented? Yes * How many steps to enter\\exit or inside your home? * PCP Dr. Carranza * [facility] * Preadmission Environment Senior Care Facility * Facility Name [facility] * ADLs Partial Dependent * Partial ADLs (Assistance needed) Ambulation Bathing Dressing Medication Management Transfers * Other Equipment No equipment at home. Uses from [facility]. * List name and contact numbers for known caregivers / representatives who currently or will assist patient after discharge: Mikey Blas - - C)[phone] or (h)[phone] * Verbal permission to speak to the caregivers and representatives has been obtained from the patient. Yes * Community resources currently utilized None * Additional services required to return to the preadmission environment? No * Can the patient safely return to the preadmission environment? Yes * Has this patient been hospitalized within the prior 30 days at any hospital? No Coverage Notice Reviewer: [id number] Tahir Hendricks Notice Issued Date-Time: 07/19/2019 9:40 Notice Type: Patient Choice Letter Notice Delivered To: Family Member Relationship to Patient: Spouse Wellness Assistant Name: MIKEY Delivery Method: HAND - Hand Delivered Cordelia Days: Prior Verbal Notification: Recipient Understood Notice: Yes Recipient Signature: Yes Med Rec Note Co-signed by Attending: Coverage Notice Comment: [facility] DO NOT HAVE A PREFERENCE Last DP export: 07/25/19 12:14 p Patient Name: NAYELI BLAS Page [id number] at 1534 All edits/amendments must be made on the electronic document DICTATION DATE: 07/25/191532 PHOTOGRAPHER AERIAL: ARACELI 07/25/191532 RPT#: [id number] DC DATE: STATUS: ADM IN [facility] [address] [place] [address] END OF REPORT
--- NOTE | 2019-07-25 15:43 | MORECARE ---
CASE MANAGEMENT DISCHARGE SUMMARY PATIENT: NAYELI BLAS UNIT: [id number] ADM DATE: 05/15/19 AGE: 49 : [birth year] SEX: M ROOM/BED: D.2216 AUTHOR: YARA,DOC PHYSICIAN: REFERRING PHYSICIAN: KALEIGH CARRANZA MD DATE OF SERVICE: 07/25/19 Discharge Plan Patient Name: NAYELI BLAS Facility: [facility]:[place] : 1970 Planned Disposition: Senior Care Facility Anticipated Discharge Date: 05/17/19 Discharge Date: Expected LOS: 2 Initial Reviewer: [id number] Initial Review Date: 05/15/2019 Generated: 07/25/19 4:42 pm Comments DCP- Discharge Planning Updated by [id number]: Adriana Hendricks on 07/25/19 2:[address] HOSPITAL BED BEING DELIVERED TODAY, [facility] WILL SEE PATIENT TOMORROW. I HAVE GIVEN THE SUPPLIES TO START HER OUT WITH (GLOVES,BLUE PADS, DIAPERS) WILL BE HIS CLINICAL RESEARCH ASSISTANT. HE WILL BE DISCHARGING AND TRANSFERED VIA EMS. CM TO FOLLOW AND ASSIST NEEDED DCP- Discharge Planning Updated by [id number]: Adriana Hendricks on 07/25/19 12:[address] NIKI FROM [facility] WILL CALL ME WHEN THE WOOD SASH AND FRAME CARPENTER IS ON HIS WAY TO DELIVER BED DCP- Discharge Planning Updated by [id number]: Adriana Hendricks on 07/25/19 11:[address] SPOKE WITH DR ELLER OFFICE, THEY HAVE THE FAX. WAITING FOR A SIGNATURE AND THEN THEY WILL FAX BACK TO ME. CM TO FOLLOW AND ASSIST DCP- Discharge Planning Updated by [id number]: Adriana Hendricks on 07/24/19 2:[address] NIKI WITH [facility] CALLED AND STATED THAT DR ANDERSON HAD NOT SIGNED THE ORDER YET, BENJAMÍN WITH [facility] WENT TO HIS OFFICE FOR HIM TO SIGN AND HE WOULD NOT SIGN IT BECAUSE HE DOES NOT TAKE LUIS AND HE HAS NOT SEEN THE PATIENT IN OVER 6 MONTHS. CALLED NATHEN WITH THE ABOVE. DR ELLER WILL TAKE PATIENT ON, CALLED THE [facility] LINE TO CHANGE MD IN SYSTEM, PERMISSION WAS GIVEN TO ME TO TALK TO THEM VIA SPEAKER PHONE. CALL DR ELLER OFFICE AND THE PERSON WHO CAN OPEN UP LUIS SLOTS IS NOT THERE TODAY. CALLED NATHEN AND LET HIM KNOW THAT, HE STATED THAT SOMEONE FROM HIS OFFICE WILL TAKE CARE OF IT. I CALLED NIKI WITH DME TO LET HER KNOW AND SHE STATED THAT SHE WILL RE RUN IT IN 30 MINUTES/ CM WILL CONTINUE TO FOLLOW AND ASSIST DCP- Discharge Planning Updated by [id number]: Rae Singh on 07/23/19 9:[address] NATHEN ASK ABOUT THE STATUS OF THE PATIENT'S BED. NO ADDITIONAL INFOMATION RECIEVED FROM DR DUNCAN OFFICE OR [facility]. CM WILL FOLLOW UP ON WEDNESDAY. DCP- Discharge Planning Updated by [id number]: Adriana Hendricks on 07/21/19 9:[address] Called Niki at [facility] to check status of bed, she stated that the order must be signed by the PCP on file, Which is Zeus Anderson. I called Dr Duncan office and the person I spoke with stated she would tell the nurse. CM will continue to follow DCP- Discharge Planning Updated by [id number]: Adriana Hendricks on 07/19/19 10:[address] I HAVE SENT THE HOSPITAL BED ORDER TO [facility], I SPOKE WITH NIKI AND SHE WILL START THE PRE AUTH FOR THE DME DCP- Discharge Planning Updated by [id number]: Adriana Hendricks on 07/19/19 10:[address] AND PATIENT DO NOT CARE WHAT HOME HEALTH OR DME IS USED. REFERRAL SENT TO [facility] TO SEE IF THEY CAN ACCEPT. DCP- Discharge Planning Updated by [id number]: Adriana Hendricks on 07/19/19 8:[address] Angelique Apodaca APN united [place] marshal and I were in the patient this AM to speak with them about discharge plans and care. now states that her home is safe for him, but she will have to wait till this weekend for help to come to move stuff around to get the DME in the home. I will start on trying to get the DME. CM will continue to follow and assist with dc planning DCP- Discharge Planning Updated by [id number]: Adriana Hendricks on 07/18/19 3:[address] Spoke with and patient about what the plan of care that was discussed with me this AM by JOSH Apodaca. The stated that it is not safe for him to go to their current home & they were going to get a trailer from their parents to fix up, but that has not been started. I explained to them in the mean time that he is stable for discharge and both patient and got irate with me. I explained to him that he would need 24/7 care and if her home is unsafe, that he would be discharged back to [facility]. They then started to tell me about his leg and the ortho wanted to do an AKA, but they did not want that to be done. They want to talk to Jae. I spoke with Nathen and he stated that he will have Dr Carranza to make rounds with him in the morning. The patient cussed me and yelled at me. I explained to him that Dr Carranza would be here in the morning as Nathen said. CM will continue to follow and assist with dc planning. DCP- Discharge Planning Updated by [id number]: Adriana Hendricks on 07/06/19 1:[address] [facility] have declined the patient. DCP- Discharge Planning Updated by [id number]: Adriana Hendricks on 07/05/19 1:[address] Spoke with at length today about dc planning. I explained to her that his insurance with skilled benefits is not longer active and that with LUIS he does not have skilled benefits. She stated she was unsure if he would go back there when discharged. She stated that they live by the [facility] and she was not as happy with his care there. He is not strong enough to go home. I told her that I would ask if there is a restorative program that a facility closer would be able to offer. She also stated that her cousin applied for a isamar for help, I encouraged her to look into it and possibly apply if she could. The patient was in ALOT of pain lying there and did not want to discuss ANYTHING at this time. She asked to give her some time to talk to him and she would get back with me. CM will continue to follow and assist with DC planning. I did reach out [facility] to see if therapy would be an option and she stated to send referral and they would take a look at it. DCP- Discharge Planning Updated by [id number]: Adriana Hendricks on 07/04/19 12:[address] called spoke with Baron at [facility] to let her know that patient may be discharged back to her tomorrow. Updated clinical sent DCP- Discharge Planning Updated by [id number]: Adriana Hendricks on 06/30/19 11:[address] Carranza today about dc plan and to let him know that the patient does not have Ltach benefits. He stated that his WBC needs to be 1.5 to 2 before he would dc him. CM will continue to follow DCP- Discharge Planning Updated by [id number]: Adriana Hendricks on 06/21/19 8:[address] CALLED AND SPOKE WITH AND SHE IS UNSURE OF HIS PLAN, SHE STATED THAT HE DID NOT FINISH HIS REHAB OR HAS GOTTEN HIS PROSTHETIC. I AM UNSURE IN HIS CONDITION IF HE WILL NE ABLE TO PARTICIPATE IN REHAB AT THIS POINT. I WILL VISIT WITH HER WHEN SHE ARRIVES TO THE HOSPITAL DCP- Discharge Planning Updated by [id number]: Adriana Hendricks on 06/12/19 2:[address] Spoke with patient to about his discharge plan, he was unsure if he would go back to [facility]. He stated that his home is not set up for a wheelchair and he is not ambulatory. He asked if I would come back to [place] and speak with him. CM to follow and assist with dc planning DCP- Discharge Planning Updated by [id number]: Krista Yordy on 05/22/19 2:[address] Received a call from Nathen Fraser that he would like the patient transferred to [facility] to his oncologist. I went to patient's room to inquire about his oncologists name and he asks why. I informed him that Nathen had called and would like to have him transferred to [facility] to his oncology team there. He states "the hell you are." His states that no one has talked to him about transfer and it is his decision if he wants to transfer or go home. I told him I agreed, that it is his choice to make and he would not be transferred without his consent. His states she is going home and will be back at 5PM tonight to speak with Nathen. I called Nathen and informed that I did not call transfer team and what the patient said. He will be here tonight at 5 to speak with the patient and . CM will continue to follow and assist with discharge planning/needs. DCP- Discharge Planning Updated by [id number]: Mar Silva on 05/15/19 6:[address] Patient Name: NAYELI BLAS Admission Status: ER Accout number: [id number] Admission Date: 05-15-2019 : 1970 Admission Diagnosis: Attending: KALEIGH CARRANZA Current LOS: 1 Anticipated DC Date: 05-17-2019 Planned Disposition: Senior Care Facility Primary Insurance: MEDICAID [place] Discharge Planning Comments: CM met with patient's , Mikey to complete initial dc planning assessment. CM educated Mikey on the CM role and verbal consent given by Mikey to complete assessment. Patient is currently in rehab @ [facility]. At discharge patient plans to return to [facility] and Mikey feels this is a safe discharge. [facility] form signed by Mikey for the patine to return to [facility] [place]. Signed form placed in chart and signed form given to Mikey. She denied further known discharge needs at this time. CM will continue to follow and will assist as needed with dc plans/needs. Filler Mixer: Mar Silva RN, [facility] DCPIA - Discharge Planning Initial Assessment Updated by [email or web address]: Mar Silva on 05/15/19 7:30 pm * Is the patient Alert and Oriented? Yes * How many steps to enter\\exit or inside your home? * PCP Dr. Carranza * [facility] * Preadmission Environment Senior Care Facility * Facility Name [facility] * ADLs Partial Dependent * Partial ADLs (Assistance needed) Ambulation Bathing Dressing Medication Management Transfers * Other Equipment No equipment at home. Uses from [facility]. * List name and contact numbers for known caregivers / representatives who currently or will assist patient after discharge: Mikey Blas - - [phone] or (H)[phone] * Verbal permission to speak to the caregivers and representatives has been obtained from the patient. Yes * Community resources currently utilized None * Additional services required to return to the preadmission environment? No * Can the patient safely return to the preadmission environment? Yes * Has this patient been hospitalized within the prior 30 days at any hospital? No Coverage Notice Reviewer: [id number] Tahir Hendricks Notice Issued Date-Time: 07/19/2019 9:40 Notice Type: Patient Choice Letter Notice Delivered To: Family Member Relationship to Patient: Spouse Research Test Engine Operator Name: MIKEY Delivery Method: HAND - Hand Delivered Cordelia Days: Prior Verbal Notification: Recipient Understood Notice: Yes Recipient Signature: Yes Med Rec Note Co-signed by Attending: Coverage Notice Comment: [facility] HOME HEALTH AND DME DO NOT HAVE A PREFERENCE Last DP export: 07/25/19 2:33 p Patient Name: NAYELI BLAS Page [id number] at 1543 All edits/amendments must be made on the electronic document DICTATION DATE: 07/25/191541 ACCOUNT SUPPORT ANALYST: ARACELI 07/25/191541 RPT#: [id number] DC DATE: STATUS: ADM IN [facility] [address] [place] [address] END OF REPORT
[2019-07-25] MEDS ORDERED: DILAUDID2 MG PO (16:12)
[2019-07-25] MEDS ORDERED: DURAGESIC1 PATCH .2 TRANSDERM (16:14)
[2019-07-25] MEDS ORDERED: ELIQUIS2.5 MG PO (16:15)
--- NOTE | 2019-07-25 18:51 | NUR ---
PT DISCHARGING HOME VIA AMBULANCE. WENT OVER DISCHARGE INSTRUCTIONS WITH PT, PT VERBALIZED UNDERSTANDING. DRESSING TO [employer] CHANGED. CLEANED RIGHT AMPUTATION SITE. PT DENIES ANY NEEDS.
--- NOTE | 2019-07-25 18:55 | NUR ---
I have reviewed this patient and I concur with the Shift Assessment completed by the Licensed Practical Nurse today this shift.
--- NOTE | 2019-07-25 19:25 | NUR ---
REPORT GIVEN TO LIFENET. PRESCRIPTIONS GIVEN TO SPOUSE. DISCHARGE PAPERWORK SIGNED. PT TAKEN BY STRETCHER TO AMBULANCE WITHOUT DIFFICULTY
--- NOTE | 2019-07-27 13:52 | MORECARE ---
CASE MANAGEMENT DISCHARGE SUMMARY PATIENT: NAYELI BLAS UNIT: [id number] ADM DATE: 05/15/19 AGE: 49 : 68 SEX: M ROOM/BED: D.2216 AUTHOR: SAVANAH LIVINGSTON PHYSICIAN: REFERRING PHYSICIAN: KALEIGH CARRANZA MD DATE OF SERVICE: 07/27/19 Discharge Plan Patient Name: NAYELI BLAS Facility: [facility]:[place] : 1970 Planned Disposition: Halfway Facility Anticipated Discharge Date: 05/17/19 Discharge Date: 07/25/2019 Expected LOS: 2 Initial Reviewer: [email or web address] Initial Review Date: 05/15/2019 Generated: 07/27/19 2:51 pm Comments DCP- Discharge Planning Updated by [id number]: Adriana Hendricks on 07/25/19 2:[address] HOSPITAL BED BEING DELIVERED TODAY, [facility] WILL SEE PATIENT TOMORROW. I HAVE GIVEN THE SUPPLIES TO START HER OUT WITH (GLOVES,BLUE PADS, DIAPERS) WILL BE HIS CAR DRYER. HE WILL BE DISCHARGING AND TRANSFERED VIA EMS. CM TO FOLLOW AND ASSIST NEEDED DCP- Discharge Planning Updated by [id number]: Adriana Hendricks on 07/25/19 12:10 pm SONYA HENRY FROM [facility] WILL CALL ME WHEN THE FLY WORKER IS ON HIS WAY TO DELIVER BED DCP- Discharge Planning Updated by [id number]: Adriana Hendricks on 07/25/19 11:[address]POKE WITH DR ELLER OFFICE, THEY HAVE THE FAX. WAITING FOR A SIGNATURE AND THEN THEY WILL FAX BACK TO ME. CM TO FOLLOW AND ASSIST DCP- Discharge Planning Updated by [id number]: Adriana Hendricks on 07/24/19 2:36 pm SONYA HENRY WITH [facility] CALLED AND STATED THAT DR ANDERSON HAD NOT SIGNED THE ORDER YET, BENJAMÍN WITH [facility] WENT TO HIS OFFICE FOR HIM TO SIGN AND HE WOULD NOT SIGN IT BECAUSE HE DOES NOT TAKE LUIS AND HE HAS NOT SEEN THE PATIENT IN OVER 6 MONTHS. CALLED NATHEN WITH THE ABOVE. DR ELLER WILL TAKE PATIENT ON, CALLED THE [facility] LINE TO CHANGE MD IN SYSTEM, PERMISSION WAS GIVEN TO ME TO TALK TO THEM VIA SPEAKER PHONE. CALL DR ELLER OFFICE AND THE PERSON WHO CAN OPEN UP LUIS SLOTS IS NOT THERE TODAY. CALLED NATHEN AND LET HIM KNOW THAT, HE STATED THAT SOMEONE FROM HIS OFFICE WILL TAKE CARE OF IT. I CALLED NIKI WITH DME TO LET HER KNOW AND SHE STATED THAT SHE WILL RE RUN IT IN 30 MINUTES/ CM WILL CONTINUE TO FOLLOW AND ASSIST DCP- Discharge Planning Updated by [id number]: Rae Singh on 07/23/19 9:[address] NATHEN ASK ABOUT THE STATUS OF THE PATIENT'S BED. NO ADDITIONAL INFOMATION RECIEVED FROM DR DUNCAN OFFICE OR [facility]. CM WILL FOLLOW UP ON WEDNESDAY. DCP- Discharge Planning Updated by [id number]: Adriana Hendricks on 07/21/19 9:[address] Called Niki at [facility] to check status of bed, she stated that the order must be signed by the PCP on file, Which is Zeus Anderson. I called Dr Duncan office and the person I spoke with stated she would tell the nurse. CM will continue to follow DCP- Discharge Planning Updated by [id number]: Adriana Hendricks on 07/19/19 10:[address] I HAVE SENT THE HOSPITAL BED ORDER TO [facility], I SPOKE WITH NIKI AND SHE WILL START THE PRE AUTH FOR THE DME DCP- Discharge Planning Updated by [id number]: Adriana Hendricks on 07/19/19 10:[address] AND PATIENT DO NOT CARE WHAT HOME HEALTH OR DME IS USED. REFERRAL SENT TO CARE TO SEE IF THEY CAN ACCEPT. DCP- Discharge Planning Updated by [id number]: Adriana Hendricks on 07/19/19 8:[address] Angelique Apodaca APN head gauge unit operator and I were in the patient this AM to speak with them about discharge plans and care. now states that her home is safe for him, but she will have to wait till this weekend for help to come to move stuff around to get the DME in the home. I will start on trying to get the DME. CM will continue to follow and assist with dc planning DCP- Discharge Planning Updated by [id number]: Adriana Hendricks on 07/18/19 3:[address] Spoke with and patient about what the plan of care that was discussed with me this AM by JOSH Apodaca. The stated that it is not safe for him to go to their current home & they were going to get a trailer from their parents to fix up, but that has not been started. I explained to them in the mean time that he is stable for discharge and both patient and got irate with me. I explained to him that he would need 24/7 care and if her home is unsafe, that he would be discharged back to [facility]. They then started to tell me about his leg and the ortho wanted to do an AKA, but they did not want that to be done. They want to talk to Jae. I spoke with Nathen and he stated that he will have Dr Carranza to make rounds with him in the morning. The patient cussed me and yelled at me. I explained to him that Dr Carranza would be here in the morning as Nathen said. CM will continue to follow and assist with dc planning. DCP- Discharge Planning Updated by [id number]: Adriana Hendricks on 07/06/19 1:[address] [facility] have declined the patient. DCP- Discharge Planning Updated by [id number]: Adriana Hendricks on 07/05/19 1:[address] Spoke with at length today about dc planning. I explained to her that his insurance with skilled benefits is not longer active and that with LUIS he does not have skilled benefits. She stated she was unsure if he would go back there when discharged. She stated that they live by the [facility] and she was not as happy with his care there. He is not strong enough to go home. I told her that I would ask if there is a restorative program that a facility closer would be able to offer. She also stated that her cousin applied for a isamar for help, I encouraged her to look into it and possibly apply if she could. The patient was in ALOT of pain lying there and did not want to discuss ANYTHING at this time. She asked to give her some time to talk to him and she would get back with me. CM will continue to follow and assist with DC planning. I did reach out [facility] to see if therapy would be an option and she stated to send referral and they would take a look at it. DCP- Discharge Planning Updated by [id number]: Adriana Hendricks on 07/04/19 12:[address] called spoke with Baron at [facility] to let her know that patient may be discharged back to her tomorrow. Updated clinical sent DCP- Discharge Planning Updated by [id number]: Adriana Hendricks on 06/30/19 11:[address] Carranza today about dc plan and to let him know that the patient does not have Ltach benefits. He stated that his WBC needs to be 1.5 to 2 before he would dc him. CM will continue to follow DCP- Discharge Planning Updated by [id number]: Adriana Hendricks on 06/21/19 8:[address] CALLED AND SPOKE WITH AND SHE IS UNSURE OF HIS PLAN, SHE STATED THAT HE DID NOT FINISH HIS REHAB OR HAS GOTTEN HIS PROSTHETIC. I AM UNSURE IN HIS CONDITION IF HE WILL NE ABLE TO PARTICIPATE IN REHAB AT THIS POINT. I WILL VISIT WITH HER WHEN SHE ARRIVES TO THE HOSPITAL DCP- Discharge Planning Updated by [id number]: Adriana Hendricks on 06/12/19 2:[address] Spoke with patient to about his discharge plan, he was unsure if he would go back to [facility]. He stated that his home is not set up for a wheelchair and he is not ambulatory. He asked if I would come back to [place] and speak with him. CM to follow and assist with dc planning DCP- Discharge Planning Updated by [id number]: Kristamonster Scales on 05/22/19 2:[address] Received a call from Nathen Fraser that he would like the patient transferred to [facility] to his oncologist. I went to patient's room to inquire about his oncologists name and he asks why. I informed him that Nathen had called and would like to have him transferred to [facility] to his oncology team there. He states "the hell you are." His states that no one has talked to him about transfer and it is his decision if he wants to transfer or go home. I told him I agreed, that it is his choice to make and he would not be transferred without his consent. His states she is going home and will be back at 5PM tonight to speak with Nathen. I called Nathen and informed that I did not call transfer team and what the patient said. He will be here tonight at 5 to speak with the patient and . CM will continue to follow and assist with discharge planning/needs. DCP- Discharge Planning Updated by [email or web address]: Mar Silva on 05/15/19 6:[address] Patient Name: NAYELI BLAS Admission Status: ER Accout number: [id number] Admission Date: 05-15-2019 : 1970 Admission Diagnosis: Attending: KALEIGH CARRANZA Current LOS: 1 Anticipated DC Date: 05-17-2019 Planned Disposition: Halfway Facility Primary Insurance: MEDICAID [place] Discharge Planning Comments: CM met with patient's , Mikey to complete initial dc planning assessment. CM educated Mikey on the CM role and verbal consent given by Mikey to complete assessment. Patient is currently in rehab @ [facility]. At discharge patient plans to return to [facility] and Mikey feels this is a safe discharge. [facility] form signed by Mikey for the patine to return to [facility] [place]. Signed form placed in chart and signed form given to Mikey. She denied further known discharge needs at this time. CM will continue to follow and will assist as needed with dc plans/needs. Creative Engagement Director: Mar Silva RN, [facility] DCPIA - Discharge Planning Initial Assessment Updated by [id number]: Mar Silva on 05/15/19 7:30 pm * Is the patient Alert and Oriented? Yes * How many steps to enter\\exit or inside your home? * PCP Dr. Carranza * [facility] * Preadmission Environment Halfway Facility * Facility Name [facility] * ADLs Partial Dependent * Partial ADLs (Assistance needed) Ambulation Bathing Dressing Medication Management Transfers * Other Equipment No equipment at home. Uses from [facility]. * List name and contact numbers for known caregivers / representatives who currently or will assist patient after discharge: Mikey Blas - - [phone] or (H)[phone] * Verbal permission to speak to the caregivers and representatives has been obtained from the patient. Yes * Community resources currently utilized None * Additional services required to return to the preadmission environment? No * Can the patient safely return to the preadmission environment? Yes * Has this patient been hospitalized within the prior 30 days at any hospital? No Coverage Notice Reviewer: [id number] Tahir Hendricks Notice Issued Date-Time: 07/19/2019 9:40 Notice Type: Patient Choice Letter Notice Delivered To: Family Member Relationship to Patient: Spouse Cutter And Presser Name: MIKEY Delivery Method: HAND - Hand Delivered Cordelia Days: Prior Verbal Notification: Recipient Understood Notice: Yes Recipient Signature: Yes Med Rec Note Co-signed by Attending: Coverage Notice Comment: [facility] DO NOT HAVE A PREFERENCE Last DP export: 07/25/19 2:43 p Patient Name: NAYELI BLAS Page [id number] at 1352 All edits/amendments must be made on the electronic document DICTATION DATE: 07/27/19 1351 SUPERVISOR CELLARS: ARACELI 07/27/19 1351 RPT#: [id number] DC DATE:07/25/19 STATUS: DIS IN [facility] [address] [place] [address] END OF REPORT
== END 2019-07-25 19:35 | disposition home or self-care (01) | DRG 834 ==
LOC: D.ER 15:04 → D.MS 17:32
PROVIDERS: Emergency Medicine; Family Medicine; General Practice; Radiology Vascular & Interventional Radiology; Specialist; ADMIT Legal Medicine; ATTEND Legal Medicine
PROC: 02PYX3Z Removal of Infusion Device from Great Vessel, External Approach (ICD-10-PCS; principal; 2019-05-16)
PROC: 07DR3ZX Extraction of Iliac Bone Marrow, Percutaneous Approach, Diagnostic (ICD-10-PCS; 2019-05-19)
PROC: 05HM33Z Insertion of Infusion Device into Right Internal Jugular Vein, Percutaneous Approach (ICD-10-PCS; 2019-06-04)
PROC: 07DR3ZX Extraction of Iliac Bone Marrow, Percutaneous Approach, Diagnostic (ICD-10-PCS; 2019-06-15)
PROC: 07DR3ZX Extraction of Iliac Bone Marrow, Percutaneous Approach, Diagnostic (ICD-10-PCS; 2019-07-12)
DX: C92.00 Acute myeloblastic leukemia, not having achieved remission (principal); A41.9 Sepsis, unspecified organism; E43 Unspecified severe protein-calorie malnutrition; T82.868A Thrombosis due to vascular prosthetic devices, implants and grafts, initial encounter; I82.622 Acute embolism and thrombosis of deep veins of left upper extremity; N39.0 Urinary tract infection, site not specified; D64.9 Anemia, unspecified; D69.6 Thrombocytopenia, unspecified; Z68.22 Body mass index [BMI] 22.0-22.9, adult

== ENCOUNTER 2019-08-04 19:41 | Emergency (ER) | payer MEDICAID ==
[~2019-08-04] VITALS: Ht 177.8 cm; Wt 77.3 kg
[~2019-08-04 19:41] MED LIST: ALBUTEROL SULF8.5 GM INH; ATROVENT HFA12.9 GM INH; DILAUDID2 MG PO; DURAGESIC1 PATCH .2 TRANSDERM; ELIQUIS2.5 MG PO; HYDROCODON-ACE1 EA10 PO; IMODIUM2 MG PO; KLONOPIN0.5 MG PO; LANTUS INSULIN10 ML SC; LIPITOR20 MG PO; MELATONIN 3 MG1 TAB PO; NEURONTIN 300300 MG PO; NEXIUM40 MG PO; NORVASC10 MG PO; REMERON15 MG PO; TRAZODONE HCL150 MG PO; ULTRAM50 MG PO; ZOFRAN4 MG PO; ZOVIRAX400 MG PO
[2019-08-04 19:43] VITALS: Ht 177.8 cm; Wt 77.3 kg
[2019-08-04 23:34] VITALS: BP 104/71
== END 2019-08-04 23:34 | disposition home or self-care (01) ==
LOC: D.ER 19:41
DX: K94.23 Gastrostomy malfunction (principal)